=== PATIENT | female | born 1940 | race Caucasian/White ===

== ENCOUNTER 2018-05-27 11:04 | Inpatient (IN) | payer MEDICARE, BC, SELFPAY ==
[2018-05-27] VITALS (20 sets, daily range): BP systolic 68–158; BP diastolic 38–70; PULSE 63–77; RESP 15–20; TEMP 36.5–36.8; O2SAT 97–100; BMI 40.2; BMI 40.9
--- NOTE | 2018-05-27 11:30 | NURSING ---
NO LW OR POA
--- NOTE | 2018-05-27 11:32 | EKG12_ITS ---
Test Reason : GI BLEED Blood Pressure : / mmHG Vent. Rate : 072 BPM Atrial Rate : 072 BPM P-R Int : 150 ms QRS Dur : 086 ms QT Int : 388 ms P-R-T Axes : 034 -01 003 degrees QTc Int : 424 ms Normal sinus rhythm Normal ECG Confirmed by ADALI WANG, JOSHUA ([id number]), movie editor MJ ARAGON ([id number] on 05/29/2018 1:38:37 PM Referred By: HELLEN Confirmed By:JOSHUA BRO MD
--- NOTE | 2018-05-27 11:43 | NURSING ---
NO OLD EKGS
[2018-05-27] MEDS: 0.9% Normal Saline 1,000 ML 125 ML IV (11:57)
[2018-05-27 12:01] LABS: Absolute Lymphocyte Count 2.96 X10^3/ul (0.83-4.51); Absolute Neutrophil Count 12.6 X10^3/uL (2.0-7.7); Basophil# 0.03 X10^3/uL; Basophil% 0.2 % (0-1); Eosinophil# 0.09 X10^3/uL; Eosinophils% 0.5 % (0-5); Hematocrit 30.4 % (37-47); Hemoglobin 9.8 g/dl (12.0-15.0); Lymphocyte # 2.96 X10^3/ul (4.0); Lymphocyte % 17.3 % (19-41); Mean Corp Hgb Conc 32.2 g/gl (32-36); Mean Corpuscular Hgb 29.3 pg (27.0-32.0); Mean Platelet Vol. 9.9 fl (6.2-12.0); Monocyte# 1.38 X10^3/uL; Monocyte% 8.1 % (0-10); Neutrophil # 12.55 X10^3/uL (2.7-7.7); Neutrophil % 73.1 % (47-70); Platelet Count 278 K/mm3 (150-450); RBC Distribution Width CV 13.1 % (11.6-14.6); RBC Distribution Width SD 42.6 fl (35.1-43.9); Red Blood Count 3.34 M/mm3 (4.2-5.4); White Blood Count 17.1 K/mm3 (4.4-11.0)
[2018-05-27 12:02] LABS: POSITIVE COUNT NO; POSITIVE DIFFERENTIAL NO; POSITIVE MORPHOLOGY NO
[2018-05-27 12:06] LABS: Prothrombin Time (Protime)PT. 13.4 SECONDS (11.7-14.9)
[2018-05-27 12:07] LABS: Partial Thromboplast Time 27.5 Seconds (24.1-36.2)
[2018-05-27 12:17] LABS: ALB/GLOB Ratio 0.9 RATIO (0.9-2.4); AST(SGOT) 15 U/L (15-37); Alanine Aminotransfer ALT/SGPT 23 U/L (13-56); Albumin, Serum 3.3 g/dL (3.2-5.0); Alkaline Phosphatase 66 U/L (45-117); Anion Gap 11 (5-15); BUN 56 mg/dL (7-18); BUN/Creat Ratio 31.5 RATIO (10-20); Calcium,Total 8.9 mg/dL (8.5-10.1); Chloride 103 mmol/L (98-107); Creatinine, Serum 1.78 mg/dL (0.55-1.02); EST Glomerular Filtration Rate 29 mL/min (>60); Est Glom Filt Rate - Afr Amer 36 mL/min (>60); Estimated Creatinine Clearance 21.89 ml/min; Globulin 3.6 g/dL (2.2-4.2); Glucose 116 mg/dL (74-106); Lipase 244 U/L (73-393); Potassium 4.4 mmol/L (3.5-5.1); Protein, Total 6.9 g/dL (6.4-8.2); Sodium Level 138 mmol/L (136-145)
--- NOTE | 2018-05-27 12:30 | CT_ITS ---
STUDY: CT ABDOMEN AND PELVIS WITHOUT CONTRAST REASON FOR EXAM: Female, 77 years old. Lower abdominal pain. 3 day history of bloody stool. RADIATION DOSAGE (If Supplied By Facility): CTDIvol = ( 22.20 ) mGy, DLP = ( 1037.25 ) mGycm TECHNIQUE: Transaxial images were obtained from the dome of the diaphragm to the symphysis pubis without oral contrast, and without intravenous contrast. Sagittal and coronal images were reconstructed. Individualized dose optimization techniques were used for this CT. COMPARISON: None. FINDINGS: The visualized lung bases are unremarkable. Coronary artery calcification. Calcification of the mitral valve annulus. There is a 1.1 cm well-defined hypodensity in the lateral aspect of the left lobe of liver most likely representing a small cyst. Normal gallbladder and extrahepatic biliary system. Normal spleen. Normal pancreas. Normal bilateral adrenal glands. Normal right kidney. Normal left kidney. There is a moderate hiatal hernia. Normal small intestine. There are multiple colonic diverticula consistent with diverticulosis. The appendix is visualized and appears normal. There is diffuse atherosclerotic calcification of the abdominal aorta, without a demonstrated aneurysm. Normal inferior vena cava. Normal retroperitoneum. Normal urinary bladder. There is a small umbilical hernia containing fat. There are diffuse degenerative changes of the visualized lumbar spine. Dextroscoliosis. Right total hip replacement. CT/Abdomen/Pelvis without Cont IMPRESSION: Sigmoid diverticulosis. Electronically Signed: Marcus Valencia MD at 13:09 EDT Tel [phone], Service support ,
[2018-05-27 12:33] LABS: Lactic Acid 2.7 mmol/L (0.4-2.0)
--- NOTE | 2018-05-27 12:35 | ED.RN ---
LACTIC ACID RESULTED 2.7, PHYSICIAN NOTIFIED
--- NOTE | 2018-05-27 12:58 | NURSING ---
NO LW OR POA
--- NOTE | 2018-05-27 14:14 | RAD_ITS ---
STUDY: X-RAY CHEST REASON FOR EXAM: Female, 77 years old. Increased weakness. TECHNIQUE: Single AP portable view of the chest. COMPARISON: November 10, 2015 FINDINGS: There is stable elevation of the right hemidiaphragm. The lungs are well-expanded and free of acute infiltrate or mass. There is no demonstrated pleural abnormality. Normal size heart. Normal mediastinum and nora. Normal visualized pulmonary arteries. There is atherosclerotic calcification of the aortic arch with tortuosity. There is mild levoscoliosis of the thoracic spine. There is degenerative osteoarthritis of the bilateral shoulders. There is no demonstrated abnormality of the visualized soft tissue structures of the upper abdomen. RAD/Chest 1 View (Portable) IMPRESSION: No acute cardiopulmonary disease or interval change. Electronically Signed: Louis Koch DO at 14:35 EDT Tel [phone], Service support ,
[2018-05-27 14:36] LABS: Mucous, Urine 0 SEEN /hpf (<or=2+); Red Blood Cells-Urine 0 SEEN /hpf (0-5)
[2018-05-27 14:39] LABS: Color, Urine Yellow (Yellow); Glucose, Dipstick Normal (Normal); Ketone-Dipstick Negative (Negative); Leukocyte Esterase-Dipstick 25 /ul (Negative); Nitrite-Dipstick Negative (Negative); Occult Blood-Urine Negative /ul (Negative); Protein-Dipstick Negative (Negative); Specific Gravity, Urine 1.015 (1.002-1.030); Urine Bilirubin Dipstick Negative (Negative); Urine Clarity Clear (Clear); Urine Urobilinogen Normal (Normal)
[2018-05-27 14:44] LABS: Bacteria RARE /hpf (None Seen); Squamous Epithelial Cells - UA 0-5 SEEN /hpf (5-10); White Blood Cells 0-5 SEEN /hpf (0-5)
--- NOTE | 2018-05-27 15:27 | PCM.HP.STD ---
Problem List (1) GI bleed Status: Acute (2) Orthostatic Hypotension Status: Acute (3) Lactic acidosis Status: Acute (4) Anxiety and depression Status: Chronic (5) Hypertension Status: Chronic (6) Gastritis Status: Chronic (7) Dyslipidemia Status: Chronic History of Present Illness Date of Admission: 05/27/18 Chief Complaint: GI bleed for 3 days The patient is a 77 year old F with no previous history of GI bleed came to ER for GI bleed for last 3 days. Patient having total of 4 black black tarry stool, last one was more red in color today. She denies abdominal pain but felt more upper abdominal discomfort about 3 days ago when GI bleed started. She denies hematemesis or vomiting. Denies fever or chills, chest pain or shortness of breath. She felt little lightheaded on walking today. She had EGD and colonoscopy [place] [address] Ross and was told she has diverticulosis and hemorrhoids. In ED, CT abdomen and pelvis which shows sigmoid diverticulosis, normal appendix, normal small intestine with moderate hiatus hernia. Hepatobiliary system is reported grossly normal except 1.1 cm small cyst in left lobe of liver. Initial blood work in ER shows leukocytosis 17.1 thousand, lactic acid 2.7, creatinine 1.78 and BUN 56, which I think most probably from GI bleed with hypovolemia, hypoperfusion and dehydration. There is no definite focus of infection on examination and imaging test. Past Medical History Past Medical History (Chronic Problems): Chronic Problems Anxiety and depression (Chronic) Hypertension (Chronic) Gastritis (Chronic) Dyslipidemia (Chronic) Allergies No Known Allergies Allergy (Verified 11/10/15 17:23) Home Medications: Ambulatory Orders Medication Instructions Recorded Aspirin [Aspirin, Baby] 81 mg PO DAILY@0800 11/10/15 Bupropion HCl [Bupropion HCl Sr] 150 mg PO DAILY 11/10/15 Lisinopril [Zestril] 20 mg PO DAILY 11/10/15 Metoprolol Tartrate [Lopressor 50 mg PO BID 11/10/15 (Beta Arabella)] Omeprazole [Prilosec] 20 mg PO DAILY 11/10/15 Simvastatin [Zocor] 10 mg PO QHS 11/10/15 Escitalopram Oxalate [Lexapro] 10 mg PO DAILY 05/27/18 Smoking Status: Former smoker - *Family History Paternal History Items: No pertinent history Review of Systems Constitutional: Denies: Chills, Fever, Weight Change HEENT: Denies: Head Aches, Sinus Congestion, Sinus Drainage Cardiovascular: Reports: Light Headedness. Denies: Chest Pain, Palpitations Respiratory: Denies: Cough, Shortness of breath at rest, Sputum production Gastrointestinal: Reports: Hematochezia, Melena. Denies: Abdominal Pain, Nausea, Vomiting Genitourinary: Denies: Dysuria Musculoskeletal: Denies: Joint Pain, Joint Tenderness Skin: Denies: Rash, Wounds Neurological: Denies: Numbness, Tingling, Focal weakness Psychiatric: Denies: Anxiety, Depression, Homicidal Ideations, Suicidal Ideations Hematologic/ Lymphatic: Denies: Easy Bruising, Easy Bleeding VTE Information - Inpt Only VTE Present on Admission: No VTE Mechan Device Prophylaxis: SCD's Reason prophylaxis not ordered:: Medical Contraindication - Active GI bleed Patient Problems: Active and Suspected Problems GI bleed (Acute) Orthostatic Hypotension (Acute) Lactic acidosis (Acute) - Physical Exam General: Alert, Oriented x3, Cooperative HEENT: Atraumatic, PERRLA, EOMI, Normocephalic Neck: Supple, No JVD, Negative Carotid Bruits Lungs: Clear to auscultation, Normal air movement Cardiovascular: Regular rate, Normal S1, Normal S2, No murmurs Abdomen: Bowel Sounds Present, Soft, Non Tender, Non-Distended Extremities: No edema, Capillary Refill Less than 3 Seconds Skin: No rashes, No breakdown Musculoskeletal: No Tenderness to Palpation of Joints or Extremities, Arthritic Changes Neurological: Cranial nerves II-XII grossly intact Psych/Mental Status: Normal Affect, Appropriate Vital Signs Temp Pulse Resp BP Pulse Ox 97.7 F L 74 16 158/59 H 98 05/27/18 11:06 05/27/18 15:00 05/27/18 15:00 05/27/18 15:00 05/27/18 15:00 Oxygen Delivery Method Room Air Weight: 227 lb 1.218 oz Body Mass Index (BMI) 40.2 Microbiology Past 72 Hours 05/27/18 13:37 Stool Occult Blood (THANIA) - Final Stool Occult Blood Positive Laboratory Tests Past 24 Hrs 05/27/18 05/27/18 05/27/18 11:46 11:46 11:46 WBC 17.1 H RBC 3.34 L Hgb 9.8 L Hct 30.4 L MCV 91.0 MCH 29.3 MCHC 32.2 RDW 13.1 RDW Differential 42.6 Plt Count 278 MPV 9.9 Immature Gran % (Auto) 0.800 Neut % (Auto) 73.1 H Lymph % (Auto) 17.[address] % (Auto) 8.1 Eos % (Auto) 0.5 Baso % (Auto) 0.2 Absolute Neuts (auto) 12.6 H Absolute Lymphs (auto) 2.96 Total Counted Not Reportable PT INR APTT Sodium 138 Potassium 4.4 Chloride 103 Carbon Dioxide 24.0 Anion Gap 11 BUN 56 H Creatinine 1.78 H Estim Creat Clear Calc 21.89 Est GFR (MDRD) Af Amer 36 L Est GFR (MDRD) Non-Af 29 L BUN/Creatinine Ratio 31.5 H Glucose 116 H Lactic Acid 2.7 H Calcium 8.9 Total Bilirubin 0.30 AST 15 ALT 23 Alkaline Phosphatase 66 Troponin I < 0.015 Total Protein 6.9 Albumin 3.3 Globulin 3.6 Albumin/Globulin Ratio 0.9 Lipase 244 Urine Color Urine Clarity Urine pH Ur Specific [place] Urine Protein Urine Glucose (UA) Urine Ketones Urine Occult Blood Urine Nitrite Urine Bilirubin Urine Urobilinogen Ur Leukocyte Esterase Urine RBC Urine WBC Ur Squamous Epith Cells Urine Bacteria Urine Mucus Blood Type Antibody Screen 05/27/18 05/27/18 05/27/18 11:46 11:46 14:25 WBC RBC Hgb Hct MCV MCH MCHC RDW RDW Differential Plt Count MPV Immature Gran % (Auto) Neut % (Auto) Lymph % (Auto) [place] % (Auto) Eos % (Auto) Baso % (Auto) Absolute Neuts (auto) Absolute Lymphs (auto) Total Counted PT 13.4 INR 1.0 APTT 27.5 Sodium Potassium Chloride Carbon Dioxide Anion Gap BUN Creatinine Estim Creat Clear Calc Est GFR (MDRD) Af Amer Est GFR (MDRD) Non-Af BUN/Creatinine Ratio Glucose Lactic Acid Calcium Total Bilirubin AST ALT Alkaline Phosphatase Troponin I Total Protein Albumin Globulin Albumin/Globulin Ratio Lipase Urine Color Yellow Urine Clarity Clear Urine pH 6.0 Ur Specific [place] 1.015 Urine Protein Negative Urine Glucose (UA) Normal Urine Ketones Negative Urine Occult Blood Negative Urine Nitrite Negative Urine Bilirubin Negative Urine Urobilinogen Normal Ur Leukocyte Esterase 25 H Urine RBC 0 SEEN Urine WBC 0-5 SEEN Ur Squamous Epith Cells 0-5 SEEN Urine Bacteria RARE Urine Mucus 0 SEEN Blood Type O POSITIVE Antibody Screen NEGATIVE Assessment/Plan All Active Problems GI bleed (Acute) Orthostatic Hypotension (Acute) Lactic acidosis (Acute) The patient is a 77 year old F with no previous history of GI bleed came to ER for GI bleed for last 3 days. Patient having total of 4 black black tarry stool, last one was more red in color today. She denies abdominal pain but felt more upper abdominal discomfort about 3 days ago when GI bleed started. She denies hematemesis or vomiting. Denies fever or chills, chest pain or shortness of breath. She felt little lightheaded on walking today. She had EGD and colonoscopy [place] [address] Ross and was told she has diverticulosis and hemorrhoids. In ED, CT abdomen and pelvis which shows sigmoid diverticulosis, normal appendix, normal small intestine with moderate hiatus hernia. Hepatobiliary system is reported grossly normal except 1.1 cm small cyst in left lobe of liver. Initial blood work in ER shows leukocytosis 17.1 thousand, lactic acid 2.7, creatinine 1.78 and BUN 56, which I think most probably from GI bleed with hypovolemia, hypoperfusion and dehydration. There is no definite focus of infection on examination and imaging test. Denies previous abdominal surgery. PT/INR is normal. 1. Acute GI bleed most probably upper GI bleed: Patient is being admitted in ICU for intensive monitoring, I and O's and if needed blood transfusion. Patient drop blood pressure from 108/55, 72 on supine to 68/48, heart rate 54 on standing up. IV fluid normal saline at 125 mill per hour. Started on Protonix 80 mg bolus and then continuous infusion. Dr. Lyn has been consulted by ED physician. H&H every 6 hourly and if hemoglobin drops less than 8 g percent, will transfuse. Keep the patient n.p.o. except medications 2. Lactic acidosis, and orthostatic hypotension most doubly from GI bleed: IV fluid resuscitation as mentioned above. 3. Acute kidney injury, from hypovolemia/GI bleed with possible history of CKD stage III: BUN is 56, creatinine 1.78. Last BUN and creatinine were 27 and 1.43 respectively in October 2015 in our record. 4. Other comorbidities include hypertension, dyslipidemia, anxiety and depression and gastritis: Hold antihypertensive and a statin. Home medication reconciliation done. DVT prophylaxis: On bilateral SCDs. Pharmacological prophylaxis contraindicated of active GI bleed. This note was generated with [employer] dictation software. Every effort was made to ensure accuracy, however computerized bridges and buildings supervisor mistakes may persist. Microbiology Past 72 Hours 05/27/18 13:37 Stool Stool Occult Blood (THANIA) - Final Occult Blood Positive Laboratory Results 05/27/18 11:46: WBC 17.1 H, RBC 3.34 L, Hgb 9.8 L, Hct 30.4 L, MCV 91.0, MCH 29.3, MCHC 32.2, RDW 13.1, RDW Differential 42.6, Plt Count 278, MPV 9.9, Immature Gran % (Auto) 0.800, Neut % (Auto) 73.1 H, Lymph % (Auto) 17.3 L, [place] % (Auto) 8.1, Eos % (Auto) 0.5, Baso % (Auto) 0.2, Absolute Neuts (auto) 12.6 H, Absolute Lymphs (auto) 2.96, Total Counted Not Reportable 05/27/18 11:46: Sodium 138, Potassium 4.4, Chloride 103, Carbon Dioxide 24.0, Anion Gap 11, BUN 56 H, Creatinine 1.78 H, Estim Creat Clear Calc 21.89, Est GFR (MDRD) Af Amer 36 L, Est GFR (MDRD) Non-Af 29 L, BUN/Creatinine Ratio 31.5 H, Glucose 116 H, Calcium 8.9, Total Bilirubin 0.30, AST 15, ALT 23, Alkaline Phosphatase 66, Troponin I < 0.015, Total Protein 6.9, Albumin 3.3, Globulin 3.6, Albumin/Globulin Ratio 0.9, Lipase 244 05/27/18 11:46: Lactic Acid 2.7 H 05/27/18 11:46: Blood Type O POSITIVE, Antibody Screen NEGATIVE 05/27/18 11:46: PT 13.4, INR 1.0, APTT 27.5 05/27/18 14:25: Urine Color Yellow, Urine Clarity Clear, Urine pH 6.0, Ur Specific [place] 1.015, Urine Protein Negative, Urine Glucose (UA) Normal, Urine Ketones Negative, Urine Occult Blood Negative, Urine Nitrite Negative, Urine Bilirubin Negative, Urine Urobilinogen Normal, Ur Leukocyte Esterase 25 H, Urine RBC 0 SEEN, Urine WBC 0-5 SEEN, Ur Squamous Epith Cells 0-5 SEEN, Urine Bacteria RARE, Urine Mucus 0 SEEN Clinical Impression(s) from Imaging Studies Abdomen/Pelvis CT 05/27/18 12:30 IMPRESSION: Sigmoid diverticulosis. Chest X-Ray 05/27/18 14:14 IMPRESSION: No acute cardiopulmonary disease or interval change. Code Visit Inpatient E&M: 52849 Init Hosp L3
--- NOTE | 2018-05-27 15:37 | NURSING ---
ICU 1 GI BLEED, ACTIVE HILARIA
--- NOTE | 2018-05-27 15:38 | HP.PCM_ITS ---
Problem List (1) GI bleed Status: Acute (2) Orthostatic Hypotension Status: Acute (3) Lactic acidosis Status: Acute (4) Anxiety and depression Status: Chronic (5) Hypertension Status: Chronic (6) Gastritis Status: Chronic (7) Dyslipidemia Status: Chronic History of Present Illness Date of Admission: 05/27/18 Chief Complaint: GI bleed for 3 days The patient is a 77 year old F with no previous history of GI bleed came to ER for GI bleed for last 3 days. Patient having total of 4 black black tarry stool , last one was more red in color today. She denies abdominal pain but felt more upper abdominal discomfort about 3 days ago when GI bleed started. She denies hematemesis or vomiting. Denies fever or chills, chest pain or shortness of breath. She felt little lightheaded on walking today. She had EGD and colonoscopy [place] [address] Ross and was told she has diverticulosis and hemorrhoids. In ED, CT abdomen and pelvis which shows sigmoid diverticulosis, normal appendix, normal small intestine with moderate hiatus hernia. Hepatobiliary system is reported grossly normal except 1.1 cm small cyst in left lobe of liver. Initial blood work in ER shows leukocytosis 17.1 thousand, lactic acid 2.7, creatinine 1.78 and BUN 56, which I think most probably from GI bleed with hypovolemia, hypoperfusion and dehydration. There is no definite focus of infection on examination and imaging test. Past Medical History Past Medical History (Chronic Problems): Chronic Problems Anxiety and depression (Chronic) Hypertension (Chronic) Gastritis (Chronic) Dyslipidemia (Chronic) Allergies No Known Allergies Allergy (Verified 11/10/15 17:23) Home Medications: Ambulatory Orders Medication Instructions Recorded Aspirin [Aspirin, Baby] 81 mg PO DAILY@0800 11/10/15 Bupropion HCl [Bupropion HCl Sr] 150 mg PO DAILY 11/10/15 Lisinopril [Zestril] 20 mg PO DAILY 11/10/15 Metoprolol Tartrate [Lopressor 50 mg PO BID 11/10/15 (Beta Arabella)] Omeprazole [Prilosec] 20 mg PO DAILY 11/10/15 Simvastatin [Zocor] 10 mg PO QHS 11/10/15 Escitalopram Oxalate [Lexapro] 10 mg PO DAILY 05/27/18 Smoking Status: Former smoker - *Family History Paternal History Items: No pertinent history Review of Systems Constitutional: Denies: Chills, Fever, Weight Change HEENT: Denies: Head Aches, Sinus Congestion, Sinus Drainage Cardiovascular: Reports: Light Headedness. Denies: Chest Pain, Palpitations Respiratory: Denies: Cough, Shortness of breath at rest, Sputum production Gastrointestinal: Reports: Hematochezia, Melena. Denies: Abdominal Pain, Nausea , Vomiting Genitourinary: Denies: Dysuria Musculoskeletal: Denies: Joint Pain, Joint Tenderness Skin: Denies: Rash, Wounds Neurological: Denies: Numbness, Tingling, Focal weakness Psychiatric: Denies: Anxiety, Depression, Homicidal Ideations, Suicidal Ideations Hematologic/ Lymphatic: Denies: Easy Bruising, Easy Bleeding VTE Information - Inpt Only VTE Present on Admission: No VTE Mechan Device Prophylaxis: SCD's Reason prophylaxis not ordered:: Medical Contraindication - Active GI bleed Patient Problems: Active and Suspected Problems GI bleed (Acute) Orthostatic Hypotension (Acute) Lactic acidosis (Acute) - Physical Exam General: Alert, Oriented x3, Cooperative HEENT: Atraumatic, PERRLA, EOMI, Normocephalic Neck: Supple, No JVD, Negative Carotid Bruits Lungs: Clear to auscultation, Normal air movement Cardiovascular: Regular rate, Normal S1, Normal S2, No murmurs Abdomen: Bowel Sounds Present, Soft, Non Tender, Non-Distended Extremities: No edema, Capillary Refill Less than 3 Seconds Skin: No rashes, No breakdown Musculoskeletal: No Tenderness to Palpation of Joints or Extremities, Arthritic Changes Neurological: Cranial nerves II-XII grossly intact Psych/Mental Status: Normal Affect, Appropriate Vital Signs Temp Pulse Resp BP Pulse Ox 97.7 F L 74 16 158/59 H 98 05/27/18 11:06 05/27/18 15:00 05/27/18 15:00 05/27/18 15:00 05/27/18 15:00 Oxygen Delivery Method Room Air Weight: 227 lb 1.218 oz Body Mass Index (BMI) 40.2 Microbiology Past 72 Hours 05/27/18 13:37 Stool Occult Blood (THANIA) - Final Stool Occult Blood Positive Laboratory Tests Past 24 Hrs 05/27/18 05/27/18 05/27/18 11:46 11:46 11:46 WBC 17.1 H RBC 3.34 L Hgb 9.8 L Hct 30.4 L MCV 91.0 MCH 29.3 MCHC 32.2 RDW 13.1 RDW Differential 42.6 Plt Count 278 MPV 9.9 Immature Gran % (Auto) 0.800 Neut % (Auto) 73.1 H Lymph % (Auto) 17.3 L Ray % (Auto) 8.1 Eos % (Auto) 0.5 Baso % (Auto) 0.2 Absolute Neuts (auto) 12.6 H Absolute Lymphs (auto) 2.96 Total Counted Not Reportable PT INR APTT Sodium 138 Potassium 4.4 Chloride 103 Carbon Dioxide 24.0 Anion Gap 11 BUN 56 H Creatinine 1.78 H Estim Creat Clear Calc 21.89 Est GFR (MDRD) Af Amer 36 L Est GFR (MDRD) Non-Af 29 L BUN/Creatinine Ratio 31.5 H Glucose 116 H Lactic Acid 2.7 H Calcium 8.9 Total Bilirubin 0.30 AST 15 ALT 23 Alkaline Phosphatase 66 Troponin I < 0.015 Total Protein 6.9 Albumin 3.3 Globulin 3.6 Albumin/Globulin Ratio 0.9 Lipase 244 Urine Color Urine Clarity Urine pH Ur Specific [place] Urine Protein Urine Glucose (UA) Urine Ketones Urine Occult Blood Urine Nitrite Urine Bilirubin Urine Urobilinogen Ur Leukocyte Esterase Urine RBC Urine WBC Ur Squamous Epith Cells Urine Bacteria Urine Mucus Blood Type Antibody Screen 05/27/18 05/27/18 05/27/18 11:46 11:46 14:25 WBC RBC Hgb Hct MCV MCH MCHC RDW RDW Differential Plt Count MPV Immature Gran % (Auto) Neut % (Auto) Lymph % (Auto) Ray % (Auto) Eos % (Auto) Baso % (Auto) Absolute Neuts (auto) Absolute Lymphs (auto) Total Counted PT 13.4 INR 1.0 APTT 27.5 Sodium Potassium Chloride Carbon Dioxide Anion Gap BUN Creatinine Estim Creat Clear Calc Est GFR (MDRD) Af Amer Est GFR (MDRD) Non-Af BUN/Creatinine Ratio Glucose Lactic Acid Calcium Total Bilirubin AST ALT Alkaline Phosphatase Troponin I Total Protein Albumin Globulin Albumin/Globulin Ratio Lipase Urine Color Yellow Urine Clarity Clear Urine pH 6.0 Ur Specific [place] 1.015 Urine Protein Negative Urine Glucose (UA) Normal Urine Ketones Negative Urine Occult Blood Negative Urine Nitrite Negative Urine Bilirubin Negative Urine Urobilinogen Normal Ur Leukocyte Esterase 25 H Urine RBC 0 SEEN Urine WBC 0-5 SEEN Ur Squamous Epith Cells 0-5 SEEN Urine Bacteria RARE Urine Mucus 0 SEEN Blood Type O POSITIVE Antibody Screen NEGATIVE Assessment/Plan All Active Problems GI bleed (Acute) Orthostatic Hypotension (Acute) Lactic acidosis (Acute) The patient is a 77 year old F with no previous history of GI bleed came to ER for GI bleed for last 3 days. Patient having total of 4 black black tarry stool , last one was more red in color today. She denies abdominal pain but felt more upper abdominal discomfort about 3 days ago when GI bleed started. She denies hematemesis or vomiting. Denies fever or chills, chest pain or shortness of breath. She felt little lightheaded on walking today. She had EGD and colonoscopy [place] [address] Ross and was told she has diverticulosis and hemorrhoids. In ED, CT abdomen and pelvis which shows sigmoid diverticulosis, normal appendix, normal small intestine with moderate hiatus hernia. Hepatobiliary system is reported grossly normal except 1.1 cm small cyst in left lobe of liver. Initial blood work in ER shows leukocytosis 17.1 thousand, lactic acid 2.7, creatinine 1.78 and BUN 56, which I think most probably from GI bleed with hypovolemia, hypoperfusion and dehydration. There is no definite focus of infection on examination and imaging test. Denies previous abdominal surgery. PT/INR is normal. 1. Acute GI bleed most probably upper GI bleed: Patient is being admitted in ICU for intensive monitoring, I and O's and if needed blood transfusion. Patient drop blood pressure from 108/55, 72 on supine to 68/48, heart rate 54 on standing up. IV fluid normal saline at 125 mill per hour. Started on Protonix 80 mg bolus and then continuous infusion. Dr. Lyn has been consulted by ED physician. H&H every 6 hourly and if hemoglobin drops less than 8 g percent, will transfuse. Keep the patient n.p.o. except medications 2. Lactic acidosis, and orthostatic hypotension most doubly from GI bleed: IV fluid resuscitation as mentioned above. 3. Acute kidney injury, from hypovolemia/GI bleed with possible history of CKD stage III: BUN is 56, creatinine 1.78. Last BUN and creatinine were 27 and 1.43 respectively in October 2015 in our record. 4. Other comorbidities include hypertension, dyslipidemia, anxiety and depression and gastritis: Hold antihypertensive and a statin. Home medication reconciliation done. DVT prophylaxis: On bilateral SCDs. Pharmacological prophylaxis contraindicated of active GI bleed. This note was generated with [employer] dictation software. Every effort was made to ensure accuracy, however computerized graduate assistant mistakes may persist. Microbiology Past 72 Hours 05/27/18 13:37 Stool Stool Occult Blood (THANIA) - Final Occult Blood Positive Laboratory Results 05/27/18 11:46: WBC 17.1 H, RBC 3.34 L, Hgb 9.8 L, Hct 30.4 L, MCV 91.0, MCH 29.3, MCHC 32.2, RDW 13.1, RDW Differential 42.6, Plt Count 278, MPV 9.9, Immature Gran % (Auto) 0.800, Neut % (Auto) 73.1 H, Lymph % (Auto) 17.3 L, Ray % (Auto) 8.1, Eos % (Auto) 0.5, Baso % (Auto) 0.2, Absolute Neuts (auto) 12.6 H , Absolute Lymphs (auto) 2.96, Total Counted Not Reportable 05/27/18 11:46: Sodium 138, Potassium 4.4, Chloride 103, Carbon Dioxide 24.0, Anion Gap 11, BUN 56 H, Creatinine 1.78 H, Estim Creat Clear Calc 21.89, Est GFR (MDRD) Af Amer 36 L, Est GFR (MDRD) Non-Af 29 L, BUN/Creatinine Ratio 31.5 H , Glucose 116 H, Calcium 8.9, Total Bilirubin 0.30, AST 15, ALT 23, Alkaline Phosphatase 66, Troponin I < 0.015, Total Protein 6.9, Albumin 3.3, Globulin 3.6 , Albumin/Globulin Ratio 0.9, Lipase 244 05/27/18 11:46: Lactic Acid 2.7 H 05/27/18 11:46: Blood Type O POSITIVE, Antibody Screen NEGATIVE 05/27/18 11:46: PT 13.4, INR 1.0, APTT 27.5 05/27/18 14:25: Urine Color Yellow, Urine Clarity Clear, Urine pH 6.0, Ur Specific [place] 1.015, Urine Protein Negative, Urine Glucose (UA) Normal, Urine Ketones Negative, Urine Occult Blood Negative, Urine Nitrite Negative, Urine Bilirubin Negative, Urine Urobilinogen Normal, Ur Leukocyte Esterase 25 H , Urine RBC 0 SEEN, Urine WBC 0-5 SEEN, Ur Squamous Epith Cells 0-5 SEEN, Urine Bacteria RARE, Urine Mucus 0 SEEN Clinical Impression(s) from Imaging Studies Abdomen/Pelvis CT 05/27/18 12:30 IMPRESSION: Sigmoid diverticulosis. Chest X-Ray 05/27/18 14:14 IMPRESSION: No acute cardiopulmonary disease or interval change. Code Visit Inpatient E&M: 97916 Init Hosp L3
[2018-05-27 15:53] LABS: Hematocrit 26.8 % (37-47); Hemoglobin 8.8 g/dl (12.0-15.0)
[2018-05-27 15:53] LABS: Reflex Lactate? Y
--- NOTE | 2018-05-27 16:19 | ED.VISSUMM ---
- ER Visit Summary Date of Service: 05/27/18 Chief Complaint: Blood in stool History of Present Illness: The patient is a 77 F who states that for the past several days she has had black stools. She states it has been diarrhea one point she noticed some red blood in the water. She denies any significant abdominal pain or nausea. No history of liver disease. She states that just prior to examination she had formed stool. She went to her doctor's office this morning was noted that she was very sweaty and lightheaded. They did orthostatics and they were positive. She has a history of GERD hypertension hypercholesterolemia. Physical Examination: Afebrile vital signs are stable noted blood pressure 101/55. 1 Gen: Well-nourished well-developed Head: Normocephalic atraumatic Eyes: Perrl EOMI ENT: TMs clear no rhinorrhea moist mucous membranes Neck: Supple no lymphadenopathy no JVD nontender CVS: Regular rate rhythm no murmurs normal S1-S2 Respiratory: No distress clear to auscultation bilaterally chest nontender Abdomen: Soft nontender nondistended normal bowel sounds no masses Rectal: Black liquid that is heme positive Back: Nontender Extremity: Nontender no edema Skin: Normal color no rash Neuro: alert orientated ?3 CN II-XII intact normal strength sensation reflexes gait cerebellar Psych: Normal affect normal mood Test Results: White count 17.1 with a hemoglobin of 9.8. BUN 56 creatinine 1.78. INR 1 PTT 27.5. Troponin negative. Lactic acid 2.7. EKG sinus at a rate of 72. Chest x-ray negative for acute. Urinalysis negative for acute. CT the abdomen pelvis given her leukocytosis showed sigmoid diverticulosis but no obvious colitis or inflammatory changes. Emergency Department Course and Treatment: Received IV fluids. She was typed and screened. She was started on Protonix. Patient is orthostatic positive. I spoke with Dr. Villatoro and with Dr. Samuels and the plan will be admission. Impression: 1. Upper GI bleed 2. Orthostatic hypotension 3. Anemia 4. Elevated lactate This note was generated with [employer] dictation software. It may contain incorrect words, spelling, and punctuation that were not noted in review of the chart prior to signing ED Disposition - Plan for ED Patient: Dis[facility] Chief Complaint: GI Bleed
--- NOTE | 2018-05-27 16:22 | ED.DCSUM_ITS ---
- ER Visit Summary Date of Service: 05/27/18 Chief Complaint: Blood in stool History of Present Illness: The patient is a 77 F who states that for the past several days she has had black stools. She states it has been diarrhea one point she noticed some red blood in the water. She denies any significant abdominal pain or nausea. No history of liver disease. She states that just prior to examination she had formed stool. She went to her doctor's office this morning was noted that she was very sweaty and lightheaded. They did orthostatics and they were positive. She has a history of GERD hypertension hypercholesterolemia. Physical Examination: Afebrile vital signs are stable noted blood pressure 101/ 55. 1 Gen: Well-nourished well-developed Head: Normocephalic atraumatic Eyes: Perrl EOMI ENT: TMs clear no rhinorrhea moist mucous membranes Neck: Supple no lymphadenopathy no JVD nontender CVS: Regular rate rhythm no murmurs normal S1-S2 Respiratory: No distress clear to auscultation bilaterally chest nontender Abdomen: Soft nontender nondistended normal bowel sounds no masses Rectal: Black liquid that is heme positive Back: Nontender Extremity: Nontender no edema Skin: Normal color no rash Neuro: alert orientated ?3 CN II-XII intact normal strength sensation reflexes gait cerebellar Psych: Normal affect normal mood Test Results: White count 17.1 with a hemoglobin of 9.8. BUN 56 creatinine 1.78. INR 1 PTT 27.5. Troponin negative. Lactic acid 2.7. EKG sinus at a rate of 72. Chest x-ray negative for acute. Urinalysis negative for acute. CT the abdomen pelvis given her leukocytosis showed sigmoid diverticulosis but no obvious colitis or inflammatory changes. Emergency Department Course and Treatment: Received IV fluids. She was typed and screened. She was started on Protonix. Patient is orthostatic positive. I spoke with Dr. Villatoro and with Dr. Samuels and the plan will be admission. Impression: 1. Upper GI bleed 2. Orthostatic hypotension 3. Anemia 4. Elevated lactate This note was generated with [employer] dictation software. It may contain incorrect words, spelling, and punctuation that were not noted in review of the chart prior to signing ED Disposition - Plan for ED Patient: Disposition: Acute Care [facility] Chief Complaint: GI Bleed
--- NOTE | 2018-05-27 16:31 | CM.ED ---
CM INITIAL ASSESSMENT: Patient interviewed in the ED. Home: Patient states she lives in a one story home, with her son. She has two steps, with railing, into the home. She denies problems with this. HHS/Aides: Denies. 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 Patient had [facility] after hip replacement two years ago. DME: Denies use. Patient does have a walker and cane available. Home Oxygen: Denies. Pharmacy: [facility] [place] Advance Directives: Yes, patient states she does have advance directives. She felt these were on file. These are not found in the e-chart, however. Patient states her son, Brandyn Shelley, is medical POA : [phone]. PCP: Mandy Garcia Specialists: Dr. Bonilla (hip replacement and knee arthritis) and Dr. Swain (breast biopsies) DC Plan: Plans to return home upon discharge, with son. CM will continue to follow for safe and effective discharge planning.
[2018-05-27 17:34] LABS: Magnesium 1.9 mg/dL (1.6-2.6)
[2018-05-27 18:00] LABS: Lactic Acid 2.5 mmol/L (0.4-2.0)
[2018-05-27] MEDS: 0.9% Normal Saline 1,000 ML 150 ML IV (18:31)
--- NOTE | 2018-05-27 18:31 | PCM.CONS.GEN ---
Reason for Consult Date of Consultation: 05/27/18 History of Present Illness: The patient is a 77 year old F presents with a three-day history of tarry/bloody stools with complaint of fever, chills, weight loss, fatigue and dizziness. The patient presented to [facility] urgent care with the above complaints. The office note recorded: This is a 77 year old that is here today for Above Complaints. Three days ago noticed dark stools. Had diarrhea the other day and notice blood around stool. Denies hx of rectal bleeding, fever, chills, weight loss, dyspnea, wheezing, chest pain, abdominal pain, nausea, vomiting,rectal itching, rectal burring, hx of hemorrhoids. Positive for fatigue sweating, SOB with exertion, lightheadedness, and intermittent, and lower abdominal cramping, and hx of IBS. Last BM yesterday, pudding like consistency, with blood surrounding stools. Colonoscopy in 2011, see findings below. the Patient was found to be orthostatic and referred to the emergency department. With the above complaints including history of fever and chills. Laboratory studies and imaging was obtained. Laboratory studies demonstrated hemoglobin of 9.9, a white blood cell count of 17,000, appropriate platelet count, elevated lactic acid level of 2.5, significantly elevated BUN and creatinine of 56 and1.78. The patient had previous laboratory studies including the clinic system on March 03, 2018 which demonstrated a BUN of 23 and a creatinine of 1.1. due to her leukocytosis. CT scan of the abdomen and pelvis was obtained. This demonstrated diverticulosis without other specific abnormalities. The patient is a past medical history of obesity, borderline diabetes, hypercholesterolemia, reflux esophagitis, diverticulosis, depression, stage III chronic renal disease and arthritis. Previous surgical history includes hip replacement, stereotactic breast biopsy, tubal ligation, and multiple skin lesion removals. The patient underwent upper and lower endoscopy on October 20, [address] Min Rossfor diagnoses of reflux symptoms and screening. Upper endoscopy demonstrated erythematous gastric mucosa, a small hiatal hernia and distal esophageal erythema. Colonoscopy demonstrated diverticulosis without other specific abnormalities. the patient then prescriptions for multiple issues including prescriptions listed for Ultram, Neurontin, Lexapro, Lopressor, Ventolin, Proventil, doxycycline, Zocor, Prilosec 20 mg per day, 81 mg aspirin and lisinopril the patient was admitted to the ICU for hydration and monitoring. She is currently type and screened. Her hemoglobin decreased to 8.8 on recheck in the ICU. Past Medical History Past Medical History (Chronic Problems): Chronic Problems Anxiety and depression (Chronic) Hypertension (Chronic) Gastritis (Chronic) Dyslipidemia (Chronic) Allergies No Known Allergies Allergy (Verified 11/10/15 17:23) Home Medications: Ambulatory Orders Medication Instructions Recorded Aspirin [Aspirin, Baby] 81 mg PO DAILY@0800 11/10/15 Bupropion HCl [Bupropion HCl Sr] 150 mg PO DAILY 11/10/15 Lisinopril [Zestril] 20 mg PO DAILY 11/10/15 Metoprolol Tartrate [Lopressor 50 mg PO BID 11/10/15 (Beta Arabella)] Omeprazole [Prilosec] 20 mg PO DAILY 11/10/15 Simvastatin [Zocor] 10 mg PO QHS 11/10/15 Escitalopram Oxalate [Lexapro] 10 mg PO DAILY 05/27/18 Smoking Status: Former smoker Tobacco Use: Cigarettes - *Family History Paternal History Items: No pertinent history Patient Problems: Active and Suspected Problems GI bleed (Acute) Orthostatic Hypotension (Acute) Lactic acidosis (Acute) - Physical Exam Vital Signs Temp Pulse Resp BP Pulse Ox 98.0 F 72 16 104/57 L 98 05/27/18 16:04 05/27/18 18:00 05/27/18 18:00 05/27/18 18:00 05/27/18 18:00 Oxygen Delivery Method Room Air Weight: 104.9 kg Body Mass Index (BMI) 40.9 Laboratory Tests Past 24 Hrs 05/27/18 05/27/18 05/27/18 15:41 16:15 16:45 Hgb 8.8 L Hct 26.8 L Lactic Acid 2.5 H Magnesium MRSA (PCR) Pending 05/27/18 16:45 Hgb Hct Lactic Acid Magnesium 1.9 MRSA (PCR) Assessment/Plan All Active Problems GI bleed (Acute) Orthostatic Hypotension (Acute) Lactic acidosis (Acute) GI bleed, anemia, NSAID use?, Previous relatively unremarkable upper and lower endoscopy, fever, leukocytosis Discussed with the admitting physician, Dr. Samuels planned events. Poorly the patient is being hydrated and monitored with serial hemoglobins. If her hemoglobin drops below 8. The patient will be transfused. She is also being resuscitated, given her acute on chronic renal insufficiency and elevated lactic acid level. She will also be monitored, given her leukocytosis and fever, but CT of the abdomen demonstrated no specific abnormalities. If the patient's lower drops precipitously or she has vomiting of blood, we'll proceed with urgent upper endoscopy. Otherwise, would like the patient to be resuscitated and transfused if necessary obtain hemoglobin rate. Once this is been completed that, I would plan for bowel prep with semiurgent upper and lower endoscopy.
--- NOTE | 2018-05-27 18:41 | CON.PCM_ITS ---
Reason for Consult Date of Consultation: 05/27/18 History of Present Illness: The patient is a 77 year old F presents with a three-day history of tarry/ bloody stools with complaint of fever, chills, weight loss, fatigue and dizziness. The patient presented to [facility] urgent care with the above complaints. The office note recorded: This is a 77 year old that is here today for Above Complaints. Three days ago noticed dark stools. Had diarrhea the other day and notice blood around stool. Denies hx of rectal bleeding, fever, chills, weight loss, dyspnea, wheezing, chest pain, abdominal pain, nausea, vomiting,rectal itching, rectal burring, hx of hemorrhoids. Positive for fatigue sweating, SOB with exertion, lightheadedness, and intermittent, and lower abdominal cramping, and hx of IBS. Last BM yesterday, pudding like consistency, with blood surrounding stools. Colonoscopy in 2011, see findings below. the Patient was found to be orthostatic and referred to the emergency department. With the above complaints including history of fever and chills. Laboratory studies and imaging was obtained. Laboratory studies demonstrated hemoglobin of 9.9, a white blood cell count of 17,000, appropriate platelet count, elevated lactic acid level of 2.5, significantly elevated BUN and creatinine of 56 and1.78. The patient had previous laboratory studies including the clinic system on March 03, 2018 which demonstrated a BUN of 23 and a creatinine of 1.1. due to her leukocytosis. CT scan of the abdomen and pelvis was obtained. This demonstrated diverticulosis without other specific abnormalities. The patient is a past medical history of obesity, borderline diabetes, hypercholesterolemia, reflux esophagitis, diverticulosis, depression, stage III chronic renal disease and arthritis. Previous surgical history includes hip replacement, stereotactic breast biopsy, tubal ligation, and multiple skin lesion removals. The patient underwent upper and lower endoscopy on October by Dr. Min Rossfor diagnoses of reflux symptoms and screening. Upper endoscopy demonstrated erythematous gastric mucosa, a small hiatal hernia and distal esophageal erythema. Colonoscopy demonstrated diverticulosis without other specific abnormalities. the patient then prescriptions for multiple issues including prescriptions listed for Ultram, Neurontin, Lexapro, Lopressor, Ventolin, Proventil, doxycycline, Zocor, Prilosec 20 mg per day, 81 mg aspirin and lisinopril the patient was admitted to the ICU for hydration and monitoring. She is currently type and screened. Her hemoglobin decreased to 8.8 on recheck in the ICU. Past Medical History Past Medical History (Chronic Problems): Chronic Problems Anxiety and depression (Chronic) Hypertension (Chronic) Gastritis (Chronic) Dyslipidemia (Chronic) Allergies No Known Allergies Allergy (Verified 11/10/15 17:23) Home Medications: Ambulatory Orders Medication Instructions Recorded Aspirin [Aspirin, Baby] 81 mg PO DAILY@0800 11/10/15 Bupropion HCl [Bupropion HCl Sr] 150 mg PO DAILY 11/10/15 Lisinopril [Zestril] 20 mg PO DAILY 11/10/15 Metoprolol Tartrate [Lopressor 50 mg PO BID 11/10/15 (Beta Arabella)] Omeprazole [Prilosec] 20 mg PO DAILY 11/10/15 Simvastatin [Zocor] 10 mg PO QHS 11/10/15 Escitalopram Oxalate [Lexapro] 10 mg PO DAILY 05/27/18 Smoking Status: Former smoker Tobacco Use: Cigarettes - *Family History Paternal History Items: No pertinent history Patient Problems: Active and Suspected Problems GI bleed (Acute) Orthostatic Hypotension (Acute) Lactic acidosis (Acute) - Physical Exam Vital Signs Temp Pulse Resp BP Pulse Ox 98.0 F 72 16 104/57 L 98 05/27/18 16:04 05/27/18 18:00 05/27/18 18:00 05/27/18 18:00 05/27/18 18:00 Oxygen Delivery Method Room Air Weight: 104.9 kg Body Mass Index (BMI) 40.9 Laboratory Tests Past 24 Hrs 05/27/18 05/27/18 05/27/18 15:41 16:15 16:45 Hgb 8.8 L Hct 26.8 L Lactic Acid 2.5 H Magnesium MRSA (PCR) Pending 05/27/18 16:45 Hgb Hct Lactic Acid Magnesium 1.9 MRSA (PCR) Assessment/Plan All Active Problems GI bleed (Acute) Orthostatic Hypotension (Acute) Lactic acidosis (Acute) GI bleed, anemia, NSAID use?, Previous relatively unremarkable upper and lower endoscopy, fever, leukocytosis Discussed with the admitting physician, Dr. Samuels planned events. Poorly the patient is being hydrated and monitored with serial hemoglobins. If her hemoglobin drops below 8. The patient will be transfused. She is also being resuscitated, given her acute on chronic renal insufficiency and elevated lactic acid level. She will also be monitored, given her leukocytosis and fever , but CT of the abdomen demonstrated no specific abnormalities. If the patient' s lower drops precipitously or she has vomiting of blood, we'll proceed with urgent upper endoscopy. Otherwise, would like the patient to be resuscitated and transfused if necessary obtain hemoglobin rate. Once this is been completed that, I would plan for bowel prep with semiurgent upper and lower endoscopy.
[2018-05-27 19:57] LABS: M R Staph aureus DNA By PCR Negative (Negative); Probe Check PASS; Specimen Processing Control PASS
[2018-05-27] MEDS: Metoprolol Tartrate 25 MG Tablet PO (21:52)
[2018-05-27 22:07] LABS: Hematocrit 24.7 % (37-47); Hemoglobin 8.1 g/dl (12.0-15.0)
[2018-05-28] VITALS (28 sets, daily range): BP systolic 75–150; BP diastolic 38–75; PULSE 73–97; RESP 14–21; TEMP 36.5–37.5; O2SAT 94–100
[2018-05-28] MEDS: 0.9% Normal Saline 1,000 ML 150 ML IV ×4 (00:37→18:45)
[2018-05-28 04:15] LABS: Hematocrit 24.5 % (37-47); Hemoglobin 8.1 g/dl (12.0-15.0); Mean Corp Hgb Conc 33.1 g/gl (32-36); Mean Corpuscular Hgb 30.1 pg (27.0-32.0); Mean Corpuscular Volume 91.1 fL (81-99); Mean Platelet Vol. 10.3 fl (6.2-12.0); Platelet Count 232 K/mm3 (150-450); RBC Distribution Width CV 12.9 % (11.6-14.6); RBC Distribution Width SD 41.8 fl (35.1-43.9); Red Blood Count 2.69 M/mm3 (4.2-5.4); White Blood Count 13.9 K/mm3 (4.4-11.0)
[2018-05-28 04:24] LABS: Scan Indicated on CBC? Y/N NO
[2018-05-28 04:38] LABS: Anion Gap 10 (5-15); BUN 45 mg/dL (7-18); BUN/Creat Ratio 39.5 RATIO (10-20); Calcium,Total 8.5 mg/dL (8.5-10.1); Chloride 111 mmol/L (98-107); Creatinine, Serum 1.14 mg/dL (0.55-1.02); EST Glomerular Filtration Rate 49 mL/min (>60); Est Glom Filt Rate - Afr Amer 59 mL/min (>60); Estimated Creatinine Clearance 34.19 ml/min; Glucose 99 mg/dL (74-106); Potassium 4.4 mmol/L (3.5-5.1); Sodium Level 144 mmol/L (136-145)
--- NOTE | 2018-05-28 11:52 | PCM.PN.HOSP ---
Patient Problems: Active and Suspected Problems GI bleed (Acute) Orthostatic Hypotension (Acute) Lactic acidosis (Acute) Subjective: No further BRBPR, melena. Vitals/I&O's: Vital Signs Temp Pulse Resp BP Pulse Ox 37.5 C H 82 19 H 106/52 L 97 05/28/18 04:00 05/28/18 11:19 05/28/18 11:00 05/28/18 11:00 05/28/18 11:00 Oxygen Delivery Method Room Air Weight: 105.9 kg Body Mass Index (BMI) 40.9 Orthostatic Vital Signs Start: 05/28/18 09:53 Freq: q24h Status: Active Protocol: Activity Type Activity Date Activity User E-Sign Co-Sign Detail Recorded Client Recorded Date Recorded By Document 05/28/18 09:53 LW [id number] 05/28/18 09:59 LW 05/28/18 09:53 Orthostatic Vitals Standing -Blood Pressure (90/60-120/80) 105/58 L -Extremity Use Left Arm -Pulse Rate (60-100) 97 Sitting -Blood Pressure (90/60-120/80) 75/47 L -Extremity Use Left Arm -Pulse Rate (60-100) 92 Lying -Blood Pressure (90/60-120/80) 101/52 L -Extremity Use Left Arm -Pulse Rate (60-100) 82 Intake and Output for Last 24 Hours 05/26/18 05/27/18 05/28/18 23:59 23:59 23:59 Intake Total 1192.6 / 1192.6 914.5 / 914.5 Balance 1192.6 / 1192.6 914.5 / 914.5 General: Alert, No apparent distress HEENT: Atraumatic, Normocephalic Oral: Moist Mucosa, No Gingival or Mucosal Lesions/ Ulcerations Neck: No Nodes, Thyroid Normal Size and Texture Lungs: Clear to auscultation, Normal air movement, No rhonchi, No wheeze Cardiovascular: Regular rate, Regular Rhythm, Normal S1, Normal S2, No murmurs Abdomen: Bowel Sounds Present, Soft, Non Tender, Non-Distended, No Hepato-splenomegaly Extremities: No edema, No Calf Tenderness Skin: No rashes, No breakdown Musculoskeletal: No Tenderness to Palpation of Joints or Extremities, No Muscle Wasting Psych/Mental Status: Normal Affect, Appropriate Laboratory Results 05/27/18 15:41: Hgb 8.8 L, Hct 26.8 L 05/27/18 16:15: MRSA (PCR) Negative 05/27/18 16:45: Lactic Acid 2.5 H 05/27/18 16:45: Magnesium 1.9 05/27/18 21:45: Hgb 8.1 L, Hct 24.7 L 05/27/18 21:45: Lactic Acid 1.0 05/28/18 04:00: WBC 13.9 H, RBC 2.69 L, Hgb 8.1 L, Hct 24.5 L, MCV 91.1, MCH 30.1, MCHC 33.1, RDW 12.9, RDW Differential 41.8, Plt Count 232, MPV 10.3 05/28/18 04:00: Sodium 144, Potassium 4.4, Chloride 111 H, Carbon Dioxide 23.0, Anion Gap 10, BUN 45 H, Creatinine 1.14 H, Estim Creat Clear Calc 34.19, Est GFR (MDRD) Af Amer 59 L, Est GFR (MDRD) Non-Af 49 L, BUN/Creatinine Ratio 39.5 H, Glucose 99, Calcium 8.5 Current Medications Pantoprazole Sodium 80 mg/ (Sodium Chloride) 100 mls @ 10 mls/hr CONT INF Q10H [facility] Last Admin: 05/28/18 09:59 Dose: 10 mls/hr Sodium Chloride () 1,000 mls @ 150 mls/hr IV .Q6H40M [facility] Last Admin: 05/28/18 06:55 Dose: 150 mls/hr Magnesium Hydroxide (Milk Of Magnesia) 30 ml PO DAILY PRN PRN PRN Reason: Constipation Metoprolol Tartrate (Lopressor (Beta Arabella)) 25 mg PO BID [facility] Last Admin: 05/28/18 10:01 Dose: Not Given Sodium Chloride () 5 - 30 ml IV UD PRN PRN Reason: SALINE FLUSH Sodium Chloride/Electrolytes (Nulytely) 4,000 ml PO X1 ONE Stop: 05/28/18 15:01 Medical Necessity - Tobacco Use Smoking Status: Former smoker Tobacco Use: Cigarettes Assessment/Plan All Active Problems GI bleed (Acute) Orthostatic Hypotension (Acute) Lactic acidosis (Acute) 1. GI bleed unclear source: PUD v diverticulosis v hemorrhoidal appears to have resolved at this time endoscopy on 05/29 2. Acute blood loss anemia appears to have stabilized no need for transfusion at this time. monitor 3. Lactic acidosis resolved probably 2/2 bleeding and hypovolemia 4. NICKOLAS resolved 2/2 bleeding and hypovolemia 5. DVT proph: SCDs chemical prophylaxis contraindicated d/t bleeding. TF to PCU. Code Visit Inpatient E&M: 59021 Subs Hosp L2
--- NOTE | 2018-05-28 11:57 | PN_ITS ---
Patient Problems: Active and Suspected Problems GI bleed (Acute) Orthostatic Hypotension (Acute) Lactic acidosis (Acute) Subjective: No further BRBPR, melena. Vitals/I&O's: Vital Signs Temp Pulse Resp BP Pulse Ox 37.5 C H 82 19 H 106/52 L 97 05/28/18 04:00 05/28/18 11:19 05/28/18 11:00 05/28/18 11:00 05/28/18 11:00 Oxygen Delivery Method Room Air Weight: 105.9 kg Body Mass Index (BMI) 40.9 Orthostatic Vital Signs Start: 05/28/18 09:53 Freq: q24h Status: Active Protocol: Activity Type Activity Date Activity User E-Sign Co-Sign Detail Recorded Client Recorded Date Recorded By Document 05/28/18 09:53 LW [id number] 05/28/18 09:59 LW 05/28/18 09:53 Orthostatic Vitals Standing -Blood Pressure (90/60-120/80) 105/58 L -Extremity Use Left Arm -Pulse Rate (60-100) 97 Sitting -Blood Pressure (90/60-120/80) 75/47 L -Extremity Use Left Arm -Pulse Rate (60-100) 92 Lying -Blood Pressure (90/60-120/80) 101/52 L -Extremity Use Left Arm -Pulse Rate (60-100) 82 Intake and Output for Last 24 Hours 05/26/18 05/27/18 05/28/18 23:59 23:59 23:59 Intake Total 1192.6 / 1192.6 914.5 / 914.5 Balance 1192.6 / 1192.6 914.5 / 914.5 General: Alert, No apparent distress HEENT: Atraumatic, Normocephalic Oral: Moist Mucosa, No Gingival or Mucosal Lesions/ Ulcerations Neck: No Nodes, Thyroid Normal Size and Texture Lungs: Clear to auscultation, Normal air movement, No rhonchi, No wheeze Cardiovascular: Regular rate, Regular Rhythm, Normal S1, Normal S2, No murmurs Abdomen: Bowel Sounds Present, Soft, Non Tender, Non-Distended, No Hepato- splenomegaly Extremities: No edema, No Calf Tenderness Skin: No rashes, No breakdown Musculoskeletal: No Tenderness to Palpation of Joints or Extremities, No Muscle Wasting Psych/Mental Status: Normal Affect, Appropriate Laboratory Results 05/27/18 15:41: Hgb 8.8 L, Hct 26.8 L 05/27/18 16:15: MRSA (PCR) Negative 05/27/18 16:45: Lactic Acid 2.5 H 05/27/18 16:45: Magnesium 1.9 05/27/18 21:45: Hgb 8.1 L, Hct 24.7 L 05/27/18 21:45: Lactic Acid 1.0 05/28/18 04:00: WBC 13.9 H, RBC 2.69 L, Hgb 8.1 L, Hct 24.5 L, MCV 91.1, MCH 30.1, MCHC 33.1, RDW 12.9, RDW Differential 41.8, Plt Count 232, MPV 10.3 05/28/18 04:00: Sodium 144, Potassium 4.4, Chloride 111 H, Carbon Dioxide 23.0, Anion Gap 10, BUN 45 H, Creatinine 1.14 H, Estim Creat Clear Calc 34.19, Est GFR (MDRD) Af Amer 59 L, Est GFR (MDRD) Non-Af 49 L, BUN/Creatinine Ratio 39.5 H , Glucose 99, Calcium 8.5 Current Medications Pantoprazole Sodium 80 mg/ (Sodium Chloride) 100 mls @ 10 mls/hr CONT INF Q10H [facility] Last Admin: 05/28/18 09:59 Dose: 10 mls/hr Sodium Chloride () 1,000 mls @ 150 mls/hr IV .Q6H40M [facility] Last Admin: 05/28/18 06:55 Dose: 150 mls/hr Magnesium Hydroxide (Milk Of Magnesia) 30 ml PO DAILY PRN PRN PRN Reason: Constipation Metoprolol Tartrate (Lopressor (Beta Arabella)) 25 mg PO BID [facility] Last Admin: 05/28/18 10:01 Dose: Not Given Sodium Chloride () 5 - 30 ml IV UD PRN PRN Reason: SALINE FLUSH Sodium Chloride/Electrolytes (Nulytely) 4,000 ml PO X1 ONE Stop: 05/28/18 15:01 Medical Necessity - Tobacco Use Smoking Status: Former smoker Tobacco Use: Cigarettes Assessment/Plan All Active Problems GI bleed (Acute) Orthostatic Hypotension (Acute) Lactic acidosis (Acute) 1. GI bleed * unclear source: PUD v diverticulosis v hemorrhoidal * appears to have resolved at this time * endoscopy on 05/29 2. Acute blood loss anemia * appears to have stabilized * no need for transfusion at this time. * monitor 3. Lactic acidosis * resolved * probably 2/2 bleeding and hypovolemia 4. NICKOLAS * resolved * 2/2 bleeding and hypovolemia 5. DVT proph: * SCDs * chemical prophylaxis contraindicated d/t bleeding. TF to PCU. Code Visit Inpatient E&M: 11958 Subs Hosp L2
--- NOTE | 2018-05-28 13:15 | NURSING ---
report called to [facility] for transfer to room 103, transferred per chair with belongings
[2018-05-28 14:18] LABS: Absolute Neutrophil Count 7.5 X10^3/uL (2.0-7.7); Basophil# 0.02 X10^3/uL; Basophil% 0.2 % (0-1); Eosinophil# 0.09 X10^3/uL; Eosinophils% 0.8 % (0-5); Hematocrit 23.3 % (37-47); Hemoglobin 7.5 g/dl (12.0-15.0); Mean Corp Hgb Conc 32.2 g/gl (32-36); Mean Corpuscular Hgb 29.8 pg (27.0-32.0); Mean Corpuscular Volume 92.5 fL (81-99); Monocyte% 8.4 % (0-10); Neutrophil % 63.1 % (47-70); Platelet Count 246 K/mm3 (150-450); RBC Distribution Width CV 13.3 % (11.6-14.6); RBC Distribution Width SD 42.9 fl (35.1-43.9); Red Blood Count 2.52 M/mm3 (4.2-5.4); White Blood Count 11.9 K/mm3 (4.4-11.0)
[2018-05-28 14:29] LABS: POSITIVE COUNT NO; POSITIVE DIFFERENTIAL NO; POSITIVE MORPHOLOGY NO
[2018-05-28] MEDS: Electrolyte Solution/Peg's 4000 ML PO (15:04)
--- NOTE | 2018-05-28 18:38 | PCM.PN.SRG ---
Patient Problems: Active and Suspected Problems GI bleed (Acute) Orthostatic Hypotension (Acute) Lactic acidosis (Acute) Subjective: no longer feeling dizzy, no further bowel movements - Physical Exam General: Alert, Oriented x3 Lungs: Clear to auscultation, Normal air movement Cardiovascular: Regular rate, No murmurs Abdomen: Bowel Sounds Present, Soft, Non Tender Vital Signs Temp Pulse Resp BP Pulse Ox 97.7 F L 90 16 136/56 H 99 05/28/18 16:30 05/28/18 16:30 05/28/18 16:30 05/28/18 16:30 05/28/18 16:30 Oxygen Delivery Method Room Air Weight: 105.9 kg Body Mass Index (BMI) 40.9 Orthostatic Vital Signs Start: 05/28/18 09:53 Freq: q24h Status: Active Protocol: Activity Type Activity Date Activity User E-Sign Co-Sign Detail Recorded Client Recorded Date Recorded By Document 05/28/18 09:53 LW [id number] 05/28/18 09:59 LW 05/28/18 09:53 Orthostatic Vitals Standing -Blood Pressure (90/60-120/80) 105/58 L -Extremity Use Left Arm -Pulse Rate (60-100) 97 Sitting -Blood Pressure (90/60-120/80) 75/47 L -Extremity Use Left Arm -Pulse Rate (60-100) 92 Lying -Blood Pressure (90/60-120/80) 101/52 L -Extremity Use Left Arm -Pulse Rate (60-100) 82 Intake and Output for Last 24 Hours 05/26/18 05/27/18 05/28/18 23:59 23:59 23:59 Intake Total 1192.6 / 1192.6 4152.5 / 4152.5 Balance 1192.6 / 1192.6 4152.5 / 4152.5 Laboratory Tests Past 24 Hrs 05/27/18 05/27/18 05/27/18 16:15 21:45 21:45 WBC RBC Hgb 8.1 L Hct 24.7 L MCV MCH MCHC RDW RDW Differential Plt Count MPV Immature Gran % (Auto) Neut % (Auto) Lymph % (Auto) [place] % (Auto) Eos % (Auto) Baso % (Auto) Absolute Neuts (auto) Absolute Lymphs (auto) Total Counted Sodium Potassium Chloride Carbon Dioxide Anion Gap BUN Creatinine Estim Creat Clear Calc Est GFR (MDRD) Af Amer Est GFR (MDRD) Non-Af BUN/Creatinine Ratio Glucose Lactic Acid 1.0 Calcium MRSA (PCR) Negative 05/28/18 05/28/18 05/28/18 04:00 04:00 14:05 WBC 13.9 H 11.9 H RBC 2.69 L 2.52 L Hgb 8.1 L 7.5 L Hct 24.5 L 23.3 L MCV 91.1 92.5 MCH 30.1 29.8 MCHC 33.1 32.2 RDW 12.9 13.3 RDW Differential 41.8 42.9 Plt Count 232 246 MPV 10.3 10.0 Immature Gran % (Auto) 0.500 Neut % (Auto) 63.1 Lymph % (Auto) 27.0 Charlotte % (Auto) 8.4 Eos % (Auto) 0.8 Baso % (Auto) 0.2 Absolute Neuts (auto) 7.5 Absolute Lymphs (auto) 3.20 Total Counted Not Reportable Sodium 144 Potassium 4.4 Chloride 111 H Carbon Dioxide 23.0 Anion Gap 10 BUN 45 H Creatinine 1.14 H Estim Creat Clear Calc 34.19 Est GFR (MDRD) Af Amer 59 L Est GFR (MDRD) Non-Af 49 L BUN/Creatinine Ratio 39.5 H Glucose 99 Lactic Acid Calcium 8.5 MRSA (PCR) Medical Necessity - Tobacco Use Smoking Status: Former smoker Tobacco Use: Cigarettes Assessment/Plan All Active Problems GI bleed (Acute) Orthostatic Hypotension (Acute) Lactic acidosis (Acute) GI bleed, anemia, NSAID use?, Previous relatively unremarkable upper and lower endoscopy, fever, leukocytosis Discussed with the admitting physician, Dr. Samuels planned events. Her hemoglobin did drop below 8, I would transfuse 1 unit of packed red cells. I would plan for bowel prep today. We will plan for upper and lower endoscopy - scheduled tomorrow at 7:30 AM.
[2018-05-28] MEDS: Metoprolol Tartrate 25 MG Tablet PO (22:32)
[2018-05-29] VITALS (18 sets, daily range): BP systolic 111–167; BP diastolic 42–65; PULSE 86–116; RESP 14–18; TEMP 36.9–37.4; O2SAT 95–100
--- NOTE | 2018-05-29 | GASB_PTH ---
PATIENT: RANDA MAZA LOC: [facility] U#:[id number] AGE/SX: 77/F ROOM: [facility] RE05/27/[address]: Dr. Cordell Kerr DO : 1940 BED: 1 DIS: 05/29/2018 SPEC #: [id number] RECD: 05/29/18 14:16 STATUS: TODD REQ #: [id number] PRACHI: 05/29/18 00:[address]: Pako Villatoro DEPT: SURGICAL PATHOLOGY RECD BY: Wade Hastings ENTERED: 05/29/18 14:16 SP TYPE: Gastric Bx OTHR DR: DO Dr. Mandy De Santiago MD Dr. Prakash Chand, MD Dr. Richard Guttman, MD Tissues: Gastric mucous membrane Procedures: Surgery Specimen Level IV Comments: @ Ordering doctor for SUIV edited from to @ by DESIREE at 05/29/18 1517 @ Submitting doctor edited from to @ by MARLINOD at 05/29/18 1517 HEADER OPERATION: Colonoscopy, EGD ([facility] [place]) PRE-OP DIAGNOSIS: GI bleed TISSUE SUBMITTED: Antral biopsy for path MICROSCOPIC DIAGNOSIS Antral biopsy: Mild gastritis. MARYAN:cynthia 05/30/18 COMMENT The results of immunohistochemistry for Helicobacter pylori will be reported separately ([id number]). MICROSCOPIC DESCRIPTION Slides are reviewed. The specimen shows fragments of gastric mucosa with chronic inflammatory cell infiltrates in the lamina propria consisting of lymphocytes and plasma cells, consistent with mild chronic gastritis. GROSS DESCRIPTION Received in fixative is one container labeled with the patient's name and designated antral biopsy. The specimen consists of one irregular fragment of light herman soft tissue that measures 0.5 x 0.2 x 0.1 cm. The specimen is totally submitted in one cassette. / MARYAN:cynthia 05/29/18 TC:3 [facility]: [id number]
--- NOTE | 2018-05-29 | IMM_PTH ---
PATIENT: RANDA MAZA LOC: [facility] U#:[id number] AGE/SX: 77/F ROOM: [facility] RE05/27/[address]: Dr. Cordell Kerr DO : 1940 BED: 1 DIS: 05/29/2018 SPEC #: [id number] RECD: 05/30/18 13:12 STATUS: SOUAdriel REQ #: [id number] PRACHI: 05/29/18 00:[address]: Pako Villatoro DEPT: IMMUNOHISTOCHEMISTRY RECD BY: Chasity Palacios ENTERED: 05/30/18 13:13 SP TYPE: IMMUNO OTHR DR: DO Dr. Mandy De Santiago MD Dr. Prakash Chand, MD Dr. Richard Guttman, MD Tissues: Stomach, NOS Procedures: H Pylori (initial) Comments: @ Ordering doctor for H.PYLORI edited from to @ by DESIREE at 05/30/18 1323 @ Submitting doctor edited from to @ by DESIREE at 05/30/18 1323 PHYSICIAN & INSTITUTION [place] [id number] SPECIMEN INFORMATION: Tissue Source: Antral biopsy Clinical Info: GI bleed Specimen Number: [id number] CPT code: 85120 METHODOLOGY: Deparaffinized sections of prefer/formalin-fixed tissue or PAP/DQ stained slides are incubated with monoclonal/polyclonal antibodies/oligonucleotide probes. Localization is made via biotin free immunoperoxidase method. Appropriate controls are performed and reacted as expected. Results on target cell population are indicated in the following table: RESULTS: ANTIBODY / CLONE RESULT H Pylori (polyclonal) negative These tests were developed and their performance characteristics determined by [facility]. They may not have been cleared or approved by the U.S. Food and Drug Administration. The FDA has determined that such clearance or approval is not necessary. INTERPRETATION: Antral biopsy: Negative for Helicobacter pylori organisms. MARYAN:cynthia 06/02/18
[2018-05-29] MEDS: 0.9% Normal Saline 1,000 ML 150 ML IV (04:18)
--- NOTE | 2018-05-29 08:22 | NM_ITS ---
CLINICAL: 77-year-old female with reported history of gastrointestinal hemorrhage. LABELED BLOOD POOL GASTROINTESTINAL BLEEDING STUDY COMPARISON: None available FINDINGS: Following the intravenous administration of 26.5 mCi of 99m Tc Ultratag labeled RBCs, image acquisitions of the anterior-abdomen and pelvis for a total of 60 minutes reveal: 1. A focus of increased radiopharmaceutical concentration is identified in the left upper abdomen and initiating at approximately 6-7 minutes following tracer injection increasing in intensity with apparent medial progression identified at approximately 45 minutes following radiotracer provision. 2. Physiologic distribution of the radiopharmaceutical appears evident in the cardiac, hepatic, splenic and major vascular blood pool. There is visualization of the urinary bladder. NM/GI Bleed Scan IMPRESSION: 1. ABNORMAL 99m Tc ULTRATAG LABELED BLOOD POOL GASTROINTESTINAL BLEEDING EXAMINATION. 2. There is scintigraphic evidence of the parent gastrointestinal hemorrhage which appears to originate in the left upper abdomen with medial progression toward the midline as defined above. Electronically Signed: Pako Mike DO at 11:24 EDT Tel , Service support ,
--- NOTE | 2018-05-29 08:25 | OP.PCM_ITS ---
Report of Operation Date of Procedure: 05/29/18 Pre-Operative Diagnosis: GI BLEED Post-Operative Diagnosis: MILD GASTRITIS, NO UPPER SOURCE, BLOOD TO TERMINAL ILEUM - SMALL BOWEL BLEED Surgery/Procedure Performed:: EGD WITH BIOPSY, COLONOSCOPY social work professor: None Type of Anesthesia:: MAC Anesthesiologist: Cordell Daniels - ASA2 Specimen's removed: GASTRIC Description of Procedure: The patient was brought to the endoscopy suite. Sign in was performed verifying patient, site, planned procedure, critical nursing information, the patient was monitored with cardiac, pulse oximetric, and blood pressure monitoring devices. Monitored anesthetic care was provided for sedation. Following IV sedation and after the oropharynx was sprayed with Cetacaine spray , a video gastroscope was inserted in the oropharynx and advanced down the esophagus without difficulty. The scope was advanced through the stomach, through the pylorus through the duodenum to the proximal jejunum. the jejunum appeared unremarkable. There was clear hoang bile in the duodenum without signs of bleeding.the duodenum otherwise appeared unremarkable. The stomach demonstrated mild gastritis without signs of bleeding. Biopsies were obtained for H. pylori and pathology. There was a small hiatal hernia seen on retroflexion. The esophagus was otherwise unremarkable. The patient was positioned for colonoscopy. A digital rectal exam was performed which revealed liquid melena. The video colonoscope was inserted and advanced to the cecum as verified by the ileocecal valve, cecal base anatomic features and palpation. this was somewhat challenging due to patient's body habitus, recent blood throughout the colon and breathing. Once the cecum was clearly identified, the scope was inserted into the terminal ileum. The terminal ileum demonstrated maroon to melena colored liquid blood. There was also be blood throughout the colon which was irrigated as best possible, but demonstrated no specific colonic abnormalities. The scope was retroflexed and no abnormalities. with recent bleeding overnight, plan for repeat stat CBC, transfusion, if she is of packed cells and tagged cell bleeding scan were ordered The patient tolerated the procedure well and was brought to recovery in stable condition
[2018-05-29 09:03] LABS: Hematocrit 21.4 % (37-47); Hemoglobin 7.1 g/dl (12.0-15.0); Mean Corp Hgb Conc 33.2 g/gl (32-36); Mean Corpuscular Volume 90.3 fL (81-99); Red Blood Count 2.37 M/mm3 (4.2-5.4); White Blood Count 12.2 K/mm3 (4.4-11.0)
[2018-05-29 09:04] LABS: Absolute Lymphocyte Count 2.18 X10^3/ul (0.83-4.51); Absolute Neutrophil Count 8.7 X10^3/uL (2.0-7.7); Basophil# 0.01 X10^3/uL; Basophil% 0.1 % (0-1); Eosinophil# 0.08 X10^3/uL; Eosinophils% 0.7 % (0-5); Lymphocyte # 2.18 X10^3/ul (4.0); Lymphocyte % 17.8 % (19-41); Mean Platelet Vol. 9.6 fl (6.2-12.0); Monocyte# 1.24 X10^3/uL; Monocyte% 10.1 % (0-10); Neutrophil # 8.69 X10^3/uL (2.7-7.7); Platelet Count 181 K/mm3 (150-450); RBC Distribution Width CV 14.1 % (11.6-14.6)
[2018-05-29 09:05] LABS: POSITIVE COUNT NO; POSITIVE DIFFERENTIAL NO; POSITIVE MORPHOLOGY NO
--- NOTE | 2018-05-29 12:34 | PCM.DC.SUM ---
<Josué Shetty - Last Filed: 05/29/18 12:34> Discharge Date and Diagnosis - Problem List Patient Problems: Active and Suspected Problems GI bleed (Acute) Orthostatic Hypotension (Acute) Lactic acidosis (Acute) Date of Admission: 05/27/18 Date of Discharge: 05/29/18 - Primary Discharge Diagnosis Active and Suspected Problems GI bleed (Acute) - small bowel Orthostatic Hypotension (Acute) Lactic acidosis (Acute) htn gastritis HLD - Secondary Discharge Diagnosis Chronic Problems Anxiety and depression (Chronic) Hypertension (Chronic) Gastritis (Chronic) Dyslipidemia (Chronic) Hospital Course and Treatment Imaging Results: 05/29/18 08:22 GI Bleed Scan [NM] Urgent Consults: Irving - surgery Operations: None Procedures: Blood transfusion, Colonoscopy, EGD Summary of Care Provided: Physical exam on day of discharge: General: Resting comfortably NAD Psych: A/Ox3 normal affect HEENT: PEARRLA AT NC Neck: Supple NT CV: RRR no m/t/r/g/h Resp: CTA Abd: [id number] Soft NT no guarding or rigidity Ext: DP2+= no edema Skin: W/D normal turgor Lymph/Heme: No active bleeding or adenopathy Neuro: CN2-12 intact Hospital course: The patient is a 77 year old F who presented to the ER with 3 days of black tarry and red stools and she was lightheaded with walking. She was found to have elevated white count, lactic acidosis 2/2 to hypovolemia, with orthostatic vitals positive, and was subsequently admitted to the ICU and placed on fluids, protonix via IV, had q6 H/H, and a surgical consult. CT of the abdomen showed diverticulosis. She was given 1 unit of blood and underwent colonoscopy and EGD. She had blood noted in the colon suspected from a small bowel source, and gastritis on EGD. She went for a bleeding scan after that which showed left upper abdominal bleeding. Her hgb had dropped further and 2 more units of blood were transfused. She was agreeable to transfer to a higher level of care and this was arranged at [facility]. She was transferred when the bed became available. This patient was seen by Josué Shetty PA-C under the supervision of Doctor Cirilo. [] Discharge Diet: - - as directed by receiving facility Discharge Activity: - - as directed by receiving facility Home Medications: Medications to take at Discharge Aspirin [Aspirin, Baby] 81 mg PO DAILY@0800 11/10/15 Bupropion HCl [Bupropion HCl Sr] 150 mg PO DAILY 11/10/15 Lisinopril [Zestril] 20 mg PO DAILY 11/10/15 Metoprolol Tartrate [Lopressor (Beta Arabella)] 50 mg PO BID 11/10/15 Omeprazole [Prilosec] 20 mg PO DAILY 11/10/15 Simvastatin [Zocor] 10 mg PO QHS 11/10/15 Escitalopram Oxalate [Lexapro] 10 mg PO DAILY 05/27/18 Primary Care Physician: Mandy Garcia MD [Primary Care Provider] - Please follow up with your Primary Care Physician in: 2 weeks Disposition: Acute care Hospital Minutes spent on discharge:: 35 Patient Condition:: Stable Medical Necessity - Tobacco Use Smoking Status: Former smoker Tobacco Use: Cigarettes Meaningful Use Info Meaningful Use Diagnoses (Choose all that apply): None applicable <Cordell Kerr - Last Filed: 05/29/18 13:53> Discharge Date and Diagnosis - Primary Discharge Diagnosis Active and Suspected Problems GI bleed (Acute) Orthostatic Hypotension (Acute) Lactic acidosis (Acute) - Secondary Discharge Diagnosis Chronic Problems Anxiety and depression (Chronic) Hypertension (Chronic) Gastritis (Chronic) Dyslipidemia (Chronic) Hospital Course and Treatment Imaging Results: 05/29/18 08:22 GI Bleed Scan [NM] Urgent Clinical Impression(s) from Imaging Studies Abdomen/Pelvis CT 05/27/18 12:30 IMPRESSION: Sigmoid diverticulosis. Electronically Signed: Marcus Valencia MD at 13:09 EDT Tel [phone], Service support , ADDENDUM: 05/28/18 0805 Chest X-Ray 05/27/18 14:14 IMPRESSION: No acute cardiopulmonary disease or interval change. Electronically Signed: Louis Koch DO at 14:35 EDT Tel [phone], Service support , GI Bleed Scan Nuclear Medicine 05/29/18 08:22 IMPRESSION: 1. ABNORMAL 99m Tc ULTRATAG LABELED BLOOD POOL GASTROINTESTINAL BLEEDING EXAMINATION. 2. There is scintigraphic evidence of the parent gastrointestinal hemorrhage which appears to originate in the left upper abdomen with medial progression toward the midline as defined above. Electronically Signed: Pako Mike, at 11:24 EDT Tel , Service support , Operations: None Procedures: Blood transfusion, Colonoscopy, EGD Summary of Care Provided: Patient seen and examined independently. Data reviewed. I agree with the above note by the physician pathology assistant. The patient is a 77 year old F presents with GI bleed. Patient underwent endoscopy today with an EGD and colonoscopy. Blood was noted within the entire length of the colon and even in the terminal ileum. And EGD showed no obvious source of bleeding. Patient then underwent a bleeding scan that showed bleeding in the left upper quadrant. Given that this is still active bleeding it was felt the patient be best served by going to a tertiary facility for possible embolization. I dressed this with the patient and her initial preference is to [facility]. I contacted me [facility] and they said they would not have a bed for 1-3 days and I called [facility] and said that they would not have any beds available until this evening at the earliest. I then called [facility] and I discussed with the intake person and plan the case and The patient is hemodynamically stable, on a progressive care unit, not in the ICU, and currently receiving blood transfusions. I provided my cell phone number so that I could be called back if the accepting physician had any questions or concerns. I received a phone call a couple hours later stating that she had contacted a couple of the medical services who were concerned that the patient is still bleeding and that she contacted the ICU physician who stated that the patient did not need to be in the ICU because she was stable. The decision was made by the attendings at [facility] for the patient go to from here to the emergency room to have her disposition be determined from there. Never personally received a phone call from any of the attending physicians nor residents. I feel the patient is stable for a medical surgical floor but will defer to the discretion of the attendings at [facility] in regards to disposition when she gets to the emergency room. [] Discharge Diet: - Discharge Activity: - Disposition: Acute care Hospital Minutes spent on discharge:: 45 Patient Condition:: Stable Meaningful Use Info Meaningful Use Diagnoses (Choose all that apply): None applicable Code Visit Inpatient E&M: 20449 Disch Hosp
[2018-05-29] MEDS: Metoprolol Tartrate 25 MG Tablet PO (12:42)
--- NOTE | 2018-05-29 12:44 | DS.PCM_ITS ---
<Josué Shetty - Last Filed: 05/29/18 12:34> Discharge Date and Diagnosis - Problem List Patient Problems: Active and Suspected Problems GI bleed (Acute) Orthostatic Hypotension (Acute) Lactic acidosis (Acute) Date of Admission: 05/27/18 Date of Discharge: 05/29/18 - Primary Discharge Diagnosis Active and Suspected Problems GI bleed (Acute) - small bowel Orthostatic Hypotension (Acute) Lactic acidosis (Acute) htn gastritis HLD - Secondary Discharge Diagnosis Chronic Problems Anxiety and depression (Chronic) Hypertension (Chronic) Gastritis (Chronic) Dyslipidemia (Chronic) Hospital Course and Treatment Imaging Results: 05/29/18 08:22 GI Bleed Scan [NM] Urgent Consults: Irving - surgery Operations: None Procedures: Blood transfusion, Colonoscopy, EGD Summary of Care Provided: Physical exam on day of discharge: General: Resting comfortably NAD Psych: A/Ox3 normal affect HEENT: PEARRLA AT NC Neck: Supple NT CV: RRR no m/t/r/g/h Resp: CTA Abd: [id number] Soft NT no guarding or rigidity Ext: DP2+= no edema Skin: W/D normal turgor Lymph/Heme: No active bleeding or adenopathy Neuro: CN2-12 intact Hospital course: The patient is a 77 year old F who presented to the ER with 3 days of black tarry and red stools and she was lightheaded with walking. She was found to have elevated white count, lactic acidosis 2/2 to hypovolemia, with orthostatic vitals positive, and was subsequently admitted to the ICU and placed on fluids, protonix via IV, had q6 H/H, and a surgical consult. CT of the abdomen showed diverticulosis. She was given 1 unit of blood and underwent colonoscopy and EGD. She had blood noted in the colon suspected from a small bowel source, and gastritis on EGD. She went for a bleeding scan after that which showed left upper abdominal bleeding. Her hgb had dropped further and 2 more units of blood were transfused. She was agreeable to transfer to a higher level of care and this was arranged at [facility]. She was transferred when the bed became available. This patient was seen by Josué Shetty PA-C under the supervision of Doctor Cirilo. [] Discharge Diet: - - as directed by receiving facility Discharge Activity: - - as directed by receiving facility Home Medications: Medications to take at Discharge Aspirin [Aspirin, Baby] 81 mg PO DAILY@0800 11/10/15 Bupropion HCl [Bupropion HCl Sr] 150 mg PO DAILY 11/10/15 Lisinopril [Zestril] 20 mg PO DAILY 11/10/15 Metoprolol Tartrate [Lopressor (Beta Arabella)] 50 mg PO BID 11/10/15 Omeprazole [Prilosec] 20 mg PO DAILY 11/10/15 Simvastatin [Zocor] 10 mg PO QHS 11/10/15 Escitalopram Oxalate [Lexapro] 10 mg PO DAILY 05/27/18 Primary Care Physician: Mandy Garcia MD [Primary Care Provider] - Please follow up with your Primary Care Physician in: 2 weeks Disposition: Acute care Hospital Minutes spent on discharge:: 35 Patient Condition:: Stable Medical Necessity - Tobacco Use Smoking Status: Former smoker Tobacco Use: Cigarettes Meaningful Use Info Meaningful Use Diagnoses (Choose all that apply): None applicable <Cordell Kerr - Last Filed: 05/29/18 13:53> Discharge Date and Diagnosis - Primary Discharge Diagnosis Active and Suspected Problems GI bleed (Acute) Orthostatic Hypotension (Acute) Lactic acidosis (Acute) - Secondary Discharge Diagnosis Chronic Problems Anxiety and depression (Chronic) Hypertension (Chronic) Gastritis (Chronic) Dyslipidemia (Chronic) Hospital Course and Treatment Imaging Results: 05/29/18 08:22 GI Bleed Scan [NM] Urgent Clinical Impression(s) from Imaging Studies Abdomen/Pelvis CT 05/27/18 12:30 IMPRESSION: Sigmoid diverticulosis. Electronically Signed: Marcus Valencia MD at 13:09 EDT Tel [phone], Service support , ADDENDUM: 05/28/18 0805 Chest X-Ray 05/27/18 14:14 IMPRESSION: No acute cardiopulmonary disease or interval change. Electronically Signed: Louis Koch DO at 14:35 EDT Tel [phone], Service support , GI Bleed Scan Nuclear Medicine 05/29/18 08:22 IMPRESSION: 1. ABNORMAL 99m Tc ULTRATAG LABELED BLOOD POOL GASTROINTESTINAL BLEEDING EXAMINATION. 2. There is scintigraphic evidence of the parent gastrointestinal hemorrhage which appears to originate in the left upper abdomen with medial progression toward the midline as defined above. Electronically Signed: Pako Mike, at 11:24 EDT Tel , Service support , Operations: None Procedures: Blood transfusion, Colonoscopy, EGD Summary of Care Provided: Patient seen and examined independently. Data reviewed. I agree with the above note by the physician household assistant. The patient is a 77 year old F presents with GI bleed. Patient underwent endoscopy today with an EGD and colonoscopy. Blood was noted within the entire length of the colon and even in the terminal ileum. And EGD showed no obvious source of bleeding. Patient then underwent a bleeding scan that showed bleeding in the left upper quadrant. Given that this is still active bleeding it was felt the patient be best served by going to a tertiary facility for possible embolization. I dressed this with the patient and her initial preference is to [facility]. [facility] said they would not have a bed for 1-3 days and I called [facility] and said that they would not have any beds available until this evening at the earliest. I then called [facility] and I discussed with the intake person and plan the case and The patient is hemodynamically stable, on a progressive care unit, not in the ICU, and currently receiving blood transfusions. I provided my cell phone number so that I could be called back if the accepting physician had any questions or concerns. I received a phone call a couple hours later stating that she had contacted a couple of the medical services who were concerned that the patient is still bleeding and that she contacted the ICU physician who stated that the patient did not need to be in the ICU because she was stable. The decision was made by the attendings at [facility] for the patient go to from here to the emergency room to have her disposition be determined from there. Never personally received a phone call from any of the attending physicians nor residents. I feel the patient is stable for a medical surgical floor but will defer to the discretion of the attendings at [facility] in regards to disposition when she gets to the emergency room. [] Discharge Diet: - Discharge Activity: - Disposition: Acute care Hospital Minutes spent on discharge:: 45 Patient Condition:: Stable Meaningful Use Info Meaningful Use Diagnoses (Choose all that apply): None applicable Code Visit Inpatient E&M: 12359 Disch Hosp
[2018-05-29 13:12] LABS: Anion Gap 11 (5-15); BUN 24 mg/dL (7-18); BUN/Creat Ratio 24.3 RATIO (10-20); Calcium,Total 7.9 mg/dL (8.5-10.1); Chloride 114 mmol/L (98-107); Creatinine, Serum 0.99 mg/dL (0.55-1.02); EST Glomerular Filtration Rate 58 mL/min (>60); Est Glom Filt Rate - Afr Amer 70 mL/min (>60); Estimated Creatinine Clearance 39.37 ml/min; Glucose 138 mg/dL (74-106); Sodium Level 143 mmol/L (136-145)
--- NOTE | 2018-05-29 14:18 | NURSING ---
Called report to SHAI Duran at [facility] at this time.
--- NOTE | 2018-05-29 17:28 | PN.SURG_ITS ---
Subjective: no complaints - Physical Exam General: Alert, Oriented x3 Lungs: Clear to auscultation, Normal air movement Cardiovascular: Regular rate, No murmurs Abdomen: Bowel Sounds Present, Soft, Non Tender Vital Signs Temp Pulse Resp BP Pulse Ox 99.3 F H 94 16 135/63 H 100 05/29/18 15:50 05/29/18 15:50 05/29/18 15:50 05/29/18 15:50 05/29/18 15:50 Oxygen Delivery Method Room Air Weight: 105.7 kg Body Mass Index (BMI) 40.9 Intake and Output for Last 24 Hours 05/27/18 05/28/18 05/29/18 23:59 23:59 23:59 Intake Total 1192.6 / 1192.6 4152.5 / 4152.5 2516 / 2516 Balance 1192.6 / 1192.6 4152.5 / 4152.5 2516 / 2516 Laboratory Tests Past 24 Hrs 05/29/18 05/29/18 08:55 12:32 WBC 12.2 H RBC 2.37 L Hgb 7.1 L Hct 21.4 L MCV 90.3 MCH 30.0 MCHC 33.2 RDW 14.1 RDW Differential 46.0 H Plt Count 181 MPV 9.6 Immature Gran % (Auto) 0.300 Neut % (Auto) 71.0 H Lymph % (Auto) 17.8 L [place] % (Auto) 10.1 H Eos % (Auto) 0.7 Baso % (Auto) 0.1 Absolute Neuts (auto) 8.7 H Absolute Lymphs (auto) 2.18 Total Counted Not Reportable Sodium 143 Potassium 4.0 Chloride 114 H Carbon Dioxide 18.0 L Anion Gap 11 BUN 24 H Creatinine 0.99 Estim Creat Clear Calc 39.37 Est GFR (MDRD) Af Amer 70 Est GFR (MDRD) Non-Af 58 L BUN/Creatinine Ratio 24.3 H Glucose 138 H Calcium 7.9 L Medical Necessity - Tobacco Use Smoking Status: Former smoker Tobacco Use: Cigarettes Assessment/Plan All Active Problems GI bleed (Acute) Orthostatic Hypotension (Acute) Lactic acidosis (Acute) GI bleed, anemia, NSAID use?, Previous relatively unremarkable upper and lower endoscopy, fever, leukocytosis upper endoscopy demonstrated mild gastritis and hiatal hernia, lower endoscopy demonstrated fresh blood in the terminal ileum. The patient was ordered for type and cross 2 units. Repeat CBC was obtained which demonstrated a hemoglobin below 7. A bleeding scan was ordered. This demonstrated active bleeding in the left upper quadrant, going to the midline consistent with a proximal small bowel bleed. I spoke with Dr. Kerr. The patient is being transferred to [facility] for possible angiography.
== END 2018-05-29 16:26 | disposition short-term general hospital (02) | DRG 378 ==
LOC: ED 11:59 → ICU 15:39 → PCU 05-28 13:18
PROVIDERS: Surgery; Admitting Provider Internal Medicine; Emergency Provider Emergency Medicine; Family Provider Internal Medicine; PCP Internal Medicine
PROC: 0DJD8ZZ Inspection of Lower Intestinal Tract, Via Natural or Artificial Opening Endoscopic (ICD-10-PCS; CPT 45378; principal; 2018-05-29 07:25)
DX: K92.2 Gastrointestinal hemorrhage, unspecified (principal); E87.2 Acidosis; N17.9 Acute kidney failure, unspecified; D62 Acute posthemorrhagic anemia; Z68.41 Body mass index [BMI] 40.0-44.9, adult; I95.1 Orthostatic hypotension; E78.5 Hyperlipidemia, unspecified; K29.70 Gastritis, unspecified, without bleeding; Z87.891 Personal history of nicotine dependence; F32.9 Major depressive disorder, single episode, unspecified; F41.9 Anxiety disorder, unspecified; E66.9 Obesity, unspecified
CPT/HCPCS: 71045; 74176; 78278; 80048; 80053; 81001; 82274; 83605; 83690; 83735; 84484; 85014; 85018; 85025; 85027; 85610; 85730; 86850; 86900; 86920; 87641; 88305; 88342; 93005; 99283; A9560; J7030; J7040; P9016; A4216; J3490

== ENCOUNTER → 2018-08-13 13:55 | Outpatient (CLI) | payer MEDICARE, BC, SELFPAY ==
[2018-08-13 15:59] LABS: Anion Gap 9 (5-15); BUN 22 mg/dL (7-18); BUN/Creat Ratio 15.6 RATIO (10-20); Calcium,Total 9.6 mg/dL (8.5-10.1); Chloride 105 mmol/L (98-107); Creatinine, Serum 1.41 mg/dL (0.55-1.02); EST Glomerular Filtration Rate 38 mL/min (>60); Est Glom Filt Rate - Afr Amer 46 mL/min (>60); Glucose 105 mg/dL (74-106); Magnesium 1.8 mg/dL (1.6-2.6); Potassium 4.4 mmol/L (3.5-5.1); Sodium Level 141 mmol/L (136-145)
[2018-08-13 16:02] LABS: Absolute Lymphocyte Count 2.42 X10^3/ul (0.83-4.51); Absolute Neutrophil Count 5.9 X10^3/uL (2.0-7.7); Basophil# 0.02 X10^3/uL; Basophil% 0.2 % (0-1); Eosinophils% 2.1 % (0-5); Hematocrit 40.8 % (37-47); Hemoglobin 12.7 g/dl (12.0-15.0); Lymphocyte # 2.42 X10^3/ul (4.0); Lymphocyte % 25.9 % (19-41); Mean Corp Hgb Conc 31.1 g/gl (32-36); Mean Corpuscular Hgb 28.1 pg (27.0-32.0); Mean Corpuscular Volume 90.3 fL (81-99); Mean Platelet Vol. 10.2 fl (6.2-12.0); Monocyte% 8.5 % (0-10); Neutrophil # 5.91 X10^3/uL (2.7-7.7); Neutrophil % 63.2 % (47-70); Platelet Count 297 K/mm3 (150-450); RBC Distribution Width CV 13.5 % (11.6-14.6); RBC Distribution Width SD 44.4 fl (35.1-43.9); Red Blood Count 4.52 M/mm3 (4.2-5.4); White Blood Count 9.4 K/mm3 (4.4-11.0)
[2018-08-13 17:10] LABS: POSITIVE COUNT NO; POSITIVE DIFFERENTIAL NO; POSITIVE MORPHOLOGY NO
== END ==
PROVIDERS: Family Provider Internal Medicine; PCP Internal Medicine; Visit Provider Internal Medicine Cardiovascular Disease
DX: I10 Essential (primary) hypertension (principal); I36.1 Nonrheumatic tricuspid (valve) insufficiency
CPT/HCPCS: 36415; 80048; 83735; 85025

== ENCOUNTER → 2018-09-19 15:42 | Outpatient (CLI) | payer MEDICARE, BC, SELFPAY ==
--- NOTE | 2018-09-19 15:42 | BRBX_PTH ---
PATIENT: RANDA MAZA LOC: [facility] U#:[id number] AGE/SX: 85/F ROOM: RE09/19/[address]: Dr. Pako Villatoro MD : 1940 BED: DIS: SPEC #: [id number] RECD: 09/22/18 11:59 STATUS: TODD RECarin #: [id number] PRACHI: 09/19/18 15:[address]: Pako Villatoro DEPT: SURGICAL PATHOLOGY RECD BY: Chasity Palacios ENTERED: 09/23/18 08:01 SP TYPE: BREAST BX OTHR DR: Dr. Mandy Garcia MD Tissues: Right breast, NOS Procedures: Surgery Specimen Level IV HEADER OPERATION: Right breast needle core biopsy PRE-OP DIAGNOSIS: Not noted TISSUE SUBMITTED: Right breast needle core biopsy ISCHEMIC TIME: 3 minutes FIXATION TIME: 75.5 hours MICROSCOPIC DIAGNOSIS Right breast, core biopsy: Mild fibrocystic change, nonproliferative. 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 No evidence of malignancy. AM:cynthia 09/23/18 MICROSCOPIC DESCRIPTION Slides are reviewed. GROSS DESCRIPTION Received is one container labeled with the patient's name and not further designated. The specimen consists of multiple elongated fragments of herman-yellow fibroadipose tissue that in aggregate measure 1.8 x 0.3 x 0.1 cm. The entire specimen is submitted in one cassette. / SJ:cynthia 09/22/18 TC:5 CPT: 16473
== END ==
PROVIDERS: Family Provider Internal Medicine; PCP Internal Medicine; Referring Provider Surgery; Visit Provider Surgery
DX: N60.11 Diffuse cystic mastopathy of right breast (principal); N60.91 Unspecified benign mammary dysplasia of right breast
CPT/HCPCS: 88305

== ENCOUNTER → 2018-11-13 14:53 | Outpatient (CLI) | payer MEDICARE, BC, SELFPAY ==
[2018-08-13 12:53] VITALS: BMI 40.5
--- NOTE | 2018-11-13 14:56 | ECHOD_ITS ---
Reason For Study: PHTN Procedure This was a 2D Doppler, Color Flow transthoracic echocardiogram. Exam performed in department. Left Ventricle Normal LV size. Left ventricular systolic function is normal. The estimated ejection fraction is 60 %. No regional wall motion abnormalities noted. Right Ventricle Normal RV size. Normal systolic function. Atria The left atrium is mildly enlarged. Normal right atrium. Mitral Valve Normal mitral valve. Tricuspid Valve Normal tricuspid valve. Mild (1+) tricuspid valve insufficiency. Pulmonary artery systolic pressure is 37 mmHg. Aortic Valve Normal aortic valve. Trisinus/trileaflet aortic valve. Pulmonic Valve Normal pulmonic valve. Great Vessels Normal aortic root. The pulmonary artery is normal size. Normal inferior vena cava. Pericardium/Pleural No pericardial effusion. MMode/2D Measurements & Calculations LVIDd: 4.6 cm IVSd: 1.0 cm Ao root diam: 3.2 cm LVIDs: 3.3 cm LVPWd: 0.97 cm RVDd: 2.9 cm FS: 26.9 % LAV(MOD-bp): 77.3 ml LA A4 area: 23.3 cm2 LA dimension(2D): 3.8 cm LAV(MOD-bp) Indexed: 37.6 ml/m2 LAV(MOD-sp2): 72.3 ml LAV(MOD-sp4): 75.3 ml RA A4 area: 15.3 cm2 Time Measurements MV dec time: 0.25 sec Doppler Measurements & Calculations MV E max tk: 66.7 cm/sec Lat Peak E' Tk: 5.6 cm/sec Med Peak E' Tk: 7.3 cm/sec MV A max tk: 92.0 cm/sec E/E' lat: 11.9 E/E' med: 9.1 MV E/A: 0.72 Ao V2 max: 158.6 cm/sec LV V1 max: 124.3 cm/sec PA V2 max: 118.8 cm/sec Ao max P.1 mmHg LV V1 max P.2 mmHg TR max tk: 286.3 cm/sec TR max P.9 mmHg Interpretation Summary Normal LV size. Left ventricular systolic function is normal. The estimated ejection fraction is 60 %. Mild (1+) tricuspid valve insufficiency. Pulmonary artery systolic pressure is 37 mmHg. Ordering Physician: Kun Ruiz Referring Physician: Mandy Garcia Performed By: Maria Elena Velazquez RDCS, RVT
== END ==
PROVIDERS: Family Provider Internal Medicine; PCP Internal Medicine; Referring Provider Internal Medicine Cardiovascular Disease; Visit Provider Internal Medicine Cardiovascular Disease
DX: I27.21 Secondary pulmonary arterial hypertension (principal)
CPT/HCPCS: 93306

== ENCOUNTER → 2024-08-17 | Outpatient (CLI) | payer MEDICARE, BC, SELFPAY ==
--- NOTE | 2024-08-17 13:48 | ECHOD_ITS ---
Reason For Study: ARRHYTHMIA Procedure This was a 2D Doppler, Color Flow transthoracic echocardiogram. Exam performed in department. Left Ventricle Normal LV size. Left ventricular systolic function is normal. The left ventricular ejection fraction is 65 %. No regional wall motion abnormalities noted. Right Ventricle Normal RV size. Normal systolic function. Atria Normal left atrium. Normal right atrium. Mitral Valve Normal mitral valve. Tricuspid Valve Normal tricuspid valve. Mild (1+) tricuspid valve insufficiency. Pulmonary artery systolic pressure is 44 mmHg. Aortic Valve Trisinus/trileaflet aortic valve. Pulmonic Valve Normal pulmonic valve. Great Vessels Normal aortic root. The pulmonary artery is normal size. Normal inferior vena cava. Pericardium/Pleural Trivial pericardial effusion. MMode/2D Measurements & Calculations LVIDd: 4.5 cm IVSd: 1.0 cm LVOT diam: 1.7 cm LVIDs: 2.7 cm LVPWd: 0.95 cm LVOT area: 2.2 cm2 FS: 41.3 % Ao root diam: 3.2 cm LAV(MOD-bp): 34.9 ml LVAd ap4: 18.3 cm2 LAV(MOD-bp) Indexed: 21.7 ml/m2 LVLd ap4: 6.2 cm LAV(MOD-sp2): 35.9 ml EDV(MOD-sp4): 46.0 ml LAV(MOD-sp4): 33.9 ml EDV(sp4-el): 45.4 ml LVAs ap4: 9.0 cm2 LVLs ap4: 5.2 cm ESV(MOD-sp4): 14.4 ml ESV(sp4-el): 13.2 ml EF(MOD-sp4): 68.6 % EF(sp4-el): 70.9 % SV(MOD-sp4): 31.5 ml SV(sp4-el): 32.2 ml LA A4 area: 14.3 cm2 LA dimension(2D): 4.0 cm RA A4 area: 12.9 cm2 TAPSE: 2.4 cm Time Measurements MV dec time: 0.28 sec Doppler Measurements & Calculations MV E max tk: 76.1 cm/sec Lat Peak E' Tk: 7.1 cm/sec Med Peak E' Tk: 3.7 cm/sec MV A max tk: 98.1 cm/sec E/E' lat: 10.7 E/E' med: 20.8 MV E/A: 0.78 MV V2 max: 104.7 cm/sec Ao V2 max: 150.7 cm/sec MV max P.4 mmHg MV dec slope: 272.2 cm/sec2 Ao max P.1 mmHg MV V2 mean: 67.8 cm/sec Ao V2 mean: 100.6 cm/sec MV mean P.1 mmHg Ao mean P.7 mmHg MV V2 VTI: 34.6 cm Ao V2 VTI: 32.5 cm AV (velocity ratio): 0.83 MVA(VTI): 1.7 cm2 TORI(I,D): 1.8 cm2 TORI(V,D): 1.7 cm2 LV V1 max: 120.7 cm/sec SV(LVOT): 58.6 ml PA V2 max: 101.9 cm/sec LV V1 max P.8 mmHg PA V2 mean: 74.7 cm/sec LV V1 mean P.3 mmHg LV V1 mean: 84.2 cm/sec LV V1 VTI: 26.9 cm TR max tk: 318.5 cm/sec TR max P.6 mmHg ECHO/Echo Complete Interpretation Summary Normal LV size. Left ventricular systolic function is normal. The left ventricular ejection fraction is 65 %. Pulmonary artery systolic pressure is 44 mmHg. Trivial pericardial effusion. Ordering Physician: Kun Ruiz Referring Physician: Kun Ruiz Performed By: Candace Barber RCS
== END | disposition home or self-care (01) ==
LOC: CVS 13:47
PROVIDERS: PCP Internal Medicine; Referring Provider Internal Medicine Cardiovascular Disease; Visit Provider Internal Medicine Cardiovascular Disease
DX: I48.0 Paroxysmal atrial fibrillation (principal)
CPT/HCPCS: 93306

== ENCOUNTER 2024-12-07 14:00 | Inpatient (IN) | payer MEDICARE, BC, SELFPAY ==
[2024-12-07 14:02] VITALS: BP 149/75; PULSE 73; RESP 18; TEMP 37.1; O2SAT 100
[2024-12-07 14:14] VITALS: BMI 43.6
--- NOTE | 2024-12-07 15:15 | EX.ED.DYSGE1 ---
HPI History of Present Illness Chief Complaint: General Illness Informant: patient, family and PCP Narrative Narrative: 84-year-old female presenting to the emergency room with lower extremity swelling. Patient had been taking HCTZ as needed for lower extremity swelling. However a few weeks ago she noticed that her lower extremity swelling was significantly worse. She saw primary care and was started on 20 mg of Lasix. She returned today was continuing to worsen so she was increased to 40 mg and had a concern for developing cellulitis was placed on doxycycline. Patient had a follow-up visit today and was sent to the emergency room because she continues to worsen. PCP notes states that she has had a weight gain but it is unclear of how much possibly 20 pounds. It was noted that she does not feel like she is making much more urine than normal despite the Lasix. She states that she wishes to see a e commerce developer due to chronic kidney disease (last reported creatinine 1.23). She had an echocardiogram July 2024 that showed an ejection fraction of 60% and pulmonary artery pressures at 44. She denies any fevers. She notes blister formation on her legs that are now weeping. She has not been able to wear support hose [facility] Medical History Obesity GI bleed Essential (primary) hypertension Renal insufficiency Secondary pulmonary arterial hypertension Non-rheumatic tricuspid valve insufficiency GERD (gastroesophageal reflux disease) Hemorrhoids RLS (restless legs syndrome) Hyperlipidemia Diverticulitis Arthritis Paroxysmal atrial fibrillation Anxiety and depression Gastritis Home Medications ?Medication ?Instructions ?Recorded ?Last Taken ?Type bupropion HCl 150 mg tablet,12 hr 150 mg PO DAILY mental health 11/10/15 05/27/18 History sustained-release cholecalciferol (vitamin D3) 75 3,000 unit PO DAILY 08/13/18 Unknown History mcg (3,000 unit) tablet multivitamin 1 tab PO DAILY 08/13/18 Unknown History pantoprazole 40 mg tablet,delayed 40 mg PO DAILY 08/13/18 Unknown History release escitalopram oxalate 10 mg tablet 10 mg PO DAILY mental health 03/22/20 Unknown History simvastatin 10 mg tablet 10 mg PO QHS cholesterol lowering 06/28/20 Unknown Rx #90 tabs metoprolol tartrate 25 mg tablet 25 mg PO BID 07/24/22 Unknown History hydrochlorothiazide 12.5 mg capsule 12.5 - 25 mg PO QAM PRN FLUID 07/28/24 Unknown History RETENTION lisinopril 20 mg tablet 20 mg PO BID #180 tabs 07/28/24 Unknown Rx tramadol 50 mg tablet 50 mg PO Q6 PRN pain 07/28/24 Unknown History trazodone 50 mg tablet 25 - 50 mg PO QHS 07/28/24 Unknown History acetaminophen 500 mg tablet 1,000 mg PO Q8H PRN pain 12/07/24 Unknown History (Tylenol Extra Strength) albuterol sulfate 90 mcg/actuation 2 puff inhalation Q4H PRN wheezing 12/07/24 Unknown History aerosol inhaler doxycycline hyclate 100 mg tablet 100 mg PO BID 12/07/24 Unknown History furosemide 40 mg tablet 40 mg PO DAILY 12/07/24 Unknown History potassium chloride 10 mEq 20 meq PO DAILY 12/07/24 Unknown History capsule,extended release triamcinolone acetonide 0.1 % 1 applic topical TID 12/07/24 Unknown History topical cream Allergy/AdvReac Type Severity Reaction Status Date / Time No Known Allergies Allergy Verified 12/07/24 14:01 Family History Mother Diabetes Father Myocardial infarction Surgical History History of cataract surgery History of hip surgery Social History Smoking Status: Former smoker how long ago did patient quit smokin years ago alcohol intake: never substance use type: does not use caffeine: No ROS ROS ED Constitutional Constitutional ED: Denies chills, fever(s) or weight loss Eyes Eyes: Denies change in vision or diplopia ENT ENT ED: Denies ear pain, rhinorrhea or sore throat Cardiovascular Cardiovascular: Denies chest pain, orthopnea, palpitations or racing heartbeat Respiratory/Chest Respiratory/Chest: Denies cough, dyspnea or orthopnea Gastrointestinal Gastrointestinal: Denies abdominal pain, diarrhea, nausea or vomiting Genitourinary Genitourinary ED: Denies dysuria, hematuria or urinary frequency Musculoskeletal Musculoskeletal: Reports other Details: Lower extremity swelling ; Denies arthralgias or myalgias Integumentary Reports other Details: Lower extremity fluid blisters with weeping ; Denies abscess or rash Neurologic Neurologic: Denies headache(s) or weakness Psychiatric Psychiatric: Denies anxiety, depression, suicidal ideation or suicidal thoughts Endocrine Endocrinology: Denies polydipsia, polyphagia or polyuria Allergic/Immunologic Allergic/Immunologic ED: Denies mouth swelling, tongue swelling or urticaria EXAM Physical Exam Const Vital Signs: 12/07/24 14:02 12/07/24 14:18 12/07/24 16:00 Temperature 98.7 F Temperature Source Temporal Pulse Rate 73 68 Respiratory Rate 18 16 Respiratory Effort Normal Non-Labored Respiratory Pattern Normal Blood Pressure 149/75 H 140/53 H Blood Pressure Mean 99 82 Pulse Ox 100 98 Oxygen Delivery Method Room Air Room Air Positive well nourished, well developed and obese General Appearance ED: well developed and NAD Nutritional Appearance: obese HEENT Reports normocephalic, head/scalp atraumatic and moist mucous membranes Eyes PERRL and EOMs intact bilaterally Neck no lymphadenopathy, supple and no JVD Resp normal respiratory effort and clear to auscultation bilaterally Cardio regular rate, regular rhythm and no murmurs GI normal to inspection, nondistended, normoactive bowel sounds and non-tender Palpation: soft Back/Spine no CVA tenderness and normal ROM Extremity Extremity Narrative: Lower extremities are mildly red but it is not a bright red I do not appreciate significant warmth. No lymphangitic streaking. There are some fluid blisters and skin thickening particularly around the foot and ankle regions bilaterally. The redness improves as I elevate the legs. General Extremety ED: Yes edema General Extremity: edema bilateral lower extremity Details: moderate Neuro oriented x3 and CN's II-XII intact bilaterally Sensorium / Orientation: alert Motor Exam: strength 5/5 throughout Psych mental status grossly normal Mood & Affect: Negative for depressed or tearful Skin no rashes or lesions noted and no wounds MDM MDM MDM Narrative Medical decision making narrative: Differential diagnosis includes lymphedema cellulitis sepsis chronic kidney disease acute kidney injury congestive heart failure Patient's last echo was reviewed. Her white count today is 18.4 with a hemoglobin 11.9 platelet count is 356. Creatinine 1.49 with a BUN of 33 glucose of 122 lactic acid 2.7 normal LFTs. Patient has been on doxycycline however we went ahead and obtain blood cultures and we administered Ancef. She was given 80 mg of Lasix and has had good urine output. Patient's white count is elevated from baseline. Creatinine is slightly elevated. Primary care has been working with the patient over the past couple weeks with no success of the treatment. Given the history presentation and workup I will speak with the hospitalist regarding admission for continued diuresis. History & Record Review Discussion w/independent historian: Patient Lab Data Attestation: I reviewed the patient's lab results. Labs: Laboratory Results - last 24 hr 12/07/24 12/07/24 14:29 15:25 WBC 18.4 H RBC 4.16 L Hgb 11.9 L Hct 37.6 MCV 90.4 MCH 28.6 MCHC 31.6 L RDW Std Deviation 45.3 H RDW Coeff of Shruthi 13.8 Plt Count 356 MPV 9.9 Immature Gran % (Auto) 0.600 Neut % (Auto) 55.0 Lymph % (Auto) 27.8 [place] % (Auto) 8.0 Eos % (Auto) 8.4 H Baso % (Auto) 0.2 Absolute Neuts (auto) 10.1 H Absolute Lymphs (auto) 5.11 H Nucleated RBC % 0 Differential Comment SCANNED Diff Path Review May foll Platelet Estimate ADEQUATE Sodium 143 Potassium 4.6 Chloride 109 H Carbon Dioxide 25.0 Anion Gap 8 BUN 33 H Creatinine 1.49 H Estim Creat Clear Calc 33.77 Est GFR (MDRD) Af Amer 43 L Est GFR (MDRD) Non-Af 35 L BUN/Creatinine Ratio 22.1 H Glucose 122 H Lactic Acid 2.7 H* Calcium 9.6 Total Bilirubin 0.20 Direct Bilirubin 0.09 AST 28 ALT 26 Alkaline Phosphatase 96 Total Protein 6.5 Albumin 3.2 Globulin 3.3 Management Discussion w/another healthcare provider: Hospitalist (Dr Bonilla) Discharge Plan Dx/Rx/DC Orders Clinical Impression: Cellulitis, Lymphedema, Chronic kidney disease Disposition Disposition: Acute Care Hospital [facility]
[2024-12-07] MEDS: Furosemide 100 MG/10 ML Vial 80 MG IV (15:20)
[2024-12-07 15:30] LABS: Absolute Lymphocyte Count 5.11 X10^3/uL (0.83-4.51); Absolute Neutrophil Count 10.1 X10^3/uL (2.0-7.7); Basophil# 0.04 X10^3/uL; Basophil% 0.2 % (0-1); Eosinophil# 1.54 X10^3/uL; Eosinophils% 8.4 % (0-5); Hematocrit 37.6 % (37-47); Hemoglobin 11.9 g/dL (12.0-15.0); Lymphocyte # 5.11 X10^3/ul (0.83-4.51); Lymphocyte % 27.8 % (19-41); Mean Corp Hgb Conc 31.6 g/dL (32-36); Mean Corpuscular Hgb 28.6 pg (27.0-32.0); Mean Corpuscular Volume 90.4 fL (81-99); Mean Platelet Vol. 9.9 fl (6.2-12.0); Monocyte# 1.46 X10^3/uL; NRBC Flagged by Analyzer 0 % (0-5); POSITIVE DIFFERENTIAL YES; POSITIVE MORPHOLOGY YES; Platelet Count 356 K/mm3 (150-450); RBC Distribution Width CV 13.8 % (11.6-14.6); RBC Distribution Width SD 45.3 fl (35.1-43.9); Red Blood Count 4.16 M/mm3 (4.2-5.4); White Blood Count 18.4 K/mm3 (4.4-11.0)
[2024-12-07 16:00] VITALS: BP 140/53; PULSE 68; RESP 16; O2SAT 98
[2024-12-07 16:03] LABS: AST(SGOT) 28 U/L (15-37); Alanine Aminotransfer ALT/SGPT 26 U/L (13-56); Albumin, Serum 3.2 g/dL (3.2-5.0); Alkaline Phosphatase 96 U/L (45-117); Anion Gap 8 (5-15); BUN 33 mg/dL (7-18); BUN/Creat Ratio 22.1 RATIO (10-20); Bilirubin, Direct 0.09 mg/dL (0.00-0.30); Calcium,Total 9.6 mg/dL (8.5-10.1); Chloride 109 mmol/L (98-107); Creatinine, Serum 1.49 mg/dL (0.55-1.02); EST Glomerular Filtration Rate 35 mL/min (>60); Est Glom Filt Rate - Afr Amer 43 mL/min (>60); Estimated Creatinine Clearance 33.77 ml/min; Globulin 3.3 g/dL (2.2-4.2); Glucose 122 mg/dL (74-106); Potassium 4.6 mmol/L (3.5-5.1); Protein, Total 6.5 g/dL (6.4-8.2); Sodium Level 143 mmol/L (136-145)
[2024-12-07 16:17] LABS: Lactic Acid 2.7 mmol/L (0.4-1.9)
[2024-12-07 16:42] LABS: Differential Comment SCANNED
[2024-12-07 16:43] LABS: Platelet Estimate ADEQUATE (ADEQ)
[2024-12-07 16:44] LABS: Differential Indicated SCAN CRITERIA MET
[2024-12-07] MEDS: Cefazolin 2 GM in Syringe IV ×2 (17:01→21:34)
[2024-12-07 17:14] LABS: Hypochromasia 1+
[2024-12-07 17:19] VITALS: BP 140/53; PULSE 68; RESP 16; TEMP 37.1; O2SAT 98
[2024-12-07 18:00] VITALS: BP 133/42; PULSE 71; RESP 18; TEMP 36.6; O2SAT 99
--- NOTE | 2024-12-07 18:13 | HP.PCM.HOS_ITS ---
HPI - General General Date of Admission: 12/07/24 Date of Service: 12/07/24 Chief Complaint: Lower extremity swelling HPI Narrative RANDA MAZA, is a 84-year-old female with history of GERD, depression, hypertension presented to [facility] ED 12/07/2024 with increased lower extremity swelling. She been taking hydrochlorothiazide as needed for lower extremity swelling but over the past couple weeks her lower extremity swelling was worsening. She was placed on 20 of Lasix by her physician and then was reevaluated without significant improvement and increased to 40 of Lasix and legs looks a little bit cellulitic so she was started on doxycycline. Given patient is continued to gain weight and is not making more urine despite the oral diuretics she was sent to the hospital. In the ED creatinine 1.49, outpatient records indicate creatinine at baseline is probably around 1.2, additionally white blood cell count of 18.4 with a lactic acid of 2.7 but vitally stable. Did have some cellulitic appearance on bilateral lower extremities so she was given Ancef, she is also given IV Lasix and hospitalist contacted for admission. Patient evaluated bedside and reports history as above, she has had the bilateral lower extremity erythema that has remained roughly the same and leg edema has also not improved despite Lasix without increased urine output. Patient has had weight gain, denies cough or shortness of breath. No chest pain. Does report she is somewhat itchy all over with her swelling. Additionally she said when she was putting her clothes on she thinks she pulled a muscle in her left leg and has been getting muscle cramping since then. [facility] Medical History (Updated 12/07/24 @ 18:[address] Brissa Bonilla MD) Anxiety and depression Arthritis Atrial fibrillation Depression Diverticulitis Essential (primary) hypertension Former smoker Gastritis GERD (gastroesophageal reflux disease) GI bleed Hemorrhoids Hyperlipidemia Hypertension Kidney disease Non-rheumatic tricuspid valve insufficiency Obesity Paroxysmal atrial fibrillation Renal insufficiency RLS (restless legs syndrome) Secondary pulmonary arterial hypertension Home Medications ?Medication ?Instructions ?Recorded ?Last Taken ?Type bupropion HCl 150 mg tablet,12 hr 150 mg PO DAILY mental health 11/10/15 05/27/18 History sustained-release cholecalciferol (vitamin D3) 75 3,000 unit PO DAILY 08/13/18 Unknown History mcg (3,000 unit) tablet multivitamin 1 tab PO DAILY 08/13/18 Unknown History pantoprazole 40 mg tablet,delayed 40 mg PO DAILY 08/13/18 Unknown History release escitalopram oxalate 10 mg tablet 10 mg PO DAILY mental health 03/22/20 Unknown History simvastatin 10 mg tablet 10 mg PO QHS cholesterol lowering 06/28/20 Unknown Rx #90 tabs metoprolol tartrate 25 mg tablet 25 mg PO BID 07/24/22 Unknown History hydrochlorothiazide 12.5 mg capsule 12.5 - 25 mg PO QAM PRN FLUID 07/28/24 Unknown History RETENTION lisinopril 20 mg tablet 20 mg PO BID #180 tabs 07/28/24 Unknown Rx tramadol 50 mg tablet 50 mg PO Q6 PRN pain 07/28/24 Unknown History trazodone 50 mg tablet 25 - 50 mg PO QHS 07/28/24 Unknown History acetaminophen 500 mg tablet 1,000 mg PO Q8H PRN pain 12/07/24 Unknown History (Tylenol Extra Strength) albuterol sulfate 90 mcg/actuation 2 puff inhalation Q4H PRN wheezing 12/07/24 Unknown History aerosol inhaler doxycycline hyclate 100 mg tablet 100 mg PO BID 12/07/24 Unknown History furosemide 40 mg tablet 40 mg PO DAILY 12/07/24 Unknown History potassium chloride 10 mEq 20 meq PO DAILY 12/07/24 Unknown History capsule,extended release triamcinolone acetonide 0.1 % 1 applic topical TID 12/07/24 Unknown History topical cream Allergy/AdvReac Type Severity Reaction Status Date / Time No Known Allergies Allergy Verified 12/07/24 14:01 Family History Mother Diabetes Father Myocardial infarction Surgical History History of cataract surgery History of hip surgery Social History Smoking Status: Former smoker how long ago did patient quit smokin years ago alcohol intake: never substance use type: does not use caffeine: No ROS ROS Narrative General: Denies fever/chills HENT: Denies headache, denies stuffy nose, denies sore throat EYES: Denies changes in vision Resp: Denies cough, denies shortness of breath Cardiac: Denies chest pain GI: Denies abdominal pain, denies changes in bowel, denies nausea/vomiting : No increased urination despite Lasix Extremity: Increasing bilateral lower extremity edema MSK: Some general weakness Neuro: Denies any numbness/tingling Heme: Denies any bleeding or bruising Skin: Skin is itchy, also has bilateral lower extremity erythema Psychiatric: No complaints voiced Vital Signs Vital Signs Vital Signs: 12/07/24 14:02 12/07/24 14:18 12/07/24 16:00 Temperature 98.7 F Temperature Source Temporal Pulse Rate 73 68 Respiratory Rate 18 16 Respiratory Effort Normal Non-Labored Respiratory Pattern Normal Blood Pressure 149/75 H 140/53 H Blood Pressure Mean 99 82 Pulse Ox 100 98 Oxygen Delivery Method Room Air Room Air 12/07/24 17:19 Temperature 98.7 F Temperature Source Pulse Rate 68 Respiratory Rate 16 Respiratory Effort Respiratory Pattern Blood Pressure 140/53 H Blood Pressure Mean 82 Pulse Ox 98 Oxygen Delivery Method Weight Weight: 111.7 kg Body Mass Index (BMI) 43.6 Physical Exam Narrative General: Alert, oriented, no apparent distress HEENT: Atraumatic, normocephalic Eyes: Anicteric, normal conjunctiva, extraocular movements grossly intact Neck: Supple Respiratory: Clear to auscultation bilaterally, normal respiratory effort Cardiovascular: Regular rate GI: Soft, nontender, nondistended Extremities: 2+ bilateral lower extremity edema Musculoskeletal: Moving all extremities Neuro: No overt focal neurological deficits Skin: Legs erythematous extending up towards knee and they are warm, also has some excoriations on lower extremities Psych: Cooperative Results Lab / Micro Data 12/07/24 14:29 12/07/24 14:29 Labs: Laboratory Results - last 24 hr 12/07/24 14:29: WBC 18.4 H, RBC 4.16 L, Hgb 11.9 L, Hct 37.6, MCV 90.4, MCH 28.6, MCHC 31.6 L, RDW Std Deviation 45.3 H, RDW Coeff of Shruthi 13.8, Plt Count 356, MPV 9.9, Immature Gran % (Auto) 0.600, Neut % (Auto) 55.0, Lymph % (Auto) 27.8, [place] % (Auto) 8.0, Eos % (Auto) 8.4 H, Baso % (Auto) 0.2, Absolute Neuts (auto) 10.1 H, Absolute Lymphs (auto) 5.11 H, Nucleated RBC % 0, Differential Comment SCANNED, Diff Path Review May foll, Platelet Estimate ADEQUATE, Hypochromasia 1+, Sodium 143, Potassium 4.6, Chloride 109 H, Carbon Dioxide 25.0, Anion Gap 8, BUN 33 H, Creatinine 1.49 H, Estim Creat Clear Calc 33.77, E st GFR (MDRD) Af Amer 43 L, Est GFR (MDRD) Non-Af 35 L, BUN/Creatinine Ratio 22.1 H, Glucose 122 H, Calcium 9.6, Total Bilirubin 0.20, Direct Bilirubin 0.09, AST 28, ALT 26, Alkaline Phosphatase 96, Total Protein 6.5, Albumin 3.2, Globulin 3.3 12/07/24 15:25: Lactic Acid 2.7 H* Assessment & Plan Assessment/Plan (1) Lower extremity edema: PLAN: Plan # Worsening bilateral lower extremity edema refractory to outpatient management -Admit to telemetry -BNP ordered -Continue IV lasix -Last echo 08/17/2024 with EF 65%, PASP of 44 with normal LV size -Will repeat limited echo to assess EF, do not think complete echo necessary given she had 1 several months ago -Daily weights, I's and O's -Fluid restriction, heart healthy diet -Will check TSH # Bilateral lower extremity cellulitis -Will continue IV antibiotics, patient failed outpatient doxycycline # CKD stage III b -Possibly slightly up from baseline, reported that outside records show her creatinine is usually around 1.2, today 1.49 -Avoid nephrotoxic agents -Daily BMPs #GERD -Continue PPI #Depression/anxiety -Continue home medications #Hypertension -Continue metoprolol, holding lisinopril given bump in creatinine #Morbid obesity -BMI documented as 43.6 kg/m? at time of admission -Complicates treatment, prognosis, outcomes -Recommend weight loss and lifestyle changes #DVT ppx: Lovenox subcu Brisas Bonilla MD Charges/Coding Visit Charges Inpatient E&M: 28809 Init Hosp L2
--- NOTE | 2024-12-07 18:32 | ECHOL_ITS ---
Reason For Study: Limited for EF, Edema, Fluid Overload Procedure This was a limited 2D transthoracic echocardiogram. Exam performed portable in patient room. Left Ventricle Normal LV size. The estimated ejection fraction is 70 %. No regional wall motion abnormalities noted. Right Ventricle Moderately dilated right ventricle. Mild segmental dysfunction of right ventricle. Mitral Valve There is moderate mitral annular calcification. There is no mitral valve stenosis. Mild (1+) mitral valve insufficiency. Tricuspid Valve There is no tricuspid stenosis. Moderate (2+) tricuspid valve insufficiency. Pulmonary artery systolic pressure is 90 mmHg. Severe pulmonary hypertension. Aortic Valve Trisinus/trileaflet aortic valve. There is no aortic stenosis. No aortic valve insufficiency. MMode/2D Measurements & Calculations LVIDd: 4.6 cm IVSd: 1.0 cm Ao root diam: 3.8 cm LVIDs: 2.7 cm LVPWd: 1.0 cm FS: 41.5 % Doppler Measurements & Calculations TR max becki: 453.5 cm/sec TR max P.3 mmHg ECHO/Echo, Limited Study Interpretation Summary The estimated ejection fraction is 70 %. Moderately dilated right ventricle. Severe pulmonary hypertension. Ordering Physician: Brissa Bonilla Referring Physician: Mandy Garcia Performed By: Poornima Aguilar, RDCS, RVT
[2024-12-07 18:36] VITALS: BMI 42.3
[2024-12-07 19:34] LABS: Reflex Lactate? Y
[2024-12-07 20:04] LABS: Magnesium 1.7 mg/dL (1.6-2.6)
[2024-12-07 20:05] VITALS: BP 124/69; PULSE 79; RESP 18; TEMP 36.3; O2SAT 100
[2024-12-07 20:06] LABS: BNP,B-Type NATRIURETIC PEPTIDE 390.7 pg/mL (0-100)
[2024-12-07] MEDS: Acetaminophen 325 MG Tablet 650 MG PO (20:13)
[2024-12-07 21:00] LABS: Lactic Acid 2.8 mmol/L (0.4-1.9)
[2024-12-07] MEDS: Atorvastatin Calcium 10 MG Tablet 5 MG PO (21:37)
[2024-12-07 21:38] VITALS: PULSE 85
[2024-12-07] MEDS: Metoprolol Tartrate 25 MG Tablet PO (21:38)
[2024-12-07] MEDS: traZODone 50 MG Tablet 25 MG PO (21:38)
[2024-12-07] MEDS: Magnesium Sulfate 2 GM in Dextrose 5%-Water (100mL Bag) 100 ML IV (21:39)
[2024-12-07] MEDS: Enoxaparin 40 MG/0.4 ML Syringe SC (21:39)
[2024-12-07] MEDS: 0.9% Saline Lock 10 ML Syringe IV (21:42)
[2024-12-07] MEDS: traMADol 50 MG Tablet PO (22:01)
[2024-12-08] VITALS (8 sets, daily range): BP systolic 104–146; BP diastolic 44–54; PULSE 79–87; RESP 18–20; TEMP 36.7–37.8; O2SAT 94–95; BMI 42.3
[2024-12-08 06:21] LABS: Absolute Lymphocyte Count 5.41 X10^3/uL (0.83-4.51); Absolute Neutrophil Count 8.9 X10^3/uL (2.0-7.7); Basophil# 0.06 X10^3/uL; Basophil% 0.3 % (0-1); Eosinophil# 1.57 X10^3/uL; Eosinophils% 8.9 % (0-5); Hematocrit 31.7 % (37-47); Hemoglobin 10.3 g/dL (12.0-15.0); Lymphocyte # 5.41 X10^3/ul (0.83-4.51); Lymphocyte % 30.6 % (19-41); Mean Corp Hgb Conc 32.5 g/dL (32-36); Mean Corpuscular Hgb 28.9 pg (27.0-32.0); Mean Platelet Vol. 9.3 fl (6.2-12.0); Monocyte# 1.66 X10^3/uL; Monocyte% 9.4 % (0-10); NRBC Flagged by Analyzer 0 % (0-5); Neutrophil # 8.86 X10^3/uL (2.7-7.7); Neutrophil % 50.1 % (47-70); POSITIVE DIFFERENTIAL YES; Platelet Count 315 K/mm3 (150-450); RBC Distribution Width CV 13.8 % (11.6-14.6); RBC Distribution Width SD 44.7 fl (35.1-43.9); Red Blood Count 3.56 M/mm3 (4.2-5.4); White Blood Count 17.7 K/mm3 (4.4-11.0)
[2024-12-08 06:23] LABS: Differential Indicated SCAN CRITERIA MET
[2024-12-08 06:47] LABS: Lactic Acid 1.4 mmol/L (0.4-1.9)
[2024-12-08 06:55] LABS: Anion Gap 6 (5-15); BUN 33 mg/dL (7-18); BUN/Creat Ratio 23.1 RATIO (10-20); Calcium,Total 9.2 mg/dL (8.5-10.1); Chloride 103 mmol/L (98-107); Cholesterol 120 mg/dL (200); Creatinine, Serum 1.43 mg/dL (0.55-1.02); EST Glomerular Filtration Rate 37 mL/min (>60); Est Glom Filt Rate - Afr Amer 45 mL/min (>60); Estimated Creatinine Clearance 34.56 ml/min; Glucose 109 mg/dL (74-106); High Density Lipoprotein 49 mg/dL; Potassium 4.5 mmol/L (3.5-5.1); Sodium Level 135 mmol/L (136-145); Triglycerides 102 mg/dL; Very Low Density Lipoprotein 20 mg/dL (5-40)
--- NOTE | 2024-12-08 07:39 | PN.HOSP_ITS ---
Reason for Visit Reason for Visit: Diagnoses Localized edema (12/07/24) Objective Data Objective Data Vital Signs: Vital Signs Temp Pulse Resp BP Pulse Ox O2 Del Method 36.8 C 79 20 H 136/51 H 95 Room Air 12/08/24 05:50 12/08/24 05:50 12/08/24 05:50 12/08/24 05:50 12/08/24 05:50 12/08/24 05:50 Oxygen Delivery Method Room Air Weight: 108.3 kg Body Mass Index (BMI) 42.3 Intake & Output: Intake and Output for Last 24 Hours 12/06/24 12/07/24 12/08/24 23:59 23:59 23:59 Intake Total 764 / 764 150 / 150 Output Total 2350 / 2350 250 / 250 Balance -1586 / -1586 -100 / -100 Lab / Micro Data 12/08/24 06:10 12/08/24 06:10 Labs: Laboratory Results - last 24 hr 12/07/24 14:29: WBC 18.4 H, RBC 4.16 L, Hgb 11.9 L, Hct 37.6, MCV 90.4, MCH 28.6, MCHC 31.6 L, RDW Std Deviation 45.3 H, RDW Coeff of Shruthi 13.8, Plt Count 356, MPV 9.9, Immature Gran % (Auto) 0.600, Neut % (Auto) 55.0, Lymph % (Auto) 27.8, [place] % (Auto) 8.0, Eos % (Auto) 8.4 H, Baso % (Auto) 0.2, Absolute Neuts (auto) 10.1 H, Absolute Lymphs (auto) 5.11 H, Nucleated RBC % 0, Differential Comment SCANNED, Diff Path Review March, Platelet Estimate ADEQUATE, Hypochromasia 1+, Sodium 143, Potassium 4.6, Chloride 109 H, Carbon Dioxide 25.0, Anion Gap 8, BUN 33 H, Creatinine 1.49 H, Estim Creat Clear Calc 33.77, E st GFR (MDRD) Af Amer 43 L, Est GFR (MDRD) Non-Af 35 L, BUN/Creatinine Ratio 22.1 H, Glucose 122 H, Calcium 9.6, Total Bilirubin 0.20, Direct Bilirubin 0.09, AST 28, ALT 26, Alkaline Phosphatase 96, Total Protein 6.5, Albumin 3.2, Globulin 3.3 12/07/24 15:25: Lactic Acid 2.7 H* 12/07/24 19:18: Magnesium 1.7, B-Natriuretic Peptide 390.7 H 12/07/24 19:55: Lactic Acid 2.8 H* 12/08/24 06:10: WBC 17.7 H, RBC 3.56 L, Hgb 10.3 L, Hct 31.7 L, MCV 89.0, MCH 28.9, MCHC 32.5, RDW Std Deviation 44.7 H, RDW Coeff of Shruthi 13.8, Plt Count 315, MPV 9.3, Immature Gran % (Auto) 0.700, Neut % (Auto) 50.1, Lymph % (Auto) 30.6, [place] % (Auto) 9.4, Eos % (Auto) 8.9 H, Baso % (Auto) 0.3, Absolute Neuts (auto) 8.9 H, Absolute Lymphs (auto) 5.41 H, Nucleated RBC % 0, Sodium 135 L, Potassium 4.5, Chloride 103, Carbon Dioxide 26.0, Anion Gap 6, BUN 33 H, Creatinine 1.43 H , Estim Creat Clear Calc 34.56, Est GFR (MDRD) Af Amer 45 L, Est GFR (MDRD) Non- Af 37 L, BUN/Creatinine Ratio 23.1 H, Glucose 109 H, Lactic Acid 1.4, Calcium 9.2, Triglycerides 102, Cholesterol 120, LDL Cholesterol 51, VLDL Cholesterol 20, HDL Cholesterol 49, TSH 1.560 Assessment & Plan Assessment/Plan (1) Lower extremity edema: PLAN: Plan Worsening bilateral lower extremity edema refractory to outpatient management * IV furosemide * Last echo 08/17/2024 with EF 65%, PASP of 44 with normal LV size. Repeat echo ordered. * Daily weights, I's and O's # Bilateral lower extremity cellulitis -Will continue IV antibiotics, patient failed outpatient doxycycline Chronic conditions: * CKDIIIb: stable. monitor while on furosemide. * GERD: Continue PPI * Depression/anxiety-Continue home medications * Hypertension-Continue metoprolol, holding lisinopril given bump in creatinine * Obesity classs III: complicates care and recovery. VTE prophylaxis: LMWH.
--- NOTE | 2024-12-08 07:39 | PCM.PN.HOSP ---
Reason for Visit Reason for Visit: Diagnoses Localized edema (12/07/24) Subjective Subjective Still with LE edema, which she had try to remedy with HCTZ then furosemide. Complains of left lower extremity pain and weakness. Patient has a history of back problems and has had a history of herniated disks. Objective Data Objective Data Vital Signs: Vital Signs Temp Pulse Resp BP Pulse Ox O2 Del Method 36.8 C 79 20 H 136/51 H 95 Room Air 12/08/24 05:50 12/08/24 05:50 12/08/24 05:50 12/08/24 05:50 12/08/24 05:50 12/08/24 05:50 Oxygen Delivery Method Room Air Weight: 108.3 kg Body Mass Index (BMI) 42.3 Intake & Output: Intake and Output for Last 24 Hours 12/06/24 12/07/24 12/08/24 23:59 23:59 23:59 Intake Total 764 / 764 150 / 150 Output Total 2350 / 2350 250 / 250 Balance -1586 / -1586 -100 / -100 Lab / Micro Data 12/08/24 06:10 12/08/24 06:10 Labs: Laboratory Results - last 24 hr 12/07/24 14:29: WBC 18.4 H, RBC 4.16 L, Hgb 11.9 L, Hct 37.6, MCV 90.4, MCH 28.6, MCHC 31.6 L, RDW Std Deviation 45.3 H, RDW Coeff of Shruthi 13.8, Plt Count 356, MPV 9.9, Immature Gran % (Auto) 0.600, Neut % (Auto) 55.0, Lymph % (Auto) 27.8, [place] % (Auto) 8.0, Eos % (Auto) 8.4 H, Baso % (Auto) 0.2, Absolute Neuts (auto) 10.1 H, Absolute Lymphs (auto) 5.11 H, Nucleated RBC % 0, Differential Comment SCANNED, Diff Path Review May , Platelet Estimate ADEQUATE, Hypochromasia 1+, Sodium 143, Potassium 4.6, Chloride 109 H, Carbon Dioxide 25.0, Anion Gap 8, BUN 33 H, Creatinine 1.49 H, Estim Creat Clear Calc 33.77, Est GFR (MDRD) Af Amer 43 L, Est GFR (MDRD) Non-Af 35 L, BUN/Creatinine Ratio 22.1 H, Glucose 122 H, Calcium 9.6, Total Bilirubin 0.20, Direct Bilirubin 0.09, AST 28, ALT 26, Alkaline Phosphatase 96, Total Protein 6.5, Albumin 3.2, Globulin 3.3 12/07/24 15:25: Lactic Acid 2.7 H* 12/07/24 19:18: Magnesium 1.7, B-Natriuretic Peptide 390.7 H 12/07/24 19:55: Lactic Acid 2.8 H* 12/08/24 06:10: WBC 17.7 H, RBC 3.56 L, Hgb 10.3 L, Hct 31.7 L, MCV 89.0, MCH 28.9, MCHC 32.5, RDW Std Deviation 44.7 H, RDW Coeff of Shruthi 13.8, Plt Count 315, MPV 9.3, Immature Gran % (Auto) 0.700, Neut % (Auto) 50.1, Lymph % (Auto) 30.6, [place] % (Auto) 9.4, Eos % (Auto) 8.9 H, Baso % (Auto) 0.3, Absolute Neuts (auto) 8.9 H, Absolute Lymphs (auto) 5.41 H, Nucleated RBC % 0, Sodium 135 L, Potassium 4.5, Chloride 103, Carbon Dioxide 26.0, Anion Gap 6, BUN 33 H, Creatinine 1.43 H, Estim Creat Clear Calc 34.56, Est GFR (MDRD) Af Amer 45 L, Est GFR (MDRD) Non-Af 37 L, BUN/Creatinine Ratio 23.1 H, Glucose 109 H, Lactic Acid 1.4, Calcium 9.2, Triglycerides 102, Cholesterol 120, LDL Cholesterol 51, VLDL Cholesterol 20, HDL Cholesterol 49, TSH 1.560 Physical Exam Const alert and no apparent distress HEENT head/scalp atraumatic and moist oral mucous membranes Resp normal respiratory effort and no retractions Extremity Extremity Narrative: bilateral LE edema, but not taught. Skin Skin Narrative: lymphedematous changes to LE. sloughing skin bilateral LE. Assessment & Plan Assessment/Plan (1) Lower extremity edema: PLAN: Plan Worsening bilateral lower extremity edema refractory to outpatient management This is due to right heart failure and pulmonary hypertension. Patient's pulmonary systolic pressure is increased from 44-90 now. IV furosemide Daily weights, I's and O's Discussed with the patient and family that she will need further evaluation such as a polysomnogram to see if she has underlying sleep apnea. Treating underlying process of the pulmonary artery hypertension. Also discussed with the patient that when she goes home it is very important for her to weigh herself, limit her fluid intake as well as sodium intake. Pulmonary artery hypertension Echo shows an EF of 70% moderately dilated right ventricle. Severe pulmonary hypertension with pulmonary artery systolic pressure of 90 Will check a V/Q as well as duplex of lower extremities. She will need follow-up pulmonary to have a polysomnogram to see if she has underlying sleep apnea. I feel her pulmonary artery hypertension is secondary likely group 2 or 3. Given her age, I severely doubt that she has primary pulmonary hypertension. Lower extremity erythema This is not cellulitis but venous stasis erythema. Antibiotics discontinued. Left lower extremity radiculopathy Patient denies any bowel or bladder incontinence that is new. Patient has a history of chronic bladder incontinence. I do not feel this is cauda equina. Patient has a history of back problems and herniated disc per her description. Will start her on steroid burst. Chronic conditions: CKDIIIb: stable. monitor while on furosemide. GERD: Continue PPI Depression/anxiety-Continue home medications Hypertension-Continue metoprolol, holding lisinopril given bump in creatinine Obesity classs III: complicates care and recovery. VTE prophylaxis: LMWH. Debility: PT OT evaluate and treat. Patient may require jail facility. Greater than 60 minutes of which greater than 50% of time was discussing with the patient as well as her son about her condition, reviewing echo reports and evaluation and ongoing treatment. Charges/Coding Visit Charges Inpatient E&M: 26280 Subs Hosp L3
[2024-12-08] MEDS: Enoxaparin 40 MG/0.4 ML Syringe SC ×2 (11:11→21:32)
[2024-12-08] MEDS: Escitalopram Oxalate 10 MG Tablet PO (11:11)
[2024-12-08] MEDS: Furosemide 40 MG/4 ML Vial IV ×2 (11:11→19:02)
[2024-12-08] MEDS: buPROPion (SR) 150 MG Tablet.SA PO (11:12)
[2024-12-08] MEDS: Metoprolol Tartrate 25 MG Tablet PO ×2 (11:12→21:31)
[2024-12-08] MEDS: Pantoprazole Sodium 40 MG Tablet PO (11:12)
--- NOTE | 2024-12-08 11:30 | CASEMGMT ---
RN CM Face to Face with patient for initial transition planning/care coordination assessment. RN CM introduced self and role at [facility]. Patient lying in bed, alert and oriented, family at bedside. Patient willing to participate in assessment and is able to answer all questions appropriately. Care providers, pharmacy, and demographics verified. Strata: 2 PCP: Radha Specialists: Joseph, manager application development; Shelby, oncologist Preferred Pharmacy: [facility] Insurance: [employer] Prescription Benefit: yes Living Will/HPOA: yes, son Brandyn Shelley LNOK: sons Living Arrangements: Patient lives with son in a single story home with 1 steps and grab bar to enter. Patient is independent for self care, son assists with direct sales representative. Transportation: self, son DME/HHC: Patient has shower chair, cane, walker, rollator, and grab bars at home. No previous SNF. Patient has had [facility] HHC in the past. Will monitor for home oxygen Patient wishes to discharge home. Discuss HHC vs SNF LOC at discharge. Patient has therapy order, eval pending. Patient states she has no further needs or concerns at this time. CM to follow for discharge planning needs that may arise. Disposition Plan: TBD, anticipate HHC vs SNF pending progress with therapy. Peggy MILAN, RN, CM
[2024-12-08 13:20] LABS: Pathologist Review Reviewed
[2024-12-08 13:22] LABS: Pathologist Review Reviewed
--- NOTE | 2024-12-08 14:11 | NM_ITS ---
CLINICAL: 84-year-old female with history of pulmonary hypertension. VENTILATION-PERFUSION LUNG SCINTIGRAPHY COMPARISON: None available FINDINGS: The patient was administered 48.0 mCi Tc DTPA aerosol. The aerosol ventilation study demonstrates mild heterogeneous ventilation identified in the right height and left lung naqvi. There is no central clumping of the aerosol is identified in the bilateral hemithorax. A stripe sign is defined in the left upper mid lung field laterally. Following the intravenous administration of 6.0 mCi of Tc MAA the pulmonary perfusion study reveals relatively uniform perfusion throughout the bilateral lung naqvi. A matching stripe sign is noted in the left upper lung correlating with the fed laboratory findings. There are no moderate subsegmental or large segmental ventilation-perfusion mismatches identified. NM/Lung Scan Vent/Perf IMPRESSION: 1. VERY LOW PROBABILITY FOR PULMONARY EMBOLUS (<10%) 99m Tc DTPA aerosol ventilation / 99m Tc MAA pulmonary perfusion imaging examination, according to PIOPED II interpretive criteria with regard given to the presence of a stripe sign as described above. (Sotsman et al, Radiology 246: 941, 2008 Soricci et al, J Nucl Med 49: 1741, 2008). 2. Patients with documented pulmonary hypertension and the presence of low probability, very low probability and normal ventilation-perfusion lung scintigraphy are associated with a LOW likelihood of thromboembolic pulmonary hypertension. (Irving et al, Chest 84: 679, 1983 Lisbona et al, AJR 144: 27, 1985). Electronically Signed: Pako Mike DO at 17:11 [facility] ,
--- NOTE | 2024-12-08 14:11 | VDLE_ITS ---
Reason For Study: Shortness of breath RIGHT LEFT GSV is normal. GSV is normal. CFV is compressible, spontaneous, competent CFV is compressible, spontaneous, competent, and demonstrates pulsatile venous flow. and demonstrates pulsatile venous flow. FV is compressible, spontaneous, competent FV is compressible, spontaneous, competent and demonstrates pulsatile venous flow. and demonstrates pulsatile venous flow. POP V is compressible, spontaneous, competent POP V is compressible, spontaneous, competent and demonstrates pulsatile venous flow. and demonstrates pulsatile venous flow. T/P Trunk is compressible. T/P Trunk is compressible. PTV is compressible. PTV is compressible. RT PerV is compressible. LT PerV is compressible. Procedure This is a venous duplex using B-mode, color flow and spectral Doppler. Exam performed in department. VL/Venous Duplex US - Nirmal Extrem Interpretation Summary Deep veins of the bilateral lower extremities are patent and compressible segme ntally. There is no evidence of bilateral lower extremity deep vein thrombosis. The bilateral great saphenous veins appear patent and compressible segmentally. Ordering Physician: Cordell Kerr Referring Physician: Mandy Garcia M.D. Performed By: Peggy Polanco RVT and Student
--- NOTE | 2024-12-08 14:30 | NURSING ---
pt off floor to VQ scan
--- NOTE | 2024-12-08 16:06 | CHAPLAIN ---
Type of Pastoral Visit ___ Initial Visit ___ Follow-up Visit ___ On-call Visit ___ General Patient Visit ___ Spiritual Assessment ___ Family Conference ___ Bereavement ___ Rapid Response ___ Code Blue ___ Other (describe below) Pastoral Care Referral From ___ Patient ___ Family ___ Nurse ___ Physician ___ Tipple Operator ___ Client Representative ___ Other (describe below) Sacrament/Intervention ___ Active listening ___ Anointing ___ Yarsanism ___ Bereavement ___ Communion ___ Miranda exploration ___ ___ Life review ___ Prayer ___ Reconciliation ___ Sacrament of Sick ___ Supportive presence ___ Wedding ___ Other (describe below) Pastoral Comments a calling card is left for the patient as she and the bed are out of the room
--- NOTE | 2024-12-08 16:14 | WOUNDNOTE ---
wound photo: left lateral ankle/heel
[2024-12-08] MEDS: predniSONE 20 MG Tablet 60 MG PO (16:41)
[2024-12-08] MEDS: 0.9% Saline Lock 10 ML Syringe IV ×2 (19:02→20:20)
[2024-12-08] MEDS: traZODone 50 MG Tablet 25 MG PO (21:31)
[2024-12-08] MEDS: Atorvastatin Calcium 10 MG Tablet 5 MG PO (21:32)
[2024-12-09] VITALS (8 sets, daily range): BP systolic 126–138; BP diastolic 47–63; PULSE 71–82; RESP 16–18; TEMP 36.8–37.1; O2SAT 92–97; BMI 42.0
[2024-12-09 06:54] LABS: Absolute Lymphocyte Count 4.35 X10^3/uL (0.83-4.51); Absolute Neutrophil Count 11.9 X10^3/uL (2.0-7.7); Basophil# 0.03 X10^3/uL; Basophil% 0.2 % (0-1); Eosinophil# 0.03 X10^3/uL; Eosinophils% 0.2 % (0-5); Hematocrit 31.3 % (37-47); Hemoglobin 10.4 g/dL (12.0-15.0); Lymphocyte # 4.35 X10^3/ul (0.83-4.51); Lymphocyte % 24.9 % (19-41); Mean Corp Hgb Conc 33.2 g/dL (32-36); Mean Corpuscular Hgb 29.1 pg (27.0-32.0); Mean Corpuscular Volume 87.7 fL (81-99); Mean Platelet Vol. 9.7 fl (6.2-12.0); Monocyte# 1.01 X10^3/uL; Monocyte% 5.8 % (0-10); NRBC Flagged by Analyzer 0 % (0-5); Neutrophil # 11.93 X10^3/uL (2.7-7.7); Neutrophil % 68.2 % (47-70); Platelet Count 279 K/mm3 (150-450); RBC Distribution Width CV 13.4 % (11.6-14.6); RBC Distribution Width SD 42.8 fl (35.1-43.9); Red Blood Count 3.57 M/mm3 (4.2-5.4); White Blood Count 17.5 K/mm3 (4.4-11.0)
[2024-12-09 07:16] LABS: Anion Gap 12 (5-15); BUN 29 mg/dL (7-18); BUN/Creat Ratio 21.6 RATIO (10-20); Calcium,Total 8.5 mg/dL (8.5-10.1); Chloride 101 mmol/L (98-107); Creatinine, Serum 1.34 mg/dL (0.55-1.02); EST Glomerular Filtration Rate 40 mL/min (>60); Est Glom Filt Rate - Afr Amer 48 mL/min (>60); Estimated Creatinine Clearance 36.73 ml/min; Glucose 139 mg/dL (74-106); Potassium 4.5 mmol/L (3.5-5.1); Sodium Level 137 mmol/L (136-145)
--- NOTE | 2024-12-09 08:42 | PCM.PN.HOSP ---
Reason for Visit Reason for Visit: Diagnoses Localized edema (12/07/24) Subjective Subjective Legs feeling better. Pain down leg leg improved. Objective Data Objective Data Vital Signs: Vital Signs Temp Pulse Resp BP Pulse Ox O2 Del Method 37.1 C 79 16 136/61 H 97 Room Air 12/09/24 05:35 12/09/24 05:35 12/09/24 05:35 12/09/24 05:35 12/09/24 05:35 12/09/24 05:35 Oxygen Delivery Method Room Air Weight: 107.5 kg Body Mass Index (BMI) 42.0 Intake & Output: Intake and Output for Last 24 Hours 12/07/24 12/08/24 12/09/24 23:59 23:59 23:59 Intake Total 764 / 764 750 / 750 0 / 0 Output Total 2350 / 2350 1900 / 1900 600 / 600 Balance -1586 / -1586 -1150 / -1150 -600 / -600 Lab / Micro Data 12/09/24 06:09 12/09/24 06:09 Labs: Laboratory Results - last 24 hr 12/07/24 14:29: Diff Path Review Reviewed 12/08/24 06:10: Differential Comment COMMENT, Diff Path Review Reviewed 12/09/24 06:09: WBC 17.5 H, RBC 3.57 L, Hgb 10.4 L, Hct 31.3 L, MCV 87.7, MCH 29.1, MCHC 33.2, RDW Std Deviation 42.8, RDW Coeff of Shruthi 13.4, Plt Count 279, MPV 9.7, Immature Gran % (Auto) 0.700, Neut % (Auto) 68.2, Lymph % (Auto) 24.9, [place] % (Auto) 5.8, Eos % (Auto) 0.2, Baso % (Auto) 0.2, Absolute Neuts (auto) 11.9 H, Absolute Lymphs (auto) 4.35, Nucleated RBC % 0, Sodium 137, Potassium 4.5, Chloride 101, Carbon Dioxide 24.0, Anion Gap 12, BUN 29 H, Creatinine 1.34 H, Estim Creat Clear Calc 36.73, Est GFR (MDRD) Af Amer 48 L, Est GFR (MDRD) Non-Af 40 L, BUN/Creatinine Ratio 21.6 H, Glucose 139 H, Calcium 8.5 Radiography Diagnostic Testing: Radiology Impression Echocardiogram 12/07/24 18:32 Interpretation Summary The estimated ejection fraction is 70 %. Moderately dilated right ventricle. Severe pulmonary hypertension. Ordering Physician: Brissa Bonilla Referring Physician: Mandy Garcia Performed By: Poornima Aguilar, ABIOLA, RVT Lung Scan-VQ NM 12/08/24 14:11 IMPRESSION: 1. VERY LOW PROBABILITY FOR PULMONARY EMBOLUS (<10%) 99m Tc DTPA aerosol ventilation / 99m Tc MAA pulmonary perfusion imaging examination, according to PIOPED II interpretive criteria with regard given to the presence of a stripe sign as described above. (Sotsman et al, Radiology 246: 941, 2008 Sotsjessie et al, J Nucl Med 49: 1741, 2008). 2. Patients with documented pulmonary hypertension and the presence of low probability, very low probability and normal ventilation-perfusion lung scintigraphy are associated with a LOW likelihood of thromboembolic pulmonary hypertension. (Irving et al, Chest 84: 679, 1983 Lisbona et al, AJR 144: 27, 1985). Electronically Signed: Pako Mike DO at 17:11 [facility] , Physical Exam Const alert and no apparent distress HEENT head/scalp atraumatic and moist oral mucous membranes Resp normal respiratory effort, no retractions, no use of accessory muscles and clear to auscultation bilaterally Cardio regular rate, regular rhythm, S1 normal heart sound and S2 normal heart sound GI normal to inspection, nondistended, normoactive bowel sounds, soft to palpation, non-tender and non-distended Extremity Extremity Narrative: bilateral LE. Leg with LONNY wraps bilaterally. Neuro Sensorium / Orientation: awake and alert Assessment & Plan Assessment/Plan (1) Lower extremity edema: PLAN: Plan Worsening bilateral lower extremity edema refractory to outpatient management This is due to right heart failure and pulmonary hypertension. Patient's pulmonary systolic pressure is increased from 44-90 now. IV furosemide. Will change to PO. Daily weights, I's and O's Discussed with the patient and family that she will need further evaluation such as a polysomnogram to see if she has underlying sleep apnea. Treating underlying process of the pulmonary artery hypertension. Also discussed with the patient that when she goes home it is very important for her to weigh herself, limit her fluid intake as well as sodium intake. Pulmonary artery hypertension Echo shows an EF of 70% moderately dilated right ventricle. Severe pulmonary hypertension with pulmonary artery systolic pressure of 90 VQ very low probablity for PE. Duplex ordered. She will need follow-up pulmonary to have a polysomnogram to see if she has underlying sleep apnea. I feel her pulmonary artery hypertension is secondary likely group 2 or 3. Given her age, I severely doubt that she has primary pulmonary hypertension. Lower extremity erythema This is not cellulitis but venous stasis erythema. Antibiotics discontinued. Left lower extremity radiculopathy Patient denies any bowel or bladder incontinence that is new. Patient has a history of chronic bladder incontinence. I do not feel this is cauda equina. Patient has a history of back problems and herniated disc per her description. Will start her on steroid burst. Follow up with spine surgery as outpt. Chronic conditions: CKDIIIb: stable. monitor while on furosemide. GERD: Continue PPI Depression/anxiety-Continue home medications Hypertension-Continue metoprolol, holding lisinopril given bump in creatinine Obesity classs III: complicates care and recovery. VTE prophylaxis: LMWH. Debility: PT OT evaluate and treat. Patient may require group home facility. Charges/Coding Visit Charges Inpatient E&M: 09636 Subs Hosp L2
[2024-12-09] MEDS: Escitalopram Oxalate 10 MG Tablet PO (10:21)
[2024-12-09] MEDS: Furosemide 40 MG/4 ML Vial IV (10:21)
[2024-12-09] MEDS: predniSONE 20 MG Tablet 40 MG PO (10:21)
[2024-12-09] MEDS: Pantoprazole Sodium 40 MG Tablet PO (10:23)
[2024-12-09] MEDS: Enoxaparin 40 MG/0.4 ML Syringe SC ×2 (10:23→21:49)
[2024-12-09] MEDS: buPROPion (SR) 150 MG Tablet.SA PO (10:23)
[2024-12-09] MEDS: traMADol 50 MG Tablet PO (10:27)
[2024-12-09] MEDS: Arthritis Pain Compound 60 CLICK TUBE TOPICAL (10:33)
[2024-12-09] MEDS: Metoprolol Tartrate 25 MG Tablet PO ×2 (12:32→21:49)
--- NOTE | 2024-12-09 14:35 | CHAPLAIN ---
Type of Pastoral Visit _x_ Initial Visit ___ Follow-up Visit ___ On-call Visit ___ General Patient Visit ___ Spiritual Assessment ___ Family Conference ___ Bereavement ___ Rapid Response ___ Code Blue ___ Other (describe below) Pastoral Care Referral From _x__ Patient ___ Family ___ Nurse ___ Physician ___ Industrial Truck Driver ___ Computer Security Specialist ___ Other (describe below) Sacrament/Intervention _x__ Active listening ___ Anointing ___ Caodaism ___ Bereavement ___ Communion ___ Miranda exploration ___ ___ Life review ___ Prayer ___ Reconciliation ___ Sacrament of Sick ___ Supportive presence ___ Wedding ___ Other (describe below) Pastoral Comments patient expresses gratitude for the offer of support and for good care in the hospital; pt expects to go to Rehab and says that she is doing better and not having worries or concerns
--- NOTE | 2024-12-09 15:50 | CASEMGMT ---
SW went to patient's room. Introduced self and role at [facility]. Patient confirmed she would like to go somewhere for rehab. Patient said her first choice is [facility] and second is [facility]. SW told patient THOMPSON will work on referrals. SW did explained Medicare SNF coverage. SW also told patient that if she were to go to an outside facility she would be billed for the wheelchair transport as it is not covered by insurance. SW told patient if she and her family feel she could get in and out of a vehicle they could transport her. SW told patient SW will likely not hear back today. SW will make a referral and follow up with her tomorrow. Plan: SNF pending accepting facility. Fadumo GASTELUM
[2024-12-09] MEDS: 0.9% Saline Lock 10 ML Syringe IV ×2 (18:21→21:50)
[2024-12-09] MEDS: Furosemide 40 MG Tablet PO (18:25)
[2024-12-09] MEDS: traZODone 50 MG Tablet 25 MG PO (21:46)
[2024-12-09] MEDS: Atorvastatin Calcium 10 MG Tablet 5 MG PO (21:46)
[2024-12-10] MEDS: traMADol 50 MG Tablet PO (01:57)
[2024-12-10 03:00] VITALS: BP 124/48; PULSE 72; RESP 16; TEMP 36.6; O2SAT 94
[2024-12-10 05:12] LABS: Absolute Lymphocyte Count 5.22 X10^3/uL (0.83-4.51); Absolute Neutrophil Count 14.7 X10^3/uL (2.0-7.7); Basophil# 0.03 X10^3/uL; Basophil% 0.1 % (0-1); Eosinophil# 0.11 X10^3/uL; Eosinophils% 0.5 % (0-5); Hematocrit 30.9 % (37-47); Lymphocyte # 5.22 X10^3/ul (0.83-4.51); Lymphocyte % 23.6 % (19-41); Mean Corp Hgb Conc 32.4 g/dL (32-36); Mean Corpuscular Hgb 28.7 pg (27.0-32.0); Mean Corpuscular Volume 88.8 fL (81-99); Mean Platelet Vol. 9.7 fl (6.2-12.0); Monocyte# 1.91 X10^3/uL; Monocyte% 8.6 % (0-10); NRBC Flagged by Analyzer 0 % (0-5); Neutrophil # 14.66 X10^3/uL (2.7-7.7); Neutrophil % 66.5 % (47-70); POSITIVE DIFFERENTIAL YES; Platelet Count 283 K/mm3 (150-450); RBC Distribution Width CV 13.6 % (11.6-14.6); RBC Distribution Width SD 43.6 fl (35.1-43.9); Red Blood Count 3.48 M/mm3 (4.2-5.4); White Blood Count 22.1 K/mm3 (4.4-11.0)
[2024-12-10 05:31] LABS: Differential Indicated SCAN CRITERIA MET
[2024-12-10 05:36] LABS: Anion Gap 7 (5-15); BUN 36 mg/dL (7-18); BUN/Creat Ratio 31.3 RATIO (10-20); Calcium,Total 9.1 mg/dL (8.5-10.1); Chloride 101 mmol/L (98-107); Creatinine, Serum 1.15 mg/dL (0.55-1.02); EST Glomerular Filtration Rate 48 mL/min (>60); Est Glom Filt Rate - Afr Amer 58 mL/min (>60); Estimated Creatinine Clearance 42.79 ml/min; Glucose 124 mg/dL (74-106); Potassium 4.3 mmol/L (3.5-5.1); Sodium Level 135 mmol/L (136-145)
[2024-12-10 05:37] VITALS: BMI 41.8
[2024-12-10 07:45] LABS: Platelet Estimate ADEQUATE (ADEQ); Red Cell Morphology NORM C+C NORMAL (NORM C&C)
--- NOTE | 2024-12-10 08:46 | PN.HOSP_ITS ---
Reason for Visit Reason for Visit: Diagnoses Localized edema (12/07/24) Subjective Subjective Feeling well. Still with LE edema. Objective Data Objective Data Vital Signs: Vital Signs Temp Pulse Resp BP Pulse Ox O2 Del Method 36.6 C 72 16 124/48 H 94 Room Air 12/10/24 03:00 12/10/24 03:00 12/10/24 03:00 12/10/24 03:00 12/10/24 03:00 12/10/24 03:57 Oxygen Delivery Method Room Air Weight: 107.2 kg Body Mass Index (BMI) 41.8 Intake & Output: Intake and Output for Last 24 Hours 12/08/24 12/09/24 12/10/24 23:59 23:59 23:59 Intake Total 750 / 750 1280 / 1480 400 / 400 Output Total 1900 / 1900 1700 / 1700 Balance -1150 / -1150 -420 / -220 400 / 400 Lab / Micro Data 12/10/24 04:36 12/10/24 04:36 Labs: Laboratory Results - last 24 hr 12/10/24 04:36: WBC 22.1 H, RBC 3.48 L, Hgb 10.0 L, Hct 30.9 L, MCV 88.8, MCH 28.7, MCHC 32.4, RDW Std Deviation 43.6, RDW Coeff of Shruthi 13.6, Plt Count 283, MPV 9.7, Immature Gran % (Auto) 0.700, Neut % (Auto) 66.5, Lymph % (Auto) 23.6, [place] % (Auto) 8.6, Eos % (Auto) 0.5, Baso % (Auto) 0.1, Absolute Neuts (auto) 14.7 H, Absolute Lymphs (auto) 5.22 H, Nucleated RBC % 0, Platelet Estimate ADEQUATE, RBC Morphology NORM C+C, Sodium 135 L, Potassium 4.3, Chloride 101, Carbon Dioxide 27.0, Anion Gap 7, BUN 36 H, Creatinine 1.15 H, Estim Creat Clear Calc 42.79, Est GFR (MDRD) Af Amer 58 L, Est GFR (MDRD) Non-Af 48 L, B UN/Creatinine Ratio 31.3 H, Glucose 124 H, Calcium 9.1 Micro: Microbiology 12/07/24 16:42 Blood Culture (Wb) - Right Forearm Blood Culture - Preliminary No growth in 48 hours. 12/07/24 16:42 Blood Culture (Wb) - Anticubital Left Blood Culture - Preliminary No growth in 48 hours. Radiography Diagnostic Testing: Radiology Impression Venous Doppler Study 12/08/24 14:11 Interpretation Summary Deep veins of the bilateral lower extremities are patent and compressible segmentally. There is no evidence of bilateral lower extremity deep vein thrombosis. The bilateral great saphenous veins appear patent and compressible segmentally. Ordering Physician: Cordell Kerr Referring Physician: Mandy Garcia M.D. Performed By: Peggy Polanco RVT and Student Physical Exam Const alert Constitutional Narrative: up in chair. no respitory distress. no convesrsation Extremity Extremity Narrative: bilateral legs wrapped--did not remove. Assessment & Plan Assessment/Plan (1) Lower extremity edema: PLAN: Plan Worsening bilateral lower extremity edema refractory to outpatient management * This is due to right heart failure and pulmonary hypertension. Patient's pulmonary systolic pressure is increased from 44-90 now. * IV furosemide. Will change to PO. * Daily weights, I's and O's * Discussed with the patient and family that she will need further evaluation such as a polysomnogram to see if she has underlying sleep apnea. * Treating underlying process of the pulmonary artery hypertension. * Also discussed with the patient that when she goes home it is very important for her to weigh herself, limit her fluid intake as well as sodium intake. Pulmonary artery hypertension * Echo shows an EF of 70% moderately dilated right ventricle. Severe pulmonary hypertension with pulmonary artery systolic pressure of 90 * VQ very low probablity for PE. Duplex negative. * She will need follow-up pulmonary to have a polysomnogram to see if she has underlying sleep apnea. I feel her pulmonary artery hypertension is secondary likely group 2 or 3. Given her age, I severely doubt that she has primary pulmonary hypertension. Lower extremity erythema * This is not cellulitis but venous stasis erythema. * Antibiotics discontinued. Left lower extremity radiculopathy * Patient denies any bowel or bladder incontinence that is new. Patient has a history of chronic bladder incontinence. I do not feel this is cauda equina. Patient has a history of back problems and herniated disc per her description. Will start her on steroid burst. * Follow up with spine surgery as outpt. Chronic conditions: * CKDIIIb: stable. monitor while on furosemide. * GERD: Continue PPI * Depression/anxiety-Continue home medications * Hypertension-Continue metoprolol, holding lisinopril given bump in creatinine * Obesity class III: complicates care and recovery. * CLL: chronic leukocytosis. Sees [facility] oncology. Through [facility] pt had WBC of 14.78 on 06/01/2024. Reviewed office note from 12/07/2024. VTE prophylaxis: LMWH. Debility: To TCU.
[2024-12-10 09:00] VITALS: BP 126/52; PULSE 70; RESP 14; TEMP 36.6; O2SAT 95
[2024-12-10] MEDS: Furosemide 40 MG Tablet PO (09:06)
[2024-12-10] MEDS: predniSONE 20 MG Tablet 40 MG PO (09:06)
[2024-12-10 09:07] VITALS: PULSE 70
[2024-12-10] MEDS: buPROPion (SR) 150 MG Tablet.SA PO (09:07)
[2024-12-10] MEDS: Escitalopram Oxalate 10 MG Tablet PO (09:07)
[2024-12-10] MEDS: Metoprolol Tartrate 25 MG Tablet PO (09:07)
[2024-12-10] MEDS: Enoxaparin 40 MG/0.4 ML Syringe SC (09:07)
[2024-12-10] MEDS: Pantoprazole Sodium 40 MG Tablet PO (09:08)
[2024-12-10 09:36] VITALS: O2SAT 96
--- NOTE | 2024-12-10 10:46 | CASEMGMT ---
TCU can accept patient. THOMPSON met with patient and let her know that [facility] can take her. SW also let her know that she will go over today. SW let patient know she will be able to wear regular clothes while on TCU. Patient thanked THOMPSON. Plan: d/c to [facility] under skilled level of care. Fadumo GASTELUM
--- NOTE | 2024-12-10 11:00 | TREXTCAR_ITS ---
Diet Diet Order/Speech Therapy: 12/07/24 18:32 Diet: Cardiac - Heart Healthy Food consistency:: Regular Liquid Consistency:: Regular/Thin Fluid restriction:: 1750 mL Routine Orders/Code Status Routine Lab Work: BMP (weekly) Code Status: Full Code DC O2, CPAP, BIPAP needs Home O2 Discharge instructions: No Wound(s) Outer L ankle: Wound Type: open blister Dressing Change: Adaptic left heel: Wound Type: Pressure Injury Dressing Change: dry, well padded dressing Therapies Weight Bearing: Full weight bearing Physical Therapy: Eval and Treat Occupational Therapy: Eval and Treat Problem/Diagnosis (1) Lower extremity edema: Status: Acute Code(s): R60.0 - Localized edema Plan Worsening bilateral lower extremity edema refractory to outpatient management * This is due to right heart failure and pulmonary hypertension. Patient's pulmonary systolic pressure is increased from 44-90 now. * IV furosemide. Will change to PO. * Daily weights, I's and O's * Discussed with the patient and family that she will need further evaluation such as a polysomnogram to see if she has underlying sleep apnea. * Treating underlying process of the pulmonary artery hypertension. * Also discussed with the patient that when she goes home it is very important for her to weigh herself, limit her fluid intake as well as sodium intake. Pulmonary artery hypertension * Echo shows an EF of 70% moderately dilated right ventricle. Severe pulmonary hypertension with pulmonary artery systolic pressure of 90 * VQ very low probablity for PE. Duplex negative. * She will need follow-up pulmonary to have a polysomnogram to see if she has underlying sleep apnea. I feel her pulmonary artery hypertension is secondary likely group 2 or 3. Given her age, I severely doubt that she has primary pulmonary hypertension. Lower extremity erythema * This is not cellulitis but venous stasis erythema. * Antibiotics discontinued. Left lower extremity radiculopathy * Patient denies any bowel or bladder incontinence that is new. Patient has a history of chronic bladder incontinence. I do not feel this is cauda equina. Patient has a history of back problems and herniated disc per her description. Will start her on steroid burst. * Follow up with spine surgery as outpt. Chronic conditions: * CKDIIIb: stable. monitor while on furosemide. * GERD: Continue PPI * Depression/anxiety-Continue home medications * Hypertension-Continue metoprolol, holding lisinopril given bump in creatinine * Obesity class III: complicates care and recovery. * CLL: chronic leukocytosis. Sees [facility] oncology. Through [facility] pt had WBC of 14.78 on 06/01/2024. Reviewed office note from 12/07/2024. VTE prophylaxis: LMWH. Debility: To TCU. Allergies/Procedures Done in Hospital Allergies No Known Allergies Allergy (Verified 12/07/24 14:01) Procedures: 2-D Echocardiogram Type of Care/Length of Stay Estimated LOS: Convalescent Care Less Than 30 days Type of Care Needed: Skilled Rehab Potential: Good Prognosis: Good Additional Orders/Day of Discharge Day of Discharge: 12/10/24 Dietary and Speech Recommendations Dietitian Recommendations/Changes: Continue cardiac diet with 1750ml fluid restriction. Will monitor weigh trends. Reviewed and approved by Sameera Steiner RDN, LD. Discharge Plan Admission Admit Date/Time: 12/07/24 18:13 Primary Reason for Your Visit: LE edema. Attending Provider: Cordell Kerr Primary Care Provider: Mandy Garcia Consulting Providers: Brissa Bonilla Discharge Orders/Prescriptions Prescriptions: New prednisone 20 mg Tablet 40 mg PO BREAKFAST Qty: 0 0RF furosemide 40 mg tablet 40 mg PO BID Qty: 60 0RF potassium chloride 20 mEq tablet extended release 20 meq PO DAILY Qty: 30 0RF Continued pantoprazole 40 mg tablet,delayed release (DR/EC) 40 mg PO DAILY multivitamin tablet 1 tab PO DAILY cholecalciferol (vitamin D3) 3,000 unit tablet 3,000 unit PO DAILY metoprolol tartrate 25 mg tablet 25 mg PO BID trazodone 50 mg tablet 25 - 50 mg PO QHS tramadol 50 mg tablet 50 mg PO Q6 PRN (Reason: pain) bupropion HCl 150 MG tablet extended release 12 hr 150 mg PO DAILY escitalopram oxalate 10 mg tablet 10 mg PO DAILY albuterol sulfate 90 mcg/actuation HFA aerosol inhaler 2 puff INHALATION Q4H PRN (Reason: wheezing) acetaminophen [Tylenol Extra Strength] 500 mg tablet 1,000 mg PO Q8H PRN (Reason: pain) furosemide 40 mg tablet 40 mg PO DAILY potassium chloride 10 mEq capsule, extended release 20 meq PO DAILY triamcinolone acetonide 0.1 % cream 1 applic topical TID Rx Instructions: APPLY TO ITCHY LEGS THREE TIMES DAILY FOR 14 DAYS. START0 12/01/24 END 12/15/24 doxycycline hyclate 100 mg tablet 100 mg PO BID Rx Instructions: START- 12/01/24 END-12/11/24 simvastatin 10 mg tablet 10 mg PO QHS Qty: 90 3RF Discontinued hydrochlorothiazide 12.5 mg capsule 12.5 - 25 mg PO QAM PRN (Reason: FLUID RETENTION) lisinopril 20 mg tablet 20 mg PO BID Qty: 180 3RF Referrals / Follow Up: [facility] [Provider Group] - Within 1 Month (Pulmonary hypertension evaluation. ) Mandy Garcia MD [Primary Care Provider] - Within 2 Weeks Disposition Disposition (needs filled in before D/C Order can be placed): [facility]
[2024-12-10 11:06] VITALS: BP 132/62; PULSE 70; RESP 16; TEMP 36.6; O2SAT 95
--- NOTE | 2024-12-10 11:15 | DS.PCM_ITS ---
Providers Date of Admission: 12/07/24 Primary Care Physician: Dr. Mandy Garcia MD Consultations 12/08/24 06:52 Consult: Onc/Wound/radio installer Routine Comment: Reason for Consult:: L ankle wound Reason For Visit: FLUID OVERLOAD, CELLULITIS Diagnosis Discharge Diagnosis (1) Lower extremity edema: Status: Acute Code(s): R60.0 - Localized edema Plan Worsening bilateral lower extremity edema refractory to outpatient management * This is due to right heart failure and pulmonary hypertension. Patient's pulmonary systolic pressure is increased from 44-90 now. * IV furosemide. Will change to PO. * Daily weights, I's and O's * Discussed with the patient and family that she will need further evaluation such as a polysomnogram to see if she has underlying sleep apnea. * Treating underlying process of the pulmonary artery hypertension. * Also discussed with the patient that when she goes home it is very important for her to weigh herself, limit her fluid intake as well as sodium intake. * Likely 2/2 to right heart failure and severe pulmonary artery hypertension. Pulmonary artery hypertension * Echo shows an EF of 70% moderately dilated right ventricle. Severe pulmonary hypertension with pulmonary artery systolic pressure of 90 * VQ very low probablity for PE. Duplex negative. * She will need follow-up pulmonary to have a polysomnogram to see if she has underlying sleep apnea. I feel her pulmonary artery hypertension is secondary likely group 2 or 3. Given her age, I severely doubt that she has primary pulmonary hypertension. Lower extremity erythema * This is not cellulitis but venous stasis erythema. * Antibiotics discontinued. Left lower extremity radiculopathy * Patient denies any bowel or bladder incontinence that is new. Patient has a history of chronic bladder incontinence. I do not feel this is cauda equina. Patient has a history of back problems and herniated disc per her description. Will start her on steroid burst. * Follow up with spine surgery as outpt. Chronic conditions: * CKDIIIb: stable. monitor while on furosemide. * GERD: Continue PPI * Depression/anxiety-Continue home medications * Hypertension-Continue metoprolol, holding lisinopril given bump in creatinine * Obesity class III: complicates care and recovery. * CLL: chronic leukocytosis. Sees [facility] oncology. Through [facility] pt had WBC of 14.78 on 06/01/2024. Reviewed office note from 12/07/2024. VTE prophylaxis: LMWH. Debility: To TCU. Medications at Discharge Home Medications bupropion HCl 150 mg tablet,12 hr sustained-release 150 mg PO DAILY mental health 11/10/15 cholecalciferol (vitamin D3) 75 mcg (3,000 unit) tablet 3,000 unit PO DAILY 08/13/18 multivitamin 1 tab PO DAILY 08/13/18 pantoprazole 40 mg tablet,delayed release 40 mg PO DAILY 08/13/18 escitalopram oxalate 10 mg tablet 10 mg PO DAILY mental health 03/22/20 simvastatin 10 mg tablet 10 mg PO QHS cholesterol lowering #90 tabs 06/28/20 metoprolol tartrate 25 mg tablet 25 mg PO BID 07/24/22 tramadol 50 mg tablet 50 mg PO Q6 PRN pain 07/28/24 trazodone 50 mg tablet 25 - 50 mg PO QHS 07/28/24 acetaminophen 500 mg tablet (Tylenol Extra Strength) 1,000 mg PO Q8H PRN pain 12/07/24 albuterol sulfate 90 mcg/actuation aerosol inhaler 2 puff inhalation Q4H PRN wheezing 12/07/24 doxycycline hyclate 100 mg tablet 100 mg PO BID 12/07/24 furosemide 40 mg tablet 40 mg PO DAILY 12/07/24 potassium chloride 10 mEq capsule,extended release 20 meq PO DAILY 12/07/24 triamcinolone acetonide 0.1 % topical cream 1 applic topical TID 12/07/24 enoxaparin 40 mg/0.4 mL subcutaneous syringe 40 mg (0.4 mL) subcut BID #0 mL 12/10/24 furosemide 40 mg tablet 40 mg PO BID #60 tabs 12/10/24 potassium chloride 20 mEq tablet,extended release 20 meq PO DAILY #30 tabs 12/10/24 prednisone 20 mg tablet 40 mg (2 x 20 mg) PO BREAKFAST #0 tabs 12/10/24 Hospital Course Operations None Procedures 2-D Echocardiogram Summary of Care Provided Minutes Spent on Discharge: 45 Hospital Course: This is a 84-year-old female presents with increasing lower extremity edema. This is been getting worse despite hydrochlorothiazide and furosemide. Initially was concerned about cellulitis of her bilateral lower extremities but that seems more consistent with lymphedematous changes and antibiotics were discontinued. Patient does have chronic leukocytosis which may have led them to make that assumption the patient does have CLL. Patient did well with furosemide. Patient had an echocardiogram that showed pulmonary artery systolic pressures of 90 which were up from 44. Did do a V/Q (no CTA given her chronic kidney disease)which was negative as well as a duplex of her lower extremities for VTE and DVTs respectively. So patient is done well but still with edema and she will continue with furosemide 40 mg twice daily moving forward. Also advised her to cut back on her sodium as well as fluid intake into the check her weight daily. But I have recommended that she follow-up with pulmonology to have be more formally evaluated for pulmonary artery hypertension. I would be concerned that she may have some underlying sleep apnea and she should have a polysomnogram to at least rule that out. Weight / BMI Weight Weight: 107.2 kg Body Mass Index (BMI) 41.8 ABG / Lab / Microbiology Data 12/10/24 04:36 12/10/24 04:36 Laboratory: Laboratory Results - last 24 hr 12/10/24 04:36: WBC 22.1 H, RBC 3.48 L, Hgb 10.0 L, Hct 30.9 L, MCV 88.8, MCH 28.7, MCHC 32.4, RDW Std Deviation 43.6, RDW Coeff of Shruthi 13.6, Plt Count 283, MPV 9.7, Immature Gran % (Auto) 0.700, Neut % (Auto) 66.5, Lymph % (Auto) 23.6, Haskell % (Auto) 8.6, Eos % (Auto) 0.5, Baso % (Auto) 0.1, Absolute Neuts (auto) 14.7 H, Absolute Lymphs (auto) 5.22 H, Nucleated RBC % 0, Platelet Estimate ADEQUATE, RBC Morphology NORM C+C, Sodium 135 L, Potassium 4.3, Chloride 101, Carbon Dioxide 27.0, Anion Gap 7, BUN 36 H, Creatinine 1.15 H, Estim Creat Clear Calc 42.79, Est GFR (MDRD) Af Amer 58 L, Est GFR (MDRD) Non-Af 48 L, B UN/Creatinine Ratio 31.3 H, Glucose 124 H, Calcium 9.1 Microbiology: Microbiology 12/07/24 16:42 Blood Culture (Wb) - Right Forearm Blood Culture - Preliminary No growth in 48 hours. 12/07/24 16:42 Blood Culture (Wb) - Anticubital Left Blood Culture - Preliminary No growth in 48 hours. Radiography Diagnostic Testing: Radiology Impression Venous Doppler Study 12/08/24 14:11 Interpretation Summary Deep veins of the bilateral lower extremities are patent and compressible segmentally. There is no evidence of bilateral lower extremity deep vein thrombosis. The bilateral great saphenous veins appear patent and compressible segmentally. Ordering Physician: Cordell Kerr Referring Physician: Mandy Garcia M.D. Performed By: Peggy Polanco RVT and Student D/C Instructions Discharge Diet: Low fat / Low cholesterol and 2000 mg Sodium Diet DC O2, CPAP, BIPAP Needs Home O2 Discharge instructions: No Meaningful Use Info Meaningful Use Meaningful Use Diagnoses (Choose all that apply): None applicable Ischemic Stroke Statin Dosing Therapy Reference: STATIN DOSE THERAPY REFERENCE: * Patients > 75 years receive moderate or high dose statin therapy. * Patients 75 years or YOUNGER should receive HIGH intensity statin dose unless contraindicated. You will be required to document reason for non-treatment if statin daily dose does not meet guidelines. HIGH DOSE STATIN THERAPY DAILY Atorvastatin > than or = to 40 mg Rosuvastatin > than or = to 20 mg Amlodipine + Atorvastatin > than or = to 2.5/40 mg Ezetimibe + Simvastatin 10/80 mg Simvastatin 80mg Discharge Plan Admission Admit Date/Time: 12/07/24 18:13 Primary Reason for Your Visit: LE edema. Attending Provider: Cordell Kerr Primary Care Provider: Mandy Garcia Consulting Providers: Brissa Bonilla Discharge Orders/Prescriptions Prescriptions: New prednisone 20 mg Tablet 40 mg PO BREAKFAST Qty: 0 0RF furosemide 40 mg tablet 40 mg PO BID Qty: 60 0RF potassium chloride 20 mEq tablet extended release 20 meq PO DAILY Qty: 30 0RF enoxaparin 40 mg/0.4 mL Syringe 40 mg subcut BID Qty: 0 0RF Continued pantoprazole 40 mg tablet,delayed release (DR/EC) 40 mg PO DAILY multivitamin tablet 1 tab PO DAILY cholecalciferol (vitamin D3) 3,000 unit tablet 3,000 unit PO DAILY metoprolol tartrate 25 mg tablet 25 mg PO BID trazodone 50 mg tablet 25 - 50 mg PO QHS tramadol 50 mg tablet 50 mg PO Q6 PRN (Reason: pain) bupropion HCl 150 MG tablet extended release 12 hr 150 mg PO DAILY escitalopram oxalate 10 mg tablet 10 mg PO DAILY albuterol sulfate 90 mcg/actuation HFA aerosol inhaler 2 puff INHALATION Q4H PRN (Reason: wheezing) acetaminophen [Tylenol Extra Strength] 500 mg tablet 1,000 mg PO Q8H PRN (Reason: pain) furosemide 40 mg tablet 40 mg PO DAILY potassium chloride 10 mEq capsule, extended release 20 meq PO DAILY triamcinolone acetonide 0.1 % cream 1 applic topical TID Rx Instructions: APPLY TO ITCHY LEGS THREE TIMES DAILY FOR 14 DAYS. START0 12/01/24 END 12/15/24 doxycycline hyclate 100 mg tablet 100 mg PO BID Rx Instructions: START- 12/01/24 END-12/11/24 simvastatin 10 mg tablet 10 mg PO QHS Qty: 90 3RF Discontinued hydrochlorothiazide 12.5 mg capsule 12.5 - 25 mg PO QAM PRN (Reason: FLUID RETENTION) lisinopril 20 mg tablet 20 mg PO BID Qty: 180 3RF Referrals / Follow Up: [facility] [Provider Group] - Within 1 Month (Pulmonary hypertension evaluation. ) Mandy Garcia MD [Primary Care Provider] - Within 2 Weeks Disposition Disposition (needs filled in before D/C Order can be placed): [facility] Charges/Coding Visit Charges Inpatient E&M: 11259 Disch Hosp >30min
--- NOTE | 2024-12-10 11:36 | NURSING ---
Report called to Amy Gomez at [facility]
== END 2024-12-10 13:53 | disposition skilled nursing facility (03) | DRG 315 ==
LOC: ED 16:49 → PCU 17:24
PROVIDERS: Family Medicine; Admitting Provider Internal Medicine; Emergency Provider Emergency Medicine; PCP Internal Medicine
DX: I27.21 Secondary pulmonary arterial hypertension (principal); I13.0 Hypertensive heart and chronic kidney disease with heart failure and stage 1 through stage 4 chronic kidney disease, or unspecified chronic kidney disease; C91.10 Chronic lymphocytic leukemia of B-cell type not having achieved remission; Z68.41 Body mass index [BMI] 40.0-44.9, adult; L89.620 Pressure ulcer of left heel, unstageable; I50.810 Right heart failure, unspecified; K21.9 Gastro-esophageal reflux disease without esophagitis; E66.813 Obesity, class 3; N18.32 Chronic kidney disease, stage 3b; F32.A Depression, unspecified; I48.0 Paroxysmal atrial fibrillation; F41.9 Anxiety disorder, unspecified; I87.8 Other specified disorders of veins; M54.10 Radiculopathy, site unspecified; I89.0 Lymphedema, not elsewhere classified; S90.522A Blister (nonthermal), left ankle, initial encounter; E78.5 Hyperlipidemia, unspecified; X58.XXXA Exposure to other specified factors, initial encounter; R32 Unspecified urinary incontinence; R53.81 Other malaise; Z87.19 Personal history of other diseases of the digestive system; Z79.899 Other long term (current) drug therapy; Z87.891 Personal history of nicotine dependence
CPT/HCPCS: 36415; 78582; 80048; 80061; 80076; 83605; 83735; 83880; 84443; 85025; 87040; 93308; 93970; 94668; 97162; 97166; 97530; 97535; 97802; 99252; 99284; A9540; A9567; A4216; G0463; J1940

== ENCOUNTER 2024-12-10 14:12 | Inpatient (IN) | payer MEDICARE, BC, SELFPAY ==
[2024-12-10 15:04] VITALS: BP 156/72; PULSE 85; RESP 18; TEMP 36.5; O2SAT 95; BMI 43.4
--- NOTE | 2024-12-10 20:35 | HP.PCM_ITS ---
HPI - General General Date of Admission: 12/10/24 Date of Service: 12/10/24 Chief Complaint: Here for rehabilitation. HPI Narrative RANDA MAZA, is a 84 Female who presents with followin12/07/2024 [facility] ED with generalized illness. Bilateral lower extremity swelling, HCTZ as needed for bilateral lower extremity swelling. Bilateral lower extremity swelling, worse for past few weeks. PCP started Lasix 20mg daily, then increase to 40mg daily. Doxycycline for cellulitis bilateral lower extremities, patient notes weight gain of 20 pounds recently. Per patient, Lasix not increasing urine output. 07/2024 Echo EF 60%, pulmonary artery pressure 44mm HG. WBC 18.4, Creatinine 1.49, BUN 31. Blood cultures sent. Ancef, Lasix 80mg given, good urine output. 12/07/2024 Admit [facility]. Lasix IV for bilateral lower extremity edema, check BNP. Cefazolin IV for bilateral lower extremity cellulitis. Avoid nephrotoxins for acute kidney injury. 12/07/2024 Echo EF 70%. Moderately dilated right ventricle. Severe pulmonary hypertension. 12/08/2024 Bilateral lower extremity edema persists, also left lower extremity pain, weakness. History of back problems with herniated discs. Lasix IV for acute right sided heart failure. Recommend sleep study for severe pulmonary hypertension. Stop antibiotics, patient has venous stasis dermatitis, not cellulitis. Steroid burst for left sciatica. 12/09/2024 Legs feeling better, left lower extremity pain improved. Change Lasix IV to Lasix PO for right sided heart failure. VQ scan low probability for pulmonary embolism. Doppler ultrasound bilateral lower extremity negative DVT. Need sleep study for severe pulmonary hypertension, patient states she does not snore, and her son who lives with her does not mention her snoring. Follow up spine surgery for left sciatica. 12/10/2024 Limit sodium intake for right sided heart failure PT/OT for SNF. 12/11/2024 Admit to TCU with debility, here for rehabilitation, strengthening, prior to discharge to sleep lab for sleep study, then home. [facility] Medical History (Updated 12/10/24 @ 20:[address] Shemar Phoenix MD) Depression Kidney disease Former smoker Atrial fibrillation Hypertension Obesity GI bleed Essential (primary) hypertension Renal insufficiency Secondary pulmonary arterial hypertension Non-rheumatic tricuspid valve insufficiency GERD (gastroesophageal reflux disease) Hemorrhoids RLS (restless legs syndrome) Hyperlipidemia Diverticulitis Arthritis Paroxysmal atrial fibrillation Anxiety and depression Gastritis Home Medications ?Medication ?Instructions ?Recorded ?Last Taken ?Type bupropion HCl 150 mg tablet,12 hr 150 mg PO DAILY mental health 11/10/15 12/10/24 History sustained-release cholecalciferol (vitamin D3) 75 3,000 unit PO DAILY supplement 08/13/18 Unknown History mcg (3,000 unit) tablet multivitamin 1 tab PO DAILY Supplement 08/13/18 Unknown History pantoprazole 40 mg tablet,delayed 40 mg PO DAILY GERD 08/13/18 12/10/24 History release escitalopram oxalate 10 mg tablet 10 mg PO DAILY mental health 03/22/20 12/10/24 History simvastatin 10 mg tablet 10 mg PO QHS cholesterol lowering 06/28/20 12/09/24 Rx #90 tabs metoprolol tartrate 25 mg tablet 25 mg PO BID BP 07/24/22 12/10/24 History tramadol 50 mg tablet 50 mg PO Q6 PRN pain 07/28/24 12/09/24 History trazodone 50 mg tablet 25 - 50 mg PO QHS Sleep 07/28/24 12/09/24 History acetaminophen 500 mg tablet 1,000 mg PO Q8H PRN pain 12/07/24 Unknown History (Tylenol Extra Strength) albuterol sulfate 90 mcg/actuation 2 puff inhalation Q4H PRN wheezing 12/07/24 Unknown History aerosol inhaler doxycycline hyclate 100 mg tablet 100 mg PO BID Antibiotic 12/07/24 Unknown History furosemide 40 mg tablet 40 mg PO DAILY Fluid retention 12/07/24 Unknown History potassium chloride 10 mEq 20 meq PO DAILY Supplement 12/07/24 Unknown History capsule,extended release triamcinolone acetonide 0.1 % 1 applic topical TID Skin 12/07/24 Unknown History topical cream enoxaparin 40 mg/0.4 mL 40 mg (0.4 mL) subcut BID Bloood 12/10/24 12/10/24 Rx subcutaneous syringe thinner #0 mL furosemide 40 mg tablet 40 mg PO BID Fluid retention #60 12/10/24 Unknown Rx tabs potassium chloride 20 mEq 20 meq PO DAILY supplement #30 tabs 12/10/24 Unknown Rx tablet,extended release prednisone 20 mg tablet 40 mg (2 x 20 mg) PO BREAKFAST 12/10/24 12/10/24 Rx Steriod #0 tabs Allergy/AdvReac Type Severity Reaction Status Date / Time No Known Allergies Allergy Verified 12/07/24 14:01 Family History Mother Diabetes Father Myocardial infarction Surgical History History of cataract surgery History of hip surgery Social History (Updated 12/10/24 @ 20:[address] Shemar Phoenix MD) household members: children and other details: Lives with son. Smoking Status: Former smoker how long ago did patient quit smokin years ago alcohol intake: never substance use type: does not use caffeine: No ROS Constitutional Constitutional: Reports weakness; Denies chills, fever(s) or weight gain ENT HEENT: Denies headache(s), nasal congestion or nasal discharge Cardiovascular Cardiovascular: Denies chest pain or palpitations Respiratory/Chest Respiratory/Chest: Denies cough, excessive phlegm production or shortness of breath with exertion Gastrointestinal Gastrointestinal: Denies abdominal pain, nausea or vomiting Genitourinary Genitourinary: Denies dysuria Musculoskeletal Musculoskeletal: Denies joint pain or joint swelling Integumentary Integumentary: Denies rash or wounds Neurologic Neurologic: Denies focal weakness, numbness or tingling Psychiatric Psychiatric: Denies anxiety, auditory hallucinations, depression, homicidal ideation or suicidal ideation Vital Signs Vital Signs Vital Signs: 12/10/24 15:04 12/10/24 15:04 Temperature 97.7 F L Temperature Source Temporal Pulse Rate 85 85 Pulse Rhythm Irregular Pulse Strength Normal (2+) Respiratory Rate 18 18 Respiratory Effort Normal Non-Labored Respiratory Depth Normal Respiratory Pattern Normal Blood Pressure 156/72 H Blood Pressure Mean 100 Blood Pressure Source Monitor Blood Pressure Position Sitting Blood Pressure Location Left Arm Pulse Ox 95 95 Oxygen Delivery Method Room Air Room Air Weight Weight: 107.643 kg Body Mass Index (BMI) 43.4 Physical Exam Const alert General Appearance: cooperative HEENT normocephalic Eyes PERRL and EOMs intact bilaterally Neck supple, no JVD and no carotid bruits Resp normal respiratory effort, normal air movement and clear to auscultation bilaterally Cardio regular rate and regular rhythm GI normal to inspection, nondistended, normoactive bowel sounds, non-tender and non-distended Extremity normal capillary refill Extremity Narrative: Bilateral lower extremity LONNY wraps. General Extremity: edema bilateral (1+) Skin no rashes or lesions noted General Skin Exam: no breakdown Psych affect normal Appearance: appropriate Assessment & Plan Assessment/Plan (1) Debility: (2) Bilateral lower extremity edema: (3) Venous stasis dermatitis: (4) Right-sided heart failure: (5) Severe pulmonary hypertension: (6) Acute kidney injury: (7) Depression: (8) Vitamin D deficiency: (9) GERD (gastroesophageal reflux disease): (10) Essential (primary) hypertension: (11) Hyperlipidemia: QUALIFIERS: Hyperlipidemia type: mixed hyperlipidemia Qualified Code(s): E78.2 - Mixed hyperlipidemia (12) Insomnia: (13) Hypokalemia: PLAN: Plan 84 year old female with below past medical history hospitalized for right sided heart failure, severe pulmonary hypertension, bilateral lower extremity cellulitis ruled out, pulmonary embolism ruled out, dvt ruled out, complicated by acute kidney injury, left sciatica, admitted to TCU with debility, here for rehabilitation, strengthening, prior to discharge to sleep lab for sleep study then home. * Debility - PT/OT. * Pain - Tylenol 1000mg q6 prn pain (1-5), Tramadol 50mg q6 prn pain (6-10). * Bowel - senna/colace 1 tablet bid, Magnesium citrate 300mL daily prn. * Adult immunization - Administer pneumonia vaccine, covid vaccine, flu vaccine as appropriate.. * DVT prophylaxis - Lovenox 40mg sc daily. * Shortness of breath - Albuterol mdi 2 puffs q4 prn. * Hyperlipidemia - Atorvastatin 5mg qhs. * Depression - Lexapro 10mg daily, Wellbutrin 150mg daily, stable chronic terminologist use, GDR not recommended. * Vitamin D deficiency - D3 75mcg daily. * Right sided heart failure - Metoprolol 25mg bid, Furosemide 40mg bid. * Severe pulmonary hypertension - plan discharge to sleep lab for sleep study. * Pruritus - Hydroxyzine 10mg 4x/day prn. * Skin irritation - Calmoseptine topical bid, Eucerin topical bid, Triamcinolone cream topical tid. * Nutrition - MVI 1 tablet daily * Tinea Corporis - Nystatin powder topical bid. * GERD - Pantoprazole 40mg daliy. * Hypokalemia - Potassium chloride 20mg daily. * Left sciatica - Prednisone 40mg taper, consider MRI LS spine, pain management, spine consult, if pain no better. * Insomnia - Trazodone 50mg qhs, stable chronic terminologist use, GDR not recommended.
[2024-12-10 21:05] VITALS: BP 141/58; PULSE 94
[2024-12-10] MEDS: Menthol/Lanolin/Calamine/Znox 113 GM Tube 1 APPLIC TOPICAL (21:09)
[2024-12-10] MEDS: traZODone 50 MG Tablet PO (21:10)
[2024-12-10] MEDS: Petrolatum 33% Tube 1 APPLIC TOPICAL (21:10)
[2024-12-10] MEDS: Furosemide 40 MG Tablet PO (21:14)
[2024-12-10] MEDS: Atorvastatin Calcium 10 MG Tablet 5 MG PO (21:15)
[2024-12-10 21:16] VITALS: BP 141/58; PULSE 94
[2024-12-10] MEDS: Metoprolol Tartrate 25 MG Tablet PO (21:16)
[2024-12-10] MEDS: Triamcinolone Acetonide 0.1% Cream 15 gm 1 APPLIC TOPICAL (21:19)
[2024-12-10] MEDS: 0.9% Saline Lock 10 ML Syringe IV (21:19)
[2024-12-10] MEDS: Nystatin Powder 15gm Bottle 1 APPLIC TOPICAL (21:21)
[2024-12-10] MEDS: Senna/Docusate Sodium 1 Tablet PO (21:21)
[2024-12-11 06:00] VITALS: BMI 42.0
[2024-12-11] MEDS: Enoxaparin 40 MG/0.4 ML Syringe SC (06:06)
[2024-12-11] MEDS: Triamcinolone Acetonide 0.1% Cream 15 gm 1 APPLIC TOPICAL ×3 (06:07→19:51)
[2024-12-11 07:19] LABS: Absolute Lymphocyte Count 7.33 X10^3/uL (0.83-4.51); Absolute Neutrophil Count 12.2 X10^3/uL (2.0-7.7); Basophil# 0.03 X10^3/uL; Basophil% 0.1 % (0-1); Eosinophil# 0.24 X10^3/uL; Eosinophils% 1.1 % (0-5); Hematocrit 35.4 % (37-47); Hemoglobin 11.3 g/dL (12.0-15.0); Lymphocyte # 7.33 X10^3/ul (0.83-4.51); Lymphocyte % 33.7 % (19-41); Mean Corp Hgb Conc 31.9 g/dL (32-36); Mean Corpuscular Hgb 28.2 pg (27.0-32.0); Mean Corpuscular Volume 88.3 fL (81-99); Mean Platelet Vol. 9.7 fl (6.2-12.0); Monocyte# 1.81 X10^3/uL; Monocyte% 8.3 % (0-10); NRBC Flagged by Analyzer 0 % (0-5); Neutrophil # 12.17 X10^3/uL (2.7-7.7); Neutrophil % 56.1 % (47-70); POSITIVE DIFFERENTIAL YES; Platelet Count 341 K/mm3 (150-450); RBC Distribution Width CV 13.4 % (11.6-14.6); RBC Distribution Width SD 43.4 fl (35.1-43.9); Red Blood Count 4.01 M/mm3 (4.2-5.4); White Blood Count 21.7 K/mm3 (4.4-11.0)
[2024-12-11 07:26] LABS: Differential Indicated SCAN CRITERIA MET
[2024-12-11 07:59] LABS: Anion Gap 10 (5-15); BUN 35 mg/dL (7-18); Calcium,Total 9.6 mg/dL (8.5-10.1); Chloride 104 mmol/L (98-107); Creatinine, Serum 1.25 mg/dL (0.55-1.02); EST Glomerular Filtration Rate 43 mL/min (>60); Est Glom Filt Rate - Afr Amer 53 mL/min (>60); Estimated Creatinine Clearance 38.67 ml/min; Glucose 101 mg/dL (74-106); Potassium 4.3 mmol/L (3.5-5.1); Sodium Level 140 mmol/L (136-145)
[2024-12-11] MEDS: Menthol/Lanolin/Calamine/Znox 113 GM Tube 1 APPLIC TOPICAL ×2 (10:32→19:55)
[2024-12-11] MEDS: predniSONE 20 MG Tablet 10 MG PO (10:32)
[2024-12-11] MEDS: Potassium Chloride Oral Tablet 20 MEQ PO (10:32)
[2024-12-11 10:34] VITALS: BP 145/62; PULSE 75
[2024-12-11] MEDS: Escitalopram Oxalate 10 MG Tablet PO (10:34)
[2024-12-11] MEDS: Metoprolol Tartrate 25 MG Tablet PO ×2 (10:34→19:49)
[2024-12-11] MEDS: Furosemide 40 MG Tablet PO ×2 (10:34→19:48)
[2024-12-11] MEDS: Pantoprazole Sodium 40 MG Tablet PO (10:35)
[2024-12-11] MEDS: Nystatin Powder 15gm Bottle 1 APPLIC TOPICAL ×2 (10:35→19:52)
[2024-12-11] MEDS: Senna/Docusate Sodium 1 Tablet PO ×2 (10:35→19:48)
[2024-12-11] MEDS: buPROPion (SR) 150 MG Tablet.SA PO (10:36)
[2024-12-11] MEDS: Cholecalciferol (VIT D3) 25 MCG TABLET (1,000 UNITS) 75 MCG PO (10:36)
[2024-12-11] MEDS: Tuberculin,Purif.prot.deriv. 50 TU/ML Vial 0.1 ML ID (10:41)
[2024-12-11] MEDS: Petrolatum 33% Tube 1 APPLIC TOPICAL ×2 (10:43→19:51)
[2024-12-11 10:44] VITALS: BP 145/62; PULSE 75; RESP 18; O2SAT 96
--- NOTE | 2024-12-11 10:56 | NURSING ---
THERAPY REPORTED TO THIS NURSE THAT PT LEFT HEEL WAS BLEEDING. WHILE WORKING ON PT LOWER LEGS PER ORDER AND SEEN BLOOD COMING THREW PT DRESSING SHAI ALEXIS/WOUND NURSE CAME IN AND WE FOUND THAT PT HAD A OPEN BLISTER ON LEFT HEEL AND BOTTOM OF HEEL WAS PURPLE. ASKED PT WHAT HAPPENED PT STATED I PUT MY BLACK SHOES ON WITH MY LONNY WRAP AND WAS WALKING WITH THERAPY. SHAI ALEXIS STATED THAT HAPPENED BEFORE DUE TO PT SHOES BEING TO TIGHT AND ADVISED TO WEAR HER NON SLIP SOCKS WHEN UP. SHAI ALEXIS/WOUND NURSE DID PT DRESSINGS. RN AWARE.
[2024-12-11] MEDS: Multivitamins,Therapeutic Tablet 1 TABLET PO (11:23)
[2024-12-11] MEDS: 0.9% Saline Lock 10 ML Syringe IV (11:23)
--- NOTE | 2024-12-11 11:49 | NURSING ---
Milk Sampler Note; Activity Asset: Jono Mejia is independent in her choice of daily activities. She has her tablet and smartphone she uses for the internet, games, reading and watching movies. He family will visit and bring her other items if she needs them. Staff will remind her of social activities, weekly in room activities and respect her right to say no.
--- NOTE | 2024-12-11 12:10 | WOUNDNOTE ---
wound photo: left heel
--- NOTE | 2024-12-11 12:10 | WOUNDNOTE ---
wound photo: left lateral heel
[2024-12-11 14:29] LABS: Pathologist Review Reviewed
[2024-12-11 15:05] VITALS: PULSE 80; RESP 18; O2SAT 91
[2024-12-11 16:00] VITALS: TEMP 36.4
[2024-12-11] MEDS: traZODone 50 MG Tablet PO (19:48)
[2024-12-11 19:49] VITALS: BP 146/52; PULSE 76
[2024-12-11] MEDS: Atorvastatin Calcium 10 MG Tablet 5 MG PO (19:49)
[2024-12-11 21:00] VITALS: PULSE 77; O2SAT 97
[2024-12-12] MEDS: Enoxaparin 40 MG/0.4 ML Syringe SC (05:15)
[2024-12-12] MEDS: Triamcinolone Acetonide 0.1% Cream 15 gm 1 APPLIC TOPICAL ×3 (05:15→21:37)
[2024-12-12 06:00] VITALS: BMI 40.8
[2024-12-12 08:51] VITALS: BP 137/66; PULSE 82
[2024-12-12] MEDS: Cholecalciferol (VIT D3) 25 MCG TABLET (1,000 UNITS) 75 MCG PO (08:51)
[2024-12-12] MEDS: Metoprolol Tartrate 25 MG Tablet PO ×2 (08:51→21:41)
[2024-12-12] MEDS: Senna/Docusate Sodium 1 Tablet PO ×2 (08:51→21:39)
[2024-12-12] MEDS: predniSONE 20 MG Tablet 10 MG PO (08:51)
[2024-12-12] MEDS: buPROPion (SR) 150 MG Tablet.SA PO (08:51)
[2024-12-12] MEDS: Escitalopram Oxalate 10 MG Tablet PO (08:51)
[2024-12-12] MEDS: Pantoprazole Sodium 40 MG Tablet PO (08:51)
[2024-12-12] MEDS: Menthol/Lanolin/Calamine/Znox 113 GM Tube 1 APPLIC TOPICAL (08:52)
[2024-12-12] MEDS: Potassium Chloride Oral Tablet 20 MEQ PO (08:52)
[2024-12-12] MEDS: Petrolatum 33% Tube 1 APPLIC TOPICAL ×2 (08:53→21:37)
[2024-12-12] MEDS: Nystatin Powder 15gm Bottle 1 APPLIC TOPICAL ×2 (08:53→21:38)
[2024-12-12 09:15] VITALS: BP 137/66; PULSE 82; RESP 16; TEMP 36.3; O2SAT 95
--- NOTE | 2024-12-12 09:37 | PHA.CONS_ITS ---
Documented by User: Erick Umaña 12/12/24 09:58 TCU RX Drug Regimen Review Subjective/Objective Subjective/Objective Subjective: TCU admission note. 84 year old female with below past medical history hospitalized for right sided heart failure, severe pulmonary hyperte nsion, bilateral lower extremity cellulitis ruled out, pulmonary embolism ruled out, dvt ruled out, complicated by acute kidney injury, left sciatica, admitted to TCU with debility, here for rehabilitation, strengthening, prior to discharge to sleep lab for sleep study then home. Objective: Allergies No Known Allergies Allergy (Verified 12/07/24 14:01) Current Medications Generic Name Dose Route Start Last Admin Trade Name Freq PRN Reason Stop Dose Admin Acetaminophen 1,000 mg 12/10/24 20:49 Acetaminophen 500 Mg Tablet PO Q6H PRN Pain Score 1-5 Albuterol Sulfate 2 puff 12/10/24 15:08 Albuterol Ih (6.7 Gm) 1 Puff Inhaler INHALATION Q4H PRN PRN wheezing Atorvastatin Calcium 5 mg 12/10/24 22:00 12/11/24 19:49 Atorvastatin Calcium 10 Mg Tablet PO 5 mg QHS RICHI Administration Bupropion HCl 150 mg 12/11/24 10:00 12/12/24 08:51 Bupropion (Sr) 150 Mg Tablet.Sa PO 150 mg DAILY RICHI Administration Calamine/Phenol 1 applic 12/10/24 22:00 12/12/24 08:52 Menthol/Lanolin/Calamine/Znox 113 Gm Tube TOPICAL 1 applic BID RICHI Administration Protocol Cholecalciferol 75 mcg 12/11/24 10:00 12/12/24 08:51 Cholecalciferol (Vit D3) 25 Mcg Tablet (1,000 Units) PO 75 mcg DAILY RICHI Administration Enoxaparin Sodium 40 mg 12/11/24 06:00 12/12/24 05:15 Enoxaparin 40 Mg/0.4 Ml Syringe SC 40 mg DAILY@0600 RICHI Administration Escitalopram Oxalate 10 mg 12/11/24 10:00 12/12/24 08:51 Escitalopram Oxalate 10 Mg Tablet PO 10 mg DAILY RICHI Administration Furosemide 40 mg 12/12/24 14:00 Furosemide 40 Mg Tablet PO BIDLX RICHI Protocol Hydroxyzine HCl 10 mg 12/10/24 18:19 Hydroxyzine 10 Mg Tablet PO 4X/DAY PRN PRN ITCHING Magnesium Citrate 300 ml 12/10/24 20:58 Magnesium Citrate 300 Ml PO DAILY PRN Constipation Metoprolol Tartrate 25 mg 12/10/24 22:00 12/12/24 08:51 Metoprolol Tartrate 25 Mg Tablet PO 25 mg BID [facility] Administration Protocol Multi-Ingredient Cream 1 applic 12/10/24 22:00 12/12/24 08:53 Petrolatum 33% Tube TOPICAL 1 applic BID [facility] Administration Protocol Multivitamins 1 tablet 12/11/24 12:00 12/11/24 11:23 Multivitamins,Therapeutic Tablet PO 1 tablet LUNCH RICHI Administration Nystatin 1 applic 12/10/24 22:00 12/12/24 08:53 Nystatin Powder 15gm Bottle TOPICAL 1 applic BID [facility] Administration Protocol Pantoprazole Sodium 40 mg 12/11/24 10:00 12/12/24 08:51 Pantoprazole Sodium 40 Mg Tablet PO 40 mg DAILY RICHI Administration Potassium Chloride 20 meq 12/11/24 08:00 12/12/24 08:52 Potassium Chloride Oral Tablet 20 Meq PO 20 meq BREAKFAST RICHI Administration Prednisone 40 mg 12/11/24 08:00 12/12/24 08:51 Prednisone 20 Mg Tablet PO 12/23/24 07:59 40 mg BREAKFAST RICHI Administration Taper Senna/Docusate Sodium 1 tablet 12/10/24 22:00 12/12/24 08:51 Senna/Docusate Sodium 1 Tablet PO 1 tablet BID RICHI Administration Sodium Chloride 10 - 40 ml 12/10/24 15:08 12/11/24 11:23 0.9% Saline Lock 10 Ml Syringe IV 10 ml UD PRN Administration SALINE FLUSH Tramadol HCl 50 mg 12/10/24 20:35 Tramadol 50 Mg Tablet PO Q6H PRN PRN Pain Score 6-10 or Pre PT/OT Trazodone HCl 50 mg 12/10/24 22:00 12/11/24 19:48 Trazodone 50 Mg Tablet PO 50 mg QHS [facility] Administration Triamcinolone Acetonide 1 applic 12/10/24 22:00 12/12/24 05:15 Triamcinolone Acetonide 0.1% Cream 15 Gm TOPICAL 12/15/24 23:00 1 applic TID [facility] Administration Protocol Tuberculin PPD 0.1 ml 12/18/24 10:00 Tuberculin,Purif.Prot.Deriv. 50 Tu/Ml Vial ID 12/18/24 10:01 X1 ONE Problem List Hypokalemia (Acute) Insomnia (Acute) Essential (primary) hypertension (Acute) GERD (gastroesophageal reflux disease) (Acute) Vitamin D deficiency (Acute) Depression (Acute) Acute kidney injury (Acute) Severe pulmonary hypertension (Acute) Right-sided heart failure (Acute) Venous stasis dermatitis (Acute) Bilateral lower extremity edema (Acute) Debility (Acute) Hyperlipidemia (Chronic) Vital Signs Temp Pulse Resp BP Pulse Ox O2 Del Method FiO2 97.5 F L 82 18 137/66 H 97 Room Air 21 12/11/24 16:00 12/12/24 08:51 12/11/24 15:05 12/12/24 08:51 12/11/24 21:00 12/11/24 15:05 12/11/24 21:00 Oxygen Delivery Method Room Air Weight: 101.423 kg Body Mass Index (BMI) 40.8 Sodium 140 mmol/L (136-145) 12/11/24 07:00 Potassium 4.3 mmol/L (3.5-5.1) 12/11/24 07:00 Chloride 104 mmol/L (98-107) 12/11/24 07:00 Carbon Dioxide 26.0 mmol/L (21.0-32.0) 12/11/24 07:00 Anion Gap 10 (5-15) 12/11/24 07:00 BUN 35 mg/dL (7-18) H 12/11/24 07:00 Creatinine 1.25 mg/dL (0.55-1.02) H 12/11/24 07:00 Est GFR (MDRD) Af Amer 53 mL/min (>60) L 12/11/24 07:00 Est GFR (MDRD) Non-Af 43 mL/min (>60) L 12/11/24 07:00 BUN/Creatinine Ratio 28.0 RATIO (10-20) H 12/11/24 07:00 Glucose 101 mg/dL (74-106) 12/11/24 07:00 Assessment/Plan: 1. Pain: acetaminophen 1000 mg PO Q6H PRN pain (1-5), tramadol 50 mg OP Q6H PRN pain (6-10). The patient has not required PRN doses of acetaminophen or tramadol so far this admission. Please continue to monitor pain levels, PRN medication usage, LFTS (AST/ALT = 28/26 U/L on 12/07/24), renal function (serum creatinine = 1.25 mg/dL with creatinine clearance ~ 39 mL/min on 12/11/24), for seizures, for dizziness/drowsiness, for constipation, respiratory depression, and syncope/ataxia/falls. 2. Bowel: senna/docusate 1 tablet PO BID, magnesium citrate 300 mL PO daily PRN constipation. The patient has not required any PRN doses of magnesium citrate so far this admission and the patient's last bowel movement was on 12/10/24. Please continue to monitor for bowel movements, for PRN medication usage, for constipation and diarrhea. 3. DVT prophylaxis: enoxaparin 40 mg SC daily. Please continue to monitor for s/s of a DVT such as pain/erythema/swelling in an extremity, renal function (serum creatinine = 1.25 mg/dL with creatinine clearance ~ 39 mL/min on 12/11/24), hemoglobin levels (Hgb = 11.3 g/dL on 12/11/24), platelet counts (Plt = 341 K/mm3 on 12/11/24), and for s/s of bleeding/excessive bruising. 4. Right sided heart failure: metoprolol tartrate 25 mg PO BID, furosemide 40 mg PO BID. Please continue to monitor for s/s of a heart failure exacerbation such edema or shortness of breath, heart rates (recent range = 71-94 beats/min), blood pressures (recent range = 124-156/47-72 mmHg), renal function (serum creatinine = 1.25 mg/dL with creatinine clearance ~ 39 mL/min on 12/11/24), sodium levels (Na = 140 mmol/L on 12/11/24), potassium levels (K = 4.3 mmol/L on 12/11/24), calcium levels (Ca = 9.6 mg/dL on 12/11/24), for fatigue and for s/s of dehydration. The patient's blood pressures have been elevated over the past several days, but the patient was recently placed on prednisone. Please continue to monitor blood pressures after prednisone taper is over to see if the patient would benefit from antihypertensive therapy. 5.Sciatica: prednisone taper. Please continue to monitor for sciatica pain, blood glucose levels (BG = 101 mg/dL on 12/11/24), blood pressures (recent range = 124-156/47-72 mmHg), and for agitation. 6. Hyperlipidemia: atorvastatin 5 mg PO QHS. Please continue to monitor lipid levels (cholesterol = 120 mg/dL with LDL = 51 mg/dL on 12/08/24), LFTs (AST/ALT = 28/26 U/L on 12/07/24), and for myalgias. 7. GERD: pantoprazole 40 mg PO daily. Please continue to monitor for s/s of GERD, for diarrhea that could indicate clostridium difficile infection, and for s/s of bone resorption such as fractures. 8. Shortness of breath: albuterol MDI 2 puffs Q4H PRN shortness of breath. The patient has not required any PRN doses of albuterol so far this admission. Please continue to monitor for shortness of breath and for PRN medication usage. 9. Hypokalemia: potassium chloride 20 mEq PO daily with breakfast. Please continue to monitor potassium levels (K = 4.3 mmol/L on 12/11/24) and for GI distress with potassium chloride administration. 10. Itching: hydroxyzine 10 mg PO 4x/day PRN itching. The patient has not required any PRN doses of hydroxyzine so far this admission. Please continue to monitor for itching, for PRN medication administration and for dry eyes/dry mouth. 11. Vitamin D deficiency: cholecalciferol 75 mcg PO daily. Please continue to monitor vitamin D levels (no recent vitamin D levels documented), and for s/s of vitamin D deficiency. 12. Skin irritation/tinea corporis: calmoseptine 1 application topically BID, eucerin 1 application topically BID, triamcinolone 1 application topically BID, nystatin powder 1 application topically BID. Please continue to monitor for skin irritation and for resolution of tinea corporis. 13. Nutrition: multivitamin 1 tablet PO daily. Please continue to monitor nutritional status. Assessment/Plan for indications treated with psychotropic medications: 1. Depression: escitalopram 10 mg PO daily, bupropion SR 150 mg PO daily. Please see provider note regarding stable chronic long-term use GDR not recommended. Please continue to monitor for s/s of depression, for SI, sodium levels (Na = 140 mmol/L on 12/11/24), nausea/vomiting, diarrhea, drowsiness, for s/s of serotonin syndrome, diaphoresis, constipation, dry mouth, and dizziness. 2. Insomnia: trazodone 50 mg PO QHS. Please see provider note regarding stable chronic long-term use GDR not recommended. Please continue to monitor for insomnia, drowsiness, and for s/s of serotonin syndrome, for nausea/vomiting, dry mouth, dizziness, fatigue and headache. Medical chart and medication regimen reviewed. The following medication irregularities or issues were identified: NA Date Date of Note: 12/12/24 Documented by User: Dr. Shemar Phoenix MD 12/13/24 07:03 TCU RX Drug Regimen Review Provider Comments Provider responsibility Provider Comments to Recommendations by Pharmacy Agree
[2024-12-12] MEDS: Furosemide 40 MG Tablet PO (12:53)
[2024-12-12] MEDS: Multivitamins,Therapeutic Tablet 1 TABLET PO (12:54)
[2024-12-12 13:00] VITALS: PULSE 82; RESP 16; O2SAT 95
[2024-12-12] MEDS: traZODone 50 MG Tablet PO (21:36)
[2024-12-12] MEDS: Atorvastatin Calcium 10 MG Tablet 5 MG PO (21:39)
[2024-12-12 21:41] VITALS: BP 126/50; PULSE 78
[2024-12-13 06:00] VITALS: BMI 40.4
[2024-12-13 06:35] VITALS: BP 162/59; PULSE 71
[2024-12-13] MEDS: Triamcinolone Acetonide 0.1% Cream 15 gm 1 APPLIC TOPICAL ×2 (06:39→21:02)
[2024-12-13] MEDS: Furosemide 40 MG Tablet PO ×2 (06:39→14:53)
[2024-12-13] MEDS: Enoxaparin 40 MG/0.4 ML Syringe SC (06:39)
[2024-12-13 09:04] VITALS: BP 134/63; PULSE 80; RESP 17; TEMP 36.5; O2SAT 96
[2024-12-13] MEDS: predniSONE 20 MG Tablet 10 MG PO (09:05)
[2024-12-13] MEDS: Potassium Chloride Oral Tablet 20 MEQ PO (09:05)
[2024-12-13 09:06] VITALS: PULSE 80
[2024-12-13] MEDS: Metoprolol Tartrate 25 MG Tablet PO ×2 (09:06→21:00)
[2024-12-13] MEDS: Escitalopram Oxalate 10 MG Tablet PO (09:06)
[2024-12-13] MEDS: Menthol/Lanolin/Calamine/Znox 113 GM Tube 1 APPLIC TOPICAL ×2 (09:06→21:00)
[2024-12-13] MEDS: Nystatin Powder 15gm Bottle 1 APPLIC TOPICAL ×2 (09:07→21:02)
[2024-12-13] MEDS: Pantoprazole Sodium 40 MG Tablet PO (09:07)
[2024-12-13] MEDS: Cholecalciferol (VIT D3) 25 MCG TABLET (1,000 UNITS) 75 MCG PO (09:07)
[2024-12-13] MEDS: buPROPion (SR) 150 MG Tablet.SA PO (09:08)
[2024-12-13] MEDS: Petrolatum 33% Tube 1 APPLIC TOPICAL ×2 (09:08→21:02)
[2024-12-13 14:50] VITALS: BP 136/72
[2024-12-13] MEDS: Multivitamins,Therapeutic Tablet 1 TABLET PO (14:54)
[2024-12-13 21:00] VITALS: BP 145/70; PULSE 74
[2024-12-13] MEDS: Atorvastatin Calcium 10 MG Tablet 5 MG PO (21:00)
[2024-12-13] MEDS: traZODone 50 MG Tablet PO (21:00)
[2024-12-13] MEDS: Senna/Docusate Sodium 1 Tablet PO (21:00)
[2024-12-14 05:50] VITALS: BP 153/67; PULSE 68
[2024-12-14] MEDS: Furosemide 40 MG Tablet PO ×2 (05:53→13:46)
[2024-12-14] MEDS: Enoxaparin 40 MG/0.4 ML Syringe SC (05:53)
[2024-12-14] MEDS: Triamcinolone Acetonide 0.1% Cream 15 gm 1 APPLIC TOPICAL ×2 (05:55→21:47)
[2024-12-14] MEDS: Senna/Docusate Sodium 1 Tablet PO ×2 (08:09→21:47)
[2024-12-14] MEDS: Pantoprazole Sodium 40 MG Tablet PO (08:09)
[2024-12-14] MEDS: Cholecalciferol (VIT D3) 25 MCG TABLET (1,000 UNITS) 75 MCG PO (08:09)
[2024-12-14 08:10] VITALS: BP 121/50; PULSE 73
[2024-12-14] MEDS: Escitalopram Oxalate 10 MG Tablet PO (08:10)
[2024-12-14] MEDS: buPROPion (SR) 150 MG Tablet.SA PO (08:10)
[2024-12-14] MEDS: Metoprolol Tartrate 25 MG Tablet PO ×2 (08:10→21:46)
[2024-12-14] MEDS: predniSONE 20 MG Tablet 10 MG PO (08:10)
[2024-12-14] MEDS: Potassium Chloride Oral Tablet 20 MEQ PO (08:10)
[2024-12-14] MEDS: Menthol/Lanolin/Calamine/Znox 113 GM Tube 1 APPLIC TOPICAL ×2 (08:12→21:43)
[2024-12-14] MEDS: Nystatin Powder 15gm Bottle 1 APPLIC TOPICAL ×2 (08:13→21:46)
[2024-12-14] MEDS: Petrolatum 33% Tube 1 APPLIC TOPICAL ×2 (08:13→21:45)
[2024-12-14 10:10] VITALS: BP 121/50; PULSE 73; RESP 18; TEMP 36.6; O2SAT 96
--- NOTE | 2024-12-14 11:30 | CASEMGMT ---
Social Work SW met with patient to complete initial assessment. Introduced self and role. Verified contacts. Patient confirmed code status as DNR-CC. Requested son provide copies of pt's advanced directives. Educated to Medicare benefit and copay coverage. pt's goal is to return home with son at [facility]. Pt inquired about medical alert, MOW and transportation resources. SW agreed and will provide at POC meeting. Pt also inquiring about 3-in-1 commode. SW educated insurance will cover BSC and SW can coordinate at time of DC. Pt appreciative. SW will continue to follow for DC planning assistance. Iveth Rajan, RACHAEL TEXTILE TECHNOLOGIST
[2024-12-14] MEDS: Multivitamins,Therapeutic Tablet 1 TABLET PO (11:51)
[2024-12-14 16:15] VITALS: BMI 40.2
[2024-12-14 21:42] VITALS: BP 127/75; PULSE 81
[2024-12-14] MEDS: traZODone 50 MG Tablet PO (21:45)
[2024-12-14] MEDS: Atorvastatin Calcium 10 MG Tablet 5 MG PO (21:45)
[2024-12-14 21:46] VITALS: BP 127/75; PULSE 81
[2024-12-15 05:55] VITALS: BP 156/68; PULSE 81
[2024-12-15] MEDS: hydrOXYzine 10 MG Tablet PO (05:56)
[2024-12-15] MEDS: Furosemide 40 MG Tablet PO ×2 (05:56→14:38)
[2024-12-15] MEDS: Triamcinolone Acetonide 0.1% Cream 15 gm 1 APPLIC TOPICAL (05:58)
[2024-12-15] MEDS: Enoxaparin 40 MG/0.4 ML Syringe SC (05:58)
[2024-12-15 06:00] VITALS: BMI 39.6
[2024-12-15] MEDS: Potassium Chloride Oral Tablet 20 MEQ PO (08:02)
[2024-12-15] MEDS: predniSONE 20 MG Tablet 10 MG PO (08:02)
[2024-12-15 08:03] VITALS: BP 124/64; PULSE 81
[2024-12-15] MEDS: Metoprolol Tartrate 25 MG Tablet PO ×2 (08:03→20:36)
[2024-12-15] MEDS: Escitalopram Oxalate 10 MG Tablet PO (08:03)
[2024-12-15] MEDS: Menthol/Lanolin/Calamine/Znox 113 GM Tube 1 APPLIC TOPICAL (08:03)
[2024-12-15] MEDS: Nystatin Powder 15gm Bottle 1 APPLIC TOPICAL (08:04)
[2024-12-15] MEDS: Senna/Docusate Sodium 1 Tablet PO (08:04)
[2024-12-15] MEDS: Pantoprazole Sodium 40 MG Tablet PO (08:04)
[2024-12-15] MEDS: Cholecalciferol (VIT D3) 25 MCG TABLET (1,000 UNITS) 75 MCG PO (08:05)
[2024-12-15] MEDS: buPROPion (SR) 150 MG Tablet.SA PO (08:05)
[2024-12-15 08:10] VITALS: BP 124/64; PULSE 81; RESP 18; O2SAT 97
[2024-12-15] MEDS: Petrolatum 33% Tube 1 APPLIC TOPICAL (08:13)
--- NOTE | 2024-12-15 10:34 | NURSING ---
VANESARN/WOUND NURSE CHANGED PT DRESSING TO LT HEEL/FOOT.
--- NOTE | 2024-12-15 10:40 | WOUNDNOTE ---
wound photo: left lateral ankle/heel
--- NOTE | 2024-12-15 10:41 | WOUNDNOTE ---
wound photo: left heel
[2024-12-15] MEDS: Multivitamins,Therapeutic Tablet 1 TABLET PO (11:21)
[2024-12-15 12:30] VITALS: PULSE 75; RESP 18; O2SAT 98
[2024-12-15 14:58] VITALS: TEMP 36.6
--- NOTE | 2024-12-15 15:19 | CHAPLAIN ---
Type of Pastoral Visit ___ Initial Visit _x__ Follow-up Visit ___ On-call Visit ___ General Patient Visit ___ Spiritual Assessment ___ Family Conference ___ Bereavement ___ Rapid Response ___ Code Blue ___ Other (describe below) Pastoral Care Referral From _x__ Patient ___ Family ___ Nurse ___ Physician ___ Automotive Vehicle Inspector ___ Chair Spring Assembler ___ Other (describe below) Sacrament/Intervention _x__ Active listening ___ Anointing ___ Episcopal ___ Bereavement ___ Communion ___ Miranda exploration ___ ___ Life review ___ Prayer ___ Reconciliation ___ Sacrament of Sick ___ Supportive presence ___ Wedding ___ Other (describe below) Pastoral Comments nice conversation with this patient who reports on great care and high satisfaction with her progress and experience at this hospital; pt speaks of a great neighbor who has been very helpful and asks prayer for herself because my neighbor of 40 years is moving; pt states that she has no other needs at this time but would like to rest before her next therapy session
[2024-12-15 20:36] VITALS: BP 153/74; PULSE 78
[2024-12-15] MEDS: traZODone 50 MG Tablet PO (20:36)
[2024-12-15] MEDS: Atorvastatin Calcium 10 MG Tablet 5 MG PO (20:36)
[2024-12-16 06:00] VITALS: BP 149/70; PULSE 66; RESP 16
[2024-12-16] MEDS: Enoxaparin 40 MG/0.4 ML Syringe SC (06:00)
[2024-12-16] MEDS: Furosemide 40 MG Tablet PO ×2 (06:01→13:30)
[2024-12-16 06:19] VITALS: PULSE 66; RESP 16; O2SAT 95
--- NOTE | 2024-12-16 06:25 | NURSING ---
Patient reports numbess to bilat feet and hands for a while, explains the numbness started in my feet and then in my hands. Patient requesting medication to treat numbness. Written communication left for Dr. Phoenix
[2024-12-16] MEDS: predniSONE 20 MG Tablet 10 MG PO (07:57)
[2024-12-16] MEDS: Potassium Chloride Oral Tablet 20 MEQ PO (07:57)
[2024-12-16 07:58] VITALS: BP 122/60; PULSE 77
[2024-12-16] MEDS: Metoprolol Tartrate 25 MG Tablet PO ×2 (07:58→21:16)
[2024-12-16] MEDS: Nystatin Powder 15gm Bottle 1 APPLIC TOPICAL (07:58)
[2024-12-16] MEDS: Escitalopram Oxalate 10 MG Tablet PO (07:58)
[2024-12-16] MEDS: Menthol/Lanolin/Calamine/Znox 113 GM Tube 1 APPLIC TOPICAL (07:59)
[2024-12-16] MEDS: Pantoprazole Sodium 40 MG Tablet PO (07:59)
[2024-12-16] MEDS: buPROPion (SR) 150 MG Tablet.SA PO (08:00)
[2024-12-16] MEDS: Senna/Docusate Sodium 1 Tablet PO (08:00)
[2024-12-16] MEDS: Cholecalciferol (VIT D3) 25 MCG TABLET (1,000 UNITS) 75 MCG PO (08:00)
[2024-12-16] MEDS: Petrolatum 33% Tube 1 APPLIC TOPICAL (08:03)
[2024-12-16 08:12] VITALS: BP 122/60; PULSE 77; RESP 18; O2SAT 94
--- NOTE | 2024-12-16 10:25 | CASEMGMT ---
Social Work IDT met with patient and son Leoncio at bedside, with multiple family members and a friend via conference call for care plan meeting. Discussed patient's progress in PT/OT/SN. Educated to Medicare benefit. Provided pt with written communication on insurance process and copay coverage during stay. Pt is progressing well and SW inquired about pt's readiness for DC. Pt stated she would like to improve on her endurance. SW agreed and explained Dr is ordering a sleep study at DC d/t pulmonary HTN, which could be contributing to the fatigue. Pt confirmed she spoke with the Dr last evening and is agreeable to sleep study. SW offered to coordinate sleep study with pt's DC date, which could be next week. Pt agreed. SW to contact sleep lab to coordinate and notify pt of outcome. SW provided pt with resources, previously discussed at admission. Pt also had PCP fax this worker her advanced directives. SW placed paperwork on chart. SW will continue to follow for DC planning. - THOMPSON sent email to manager payment of sleep lab to begin coordination of DC and sleep study. Will continue to follow. Iveth Rajan, RACHAEL INSTRUCTOR INDUSTRIAL DESIGN
--- NOTE | 2024-12-16 11:10 | CASEMGMT ---
BIMS () and PHQ2 (0) interviews completed on this date for MDS assessment. MICHELLE García
[2024-12-16] MEDS: Multivitamins,Therapeutic Tablet 1 TABLET PO (11:49)
[2024-12-16] MEDS: Gabapentin 100 MG Capsule PO ×2 (11:49→17:27)
[2024-12-16 13:15] VITALS: BMI 39.9
[2024-12-16 13:32] VITALS: BP 130/58; PULSE 80; RESP 14; TEMP 36.7; O2SAT 96
--- NOTE | 2024-12-16 14:38 | CASEMGMT ---
Addendum entered by Iveth Rajan 12/17/24 11:26: SW followed up with pt on HHC preference. Pt prefers [facility]. However, pt stated she is feeling more fatigued today and wants to postpone DC. SW agreed and will follow up in a few days. SW noted that per Dr, pt will likelyl not start feeling better until the pulmonary HTN is addressed with results from the sleep study. Will continue to follow. Original Note: Social Work SW received update from sleep lab and their next available opening is 12/30. - SW spoke with pt to update. Pt is progressing well and would need to be discharged prior to the . pt agreed to return for the OP sleep study. Pt requested to DC home 2. IDT agreeable. SW offered HHC vs OP therapy. Pt contemplated but ultimately decided on HHC. SW provided list of providers including quality and resource data via [employer]. Pt to review and notify this worker of preferences. Pt confirmed 3-in-1 commode [place]. [place] [facility] [place] at [place]. Plan: DC home 2/, HHC PT/OT/SN, 3-in-1 commode Iveth Rajan BALLOON DESIGN PRINTER RN INTERNAL MEDICINE
[2024-12-16] MEDS: Atorvastatin Calcium 10 MG Tablet 5 MG PO (21:15)
[2024-12-16 21:16] VITALS: BP 155/64; PULSE 76
[2024-12-16] MEDS: traZODone 50 MG Tablet PO (21:16)
[2024-12-17 06:00] VITALS: BMI 39.7
[2024-12-17] MEDS: Enoxaparin 40 MG/0.4 ML Syringe SC (06:47)
[2024-12-17] MEDS: Furosemide 40 MG Tablet PO ×2 (06:47→13:10)
[2024-12-17 06:52] VITALS: BP 172/81; PULSE 63; RESP 16
[2024-12-17] MEDS: Gabapentin 100 MG Capsule PO ×3 (08:21→17:35)
[2024-12-17] MEDS: Potassium Chloride Oral Tablet 20 MEQ PO (08:21)
[2024-12-17] MEDS: predniSONE 20 MG Tablet 10 MG PO (08:21)
[2024-12-17] MEDS: Menthol/Lanolin/Calamine/Znox 113 GM Tube 1 APPLIC TOPICAL ×2 (08:22→20:32)
[2024-12-17] MEDS: Nystatin Powder 15gm Bottle 1 APPLIC TOPICAL ×2 (08:23→20:33)
[2024-12-17] MEDS: Petrolatum 33% Tube 1 APPLIC TOPICAL ×2 (08:23→20:31)
[2024-12-17 08:24] VITALS: BP 140/69; PULSE 69
[2024-12-17] MEDS: Escitalopram Oxalate 10 MG Tablet PO (08:24)
[2024-12-17] MEDS: Metoprolol Tartrate 25 MG Tablet PO ×2 (08:24→20:37)
[2024-12-17] MEDS: Pantoprazole Sodium 40 MG Tablet PO (08:24)
[2024-12-17] MEDS: buPROPion (SR) 150 MG Tablet.SA PO (08:25)
[2024-12-17] MEDS: Cholecalciferol (VIT D3) 25 MCG TABLET (1,000 UNITS) 75 MCG PO (08:25)
[2024-12-17] MEDS: Senna/Docusate Sodium 1 Tablet PO ×2 (08:25→20:32)
[2024-12-17 08:28] VITALS: BP 140/69; PULSE 69; RESP 16; O2SAT 95
[2024-12-17] MEDS: Multivitamins,Therapeutic Tablet 1 TABLET PO (11:38)
[2024-12-17 16:00] VITALS: TEMP 36.4
--- NOTE | 2024-12-17 17:26 | DS.PCM_ITS ---
Providers Date of Admission: 12/10/24 Primary Care Physician: Dr. 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 Routine Comment: Reason for Consult:: wound lt ankle Reason For Visit: FLUID OVERLOAD Diagnosis Discharge Diagnosis (1) Debility: Status: Acute Code(s): R53.81 - Other malaise (2) Bilateral lower extremity edema: Status: Acute Code(s): R60.0 - Localized edema (3) Venous stasis dermatitis: Status: Acute Code(s): I87.2 - Venous insufficiency (chronic) (peripheral) (4) Right-sided heart failure: Status: Acute Code(s): I50.810 - Right heart failure, unspecified (5) Severe pulmonary hypertension: Status: Acute Code(s): I27.20 - Pulmonary hypertension, unspecified (6) Acute kidney injury: Status: Acute Code(s): N17.9 - Acute kidney failure, unspecified (7) Depression: Status: Acute Code(s): F32.A - Depression, unspecified (8) Vitamin D deficiency: Status: Acute Code(s): E55.9 - Vitamin D deficiency, unspecified (9) GERD (gastroesophageal reflux disease): Status: Acute Code(s): K21.9 - Gastro-esophageal reflux disease without esophagitis (10) Essential (primary) hypertension: Status: Acute Code(s): I10 - Essential (primary) hypertension (11) Hyperlipidemia: Status: Chronic Code(s): E78.5 - Hyperlipidemia, unspecified Qualifiers: Hyperlipidemia type: mixed hyperlipidemia Qualified Code(s): E78.2 - Mixed hyperlipidemia (12) Insomnia: Status: Acute Code(s): G47.00 - Insomnia, unspecified (13) Hypokalemia: Status: Acute Code(s): E87.6 - Hypokalemia Plan 84 year old female with below past medical history hospitalized for right sided heart failure, severe pulmonary hypertension, bilateral lower extremity cellulitis ruled out, pulmonary embolism ruled out, dvt ruled out, complicated by acute kidney injury, left sciatica, admitted to TCU with debility, here for rehabilitation, strengthening, prior to discharge to sleep lab for sleep study then home. * Debility - PT/OT. * Pain - Tylenol 1000mg q6 prn pain (1-5), Tramadol 50mg q6 prn pain (6-10). * Bowel - senna/colace 1 tablet bid, Magnesium citrate 300mL daily prn. * Adult immunization - Administer pneumonia vaccine, covid vaccine, flu vaccine as appropriate.. * DVT prophylaxis - Lovenox 40mg sc daily. * Shortness of breath - Albuterol mdi 2 puffs q4 prn. * Hyperlipidemia - Atorvastatin 5mg qhs. 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 * Vitamin D deficiency - D3 75mcg daily. * Right sided heart failure - Metoprolol 25mg bid, Furosemide 40mg bid. * Severe pulmonary hypertension - plan discharge to sleep lab for sleep study. * Pruritus - Hydroxyzine 10mg 4x/day prn. * Skin irritation - Calmoseptine topical bid, Eucerin topical bid, Triamcinolone cream topical tid. * Nutrition - MVI 1 tablet daily * Tinea Corporis - Nystatin powder topical bid. * GERD - Pantoprazole 40mg daliy. * Hypokalemia - Potassium chloride 20mg daily. * Left sciatica - Prednisone 40mg taper, consider MRI LS spine, pain management, spine consult, if pain no better. * Insomnia - Trazodone 50mg qhs, stable chronic fpc use, GDR not recommended. Medications at Discharge Home Medications bupropion HCl 150 mg tablet,12 hr sustained-release 150 mg PO DAILY mental health 11/10/15 cholecalciferol (vitamin D3) 75 mcg (3,000 unit) tablet 3,000 unit PO DAILY supplement 08/13/18 multivitamin 1 tab PO DAILY Supplement 08/13/18 pantoprazole 40 mg tablet,delayed release 40 mg PO DAILY GERD 08/13/18 escitalopram oxalate 10 mg tablet 10 mg PO DAILY mental health 03/22/20 simvastatin 10 mg tablet 10 mg PO QHS cholesterol lowering #90 tabs 06/28/20 metoprolol tartrate 25 mg tablet 25 mg PO BID BP 07/24/22 tramadol 50 mg tablet 50 mg PO Q6 PRN pain 07/28/24 trazodone 50 mg tablet 25 - 50 mg PO QHS Sleep 07/28/24 albuterol sulfate 90 mcg/actuation aerosol inhaler 2 puff inhalation Q4H PRN wheezing 12/07/24 acetaminophen 500 mg tablet 1,000 mg (2 x 500 mg) PO Q6H PRN Pain Score 1-5 #0 tabs 12/22/24 furosemide 40 mg tablet 40 mg PO BIDLX 30 days #60 tabs 12/22/24 gabapentin 100 mg capsule 100 mg PO QHS 30 days #30 caps 12/22/24 potassium chloride 20 mEq tablet,extended release(part/cryst) 20 meq PO BREAKFAST 30 days #30 tabs 12/22/24 Hospital Course Operations None Procedures None Summary of Care Provided Minutes Spent on Discharge: 35 Hospital Course: 84 year old female with below past medical history hospitalized for right sided heart failure, severe pulmonary hypertension, bilateral lower extremity cellulitis ruled out, pulmonary embolism ruled out, dvt ruled out, complicated by acute kidney injury, left sciatica, admitted to TCU with debility, here for rehabilitation, strengthening, prior to discharge to sleep lab for sleep study then home. Resident had nighttime trending puloximetry which was normal, no snoring noted, no daytime grogginess. Sleep study canceled, recommend follow up with Pulmonary for severe pulmonary hypertension. Plan: [place] home 12/26, [facility] PT/OT/SN 3-in-1 Commode: Patient is confined to a single room unable to safely access toilet. Patient is confined to one level of the home environment and there is no toilet on that level. Physical Exam Const alert General Appearance: cooperative HEENT normocephalic Eyes PERRL and EOMs intact bilaterally Neck supple, no JVD and no carotid bruits Resp normal respiratory effort, normal air movement and clear to auscultation bilaterally Cardio regular rate and regular rhythm GI normal to inspection, nondistended, normoactive bowel sounds, non-tender and non-distended Extremity normal capillary refill General Extremity: Negative for edema Skin no rashes or lesions noted General Skin Exam: no breakdown Psych affect normal Appearance: appropriate Weight / BMI Weight Weight: 99.065 kg Body Mass Index (BMI) 39.9 ABG / Lab / Microbiology Data 12/18/24 05:07 12/18/24 05:07 D/C Instructions Discharge Diet: No restrictions Discharge Activity: Return to Normal Activity, May Shower and Use Walker Weight Bearing Status: Weight bearing as tolerated Call your doctor if you observe: Fever of 101 or Higher, Inability to urinate, Inability to have a bowel movement, Shortness of breath, Dizziness, Fainting spells, Swelling in the ankles, Chest pain and Uncontrolled pain DC O2, CPAP, BIPAP Needs PSN CPAP & BiPAP: BiPAP & CPAP Settings per PSN Fraction of Inspired Oxygen ( 12/11/24 21:00 FIO2) Home O2 Discharge instructions: No Additional Instructions: Plan: [place] home 12/26, [facility] PT/OT/SN Please Follow Up With: Umer Cisneros DO When: 2 weeks. Meaningful Use Info Meaningful Use Meaningful Use Diagnoses (Choose all that apply): None applicable Ischemic Stroke Statin Dosing Therapy Reference: STATIN DOSE THERAPY REFERENCE: * Patients > 75 years receive moderate or high dose statin therapy. * Patients 75 years or YOUNGER should receive HIGH intensity statin dose unless contraindicated. You will be required to document reason for non-treatment if statin daily dose does not meet guidelines. HIGH DOSE STATIN THERAPY DAILY Atorvastatin > than or = to 40 mg Rosuvastatin > than or = to 20 mg Amlodipine + Atorvastatin > than or = to 2.5/40 mg Ezetimibe + Simvastatin 10/80 mg Simvastatin 80mg Discharge Plan Admission Admit Date/Time: 12/10/24 14:12 Primary Reason for Your Visit: Debility. Attending Provider: Shemar Phoenix Chi Primary Care Provider: Mandy Garcia Instructions Additional Instructions / Restrictions: Plan: [place] home 12/26, [facility] PT/OT/SN Discharge Orders/Prescriptions Prescriptions: New furosemide 40 mg Tablet 40 mg PO BIDLX 30 Days Qty: 60 0RF acetaminophen 500 mg Tablet 1,000 mg PO Q6H PRN (Reason: Pain Score 1-5) Qty: 0 0RF potassium chloride 20 mEq Tablet,Er Particles/Crystals 20 meq PO BREAKFAST 30 Days Qty: 30 0RF gabapentin 100 mg Capsule 100 mg PO QHS 30 Days Qty: 30 0RF Continued pantoprazole 40 mg tablet,delayed release (DR/EC) 40 mg PO DAILY multivitamin tablet 1 tab PO DAILY cholecalciferol (vitamin D3) 3,000 unit tablet 3,000 unit PO DAILY metoprolol tartrate 25 mg tablet 25 mg PO BID trazodone 50 mg tablet 25 - 50 mg PO QHS tramadol 50 mg tablet 50 mg PO Q6 PRN (Reason: pain) bupropion HCl 150 MG tablet extended release 12 hr 150 mg PO DAILY escitalopram oxalate 10 mg tablet 10 mg PO DAILY albuterol sulfate 90 mcg/actuation HFA aerosol inhaler 2 puff INHALATION Q4H PRN (Reason: wheezing) simvastatin 10 mg tablet 10 mg PO QHS Qty: 90 3RF Discontinued acetaminophen [Tylenol Extra Strength] 500 mg tablet 1,000 mg PO Q8H PRN (Reason: pain) furosemide 40 mg tablet 40 mg PO DAILY potassium chloride 10 mEq capsule, extended release 20 meq PO DAILY triamcinolone acetonide 0.1 % cream 1 applic topical TID Rx Instructions: APPLY TO ITCHY LEGS THREE TIMES DAILY FOR 14 DAYS. START0 12/01/24 END 12/15/24 doxycycline hyclate 100 mg tablet 100 mg PO BID Rx Instructions: START- 12/01/24 END-12/11/24 prednisone 20 mg Tablet 40 mg PO BREAKFAST Qty: 0 0RF furosemide 40 mg tablet 40 mg PO BID Qty: 60 0RF potassium chloride 20 mEq tablet extended release 20 meq PO DAILY Qty: 30 0RF enoxaparin 40 mg/0.4 mL Syringe 40 mg subcut BID Qty: 0 0RF Referrals / Follow Up: Umer Cisneros DO [Med Staff - Active Staff] - Within 2 Weeks (Severe pulmonary HTN) Mandy Garcia MD [Primary Care Provider] - Disposition Disposition (needs filled in before D/C Order can be placed): Home Health Service
[2024-12-17] MEDS: Atorvastatin Calcium 10 MG Tablet 5 MG PO (20:32)
[2024-12-17] MEDS: traZODone 50 MG Tablet PO (20:32)
[2024-12-17 20:37] VITALS: PULSE 68
[2024-12-18] MEDS: Enoxaparin 40 MG/0.4 ML Syringe SC (05:26)
[2024-12-18] MEDS: Furosemide 40 MG Tablet PO ×2 (05:26→14:03)
[2024-12-18 06:01] LABS: Absolute Lymphocyte Count 11.17 X10^3/uL (0.83-4.51); Absolute Neutrophil Count 10.3 X10^3/uL (2.0-7.7); Basophil# 0.04 X10^3/uL; Basophil% 0.2 % (0-1); Eosinophils% 0.4 % (0-5); Hematocrit 41.5 % (37-47); Hemoglobin 13.2 g/dL (12.0-15.0); Lymphocyte # 11.17 X10^3/ul (0.83-4.51); Lymphocyte % 47.4 % (19-41); Mean Corp Hgb Conc 31.8 g/dL (32-36); Mean Corpuscular Hgb 28.3 pg (27.0-32.0); Mean Corpuscular Volume 89.1 fL (81-99); Monocyte# 1.85 X10^3/uL; Monocyte% 7.8 % (0-10); NRBC Flagged by Analyzer 0 % (0-5); Neutrophil # 10.29 X10^3/uL (2.7-7.7); Neutrophil % 43.6 % (47-70); POSITIVE DIFFERENTIAL YES; POSITIVE MORPHOLOGY YES; Platelet Count 343 K/mm3 (150-450); RBC Distribution Width CV 13.2 % (11.6-14.6); RBC Distribution Width SD 43.5 fl (35.1-43.9); Red Blood Count 4.66 M/mm3 (4.2-5.4); White Blood Count 23.6 K/mm3 (4.4-11.0)
[2024-12-18 06:05] LABS: Differential Indicated SCAN CRITERIA MET
[2024-12-18 06:45] LABS: Anion Gap 9 (5-15); BUN 42 mg/dL (7-18); BUN/Creat Ratio 32.3 RATIO (10-20); Calcium,Total 9.3 mg/dL (8.5-10.1); Chloride 102 mmol/L (98-107); EST Glomerular Filtration Rate 42 mL/min (>60); Est Glom Filt Rate - Afr Amer 50 mL/min (>60); Estimated Creatinine Clearance 35.36 ml/min; Glucose 98 mg/dL (74-106); Potassium 3.6 mmol/L (3.5-5.1); Sodium Level 137 mmol/L (136-145)
[2024-12-18 08:00] VITALS: BP 117/63; PULSE 73; RESP 18; TEMP 36.2; O2SAT 97
[2024-12-18 08:05] VITALS: BP 117/63; PULSE 73
[2024-12-18] MEDS: Escitalopram Oxalate 10 MG Tablet PO (08:05)
[2024-12-18] MEDS: Cholecalciferol (VIT D3) 25 MCG TABLET (1,000 UNITS) 75 MCG PO (08:05)
[2024-12-18] MEDS: Metoprolol Tartrate 25 MG Tablet PO ×2 (08:05→21:26)
[2024-12-18] MEDS: predniSONE 20 MG Tablet 10 MG PO (08:05)
[2024-12-18] MEDS: Gabapentin 100 MG Capsule PO ×3 (08:05→17:48)
[2024-12-18] MEDS: Potassium Chloride Oral Tablet 20 MEQ PO (08:05)
[2024-12-18] MEDS: Nystatin Powder 15gm Bottle 1 APPLIC TOPICAL ×2 (08:06→21:27)
[2024-12-18] MEDS: buPROPion (SR) 150 MG Tablet.SA PO (08:06)
[2024-12-18] MEDS: Pantoprazole Sodium 40 MG Tablet PO (08:06)
[2024-12-18] MEDS: Menthol/Lanolin/Calamine/Znox 113 GM Tube 1 APPLIC TOPICAL ×2 (08:06→21:26)
[2024-12-18] MEDS: Senna/Docusate Sodium 1 Tablet PO ×2 (08:06→21:26)
--- NOTE | 2024-12-18 09:41 | NURSING ---
Blackjack Supervisor Note; MDS for 12/17/2024 Complete
[2024-12-18 10:30] VITALS: BMI 39.6
[2024-12-18] MEDS: Tuberculin,Purif.prot.deriv. 50 TU/ML Vial 0.1 ML ID (11:19)
[2024-12-18] MEDS: Petrolatum 33% Tube 1 APPLIC TOPICAL ×2 (12:16→21:26)
[2024-12-18] MEDS: Multivitamins,Therapeutic Tablet 1 TABLET PO (12:16)
[2024-12-18 14:10] VITALS: PULSE 73; RESP 18; O2SAT 97
[2024-12-18 21:25] VITALS: BP 137/58; PULSE 76
[2024-12-18] MEDS: Atorvastatin Calcium 10 MG Tablet 5 MG PO (21:25)
[2024-12-18] MEDS: traZODone 50 MG Tablet PO (21:25)
[2024-12-18 21:26] VITALS: BP 137/58; PULSE 76
[2024-12-19 06:00] VITALS: BP 154/67; PULSE 69; BMI 39.5
[2024-12-19] MEDS: Enoxaparin 40 MG/0.4 ML Syringe SC (06:00)
[2024-12-19] MEDS: Furosemide 40 MG Tablet PO ×2 (06:00→13:18)
[2024-12-19] MEDS: Gabapentin 100 MG Capsule PO ×3 (07:58→17:02)
[2024-12-19] MEDS: Potassium Chloride Oral Tablet 20 MEQ PO (08:00)
[2024-12-19] MEDS: Escitalopram Oxalate 10 MG Tablet PO (08:01)
[2024-12-19] MEDS: predniSONE 20 MG Tablet 10 MG PO (08:01)
[2024-12-19] MEDS: Pantoprazole Sodium 40 MG Tablet PO (08:02)
[2024-12-19] MEDS: Cholecalciferol (VIT D3) 25 MCG TABLET (1,000 UNITS) 75 MCG PO (08:02)
[2024-12-19] MEDS: Petrolatum 33% Tube 1 APPLIC TOPICAL ×2 (08:03→22:25)
[2024-12-19] MEDS: buPROPion (SR) 150 MG Tablet.SA PO (08:03)
[2024-12-19] MEDS: Nystatin Powder 15gm Bottle 1 APPLIC TOPICAL ×2 (08:09→22:26)
[2024-12-19] MEDS: Menthol/Lanolin/Calamine/Znox 113 GM Tube 1 APPLIC TOPICAL ×2 (08:09→22:25)
[2024-12-19 10:23] VITALS: PULSE 73
[2024-12-19] MEDS: Metoprolol Tartrate 25 MG Tablet PO ×2 (10:23→22:23)
[2024-12-19 11:07] VITALS: BP 125/64; PULSE 73; RESP 16; TEMP 36.3; O2SAT 98
[2024-12-19] MEDS: Multivitamins,Therapeutic Tablet 1 TABLET PO (11:27)
[2024-12-19 22:23] VITALS: BP 150/71; PULSE 70
[2024-12-19] MEDS: Atorvastatin Calcium 10 MG Tablet 5 MG PO (22:23)
[2024-12-19] MEDS: Senna/Docusate Sodium 1 Tablet PO (22:23)
[2024-12-19] MEDS: traZODone 50 MG Tablet PO (22:23)
[2024-12-19 22:29] VITALS: BP 150/71; PULSE 70
[2024-12-20] MEDS: Enoxaparin 40 MG/0.4 ML Syringe SC (05:19)
[2024-12-20] MEDS: Furosemide 40 MG Tablet PO ×2 (05:20→13:48)
[2024-12-20 06:00] VITALS: BMI 39.2
[2024-12-20] MEDS: Gabapentin 100 MG Capsule PO ×3 (08:09→17:34)
[2024-12-20] MEDS: Potassium Chloride Oral Tablet 20 MEQ PO (08:09)
[2024-12-20 08:10] VITALS: PULSE 74
[2024-12-20] MEDS: Menthol/Lanolin/Calamine/Znox 113 GM Tube 1 APPLIC TOPICAL (08:10)
[2024-12-20] MEDS: Petrolatum 33% Tube 1 APPLIC TOPICAL ×2 (08:10→21:48)
[2024-12-20] MEDS: Escitalopram Oxalate 10 MG Tablet PO (08:10)
[2024-12-20] MEDS: Metoprolol Tartrate 25 MG Tablet PO ×2 (08:10→21:47)
[2024-12-20] MEDS: Senna/Docusate Sodium 1 Tablet PO ×2 (08:11→21:46)
[2024-12-20] MEDS: buPROPion (SR) 150 MG Tablet.SA PO (08:11)
[2024-12-20] MEDS: Cholecalciferol (VIT D3) 25 MCG TABLET (1,000 UNITS) 75 MCG PO (08:11)
[2024-12-20] MEDS: Nystatin Powder 15gm Bottle 1 APPLIC TOPICAL ×2 (08:11→21:48)
[2024-12-20] MEDS: Pantoprazole Sodium 40 MG Tablet PO (08:11)
[2024-12-20] MEDS: predniSONE 20 MG Tablet 10 MG PO (08:12)
[2024-12-20 08:14] VITALS: BP 134/55; PULSE 74; RESP 16; TEMP 36.5; O2SAT 99
[2024-12-20] MEDS: Multivitamins,Therapeutic Tablet 1 TABLET PO (12:00)
[2024-12-20 21:47] VITALS: BP 131/70; PULSE 78
[2024-12-20] MEDS: Atorvastatin Calcium 10 MG Tablet 5 MG PO (21:47)
[2024-12-20] MEDS: traZODone 50 MG Tablet PO (21:47)
[2024-12-21] MEDS: Furosemide 40 MG Tablet PO ×2 (06:24→13:03)
[2024-12-21] MEDS: Enoxaparin 40 MG/0.4 ML Syringe SC (06:25)
[2024-12-21 06:27] VITALS: BP 125/61; PULSE 72; RESP 16
[2024-12-21 08:00] VITALS: BP 113/59; PULSE 79; RESP 16; O2SAT 100
[2024-12-21 08:28] VITALS: BP 113/59; PULSE 79
[2024-12-21] MEDS: Gabapentin 100 MG Capsule PO ×3 (08:28→17:28)
[2024-12-21] MEDS: Metoprolol Tartrate 25 MG Tablet PO ×2 (08:28→21:38)
[2024-12-21] MEDS: predniSONE 20 MG Tablet 10 MG PO (08:29)
[2024-12-21] MEDS: Potassium Chloride Oral Tablet 20 MEQ PO (08:29)
[2024-12-21] MEDS: Escitalopram Oxalate 10 MG Tablet PO (08:29)
[2024-12-21] MEDS: Senna/Docusate Sodium 1 Tablet PO ×2 (08:29→21:39)
[2024-12-21] MEDS: Pantoprazole Sodium 40 MG Tablet PO (08:29)
[2024-12-21] MEDS: buPROPion (SR) 150 MG Tablet.SA PO (08:29)
[2024-12-21] MEDS: Cholecalciferol (VIT D3) 25 MCG TABLET (1,000 UNITS) 75 MCG PO (08:29)
[2024-12-21] MEDS: Petrolatum 33% Tube 1 APPLIC TOPICAL ×2 (08:30→21:37)
[2024-12-21] MEDS: Nystatin Powder 15gm Bottle 1 APPLIC TOPICAL ×2 (08:30→21:36)
[2024-12-21] MEDS: Menthol/Lanolin/Calamine/Znox 113 GM Tube 1 APPLIC TOPICAL ×2 (08:30→21:36)
[2024-12-21 09:53] VITALS: PULSE 79; RESP 16; O2SAT 100
[2024-12-21] MEDS: Multivitamins,Therapeutic Tablet 1 TABLET PO (12:13)
[2024-12-21 14:17] LABS: Pathologist Review Reviewed
--- NOTE | 2024-12-21 17:55 | NURSING ---
Dr. Ruiz on floor to see patient. Patient had called Dr earlier today r/g recent Echo. Per Dr. Ruiz- continue Lasix 40mg BID and he will see patient for follow up in January. Patient and son in room and present during visit.
[2024-12-21 21:33] VITALS: BP 147/78; PULSE 80
[2024-12-21] MEDS: traZODone 50 MG Tablet PO (21:37)
[2024-12-21 21:38] VITALS: BP 147/78; PULSE 80
[2024-12-21] MEDS: Atorvastatin Calcium 10 MG Tablet 5 MG PO (21:38)
[2024-12-22 05:47] VITALS: BP 147/68; PULSE 70
[2024-12-22] MEDS: Enoxaparin 40 MG/0.4 ML Syringe SC (05:48)
[2024-12-22] MEDS: Furosemide 40 MG Tablet PO ×2 (05:48→13:11)
[2024-12-22 06:00] VITALS: BMI 39.9
[2024-12-22] MEDS: Potassium Chloride Oral Tablet 20 MEQ PO (08:10)
[2024-12-22] MEDS: predniSONE 20 MG Tablet 10 MG PO (08:11)
[2024-12-22 08:12] VITALS: BP 128/73; PULSE 74
[2024-12-22] MEDS: Escitalopram Oxalate 10 MG Tablet PO (08:12)
[2024-12-22] MEDS: Menthol/Lanolin/Calamine/Znox 113 GM Tube 1 APPLIC TOPICAL (08:12)
[2024-12-22] MEDS: Metoprolol Tartrate 25 MG Tablet PO ×2 (08:12→21:46)
[2024-12-22] MEDS: Pantoprazole Sodium 40 MG Tablet PO (08:13)
[2024-12-22] MEDS: Senna/Docusate Sodium 1 Tablet PO ×2 (08:13→21:46)
[2024-12-22] MEDS: Cholecalciferol (VIT D3) 25 MCG TABLET (1,000 UNITS) 75 MCG PO (08:13)
[2024-12-22] MEDS: Nystatin Powder 15gm Bottle 1 APPLIC TOPICAL ×2 (08:13→21:51)
[2024-12-22] MEDS: buPROPion (SR) 150 MG Tablet.SA PO (08:14)
[2024-12-22] MEDS: Petrolatum 33% Tube 1 APPLIC TOPICAL ×2 (08:22→21:48)
[2024-12-22 08:27] VITALS: BP 128/73; PULSE 74; RESP 18; O2SAT 99
--- NOTE | 2024-12-22 09:40 | CASEMGMT ---
Social Work SW spoke with pt at bedside to follow up on setting DC date. Pt discussed with the nurse this morning to stop her Gabapentin in the morning and at noon to see if that helps improve her grogginess and energy levels during the day. Pt is ready to set a DC date, though. SW explained the Dr canceled the sleep study as pt will not qualify, as pt will follow up with a thin film technician at DC to address the pulm. HTN. Pt expressed understanding and requested to DC 12/26. IDT agreeable. SW confirmed use of [facility] and no DME needs. Pt's son can transport. - THOM[place]ON phoned referral to [facility] PT/OT/SN. Plan: DC home 12/26, [facility] PT/OT/SN RACHAEL Garza
--- NOTE | 2024-12-22 11:00 | MDS.RN ---
Information for the MDS was obtained from review of the clinical record, interview of resident, staff, and direct observation of resident?s care.
[2024-12-22] MEDS: Multivitamins,Therapeutic Tablet 1 TABLET PO (11:07)
[2024-12-22] MEDS: Acetaminophen 500 MG Tablet 1000 MG PO (12:42)
[2024-12-22 13:13] VITALS: BP 136/65; PULSE 89
[2024-12-22 16:00] VITALS: TEMP 36.2
[2024-12-22] MEDS: Gabapentin 100 MG Capsule PO (17:22)
--- NOTE | 2024-12-22 17:25 | NURSING ---
PT STATED SHE FEELS THAT THE GABAPENTIN IS MAKING HER SLEEPY AND STATED SHE WAS GOING TO TRY AND GO WITH OUT THREW DAY BUT TAKE THE 1700 DOSE AND SEE HOW SHE FEELS. WILL CONTINUE TO MONITOR.
[2024-12-22 21:46] VITALS: BP 133/64; PULSE 74
[2024-12-22] MEDS: traZODone 50 MG Tablet PO (21:46)
[2024-12-22] MEDS: Atorvastatin Calcium 10 MG Tablet 5 MG PO (21:46)
[2024-12-23] VITALS (7 sets, daily range): BP systolic 121–151; BP diastolic 52–66; PULSE 69–80; RESP 18; TEMP 36.3; O2SAT 95–98
[2024-12-23] MEDS: Enoxaparin 40 MG/0.4 ML Syringe SC (06:11)
[2024-12-23] MEDS: Furosemide 40 MG Tablet PO ×2 (06:11→13:27)
[2024-12-23] MEDS: Potassium Chloride Oral Tablet 20 MEQ PO (08:51)
[2024-12-23] MEDS: Escitalopram Oxalate 10 MG Tablet PO (08:52)
[2024-12-23] MEDS: Nystatin Powder 15gm Bottle 1 APPLIC TOPICAL ×2 (08:53→22:06)
[2024-12-23] MEDS: Pantoprazole Sodium 40 MG Tablet PO (08:53)
[2024-12-23] MEDS: Cholecalciferol (VIT D3) 25 MCG TABLET (1,000 UNITS) 75 MCG PO (08:53)
[2024-12-23] MEDS: buPROPion (SR) 150 MG Tablet.SA PO (08:53)
[2024-12-23] MEDS: Senna/Docusate Sodium 1 Tablet PO ×2 (08:53→22:04)
[2024-12-23] MEDS: Metoprolol Tartrate 25 MG Tablet PO ×2 (08:54→22:04)
[2024-12-23] MEDS: Menthol/Lanolin/Calamine/Znox 113 GM Tube 1 APPLIC TOPICAL ×2 (08:54→22:06)
[2024-12-23] MEDS: Acetaminophen 500 MG Tablet 1000 MG PO (08:57)
[2024-12-23] MEDS: Petrolatum 33% Tube 1 APPLIC TOPICAL ×2 (08:59→22:05)
[2024-12-23] MEDS: Multivitamins,Therapeutic Tablet 1 TABLET PO (11:51)
[2024-12-23] MEDS: Gabapentin 100 MG Capsule PO (17:43)
[2024-12-23] MEDS: Atorvastatin Calcium 10 MG Tablet 5 MG PO (22:04)
[2024-12-23] MEDS: traZODone 50 MG Tablet PO (22:04)
[2024-12-24] VITALS (8 sets, daily range): BP systolic 103–155; BP diastolic 47–66; PULSE 74–88; RESP 16; TEMP 36.6; O2SAT 95–98; BMI 39.5
[2024-12-24] MEDS: Enoxaparin 40 MG/0.4 ML Syringe SC (06:30)
[2024-12-24] MEDS: Furosemide 40 MG Tablet PO ×2 (06:30→13:04)
[2024-12-24] MEDS: Potassium Chloride Oral Tablet 20 MEQ PO (09:20)
[2024-12-24] MEDS: Escitalopram Oxalate 10 MG Tablet PO (09:21)
[2024-12-24] MEDS: Senna/Docusate Sodium 1 Tablet PO ×2 (09:22→20:51)
[2024-12-24] MEDS: Cholecalciferol (VIT D3) 25 MCG TABLET (1,000 UNITS) 75 MCG PO (09:22)
[2024-12-24] MEDS: Pantoprazole Sodium 40 MG Tablet PO (09:22)
[2024-12-24] MEDS: buPROPion (SR) 150 MG Tablet.SA PO (09:22)
[2024-12-24] MEDS: Petrolatum 33% Tube 1 APPLIC TOPICAL ×2 (09:23→21:02)
[2024-12-24] MEDS: Menthol/Lanolin/Calamine/Znox 113 GM Tube 1 APPLIC TOPICAL ×2 (09:24→20:50)
[2024-12-24] MEDS: Nystatin Powder 15gm Bottle 1 APPLIC TOPICAL ×2 (09:26→20:50)
--- NOTE | 2024-12-24 09:27 | NURSING ---
Addendum entered by Otilia Quintanilla 12/24/24 19:09: dr blake changed neurontin to QHS and on home DC med list as well Original Note: pt c/o lightheaded when getting up or down from bed/chair only. does not happen when ambulating. held lopressor this AM per pt request. BP 103/[address] blake. pt is on fluid restriction but feels that she drinks all that she is allowed to have.
[2024-12-24] MEDS: Multivitamins,Therapeutic Tablet 1 TABLET PO (11:55)
[2024-12-24] MEDS: Metoprolol Tartrate 25 MG Tablet PO ×2 (11:55→20:51)
--- NOTE | 2024-12-24 15:54 | WOUNDNOTE ---
wound photo: left heel
[2024-12-24] MEDS: Gabapentin 100 MG Capsule PO (17:15)
[2024-12-24] MEDS: Atorvastatin Calcium 10 MG Tablet 5 MG PO (20:53)
[2024-12-24] MEDS: traZODone 50 MG Tablet PO (20:54)
[2024-12-25 02:24] VITALS: PULSE 82; O2SAT 95
[2024-12-25] MEDS: Enoxaparin 40 MG/0.4 ML Syringe SC (05:27)
[2024-12-25 06:00] VITALS: BMI 39.6
[2024-12-25 06:05] LABS: Absolute Lymphocyte Count 9.98 X10^3/uL (0.83-4.51); Absolute Neutrophil Count 9.2 X10^3/uL (2.0-7.7); Basophil# 0.05 X10^3/uL; Basophil% 0.2 % (0-1); Eosinophil# 0.25 X10^3/uL; Eosinophils% 1.2 % (0-5); Hematocrit 39.7 % (37-47); Hemoglobin 12.6 g/dL (12.0-15.0); Lymphocyte # 9.98 X10^3/ul (0.83-4.51); Lymphocyte % 46.7 % (19-41); Mean Corp Hgb Conc 31.7 g/dL (32-36); Mean Corpuscular Hgb 27.7 pg (27.0-32.0); Mean Corpuscular Volume 87.3 fL (81-99); Mean Platelet Vol. 10.3 fl (6.2-12.0); Monocyte# 1.73 X10^3/uL; Monocyte% 8.1 % (0-10); NRBC Flagged by Analyzer 0 % (0-5); Neutrophil # 9.22 X10^3/uL (2.7-7.7); Neutrophil % 43.1 % (47-70); POSITIVE DIFFERENTIAL YES; Platelet Count 244 K/mm3 (150-450); RBC Distribution Width CV 13.2 % (11.6-14.6); RBC Distribution Width SD 42.5 fl (35.1-43.9); Red Blood Count 4.55 M/mm3 (4.2-5.4); White Blood Count 21.4 K/mm3 (4.4-11.0)
[2024-12-25 06:37] LABS: Differential Indicated SCAN CRITERIA MET
[2024-12-25 06:43] LABS: Anion Gap 10 (5-15); BUN 37 mg/dL (7-18); BUN/Creat Ratio 26.8 RATIO (10-20); Calcium,Total 9.5 mg/dL (8.5-10.1); Chloride 100 mmol/L (98-107); Creatinine, Serum 1.38 mg/dL (0.55-1.02); EST Glomerular Filtration Rate 39 mL/min (>60); Est Glom Filt Rate - Afr Amer 47 mL/min (>60); Estimated Creatinine Clearance 33.18 ml/min; Glucose 116 mg/dL (74-106); Potassium 3.5 mmol/L (3.5-5.1); Sodium Level 137 mmol/L (136-145)
[2024-12-25 08:39] VITALS: BP 116/50; PULSE 88; RESP 16; TEMP 36.3; O2SAT 94
[2024-12-25] MEDS: Cholecalciferol (VIT D3) 25 MCG TABLET (1,000 UNITS) 75 MCG PO (08:45)
[2024-12-25] MEDS: Senna/Docusate Sodium 1 Tablet PO (08:45)
[2024-12-25] MEDS: buPROPion (SR) 150 MG Tablet.SA PO (08:45)
[2024-12-25 08:46] VITALS: PULSE 88
[2024-12-25] MEDS: Furosemide 40 MG Tablet PO (08:46)
[2024-12-25] MEDS: Potassium Chloride Oral Tablet 20 MEQ PO (08:46)
[2024-12-25] MEDS: Pantoprazole Sodium 40 MG Tablet PO (08:46)
[2024-12-25] MEDS: Metoprolol Tartrate 25 MG Tablet PO ×2 (08:46→21:08)
[2024-12-25] MEDS: Escitalopram Oxalate 10 MG Tablet PO (08:46)
[2024-12-25] MEDS: Petrolatum 33% Tube 1 APPLIC TOPICAL ×2 (08:51→21:10)
[2024-12-25] MEDS: Menthol/Lanolin/Calamine/Znox 113 GM Tube 1 APPLIC TOPICAL (08:52)
[2024-12-25] MEDS: Nystatin Powder 15gm Bottle 1 APPLIC TOPICAL (08:52)
--- NOTE | 2024-12-25 09:36 | CASEMGMT ---
Social Work SW completed BIMS () and PHQ-2 () for MDS assessment. Iveth Rajan LITIGATION EXAMINER PHOTOFINISHING LABORATORY WORKER
[2024-12-25] MEDS: Multivitamins,Therapeutic Tablet 1 TABLET PO (11:41)
[2024-12-25 21:08] VITALS: BP 116/67; PULSE 88
[2024-12-25] MEDS: Gabapentin 100 MG Capsule PO (21:08)
[2024-12-25] MEDS: Atorvastatin Calcium 10 MG Tablet 5 MG PO (21:08)
[2024-12-25] MEDS: traZODone 50 MG Tablet PO (21:09)
--- NOTE | 2024-12-26 01:00 | NURSING ---
Dressing to left heel changed. Removed old dressing, cleansed with ns, applied adaptic to l heel, covered with abd and kerlix. Pt tolerated well.
[2024-12-26] MEDS: Enoxaparin 40 MG/0.4 ML Syringe SC (05:58)
[2024-12-26 06:00] VITALS: BMI 40.0
[2024-12-26] MEDS: Cholecalciferol (VIT D3) 25 MCG TABLET (1,000 UNITS) 75 MCG PO (08:26)
[2024-12-26 08:27] VITALS: PULSE 85
[2024-12-26] MEDS: Metoprolol Tartrate 25 MG Tablet PO (08:27)
[2024-12-26] MEDS: Potassium Chloride Oral Tablet 20 MEQ PO (08:27)
[2024-12-26] MEDS: Furosemide 40 MG Tablet PO (08:27)
[2024-12-26] MEDS: Pantoprazole Sodium 40 MG Tablet PO (08:27)
[2024-12-26] MEDS: Escitalopram Oxalate 10 MG Tablet PO (08:27)
[2024-12-26] MEDS: Nystatin Powder 15gm Bottle 1 APPLIC TOPICAL (08:27)
[2024-12-26] MEDS: buPROPion (SR) 150 MG Tablet.SA PO (08:27)
[2024-12-26] MEDS: Menthol/Lanolin/Calamine/Znox 113 GM Tube 1 APPLIC TOPICAL (08:28)
[2024-12-26] MEDS: Multivitamins,Therapeutic Tablet 1 TABLET PO (08:28)
[2024-12-26] MEDS: Petrolatum 33% Tube 1 APPLIC TOPICAL (08:29)
[2024-12-26 11:23] VITALS: BP 135/48; PULSE 85; RESP 14; TEMP 36.9; O2SAT 96
[2024-12-28 13:37] LABS: Pathologist Review Reviewed
== END 2024-12-26 11:10 | disposition home health service (06) | DRG 292 ==
PROVIDERS: Admitting Provider Family Medicine Geriatric Medicine; PCP Internal Medicine; Referring Provider Family Medicine Geriatric Medicine; Visit Provider Family Medicine Geriatric Medicine
DX: I11.0 Hypertensive heart disease with heart failure (principal); N17.9 Acute kidney failure, unspecified; I27.21 Secondary pulmonary arterial hypertension; E55.9 Vitamin D deficiency, unspecified; B35.4 Tinea corporis; G62.9 Polyneuropathy, unspecified; Z79.01 Long term (current) use of anticoagulants; I48.0 Paroxysmal atrial fibrillation; I50.811 Acute right heart failure; F32.A Depression, unspecified; E78.2 Mixed hyperlipidemia; K21.9 Gastro-esophageal reflux disease without esophagitis; I87.2 Venous insufficiency (chronic) (peripheral); E87.6 Hypokalemia; G47.00 Insomnia, unspecified; Z87.891 Personal history of nicotine dependence; Z79.899 Other long term (current) drug therapy
CPT/HCPCS: 36415; 80048; 85025; 94762; 97110; 97116; 97162; 97166; 97530; 97535; 97802; 97803; A4216

== ENCOUNTER 2024-12-29 14:42 | Inpatient (IN) | payer MEDICARE, BC, SELFPAY ==
[2024-12-29] VITALS (10 sets, daily range): BP systolic 71–120; BP diastolic 41–64; PULSE 67–76; RESP 13–22; TEMP 36.6–36.8; O2SAT 92–100; BMI 40.6; BMI 38.9
--- NOTE | 2024-12-29 15:55 | EX.ED.DYSGE1 ---
HPI History of Present Illness Chief Complaint: Hypotension Detail of Chief Complaint: Low blood pressure Informant: patient and friend Onset/Context/Timing Onset: - (Per patient this has been occurring over the past week or 2) Context: Sudden Onset Timing: Intermittent Quality: Systolic as low as 40 Location: Cardiovascular Current Severity: Mild Maximum Severity: Moderate Worsened by: Nothing specific Relieved by: Nothing Associated Symptoms Associated Symptoms: Lightheadedness Narrative Narrative: Patient is a 84-year-old woman. She was admitted December 07, 2023. She was admitted for lower extremity edema refractory to outpatient management, pulmonary hypertension, with chronic condition of stage IIIb kidney disease, GERD on PPI, hypertension, obesity class III and history of CLL. Patient has a history of elevated white count of approximately 15,000. Patient was transferred to TCU. Dr. Cobian's note was reviewed. Patient presents because of systolic blood pressure of 70. She states she is on fluid restriction to 1007 and 50 cc/day because of pulmonary hypertension. She also has history of heart failure. She is presently taking furosemide 40 mg twice daily. She denies fever, chills night sweats. She denies rhinorrhea, congestion, postnasal drainage and sore throat. She denies cough or shortness of breath. She denies chest discomfort. She denies abdominal pain, nausea or vomiting. She has had 2-3 episodes of diarrhea in the past several days. She was discharged from the TCU unit approximately 1 week ago. She has not noted any blood or mucus in the mushy stools. Patient denies dysuria, frequency, urgency or hematuria. Prior similar symptoms: Yes Recent Illness/Hospitalization: Yes PFSH PFS Medical History Chronic kidney disease Depression Kidney disease Former smoker Atrial fibrillation Hypertension Obesity GI bleed Essential (primary) hypertension Renal insufficiency Secondary pulmonary arterial hypertension Non-rheumatic tricuspid valve insufficiency GERD (gastroesophageal reflux disease) Hemorrhoids RLS (restless legs syndrome) Hyperlipidemia Diverticulitis Arthritis Paroxysmal atrial fibrillation Anxiety and depression Gastritis Home Medications ?Medication ?Instructions ?Recorded ?Last Taken ?Type bupropion HCl 150 mg tablet,12 hr 150 mg PO DAILY mental health 11/10/15 12/10/24 History sustained-release cholecalciferol (vitamin D3) 75 3,000 unit PO DAILY supplement 08/13/18 Unknown History mcg (3,000 unit) tablet multivitamin 1 tab PO DAILY Supplement 08/13/18 Unknown History pantoprazole 40 mg tablet,delayed 40 mg PO DAILY GERD 08/13/18 12/10/24 History release escitalopram oxalate 10 mg tablet 10 mg PO DAILY mental health 03/22/20 12/10/24 History simvastatin 10 mg tablet 10 mg PO QHS cholesterol lowering 06/28/20 12/09/24 Rx #90 tabs metoprolol tartrate 25 mg tablet 25 mg PO BID BP 07/24/22 12/10/24 History tramadol 50 mg tablet 50 mg PO Q6 PRN pain 07/28/24 12/09/24 History trazodone 50 mg tablet 25 - 50 mg PO QHS Sleep 07/28/24 12/09/24 History albuterol sulfate 90 mcg/actuation 2 puff inhalation Q4H PRN wheezing 12/07/24 Unknown History aerosol inhaler acetaminophen 500 mg tablet 1,000 mg (2 x 500 mg) PO Q6H PRN 12/22/24 Unknown Rx Pain Score 1-5 #0 tabs gabapentin 100 mg capsule 100 mg PO QHS 30 days #30 caps 12/22/24 Unknown Rx potassium chloride 20 mEq 20 meq PO BREAKFAST 30 days #30 12/22/24 Unknown Rx tablet,extended release(part/cryst) tabs furosemide 40 mg tablet 40 mg PO DAILY #0 tabs 12/24/24 12/29/24 14:00 Rx Allergy/AdvReac Type Severity Reaction Status Date / Time No Known Allergies Allergy Verified 12/29/24 14:45 Family History Mother Diabetes Father Myocardial infarction Surgical History History of cataract surgery History of hip surgery Social History household members: children and other details: Lives with son. Smoking Status: Former smoker how long ago did patient quit smokin years ago alcohol intake: never substance use type: does not use caffeine: No ROS ROS ED Constitutional Constitutional ED: Denies chills, fever(s), subjective, sweats or weight loss Eyes Eyes: Denies blurry vision, change in vision or diplopia ENT ENT ED: Reports other Details: Dry mouth ; Denies ear pain, rhinorrhea or sore throat Cardiovascular Cardiovascular: Denies chest pain, orthopnea, palpitations, paroxysmal nocturnal dyspnea or racing heartbeat Respiratory/Chest Respiratory/Chest: Denies cough, dyspnea, dyspnea on exertion, orthopnea or paroxysmal nocturnal dyspnea Gastrointestinal Gastrointestinal: Denies abdominal pain, nausea or vomiting Genitourinary Genitourinary ED: Denies dysuria, hematuria or urinary frequency Musculoskeletal Musculoskeletal: Denies arthralgias, back pain, myalgias or neck pain Integumentary Denies rash Neurologic Neurologic: Reports weakness Psychiatric Psychiatric: Denies anxiety or depression Endocrine Endocrinology: Denies cold intolerance or heat intolerance Hematologic/Lymphatic Hematologic/Lymphatic: Reports systems reviewed and no addt'l complaints, except as documented EXAM Physical Exam Const Vital Signs: 12/29/24 14:43 12/29/24 15:43 12/29/24 15:48 Temperature 97.8 F Temperature Source Oral Pulse Rate 74 74 Respiratory Rate 16 21 H Blood Pressure 94/57 L 71/41 L 105/54 L Blood Pressure Mean 69 51 71 Pulse Ox 100 99 Oxygen Delivery Method Room Air Room Air 12/29/24 16:09 12/29/24 16:40 12/29/24 17:47 Temperature 98.2 F Temperature Source Pulse Rate 70 71 76 Respiratory Rate 13 14 16 Blood Pressure 120/48 L 91/64 103/51 L Blood Pressure Mean 72 73 68 Pulse Ox 99 92 97 Oxygen Delivery Method Room Air Room Air 12/29/24 18:11 Temperature Temperature Source Pulse Rate 67 Respiratory Rate 16 Blood Pressure 103/51 L Blood Pressure Mean 68 Pulse Ox 98 Oxygen Delivery Method Room Air Positive well nourished and well developed Constitutional Narrative: BMI is 40.6. General Appearance ED: well developed and NAD; Negative for cyanotic or diaphoretic HEENT Reports dry mucous membranes HEENT Narrative: Head is atraumatic and normocephalic. Ears normal. Nares patent. Posterior pharynx is normal. Uvula is midline. There is no deviation of protrusion. Mouth ED: Yes dry mucous membranes Mouth: dry mucous membranes Eyes PERRL and EOMs intact bilaterally General Eye ED: Negative for pale conjunctiva or scleral icterus Neck no lymphadenopathy, supple and no JVD Resp normal respiratory effort and clear to auscultation bilaterally Cardio regular rate, regular rhythm, S1 normal heart sound, S2 normal heart sound and no murmurs GI normal to inspection, nondistended, normoactive bowel sounds, non-tender, non-distended and no masses; Negative for hepatosplenomegaly MDM MDM Lab Data Attestation: I reviewed the patient's lab results. Lab results narrative: White count is elevated 23.4 thousand with normal differential. This is normal for patient. Patient's electrolytes reveals a mild hyponatremia and hyperkalemia at 133 and 5.7 respectively. BUN and creatinine are 58 and 6.22.. Prior creatinine was 1.38 on December 25. Labs: Laboratory Results - last 24 hr 12/29/24 15:55 WBC 23.4 H RBC 4.21 Hgb 12.3 Hct 37.7 MCV 89.5 MCH 29.2 MCHC 32.6 RDW Std Deviation 45.2 H RDW Coeff of Shruthi 14.0 Plt Count 248 MPV 10.4 Immature Gran % (Auto) 0.800 Neut % (Auto) 51.1 Lymph % (Auto) 38.2 Pitt % (Auto) 7.8 Eos % (Auto) 1.8 Baso % (Auto) 0.3 Absolute Neuts (auto) 11.9 H Absolute Lymphs (auto) 8.93 H Nucleated RBC % 0 Differential Comment SCANNED Diff Path Review May foll Sodium 133 L Potassium 5.7 H Chloride 102 Carbon Dioxide 21.0 Anion Gap 10 BUN 58 H Creatinine 6.22 H Estim Creat Clear Calc 7.48 Est GFR (MDRD) Af Amer 8 L Est GFR (MDRD) Non-Af 7 L BUN/Creatinine Ratio 9.3 L Glucose 92 Calcium 9.4 EKG Initial EKG: Attestation: I personally reviewed and interpreted this EKG as follows: Interpretation: Sinus Rhythm (Rate of 76. EKG is normal. No concern for hyperkalemia. UT interval is under 2 6 ms. Cures duration 86 ms. QT duration 190 ms. Bowman is normal.) Management Discussion w/another healthcare provider: Hospitalist (Case was discussed with Dr. Barrett. Patient to be admitted.) Discharge Plan Triage Chief Complaint: Hypotension ED Provider: Kushal Romero Dx/Rx/DC Orders Clinical Impression: Acute hypotension, Acute kidney failure, Acute hyponatremia, Acute hyperkalemia Prescriptions: No Action pantoprazole 40 mg tablet,delayed release (DR/EC) 40 mg PO DAILY multivitamin tablet 1 tab PO DAILY cholecalciferol (vitamin D3) 3,000 unit tablet 3,000 unit PO DAILY metoprolol tartrate 25 mg tablet 25 mg PO BID trazodone 50 mg tablet 25 - 50 mg PO QHS tramadol 50 mg tablet 50 mg PO Q6 PRN (Reason: pain) bupropion HCl 150 MG tablet extended release 12 hr 150 mg PO DAILY escitalopram oxalate 10 mg tablet 10 mg PO DAILY albuterol sulfate 90 mcg/actuation HFA aerosol inhaler 2 puff INHALATION Q4H PRN (Reason: wheezing) acetaminophen 500 mg Tablet 1,000 mg PO Q6H PRN (Reason: Pain Score 1-5) Qty: 0 0RF potassium chloride 20 mEq Tablet,Er Particles/Crystals 20 meq PO BREAKFAST 30 Days Qty: 30 0RF gabapentin 100 mg Capsule 100 mg PO QHS 30 Days Qty: 30 0RF furosemide 40 mg Tablet 40 mg PO DAILY Qty: 0 0RF simvastatin 10 mg tablet 10 mg PO QHS Qty: 90 3RF Primary Care Provider: Mandy Garcia Referrals: Mandy Garcia MD [Primary Care Provider] - Print Language: Russian Disposition Disposition: Acute Care Hospital [facility]
[2024-12-29 16:03] LABS: Absolute Lymphocyte Count 8.93 X10^3/uL (0.83-4.51); Absolute Neutrophil Count 11.9 X10^3/uL (2.0-7.7); Basophil# 0.06 X10^3/uL; Basophil% 0.3 % (0-1); Eosinophil# 0.43 X10^3/uL; Eosinophils% 1.8 % (0-5); Hematocrit 37.7 % (37-47); Hemoglobin 12.3 g/dL (12.0-15.0); Lymphocyte # 8.93 X10^3/ul (0.83-4.51); Lymphocyte % 38.2 % (19-41); Mean Corp Hgb Conc 32.6 g/dL (32-36); Mean Corpuscular Hgb 29.2 pg (27.0-32.0); Mean Corpuscular Volume 89.5 fL (81-99); Mean Platelet Vol. 10.4 fl (6.2-12.0); Monocyte# 1.82 X10^3/uL; Monocyte% 7.8 % (0-10); NRBC Flagged by Analyzer 0 % (0-5); Neutrophil # 11.94 X10^3/uL (2.7-7.7); Neutrophil % 51.1 % (47-70); POSITIVE DIFFERENTIAL YES; Platelet Count 248 K/mm3 (150-450); RBC Distribution Width SD 45.2 fl (35.1-43.9); Red Blood Count 4.21 M/mm3 (4.2-5.4); White Blood Count 23.4 K/mm3 (4.4-11.0)
[2024-12-29] MEDS: 0.9% Normal Saline (500mL Bag) 500 ML 1000 ML IV (16:07)
[2024-12-29 16:14] LABS: Differential Indicated SCAN CRITERIA MET
[2024-12-29 16:18] LABS: Anion Gap 10 (5-15); BUN 58 mg/dL (7-18); BUN/Creat Ratio 9.3 RATIO (10-20); Calcium,Total 9.4 mg/dL (8.5-10.1); Chloride 102 mmol/L (98-107); Creatinine, Serum 6.22 mg/dL (0.55-1.02); EST Glomerular Filtration Rate 7 mL/min (>60); Est Glom Filt Rate - Afr Amer 8 mL/min (>60); Estimated Creatinine Clearance 7.48 ml/min; Glucose 92 mg/dL (74-106); Potassium 5.7 mmol/L (3.5-5.1); Sodium Level 133 mmol/L (136-145)
--- NOTE | 2024-12-29 16:28 | CM.ED ---
Social work Reason for referral: validation of advance directives Referral source: case find This SW identified patient's need to have advance directives validated. This SW entered patient's room, introducing self and role at [facility]. Patient accepted SW visit and introduced patient's guest as patient's neighbor, Shanika. Patient gave permission for SW to speak in front of Shanika. Patient confirmed having the advance directives on file as accurate. Patient's HCPOA's are as follows: Brandyn Shelley, son (primary), Alysha Liberty, daughter (secondary), and Andrade Shelley, son (tertiary). Patient denied further needs at this time. Dalia Garcia, FOOD PROCESSING CHEMIST, RESTAURANT AREA MANAGER
[2024-12-29 17:18] LABS: Differential Comment SCANNED
--- NOTE | 2024-12-29 17:35 | EKG12_ITS ---
Test Reason : DYSRHYTHMIA Blood Pressure : */* mmHG Vent. Rate : 76 BPM Atrial Rate : 76 BPM P-R Int : 166 ms QRS Dur : 86 ms QT Int : 390 ms P-R-T Axes : 65 -4 18 degrees QTcB Int : 438 ms Normal sinus rhythm Normal ECG Confirmed by Brandyn Maya ([id number]), content editor CANELO RIBEIRO ([id number]) on 12/30/2024 11:24:07 AM Referred By: Confirmed By: Brandyn Maya
--- NOTE | 2024-12-29 18:01 | HP.PCM.HOS_ITS ---
HPI - General General Date of Admission: 12/29/24 Date of Service: 12/29/24 Chief Complaint: Low blood pressure HPI Narrative RANDA MAZA, is a 84 F who presented to the emergency department at [facility] on 12/29/2024 with a chief complaint of low blood pressure. The patient was admitted here on December 07 2019 for and had an extended stay at which time she was discharged on 12/10/2024 to the transitional care unit. She was there from 10 December through 12/26/2024 at which time she was discharged home with home health care. She admitted in November for lower extremity edema refractory to outpatient management and pulmonary hypertension. Echocardiogram at that time showed right ventricular systolic pressures at 90 mmHg up from 40 mmHg on her previous echocardiogram done in 2018. She has known CKD stage III with baseline renal function between 1.25-1.5. At the time of discharge from the transitional care unit lab was obtained on 12/25/2024 and her serum creatinine at time was 1.38. She was discharged with Lasix 40 mg daily. Patient reported that since discharge she has had some loose stools and indicated she was on stool softeners. She states her appetite and oral intake has been stable. She is on no nephrotoxins otherwise. She states that home health care nurse visited and recommended she be evaluated in the emergency department for low blood pressure. She also states her urine output had dropped yesterday but had improved today. Vital signs on presentation showed temperature of 97.8, heart rate 74, respiratory rate 16, blood pressure 74/57, respiratory rate of 13 and pulse ox was 99% on room air. Patient has a chronic leukocytosis however CBC showed mild elevation in 23.4 thousand up from previous but no left shift. Her chemistry panel showed marked abnormalities with a serum sodium of 133, serum potassium of 5.7, serum bicarb of 21, anion gap of 10, BUN of 58, serum creatinine of 6.22 (baseline 1.25-1.5), serum glucose of 92. Given her NICKOLAS, hyperkalemia, and apparent dehydration she was admitted to PCU for ongoing management. [facility] Medical History Chronic kidney disease Depression Kidney disease Former smoker Atrial fibrillation Hypertension Obesity GI bleed Essential (primary) hypertension Renal insufficiency Secondary pulmonary arterial hypertension Non-rheumatic tricuspid valve insufficiency GERD (gastroesophageal reflux disease) Hemorrhoids RLS (restless legs syndrome) Hyperlipidemia Diverticulitis Arthritis Paroxysmal atrial fibrillation Anxiety and depression Gastritis Home Medications ?Medication ?Instructions ?Recorded ?Last Taken ?Type bupropion HCl 150 mg tablet,12 hr 150 mg PO DAILY [facility] 11/10/15 12/10/24 History sustained-release cholecalciferol (vitamin D3) 75 3,000 unit PO DAILY [facility] 08/13/18 Unknown History mcg (3,000 unit) tablet multivitamin 1 tab PO DAILY Supplement Unknown History pantoprazole 40 mg tablet,delayed 40 mg PO DAILY GERD 08/13/18 12/10/24 History release escitalopram oxalate 10 mg tablet 10 mg PO DAILY [facility] 03/22/20 12/10/24 History simvastatin 10 mg tablet 10 mg PO QHS cholesterol low ering 06/28/20 12/09/24 Rx #90 tabs metoprolol tartrate 25 mg tablet 25 mg PO BID BP 07/2412/10/24 History tramadol 50 mg tablet 50 mg PO Q6 PRN pain 4 12/09/24 History trazodone 50 mg tablet 25 - 50 mg PO QHS Sleep 07/1912/09/24 History albuterol sulfate 90 mcg/actuation 2 puff inhalation Q 4H PRN wheezing 12/07/24 Unknown History aerosol inhaler acetaminophen 500 mg tablet 1,000 mg (2 x 500 mg) PO Q 6H PRN 12/22/24 Unknown Rx Pain Score 1-5 #0 tabs gabapentin 100 mg capsule 100 mg PO QHS 30 days #30 ca ps 12/22/24 Unknown Rx potassium chloride 20 mEq 20 meq PO BREAKFAST 30 days #30 12/22/24 Unknown Rx tablet,extended release(part/cryst) tabs furosemide 40 mg tablet 40 mg PO DAILY #0 tabs 12/2412/29/24 14:00 Rx Allergy/AdvReac Type Severity Reaction Status Date / Time No Known Allergies Allergy Verified 12/29/24 14:45 Family History Mother Diabetes Father Myocardial infarction Surgical History History of cataract surgery History of hip surgery Social History household members: children and other details: Lives with son. Smoking Status: Former smoker how long ago did patient quit smokin years ago alcohol intake: never substance use type: does not use caffeine: No ROS Constitutional Constitutional: Reports weakness; Denies anorexia, change in weight, chills, fatigue, fever(s), malaise, night sweats or other Eyes Eyes: Denies blurry vision, change in eye color, change in vision, discharge from eye(s), double vision, erythema, eye pain, loss of vision or other ENT HEENT: Denies abnormal hearing, dysphagia, ear pain, epistaxis, headache(s), hearing loss, nasal congestion, nasal discharge, post nasal drip, sinus pressure, sore throat or other Cardiovascular Cardiovascular: Denies chest pain, claudication, dyspnea on exertion, edema, lightheadedness, orthopnea, palpitations, paroxysmal nocturnal dyspnea, rapid heart rate, syncope or other Respiratory/Chest Respiratory/Chest: Denies cough, dyspnea, excessive phlegm production, hemoptysis, productive cough, shortness of breath at rest, shortness of breath with exertion, wheezing or other Gastrointestinal Gastrointestinal: Reports loose stools; Denies abdominal pain, coffee ground emesis, constipation, diarrhea, dyspepsia, hematemesis, hematochezia, melena, nausea, vomiting or other Genitourinary Genitourinary: Reports other Details: Decreased urine output ; Denies burning urination, difficulty urinating, dysuria, hematuria, nocturia, urinary frequency, urinary hesitancy, urinary incontinence or urinary urgency Musculoskeletal Musculoskeletal: Denies arthralgias, back pain, joint pain, joint stiffness, joint swelling, myalgias, neck pain or other Neurologic Neurologic: Denies abnormal gait, abnormal speech, confusion, disequilibrium, dizziness, focal weakness, headache(s), numbness, paresthesias, seizure-like activity, seizures, syncope, tingling, tremor(s) or other Psychiatric Psychiatric: Denies anxiety, depression, homicidal ideation, suicidal ideation or other Endocrine Endocrinology: Denies change in body appearance, cold intolerance, excessive sweating, heat intolerance, polydipsia, polyuria or other Hematologic/Lymphatic Hematologic/Lymphatic: Denies anemia, easy bleeding, easy bruising, lymphadenopathy or other Allergic/Immunologic Allergic/Immunologic: Denies rhinitis, hives, eczemia, asthma or other Vital Signs Vital Signs Vital Signs: 12/29/24 14:43 12/29/24 15:43 12/29/24 15:48 Temperature 97.8 F Temperature Source Oral Pulse Rate 74 74 Respiratory Rate 16 21 H Blood Pressure 94/57 L 71/41 L 105/54 L Blood Pressure Mean 69 51 71 Pulse Ox 100 99 Oxygen Delivery Method Room Air Room Air 12/29/24 16:09 12/29/24 16:40 12/29/24 17:47 Temperature 98.2 F Temperature Source Pulse Rate 70 71 76 Respiratory Rate 13 14 16 Blood Pressure 120/48 L 91/64 103/51 L Blood Pressure Mean 72 73 68 Pulse Ox 99 92 97 Oxygen Delivery Method Room Air Room Air Weight Weight: 100.8 kg Body Mass Index (BMI) 40.6 Physical Exam Const alert, oriented x3, no apparent distress and well nourished Constitutional Narrative: Elderly, white female, lying in bed, appears comfortable, does not appear toxic, obese, appears younger than stated age, at bedside General Appearance: cooperative HEENT normocephalic, head/scalp atraumatic and hearing grossly normal bilaterally HEENT Narrative: Mucous membranes are slightly dry, Mallampati 3, no thrush Eyes EOMs intact bilaterally and conjunctivae normal Eyes Narrative: No scleral icterus Neck Neck Narrative: Trachea midline, no thyroid enlargement Resp normal respiratory effort, no retractions, no use of accessory muscles and clear to auscultation bilaterally Resp Narrative: Diminished but clear Auscultation: Negative for rales, rhonchi or wheezes Cardio regular rate, regular rhythm, S1 normal heart sound, S2 normal heart sound, no murmurs, no rub, no gallops and no clicks GI normal to inspection, nondistended, normoactive bowel sounds, soft to palpation and non-tender Extremity no clubbing, cyanosis or edema Extremity Narrative: Pedal and radial pulses are 2+ Skin skin turgor normal, no jaundice, no petechiae and no mottling Skin Narrative: Abnormal skin turgor with tenting noted Neuro oriented x3, moves all extremities and no focal motor deficits Neuro Narrative: Mild generalized weakness noted Speech: speech normal Psych affect normal Psych Narrative: Extremely pleasant, appears well, interacts appropriately, eye contact good Results Lab / Micro Data 12/29/24 15:55 12/29/24 15:55 Labs: Laboratory Results - last 24 hr 12/29/24 15:55: WBC 23.4 H, RBC 4.21, Hgb 12.3, Hct 37.7, MCV 89.5, MCH 29.2, MCHC 32.6, RDW Std Deviation 45.2 H, RDW Coeff of Shruthi 14.0, Plt Count 248, MPV 10.4, Immature Gran % (Auto) 0.800, Neut % (Auto) 51.1, Lymph % (Auto) 38.2, [place] % (Auto) 7.8, Eos % (Auto) 1.8, Baso % (Auto) 0.3, Absolute Neuts (auto) 11.9 H, Absolute Lymphs (auto) 8.93 H, Nucleated RBC % 0, Differential Comment SCANNED, Diff Path Review March, Sodium 133 L, Potassium 5.7 H, Chloride 102, Carbon Dioxide 21.0, Anion Gap 10, BUN 58 H, Creatinine 6.22 H, Estim Creat Clear Calc 7.48, Est GFR (MDRD) Af Amer 8 L, Est GFR (MDRD) Non-Af 7 L, B UN/Creatinine Ratio 9.3 L, Glucose 92, Calcium 9.4 Assessment & Plan Assessment/Plan (1) Acute hyperkalemia: (2) Acute hyponatremia: (3) Acute kidney failure: (4) Acute hypotension: PLAN: Plan NICKOLAS on CKD stage IIIb -Baseline hemoglobin appears to run between 1.25-1.5 -Renal function on admission was 6.22--> on 12/25/2024 renal function was at her baseline at 1.38 -Does not appear she was placed on any new prescriptions like Bactrim or any other that could cause NICKOLAS so quickly -Highly suspect overdiuresis and dehydration -Place Lau -Monitor I's and O's closely -IV fluid replacement but will utilize 75 cc/h due to the fact she has such severe pulmonary hypertension and I do not want to flood her too quickly -Check UA -Check urine sodium -Check urine urea -Check urine creatinine -Check retroperitoneal ultrasound -Hold off on nephrology consultation for now as there is no acute need for renal replacement therapy and monitor recovery -Avoid nephrotoxins and will hold diuretics and oral antihypertensives for now Acute hypotension -Highly suspect related to volume depletion -Hold antihypertensives -Fluid replacement as above Acute hyperkalemia -Hold home potassium replacement -Highly suspect combination of potassium replacement and NICKOLAS -EKG without peaked T waves and no acute treatment required -Will monitor with telemetry Severe pulmonary hypertension -Right ventricular systolic pressures on her last echocardiogram were 90 mmHg and patient presented at her last hospitalization with severe refractory lower extremity edema -No edema present currently -Has pulmonary follow-up as an outpatient and etiology for severe pulm hypertension is unclear at this time -Restart diuretics as appropriate Chronic leukocytosis -Highly suspect the acute elevation is related to volume depletion as she does appear to be markedly dry -Will trend Patient of atrial fibrillation -Patient is not on anything for anticoagulation -Hold metoprolol for now -Monitor on telemetry Essential hypertension/hyperlipidemia -Due to hypotension on presentation and NICKOLAS but hold Lasix and metoprolol -Continue home statin Neuropathy/restless leg syndrome -Continue home gabapentin 100 mg at at bedtime GERD -Continue Protonix Anxiety/depression -Continue home Lexapro -Continue home Wellbutrin History of tobacco abuse -Remote recommend ongoing cessation Obesity -BMI is 38.9 DVT prophylaxis -Subcu heparin 3 times daily CODE STATUS -DNR CCA okay for short-term intubation Charges/Coding Visit Charges Inpatient E&M: 77673 Init Hosp L2
--- NOTE | 2024-12-29 18:01 | US_ITS ---
PROCEDURE: KIDNEY AND BLADDER REASON FOR EXAM: 84-year-old female, NICKOLAS. TECHNIQUE: Bilateral renal ultrasound. COMPARISON: CT abdomen pelvis 05/27/2018. FINDINGS: Normal renal sizes, parenchymal thicknesses, and echotextures. No hydronephrosis. No cysts or large solid renal masses. The urinary bladder is decompressed. RIGHT Kidney Size: 9.3 x 5.0 x 5.1 cm Volume: 122 mL Parenchymal Thickness: 15 mm (>14mm is normal) Cortical Thickness (if discernible): Not discernible (>6mm is normal) LEFT Kidney Size: 11.2 x 4.7 x 5.4 cm Volume: 149 mL Parenchymal Thickness: 13 mm (>14mm is normal) Cortical Thickness (if discernible): Not discernible (>6mm is normal) US/Kidney and Bladder IMPRESSION: NORMAL RENAL ULTRASOUND Reading Location: [facility]
[2024-12-29] MEDS: 0.9% Normal Saline (1000mL) 1,000 ML 75 ML IV (20:26)
[2024-12-29] MEDS: Atorvastatin Calcium 10 MG Tablet 5 MG PO (22:15)
[2024-12-29] MEDS: Heparin Injection (Vial) 5,000 UNIT/ML VIAL 5000 UNIT SC (22:15)
[2024-12-29 22:20] LABS: Mucous, Urine 0 SEEN /hpf (<or=2+)
[2024-12-29 22:22] LABS: Color, Urine Yellow (Yellow); Glucose, Dipstick Normal (Normal); Ketone-Dipstick Negative (Negative); Leukocyte Esterase-Dipstick 100 /ul (Negative); Nitrite-Dipstick Negative (Negative); Occult Blood-Urine 10 /ul (Negative); Protein-Dipstick 15 mg/dl (Negative); Specific Gravity, Urine 1.015 (1.002-1.030); Urine Bilirubin Dipstick Negative (Negative); Urine Clarity Clear (Clear); Urine Urobilinogen Normal (Normal)
[2024-12-29 22:30] LABS: Bacteria 1+ /hpf (None Seen); Red Blood Cells-Urine 0 SEEN /hpf (0-5); Squamous Epithelial Cells - UA 5-10 SEEN /hpf (5-10); White Blood Cells 5-10 SEEN /hpf (0-5)
[2024-12-29] MEDS: Gabapentin 100 MG Capsule PO (23:02)
[2024-12-29 23:30] LABS: Urine Sodium 36 mmol/L (Not Establ.)
[2024-12-30] VITALS (10 sets, daily range): BP systolic 74–146; BP diastolic 30–110; PULSE 79–97; RESP 16–18; TEMP 36.2–37.2; O2SAT 95–100; BMI 38.9
[2024-12-30] MEDS: Acetaminophen 500 MG Tablet 1000 MG PO (00:52)
[2024-12-30] MEDS: Menthol/Lanolin/Calamine/Znox 113 GM Tube 1 APPLIC TOPICAL ×3 (00:53→21:56)
[2024-12-30] MEDS: 0.9% Normal Saline (1000mL) 1,000 ML 75 ML IV (05:18)
[2024-12-30] MEDS: Heparin Injection (Vial) 5,000 UNIT/ML VIAL 5000 UNIT SC ×3 (05:46→21:55)
[2024-12-30 07:24] LABS: Absolute Lymphocyte Count 6.35 X10^3/uL (0.83-4.51); Absolute Neutrophil Count 6.7 X10^3/uL (2.0-7.7); Basophil# 0.03 X10^3/uL; Basophil% 0.2 % (0-1); Eosinophil# 0.32 X10^3/uL; Eosinophils% 2.2 % (0-5); Hematocrit 35.1 % (37-47); Hemoglobin 10.9 g/dL (12.0-15.0); Lymphocyte # 6.35 X10^3/ul (0.83-4.51); Lymphocyte % 43.6 % (19-41); Mean Corp Hgb Conc 31.1 g/dL (32-36); Mean Corpuscular Hgb 27.9 pg (27.0-32.0); Mean Platelet Vol. 10.5 fl (6.2-12.0); Monocyte% 7.5 % (0-10); NRBC Flagged by Analyzer 0 % (0-5); Neutrophil # 6.71 X10^3/uL (2.7-7.7); Neutrophil % 46.1 % (47-70); POSITIVE DIFFERENTIAL YES; POSITIVE MORPHOLOGY YES; Platelet Count 229 K/mm3 (150-450); RBC Distribution Width CV 14.2 % (11.6-14.6); RBC Distribution Width SD 46.6 fl (35.1-43.9); White Blood Count 14.6 K/mm3 (4.4-11.0)
[2024-12-30 07:28] LABS: Differential Indicated SCAN CRITERIA MET
[2024-12-30 08:02] LABS: ALB/GLOB Ratio 0.8 RATIO (0.9-2.4); AST(SGOT) 18 U/L (15-37); Alanine Aminotransfer ALT/SGPT 21 U/L (13-56); Albumin, Serum 2.6 g/dL (3.2-5.0); Alkaline Phosphatase 64 U/L (45-117); Anion Gap 9 (5-15); BUN 58 mg/dL (7-18); BUN/Creat Ratio 11.8 RATIO (10-20); Calcium,Total 8.5 mg/dL (8.5-10.1); Chloride 109 mmol/L (98-107); EST Glomerular Filtration Rate 9 mL/min (>60); Est Glom Filt Rate - Afr Amer 11 mL/min (>60); Estimated Creatinine Clearance 9.62 ml/min; Globulin 3.2 g/dL (2.2-4.2); Glucose 86 mg/dL (74-106); Magnesium 2.2 mg/dL (1.6-2.6); Phosphorus 4.8 mg/dL (2.5-4.9); Protein, Total 5.8 g/dL (6.4-8.2); Sodium Level 136 mmol/L (136-145)
[2024-12-30] MEDS: buPROPion (SR) 150 MG Tablet.SA PO (09:16)
[2024-12-30] MEDS: Cholecalciferol (VIT D3) 25 MCG TABLET (1,000 UNITS) 75 MCG PO (09:16)
[2024-12-30] MEDS: Escitalopram Oxalate 10 MG Tablet PO (09:17)
[2024-12-30] MEDS: Multivitamins,Therapeutic Tablet 1 TABLET PO (09:17)
[2024-12-30] MEDS: Pantoprazole Sodium 40 MG Tablet PO (09:17)
--- NOTE | 2024-12-30 11:12 | WOUNDNOTE ---
wound photo: left heel
[2024-12-30] MEDS: 0.9% Normal Saline (500mL Bag) 500 ML 167 ML IV (12:43)
[2024-12-30 15:30] LABS: Pathologist Review Reviewed
--- NOTE | 2024-12-30 16:10 | CASEMGMT ---
SHAI KEYES chart review: Patient was admitted 12/07-12/10/24 for CHF and Pulmonary HTN. See assessment from 12/08/24. Patient was discharged to TCU. Patient was discharged from TCU on 12/26/24 with [facility], fluid restriction, and diuretic. Patient returned to [facility] ED after HHC visit for low blood pressure. Patient was admitted for NICKOLAS and dehydration. SHAI KEYES in to discuss readmission and discharge plans. Patient states she was following fluid restriction and taking medicaitons at prescribed. SHAI KEYES and patient discussed taking blood pressure before blood pressure medication and weigh self daily. Patient wishes to discharge home with resumption of [facility]. Patient had no more questions or concerns. CM will continue to follow this patient and plan for a safe discharge.
--- NOTE | 2024-12-30 19:25 | PCM.PN.HOSP ---
Reason for Visit Reason for Visit: Diagnoses Hypo-osmolality and hyponatremia (12/29/24) Hyperkalemia (12/29/24) Hypotension, unspecified (12/29/24) Acute kidney failure, unspecified (12/29/24) Subjective Subjective Patient was seen and examined today, her creatinine is improved, her systolic blood pressure was low today so I gave her additional fluid. I also talked with her son who lives in [place] and went over her medical care with him. Objective Data Objective Data Vital Signs: Vital Signs Temp Pulse Resp BP Pulse Ox O2 Del Method 98.6 F 85 18 146/110 H 98 Room Air 12/30/24 15:50 12/30/24 15:50 12/30/24 15:50 12/30/24 15:50 12/30/24 15:50 12/30/24 15:50 Oxygen Delivery Method Room Air Weight: 99.7 kg Body Mass Index (BMI) 38.9 Intake & Output: Intake and Output for Last 24 Hours 12/28/24 12/29/24 12/30/24 23:59 23:59 23:59 Intake Total 500 / 620 3178.75 / 3178.75 Output Total 650 / 650 Balance 500 / 620 2528.75 / 2528.75 Lab / Micro Data 12/30/24 06:52 12/30/24 06:52 Labs: Laboratory Results - last 24 hr 12/29/24 15:55: Diff Path Review Reviewed 12/29/24 22:10: Urine Color Yellow, Urine Clarity Clear, Urine pH 5.0, Ur Specific [place] 1.015, Urine Protein 15 H, Urine Glucose (UA) Normal, Urine Ketones Negative, Urine Occult Blood 10 H, Urine Nitrite Negative, Urine Bilirubin Negative, Urine Urobilinogen Normal, Ur Leukocyte Esterase 100 H, Urine RBC 0 SEEN, Urine WBC 5-10 SEEN, Ur Squamous Epith Cells 5-10 SEEN, Urine Bacteria 1+, Urine Mucus 0 SEEN 12/29/24 22:55: Ur Random Sodium 36, Urine Creatinine 102.00 12/30/24 06:52: WBC 14.6 H, RBC 3.90 L, Hgb 10.9 L, Hct 35.1 L, MCV 90.0, MCH 27.9, MCHC 31.1 L, RDW Std Deviation 46.6 H, RDW Coeff of Shruthi 14.2, Plt Count 229, MPV 10.5, Immature Gran % (Auto) 0.400, Neut % (Auto) 46.1 L, Lymph % (Auto) 43.6 H, [place] % (Auto) 7.5, Eos % (Auto) 2.2, Baso % (Auto) 0.2, Absolute Neuts (auto) 6.7, Absolute Lymphs (auto) 6.35 H, Nucleated RBC % 0, Differential Comment COMMENT, Sodium 136, Potassium 5.0, Chloride 109 H, Carbon Dioxide 19.0 L, Anion Gap 9, BUN 58 H, Creatinine 4.90 H, Estim Creat Clear Calc 9.62, Est GFR (MDRD) Af Amer 11 L, Est GFR (MDRD) Non-Af 9 L, BUN/Creatinine Ratio 11.8, Glucose 86, Calcium 8.5, Phosphorus 4.8, Magnesium 2.2, Total Bilirubin 0.40, AST 18, ALT 21, Alkaline Phosphatase 64, Total Protein 5.8 L, Albumin 2.6 L, Globulin 3.2, Albumin/Globulin Ratio 0.8 L Physical Exam Const alert, oriented x3 and no apparent distress Constitutional Narrative: Patient appears her stated age General Appearance: cooperative, well kempt and well developed Orientation / Consciousness: awake, oriented to person, oriented to place and oriented to time HEENT normocephalic, head/scalp atraumatic and moist oral mucous membranes Eyes PERRL, EOMs intact bilaterally and conjunctivae normal Neck supple, no JVD, thyroid normal and no carotid bruits General: trachea midline Resp normal respiratory effort, no retractions, no use of accessory muscles and clear to auscultation bilaterally Auscultation: Negative for rales, rhonchi or wheezes Cardio regular rate, regular rhythm, S1 normal heart sound, S2 normal heart sound, no murmurs, no rub and no gallops GI normal to inspection, nondistended, normoactive bowel sounds, soft to palpation, non-tender and non-distended Extremity no clubbing, cyanosis or edema Skin no rashes or lesions noted General Skin Exam: no breakdown Neuro oriented x3, CN's II-XII intact bilaterally, moves all extremities, no focal motor deficits and no sensory deficits noted Sensorium / Orientation: awake and alert Speech: speech normal Psych affect normal Assessment & Plan Assessment/Plan (1) Acute hyperkalemia: PLAN: Plan 1. Acute kidney injury-second to diuretic usage at home and fluid restriction-patient's creatinine was improved today, BMP will be rechecked tomorrow, patient will remain on IV fluids #2 hyperkalemia-corrected at this time, again BMP will be repeated tomorrow #3 severe pulmonary hypertension-patient will need to be discharged home on some oral diuretics, she needs to be monitored as an outpatient, I did talk to her son about the patient going to a pulmonary hypertension specialist, I will bring this up with her tomorrow. #4 essential hypertension-patient will remain off her medications for now due to hypotension #5 chronic depression-patient is on Wellbutrin and Lexapro Total clinical time spent by myself addressing the patient's medical issues, reviewing all of her data, and collaborating with patient's care team: 50 minutes Charges/Coding Visit Charges Inpatient E&M: 06319 [facility] Hosp L3
[2024-12-30] MEDS: Atorvastatin Calcium 10 MG Tablet 5 MG PO (21:54)
[2024-12-30] MEDS: Gabapentin 100 MG Capsule PO (21:55)
[2024-12-31] MEDS: 0.9% Normal Saline (1000mL) 1,000 ML 75 ML IV (00:56)
[2024-12-31 03:00] VITALS: BP 139/46; PULSE 99; RESP 16; TEMP 36.8; O2SAT 95
[2024-12-31 03:53] VITALS: BMI 40.5
[2024-12-31] MEDS: Heparin Injection (Vial) 5,000 UNIT/ML VIAL 5000 UNIT SC ×3 (05:19→21:14)
[2024-12-31 07:28] VITALS: O2SAT 98
[2024-12-31 07:57] LABS: Absolute Lymphocyte Count 6.26 X10^3/uL (0.83-4.51); Absolute Neutrophil Count 6.5 X10^3/uL (2.0-7.7); Basophil# 0.02 X10^3/uL; Basophil% 0.1 % (0-1); Eosinophils% 2.8 % (0-5); Hematocrit 32.7 % (37-47); Hemoglobin 10.4 g/dL (12.0-15.0); Lymphocyte # 6.26 X10^3/ul (0.83-4.51); Lymphocyte % 43.1 % (19-41); Mean Corp Hgb Conc 31.8 g/dL (32-36); Mean Corpuscular Hgb 28.8 pg (27.0-32.0); Mean Corpuscular Volume 90.6 fL (81-99); Mean Platelet Vol. 10.7 fl (6.2-12.0); Monocyte# 1.27 X10^3/uL; Monocyte% 8.7 % (0-10); NRBC Flagged by Analyzer 0 % (0-5); Neutrophil # 6.52 X10^3/uL (2.7-7.7); Neutrophil % 44.9 % (47-70); POSITIVE DIFFERENTIAL YES; POSITIVE MORPHOLOGY YES; Platelet Count 205 K/mm3 (150-450); RBC Distribution Width CV 14.2 % (11.6-14.6); RBC Distribution Width SD 46.7 fl (35.1-43.9); Red Blood Count 3.61 M/mm3 (4.2-5.4); White Blood Count 14.5 K/mm3 (4.4-11.0)
[2024-12-31 08:03] LABS: Differential Indicated SCAN CRITERIA MET
[2024-12-31 08:12] LABS: Anion Gap 7 (5-15); BUN 52 mg/dL (7-18); BUN/Creat Ratio 16.8 RATIO (10-20); Calcium,Total 8.4 mg/dL (8.5-10.1); Chloride 114 mmol/L (98-107); EST Glomerular Filtration Rate 15 mL/min (>60); Est Glom Filt Rate - Afr Amer 18 mL/min (>60); Estimated Creatinine Clearance 15.55 ml/min; Glucose 94 mg/dL (74-106); Sodium Level 139 mmol/L (136-145)
[2024-12-31 08:30] LABS: Atypical Lymphocyte 1+ %
[2024-12-31 09:00] VITALS: BP 128/62; PULSE 87; RESP 18; TEMP 36.8; O2SAT 95
[2024-12-31] MEDS: Pantoprazole Sodium 40 MG Tablet PO (09:14)
[2024-12-31] MEDS: Escitalopram Oxalate 10 MG Tablet PO (09:14)
[2024-12-31] MEDS: Multivitamins,Therapeutic Tablet 1 TABLET PO (09:14)
[2024-12-31] MEDS: buPROPion (SR) 150 MG Tablet.SA PO (09:14)
[2024-12-31] MEDS: Cholecalciferol (VIT D3) 25 MCG TABLET (1,000 UNITS) 75 MCG PO (09:14)
[2024-12-31] MEDS: Menthol/Lanolin/Calamine/Znox 113 GM Tube 1 APPLIC TOPICAL ×2 (09:15→21:15)
[2024-12-31 11:10] VITALS: O2SAT 97
--- NOTE | 2024-12-31 14:49 | CHAPLAIN ---
Type of Pastoral Visit _x__ Initial Visit ___ Follow-up Visit ___ On-call Visit ___ General Patient Visit ___ Spiritual Assessment ___ Family Conference ___ Bereavement ___ Rapid Response ___ Code Blue ___ Other (describe below) Pastoral Care Referral From _x__ Patient ___ Family ___ Nurse ___ Physician ___ Paste Thinner ___ Lithographic Retoucher Apprentice ___ Other (describe below) Sacrament/Intervention _x__ Active listening ___ Anointing ___ Gnosticist ___ Bereavement ___ Communion ___ Miranda exploration ___ ___ Life review _x__ Prayer ___ Reconciliation ___ Sacrament of Sick ___ Supportive presence ___ Wedding ___ Other (describe below) Pastoral Comments patient is tired but willing to have a short prayer; pt was released and returned to the hospital over the weekend; hope is to get well and stay well this time
[2024-12-31 15:00] VITALS: BP 130/80; PULSE 80; RESP 16; TEMP 36.9; O2SAT 95
--- NOTE | 2024-12-31 16:46 | PCM.PN.HOSP ---
Reason for Visit Reason for Visit: Diagnoses Hypo-osmolality and hyponatremia (12/29/24) Hyperkalemia (12/29/24) Hypotension, unspecified (12/29/24) Acute kidney failure, unspecified (12/29/24) Subjective Subjective Patient was seen and examined today, she said she slept well around 2 PM today she feels good. Creatinine has improved Objective Data Objective Data Vital Signs: Vital Signs Temp Pulse Resp BP Pulse Ox O2 Del Method 98.2 F 87 18 128/62 H 97 Room Air 12/31/24 09:00 12/31/24 09:00 12/31/24 09:00 12/31/24 09:00 12/31/24 11:10 12/31/24 11:10 Oxygen Delivery Method Room Air Weight: 103.7 kg Body Mass Index (BMI) 40.5 Intake & Output: Intake and Output for Last 24 Hours 12/29/24 12/30/24 12/31/24 23:59 23:59 23:59 Intake Total 500 / 620 3552.50 / 3552.50 1067.5 / 1067.5 Output Total 950 / 950 2600 / 2600 Balance 500 / 620 2602.50 / 2602.50 -1532.5 / -1532.5 Lab / Micro Data 12/31/24 07:10 12/31/24 07:10 Labs: Laboratory Results - last 24 hr 12/31/24 07:10: WBC 14.5 H, RBC 3.61 L, Hgb 10.4 L, Hct 32.7 L, MCV 90.6, MCH 28.8, MCHC 31.8 L, RDW Std Deviation 46.7 H, RDW Coeff of Shruthi 14.2, Plt Count 205, MPV 10.7, Immature Gran % (Auto) 0.400, Neut % (Auto) 44.9 L, Lymph % (Auto) 43.1 H, [place] % (Auto) 8.7, Eos % (Auto) 2.8, Baso % (Auto) 0.1, Absolute Neuts (auto) 6.5, Absolute Lymphs (auto) 6.26 H, Nucleated RBC % 0, Atypical Lymphocytes 1+, Sodium 139, Potassium 5.0, Chloride 114 H, Carbon Dioxide 18.0 L, Anion Gap 7, BUN 52 H, Creatinine 3.10 H, Estim Creat Clear Calc 15.55, Est GFR (MDRD) Af Amer 18 L, Est GFR (MDRD) Non-Af 15 L, BUN/Creatinine Ratio 16.8, Glucose 94, Calcium 8.4 L Physical Exam Narrative alert, oriented x3 and no apparent distress Constitutional Narrative: Patient appears her stated age General Appearance: cooperative, well kempt and well developed Orientation / Consciousness: awake, oriented to person, oriented to place and oriented to time HEENT normocephalic, head/scalp atraumatic and moist oral mucous membranes Eyes PERRL, EOMs intact bilaterally and conjunctivae normal Neck supple, no JVD, thyroid normal and no carotid bruits General: trachea midline Resp normal respiratory effort, no retractions, no use of accessory muscles and clear to auscultation bilaterally Auscultation: Negative for rales, rhonchi or wheezes Cardio regular rate, regular rhythm, S1 normal heart sound, S2 normal heart sound, no murmurs, no rub and no gallops GI normal to inspection, nondistended, normoactive bowel sounds, soft to palpation, non-tender and non-distended Extremity no clubbing, cyanosis or edema Skin no rashes or lesions noted General Skin Exam: no breakdown Neuro oriented x3, CN's II-XII intact bilaterally, moves all extremities, no focal motor deficits and no sensory deficits noted Sensorium / Orientation: awake and alert Speech: speech normal Psych affect normal Assessment & Plan Assessment/Plan (1) Acute hyperkalemia: PLAN: Plan 1. Acute kidney injury-second to diuretic usage at home and fluid restriction-patient's creatinine was improved today, BMP will be rechecked tomorrow #2 hyperkalemia-corrected at this time, again BMP will be repeated tomorrow #3 severe pulmonary hypertension-patient will need to be discharged home on some oral diuretics, she needs to be monitored as an outpatient, I talked to the patient today concerning following up with a pulmonary hypertension specialist-there is a Dr. Joe in [place] that she can see, I gave her his name today. #4 essential hypertension-patient will remain off her medications for now due to hypotension #5 chronic depression-patient is on Wellbutrin and Lexapro Total clinical time spent by myself addressing the patient's medical issues, reviewing all of her data, and collaborating with patient's care team: 35 minutes Charges/Coding Visit Charges Inpatient E&M: 37581 Subs Hosp L2
[2024-12-31] MEDS: Gabapentin 100 MG Capsule PO (21:14)
[2024-12-31] MEDS: Atorvastatin Calcium 10 MG Tablet 5 MG PO (21:14)
[2024-12-31 21:20] VITALS: BP 164/76; PULSE 108; RESP 18; TEMP 37.2; O2SAT 98
[2025-01-01] VITALS (7 sets, daily range): BP systolic 129–158; BP diastolic 41–52; PULSE 90–113; RESP 16–20; TEMP 36.8–37.4; O2SAT 94–109; BMI 40.5
[2025-01-01] MEDS: Nystatin Powder 15gm Bottle 1 APPLIC TOPICAL ×3 (01:00→13:41)
[2025-01-01] MEDS: Heparin Injection (Vial) 5,000 UNIT/ML VIAL 5000 UNIT SC ×2 (05:31→13:39)
[2025-01-01 07:04] LABS: Anion Gap 6 (5-15); BUN 34 mg/dL (7-18); BUN/Creat Ratio 20.9 RATIO (10-20); Calcium,Total 9.1 mg/dL (8.5-10.1); Chloride 116 mmol/L (98-107); Creatinine, Serum 1.63 mg/dL (0.55-1.02); EST Glomerular Filtration Rate 32 mL/min (>60); Est Glom Filt Rate - Afr Amer 39 mL/min (>60); Estimated Creatinine Clearance 29.58 ml/min; Glucose 102 mg/dL (74-106); Potassium 5.2 mmol/L (3.5-5.1); Sodium Level 142 mmol/L (136-145)
[2025-01-01] MEDS: Cholecalciferol (VIT D3) 25 MCG TABLET (1,000 UNITS) 75 MCG PO (09:18)
[2025-01-01] MEDS: Escitalopram Oxalate 10 MG Tablet PO (09:19)
[2025-01-01] MEDS: buPROPion (SR) 150 MG Tablet.SA PO (09:19)
[2025-01-01] MEDS: Pantoprazole Sodium 40 MG Tablet PO (09:19)
[2025-01-01] MEDS: Multivitamins,Therapeutic Tablet 1 TABLET PO (09:20)
[2025-01-01] MEDS: Acetaminophen 500 MG Tablet 1000 MG PO (10:18)
[2025-01-01] MEDS: Menthol/Lanolin/Calamine/Znox 113 GM Tube 1 APPLIC TOPICAL (13:41)
--- NOTE | 2025-01-01 15:00 | NURSING ---
Called to patients room, upset about blood pressure. Patient states many family and friends are calling her and telling her different information about blood pressure. This RN and student nurse went over blood pressure results with patient, also called her neighbor who is a nurse (Shanika) per patients request to go over information with her. MD aware of concerns, home metoprolol re-ordered. MD to see patient. No other needs at this time
--- NOTE | 2025-01-01 15:01 | DCINST_ITS ---
Discharge Instructions Diet Discharge Diet: No restrictions DC O2, CPAP, BIPAP needs Home O2 Discharge instructions: No Dressing / Incision Discharge Activity: Return to Normal Activity Weight Bearing Status: Full weight bearing Follow Up Care Test Results: Test results from this visit will be discussed in further detail at your follow- up appointment, if applicable. Discharge Plan Admission Admit Date/Time: 12/29/24 17:56 Primary Reason for Your Visit: renal failure/acute kidney injury Attending Provider: Feliciano Montenegro Primary Care Provider: Mandy Garcia Consulting Providers: Ladi Barrett Instructions Additional Instructions / Restrictions: I strongly recommend that you make an appointment with a pulmonary hypertension specialist for further workup, I recommend Dr. Demetri Joe, their office has your contact information and will give you a phone call to schedule an appointment-the number to his office is [phone] Discharge Orders/Prescriptions Prescriptions: Continued pantoprazole 40 mg tablet,delayed release (DR/EC) 40 mg PO DAILY multivitamin tablet 1 tab PO DAILY cholecalciferol (vitamin D3) 3,000 unit tablet 3,000 unit PO DAILY metoprolol tartrate 25 mg tablet 25 mg PO BID trazodone 50 mg tablet 25 - 50 mg PO QHS tramadol 50 mg tablet 50 mg PO Q6 PRN (Reason: pain) bupropion HCl 150 MG tablet extended release 12 hr 150 mg PO DAILY escitalopram oxalate 10 mg tablet 10 mg PO DAILY albuterol sulfate 90 mcg/actuation HFA aerosol inhaler 2 puff INHALATION Q4H PRN (Reason: wheezing) acetaminophen 500 mg Tablet 1,000 mg PO Q6H PRN (Reason: Pain Score 1-5) Qty: 0 0RF gabapentin 100 mg Capsule 100 mg PO QHS 30 Days Qty: 30 0RF furosemide 40 mg Tablet 40 mg PO DAILY Qty: 30 0RF potassium chloride 20 mEq Tablet,Er Particles/Crystals 20 meq PO BREAKFAST 30 Days Qty: 30 0RF simvastatin 10 mg tablet 10 mg PO QHS Qty: 90 3RF Referrals / Follow Up: Mandy Garcia MD [Primary Care Provider] - Within 1 Week Disposition Disposition (needs filled in before D/C Order can be placed): Home Health Service
[2025-01-01] MEDS: Metoprolol Tartrate 25 MG Tablet PO (15:30)
--- NOTE | 2025-01-01 15:30 | DS.PCM_ITS ---
Providers Date of Admission: 12/29/24 Date of Discharge: 01/01/25 Primary Care Physician: Dr. 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 Acute kidney injury-second to diuretic usage at home and fluid restriction- patient's creatinine was improved today, BMP will be rechecked tomorrow #2 hyperkalemia-corrected at this time, again BMP will be repeated tomorrow #3 severe pulmonary hypertension-patient will need to be discharged home on some oral diuretics, she needs to be monitored as an outpatient, I talked to the patient today concerning following up with a pulmonary hypertension specialist- there is a Dr. Joe in [place] that she can see, I gave her his name today. 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 Total clinical time spent by myself addressing the patient's medical issues, reviewing all of her data, and collaborating with patient's care team: 35 minutes Medications at Discharge Home Medications bupropion HCl 150 mg tablet,12 hr sustained-release 150 mg PO DAILY mental health 11/10/15 cholecalciferol (vitamin D3) 75 mcg (3,000 unit) tablet 3,000 unit PO DAILY supplement 08/13/18 multivitamin 1 tab PO DAILY Supplement 08/13/18 pantoprazole 40 mg tablet,delayed release 40 mg PO DAILY GERD 08/13/18 escitalopram oxalate 10 mg tablet 10 mg PO DAILY mental health 03/22/20 simvastatin 10 mg tablet 10 mg PO QHS cholesterol lowering #90 tabs 06/28/20 metoprolol tartrate 25 mg tablet 25 mg PO BID BP 07/24/22 tramadol 50 mg tablet 50 mg PO Q6 PRN pain 07/28/24 trazodone 50 mg tablet 25 - 50 mg PO QHS Sleep 07/28/24 albuterol sulfate 90 mcg/actuation aerosol inhaler 2 puff inhalation Q4H PRN wheezing 12/07/24 acetaminophen 500 mg tablet 1,000 mg (2 x 500 mg) PO Q6H PRN Pain Score 1-5 #0 tabs 12/22/24 gabapentin 100 mg capsule 100 mg PO QHS nerve pain 30 days #30 caps 12/22/24 furosemide 40 mg tablet 40 mg PO DAILY #30 tabs 01/01/25 nystatin 100,000 unit/gram topical powder 1 applic topical BID #60 grams 01/01/25 potassium chloride 20 mEq tablet,extended release(part/cryst) 20 meq PO BREAKFAST 30 days #30 tabs 01/01/25 Hospital Course Operations None Procedures None Summary of Care Provided Minutes Spent on Discharge: 32 Hospital Course: This 84-year-old white female was seen in the emergency room at [facility] with complaints of low blood pressure as detected by her home health aide. She was noted at home to have a systolic blood pressure of 70. Workup in the emergency room revealed an elevated white blood cell count of 23.4, sodium was 133, potassium was 5.7, BUN 58, and creatinine was 6.22. Patient had been placed on a fluid restriction and given Lasix [facility] and continued fluid restriction and diuretics as an outpatient. Patient was admitted to PCU for acute kidney injury, she was given IV fluids, and labs were monitored. Her creatinine improved during her hospital stay and she became normotensive and ultimately hypertensive. Her home medications were adjusted. I had a discussion with the patient concerning her severe pulmonary hypertension which had been noted on an echocardiogram recently, I obtained a name of a pulmonary hypertension specialist from Dr. Cisneros to have the patient follow-up with-Dr. Joe-I called his office and arrange for the office to contact the patient for an appointment. On 01/01/2025, patient was seen and examined: On examination she appeared in good health and spirits, she does not appear to be in any distress. Vital signs as documented. Skin warm and dry and without overt rashes. Neck without JVD, thyroid appears normal, trachea is midline, neck is supple. Lungs clear, normal air movement was noted. Heart exam notable for regular rhythm, normal sounds and absence of murmurs, rubs or gallops. Abdomen unremarkable and without evidence of organomegaly, masses, or abdominal aortic enlargement, bowel sounds are present in all 4 quadrants, no abdominal tenderness was noted. Extremities nonedematous, no cyanosis was noted, no clubbing was noted. Neuro: Cranial nerves II through XII are grossly intact, no focal motor deficits were noted, sensation to light touch and pinprick is intact, motor exam 5/5 throughout. Psych: Patient is alert and oriented x3, she does not appear anxious or depressed, she does not appear agitated. Patient appears stable for discharge home on 01/01/2025. Weight / BMI Weight Weight: 103.7 kg Body Mass Index (BMI) 40.5 ABG / Lab / Microbiology Data 12/31/24 07:10 01/01/25 06:05 Laboratory: Laboratory Results - last 24 hr 01/01/25 06:05: Sodium 142, Potassium 5.2 H, Chloride 116 H, Carbon Dioxide 20.0 L, Anion Gap 6, BUN 34 H, Creatinine 1.63 H, Estim Creat Clear Calc 29.58, Est GFR (MDRD) Af Amer 39 L, Est GFR (MDRD) Non-Af 32 L, BUN/Creatinine Ratio 20.9 H , Glucose 102, Calcium 9.1 D/C Instructions Discharge Diet: No restrictions Weight Bearing Status: Full weight bearing DC O2, CPAP, BIPAP Needs Home O2 Discharge instructions: No Meaningful Use Info Meaningful Use Meaningful Use Diagnoses (Choose all that apply): None applicable Ischemic Stroke Statin Dosing Therapy Reference: STATIN DOSE THERAPY REFERENCE: * Patients > 75 years receive moderate or high dose statin therapy. * Patients 75 years or YOUNGER should receive HIGH intensity statin dose unless contraindicated. You will be required to document reason for non-treatment if statin daily dose does not meet guidelines. HIGH DOSE STATIN THERAPY DAILY Atorvastatin > than or = to 40 mg Rosuvastatin > than or = to 20 mg Amlodipine + Atorvastatin > than or = to 2.5/40 mg Ezetimibe + Simvastatin 10/80 mg Simvastatin 80mg Discharge Plan Admission Admit Date/Time: 12/29/24 17:56 Primary Reason for Your Visit: renal failure/acute kidney injury Attending Provider: Feliciano Montenegro Primary Care Provider: Mandy Garcia Consulting Providers: Ladi Barrett Instructions Additional Instructions / Restrictions: I strongly recommend that you make an appointment with a pulmonary hypertension specialist for further workup, I recommend Dr. Demetri Joe, their office has your contact information and will give you a phone call to schedule an appointment-the number to his office is [phone] Discharge Orders/Prescriptions Prescriptions: New nystatin 100,000 unit/gram powder 1 applic topical BID Qty: 60 0RF Continued pantoprazole 40 mg tablet,delayed release (DR/EC) 40 mg PO DAILY multivitamin tablet 1 tab PO DAILY cholecalciferol (vitamin D3) 3,000 unit tablet 3,000 unit PO DAILY metoprolol tartrate 25 mg tablet 25 mg PO BID trazodone 50 mg tablet 25 - 50 mg PO QHS tramadol 50 mg tablet 50 mg PO Q6 PRN (Reason: pain) bupropion HCl 150 MG tablet extended release 12 hr 150 mg PO DAILY escitalopram oxalate 10 mg tablet 10 mg PO DAILY albuterol sulfate 90 mcg/actuation HFA aerosol inhaler 2 puff INHALATION Q4H PRN (Reason: wheezing) acetaminophen 500 mg Tablet 1,000 mg PO Q6H PRN (Reason: Pain Score 1-5) Qty: 0 0RF gabapentin 100 mg Capsule 100 mg PO QHS 30 Days Qty: 30 0RF furosemide 40 mg Tablet 40 mg PO DAILY Qty: 30 0RF potassium chloride 20 mEq Tablet,Er Particles/Crystals 20 meq PO BREAKFAST 30 Days Qty: 30 0RF simvastatin 10 mg tablet 10 mg PO QHS Qty: 90 3RF Referrals / Follow Up: Mandy Garcia MD [Primary Care Provider] - 01/04/25 10:00 am Disposition Disposition (needs filled in before D/C Order can be placed): Home Health Service Charges/Coding Visit Charges Inpatient E&M: 56940 Disch Hosp >30min
--- NOTE | 2025-01-01 15:30 | CASEMGMT ---
Patient has order for discharge. RN CM called and updated [facility] and start of care planned for tomorrow. RN CM in to discuss needs at discharge. RN CM updated patient regarding [facility] start of care. Patient had no further need or concerns for at discharge. Patient had no further questions. RN CM updated discharge plan.
== END 2025-01-01 17:27 | disposition home health service (06) | DRG 683 ==
LOC: ED 18:34 → PCU 19:05
PROVIDERS: Admitting Provider Internal Medicine; Emergency Provider Emergency Medicine; PCP Internal Medicine; Visit Provider Internal Medicine
DX: N17.9 Acute kidney failure, unspecified (principal); E87.1 Hypo-osmolality and hyponatremia; C91.10 Chronic lymphocytic leukemia of B-cell type not having achieved remission; L89.620 Pressure ulcer of left heel, unstageable; I27.21 Secondary pulmonary arterial hypertension; E86.0 Dehydration; Z66 Do not resuscitate; I48.0 Paroxysmal atrial fibrillation; N18.32 Chronic kidney disease, stage 3b; E66.813 Obesity, class 3; G25.81 Restless legs syndrome; I12.9 Hypertensive chronic kidney disease with stage 1 through stage 4 chronic kidney disease, or unspecified chronic kidney disease; F32.A Depression, unspecified; I95.9 Hypotension, unspecified; K21.9 Gastro-esophageal reflux disease without esophagitis; E78.5 Hyperlipidemia, unspecified; F41.9 Anxiety disorder, unspecified; E87.5 Hyperkalemia; G62.9 Polyneuropathy, unspecified; Z68.38 Body mass index [BMI] 38.0-38.9, adult; T50.1X5A Adverse effect of loop [high-ceiling] diuretics, initial encounter; Z87.19 Personal history of other diseases of the digestive system; Z87.891 Personal history of nicotine dependence; Z79.899 Other long term (current) drug therapy
CPT/HCPCS: 36415; 76770; 80048; 80053; 81001; 82570; 83735; 84100; 84300; 85025; 93005; 94668; 97110; 97116; 97162; 97166; 97530; 99252; 99285; A4216; G0463

== ENCOUNTER 2025-01-12 13:15 | Outpatient (RCR) | payer MEDICARE, BC, SELFPAY ==
[2025-01-05 13:15] VITALS: BP 133/58; PULSE 92; RESP 16; TEMP 35.9; BMI 38.7
--- NOTE | 2025-01-06 08:12 | NURSING ---
PHOTO 01/05/25 Left Heel - Initial
--- NOTE | 2025-01-06 16:16 | PCM.WC.HP ---
History of Present Illness Date of Service: 01/05/25 Chief Complaint: Stage III pressure ulceration of the left heel History of Wound: This is an 84-year-old female who presented with a stage III pressure ulceration of the left heel. Ulceration has been present for approximately 3 to 4 weeks. The patient had been hospitalized at [facility] for several weeks recently, during which time she was treated for acute kidney injury, hyperkalemia, and pulmonary hypertension. It is during that period of time that she developed a pressure ulceration on her left posterior heel. The patient denies a history of diabetes mellitus. Her other pre-existing medical conditions are listed below. She is currently receiving home health nursing care through [facility]. The patient ambulates, though requires the use of a cane or rollator. She lives with her son. She denies a history of thrombophlebitis. She indicates that her legs do swell. She has in her possession graduated compression stockings, though has not been using them. FORMERLY [facility], 1928–1983 Medical History Chronic kidney disease Pressure ulcer of left heel, stage 3 Chronic venous insufficiency Acute hyperkalemia Acute hyponatremia Acute kidney failure Acute hypotension Depression Kidney disease Former smoker Atrial fibrillation Hypertension Obesity GI bleed Essential (primary) hypertension Renal insufficiency Secondary pulmonary arterial hypertension Non-rheumatic tricuspid valve insufficiency GERD (gastroesophageal reflux disease) Hemorrhoids RLS (restless legs syndrome) Hyperlipidemia Diverticulitis Arthritis Paroxysmal atrial fibrillation Anxiety and depression Gastritis Home Medications ?Medication ?Instructions ?Recorded ?Last Taken ?Type bupropion HCl 150 mg tablet,12 hr 150 mg PO DAILY mental health 11/10/15 12/10/24 History sustained-release cholecalciferol (vitamin D3) 75 3,000 unit PO DAILY supplement 08/13/18 Unknown History mcg (3,000 unit) tablet multivitamin 1 tab PO DAILY Supplement 08/13/18 Unknown History pantoprazole 40 mg tablet,delayed 40 mg PO DAILY GERD 08/13/18 12/10/24 History release escitalopram oxalate 10 mg tablet 10 mg PO DAILY mental health 03/22/20 12/10/24 History simvastatin 10 mg tablet 10 mg PO QHS cholesterol lowering 06/28/20 12/09/24 Rx #90 tabs metoprolol tartrate 25 mg tablet 25 mg PO BID BP 07/24/22 12/10/24 History tramadol 50 mg tablet 50 mg PO Q6 PRN pain 07/28/24 12/09/24 History trazodone 50 mg tablet 25 - 50 mg PO QHS Sleep 07/28/24 12/09/24 History albuterol sulfate 90 mcg/actuation 2 puff inhalation Q4H PRN wheezing 12/07/24 Unknown History aerosol inhaler acetaminophen 500 mg tablet 1,000 mg (2 x 500 mg) PO Q6H PRN 12/22/24 Unknown Rx Pain Score 1-5 #0 tabs gabapentin 100 mg capsule 100 mg PO QHS nerve pain 30 days 12/22/24 Unknown Rx #30 caps furosemide 40 mg tablet 40 mg PO DAILY #30 tabs 01/01/25 Unknown Rx nystatin 100,000 unit/gram topical 1 applic topical BID #60 grams 01/01/25 Unknown Rx powder potassium chloride 20 mEq 20 meq PO BREAKFAST 30 days #30 01/01/25 Unknown Rx tablet,extended release(part/cryst) tabs Allergy/AdvReac Type Severity Reaction Status Date / Time No Known Allergies Allergy Verified 01/05/25 13:12 Family History Mother Diabetes Father Myocardial infarction Surgical History History of cataract surgery History of hip surgery Social History household members: children and other details: Lives with son. Smoking Status: Former smoker how long ago did patient quit smokin years ago alcohol intake: never substance use type: does not use caffeine: No Vital Signs Vital Signs Vital Signs: Weight Weight: 219 lb Body Mass Index (BMI) 38.7 Physical Exam Const alert, oriented x3 and no apparent distress Constitutional Narrative: The patient's BMI is 38.7. General Appearance: cooperative, comfortable, well kempt and well developed Orientation / Consciousness: awake, oriented to person, oriented to place and oriented to time Exam Limitations: no limitations HEENT normocephalic and head/scalp atraumatic Head and Scalp: normal to inspection, normocephalic and atraumatic Face and Sinus: normal facial exam Nose: external nose normal External Ear: external ears normal Eyes EOMs intact bilaterally General Eye: normal appearance of both eyes Neck full ROM Resp normal respiratory effort, normal air movement, no retractions and no use of accessory muscles Effort and Inspection: able to speak in complete sentences Extremity no calf tenderness General Extremity: Negative for clubbing or cyanosis Skin Wound Narrative: A pressure ulceration is noted on the patient's left posterior heel. It appears to be a stage III pressure ulceration. It extends through all layers of the dermis and into the subcutaneous tissues, though does not appear to extend down to bone. There is a large amount of dry, frankly necrotic eschar. There is no sign of infection or cellulitis. There is no odor. There is no drainage. Dimensions are documented elsewhere. The BEBE ulcer skin is dry and scaly. Neuro oriented x3, CN's II-XII intact bilaterally, moves all extremities and no focal motor deficits Sensorium / Orientation: awake, alert, oriented to person, oriented to place and oriented to time Speech: speech normal Psych Appearance: grossly normal and appropriate Attitude: calm Activity / Motor Behavior: appropriate eye contact Speech: normal speech Mood & Affect: euthymic mood Thought Process: normal thought process Thought Content: normal thought content Attention / Concentration: attention grossly intact Debridement Note Debridement Note Wound debrided: Stage III pressure ulceration of the left posterior heel Laterality: Left Wound Grade/Stage: Stage III Type of Debridement: Excisional debridement Anesthesia Used: 5% Lidocaine Gel Depth: in the subcutaneous layer Percentage of wound debrided: 100 Instrument Used: 5mm curette, #15 blade and Forceps Tissue Removed: Frankly necrotic and nonviable eschar and devitalized tissue Severity: Fat Layer Exposed Amount of bleeding with debridement: Mild Bleeding Controlled with: Compression and gauze and Silver Nitrate Patient tolerated procedure: Patient tolerated procedure well Post-Debridement Measurements and Additional Note: Post-Debridement Measurements/Treatment - Nurse 1 - General Ulcer Assessment Start: 01/05/25 13:07 Freq: Status: Active Protocol: ALEM Activity Type Activity Date Activity User E-sign Co-sign Detail Recorded Client Recorded Date Recorded By Document 01/05/25 13:15 GINO [id number] 01/05/25 13:21 KW 01/05/25 13:15 - Today's Visit Information Type of service Initial Visit Arrival Mode Ambulatory,Cane Accompanied by friend, neighbor Patient Identification Verified (Name & Yes ) Height and Weight Height 5 ft 3 in Weight 219 lb Weight in Pounds 219.0 lbs Weight Measurement Method Estimated by Patient Body Mass Index (BMI) 38.7 BMI Classification Obese Vital Signs Temperature (97.8 F-99.1 F) 96.7 F L Temperature Source Temporal Pulse Rate (60-100) 92 Pulse Location Monitor Respiratory Rate (12-18) 16 Respiratory rate source Observation Oxygen Delivery Method Room Air Blood Pressure (90/60-120/80) 133/58 H Blood Pressure Mean 83 Source Monitor Position Semi-Fowlers Blood Pressure Location Left Arm History Since Last Visit- (Skip if this is Patient's initial visit) Left Footwear Regular Shoe Right Footwear Regular Shoe Pain Scale: 0-10 Numeric Is Patient Pain Free? Yes Lower Extremity Assessment/ Foot Assessment/ Toe Nail Assessment Right -Posterior Tibial Palpable Yes -Posterior Tibial Doppler Multiphasic -Dorsalis Pedis Palpable Yes -Dorsalis Pedis Doppler Multiphasic -Extremity Color Normal -Hair Growth on Legs No -Hair Growth on Toes No -Temperature of Extremity Warm -Capillary Refill Less than 3 Seconds -Thick Yes -Discolored No -Deformed No -Improper Length & Hygeine No Left -Posterior Tibial Palpable Yes -Posterior Tibial Doppler Multiphasic -Dorsalis Pedis Palpable Yes -Dorsalis Pedis Doppler Multiphasic -Extremity Color Normal -Hair Growth on Legs No -Hair Growth on Toes No -Temperature of Extremity Warm -Capillary Refill Less than 3 Seconds -Thick Yes -Discolored No -Deformed No -Improper Length & Hygeine No Communication Assessment Preferred language Pashto Senior Reservoir 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 Required No Able to Read Yes Able to Write Yes Communication Tools None Right Hearing Abillity Normal Left Hearing Abillity Normal Visual Assistive Devices Glasses Teaching Assessment Preferences Verbal,Written, Demonstration Barriers to Learning None Readiness To Learn Excellent Willingness to Engage in Self Management High Activies Readiness to Engage in Self Management High Activities Anxiety Level Calm Cooperation Cooperative Perception Coherent Interest in Health Problem Asks Questions Education Importance Acknowledges Need Does Patient Smoke tobacco or other Yes substances Smoking Status Former smoker Is Patient Diabetic No Functional Assessment Recent Decline in Ability to Perform Denies Any Declines Culture/Quaker/Brush Or Broom Cutter Cultural/Quaker Needs that may affect No Treatment Plan Would you allow our hospital technical stenographer to No meet you for the purpose of spiritual/ emotional support? Brush Or Broom Cutter to contact place of mormon No WC - Nurse 1 - General Ulcer Measurement Start: 01/05/25 13:07 Freq: Status: Active Protocol: Activity Type Activity Date Activity User E-sign Co-sign Detail Recorded Client Recorded Date Recorded By Document 01/05/25 13:15 KW [id number] 01/05/25 13:21 KW 01/05/25 13:15 Wound Center Nurse 1 #1 LT HEEL -Current Size (cm) - Length 1.7 -Current Size (cm) - Width 2.5 -Current Size (cm) - Depth 0.2 -Total Square Cm 4.25 -Date of Last Picture (Recall this 01/05/25 field) -Exudate Amt None Present -Wound Margin Distinct, Outline Attached -Granulation Amt None Present (0 %) -Necrosis Amt Large (67-100%) -Necrotic Tissue Type Eschar -Texture (Bebe-wound Skin Appearance) Assessed -Moisture (Bebe-wound Skin Appearance) Assessed -Color (Bebe-wound Skin Appearance) Assessed -Temperature (Bebe-wound Skin No Abnormality Appearance) (Pt Warm) -Tenderness on Palpation (Bebe-wound No Skin Appearance) -Ulcer Cleansing Rinsed/ Irrigated with Saline -Foul Odor after Cleansing No -Anesthetic Used 5% Lidocaine Gel Right Calf (cm) 48 Right Ankle (cm) 26.5 Left Calf (cm) 47 Left Ankle (cm) 26.2 WC - Nurse 2 - General Ulcer CM Notes Start: 01/05/25 13:07 Freq: Status: Active Protocol: Activity Type Activity Date Activity User E-sign Co-sign Detail Recorded Client Recorded Date Recorded By Document 01/05/25 13:40 DS [id number] 01/05/25 13:53 DS Edit Result 01/05/25 13:40 DS (1) [id number] 01/05/25 13:57 DS (1) #1 LT HEEL - Tissue Removed Subcutaneous => Subcutaneous,Non- => viable tissue 01/05/25 13:40 Wound Center Nurse 2 #1 LT HEEL -Time 13:40 -Correct Patient Yes -Correct Side, Site, Position Yes -Correct Procedure Yes -Procedure Performed Yes -Type of Procedure Debridement -Clinical Debridement Subcutaneous -Tissue Removed Subcutaneous, Non-viable tissue -Post Debridement (cm) - Length 2.0 -Post Debridement (cm) - Width 3.5 -Post Debridement (cm) - Depth 0.4 -Total Square (Post) (cm) 7.00 -Area of Debridement (cm) - Length 2.0 -Area of Debridement (cm) - Width 3.5 -Total Square (Area) (cm) 7.00 -Tunneling No -Undermining/Tunneling No -Circular Undermining No -Wound/Ulcer Outcome Not Healed -Ulcer Cleansing Rinsed/ Irrigated with Saline -Foul Odor after Cleansing No -Bioengineered Tissue No -Bleeding Controlled with Pressure,Silver Nitrate -Treatment Response Procedure Tolerated Well -Assistive Device(s) Walker -Debridement - Subq, 1st 20sq cm Yes Pain Scale: 0-10 Numeric Is Patient Pain Free? Yes - Nurse 3 - General Ulcer D/C NN Start: 01/05/25 13:07 Freq: Status: Active Protocol: Activity Type Activity Date Activity User E-sign Co-sign Detail Recorded Client Recorded Date Recorded By Document 01/05/25 14:03 [id number] 01/05/25 14:05 KW 01/05/25 14:03 Wound Care Center Nurse 3 #1 LT HEEL -Ulcer Cleansing Rinsed/ Irrigated with Saline -Primary Dressing Applied Silicone Border Foam 4x4 -Other Dressing santyl script given, hydrogel applied today -Silicone Border Foam 4x4 1 Right -Tubular Bandage Double Layer -Size of Tubigrip Used Size F -Size F ($) 2 Left -Tubular Bandage Double Layer -Size of Tubigrip Used Size F -Size F ($) 2 Pain Scale: 0-10 Numeric Is Patient Pain Free? Yes - Visit Discharge Discharge Condition Stable Ambulatory Status Ambulatory,Cane Transportation Private Auto Medication Reconcilliation completed & No provided to patient/care provider Clinical Summary of Care Provided Yes Lab / Micro Data Labs: Laboratory Tests 12/31/24 01/01/25 07:10 06:05 WBC 14.5 H Hgb 10.4 L Hct 32.7 L Plt Count 205 Sodium 142 Potassium 5.2 H Chloride 116 H Carbon Dioxide 20.0 L BUN 34 H Creatinine 1.63 H Glucose 102 Calcium 9.1 Charges/Coding Multi Select Codes Visit Charges Office Visit/Consults: 18628 OV L4 New 45 min Integumentary Integumentary CPT Codes: 93649 Mary subq tissue 20 sq cm/< Assessment/Plan Assessment/Plan (1) Pressure ulcer of left heel, stage 3: CODE(S): L89.623 - Pressure ulcer of left heel, stage 3 (2) Chronic venous insufficiency: CODE(S): I87.2 - Venous insufficiency (chronic) (peripheral) (3) Essential (primary) hypertension: CODE(S): I10 - Essential (primary) hypertension (4) CLL (chronic lymphocytic leukemia): CODE(S): C91.10 - Chronic lymphocytic leukemia of B-cell type not having achieved remission (5) GERD (gastroesophageal reflux disease): CODE(S): K21.9 - Gastro-esophageal reflux disease without esophagitis (6) Vitamin D deficiency: CODE(S): E55.9 - Vitamin D deficiency, unspecified (7) Severe pulmonary hypertension: CODE(S): I27.20 - Pulmonary hypertension, unspecified (8) Hyperlipidemia: CODE(S): E78.5 - Hyperlipidemia, unspecified QUALIFIERS: Hyperlipidemia type: mixed hyperlipidemia Qualified Code(s): E78.2 - Mixed hyperlipidemia (9) Secondary pulmonary arterial hypertension: CODE(S): I27.21 - Secondary pulmonary arterial hypertension (10) Paroxysmal atrial fibrillation: CODE(S): I48.0 - Paroxysmal atrial fibrillation (11) Lower extremity edema: CODE(S): R60.0 - Localized edema (12) Debility: CODE(S): R53.81 - Other malaise (13) Renal insufficiency: CODE(S): N28.9 - Disorder of kidney and ureter, unspecified (14) Chronic kidney disease: CODE(S): N18.9 - Chronic kidney disease, unspecified (15) Arthritis: CODE(S): M19.90 - Unspecified osteoarthritis, unspecified site (16) History of cataract surgery: CODE(S): Z98.49 - Cataract extraction status, unspecified eye (17) History of hip surgery: CODE(S): Z98.890 - Other specified postprocedural states PLAN: Plan This is an 84-year-old female with multiple pre-existing medical problems which are listed herein. She is not diabetic. She has recently been hospitalized at [facility], during which time she developed a left heel pressure ulceration, which appears to be stage III. A lengthy discussion has been undertaken with the patient regarding management recommendations. The patient has been advised to optimize her nutritional intake. The use of nutritional supplements has been recommended. Offloading measures have also been discussed. The patient claims to sleep in a recliner, with her heel extending beyond the foot rest, so that no pressure is exerted against her posterior heel. To minimize swelling, and has been suggested that the patient implement elevation to her lower extremities, whereby her legs would be level with her heart, or higher. This has been recommended for both daytime and nighttime hours. Prolonged idle sitting should be kept to a minimum. Ambulation has been encouraged, though the patient is somewhat limited, and requires a cane or rollator for ambulation purposes. Double Tubigrip's are to be implemented to assist in minimizing the swelling in the patient's lower extremities. We had recommended the use of collagenase Santyl topically within the pressure ulceration, as a small amount of necrotic and nonviable tissue had remained following debridement, and the enzymatic properties of collagenase Santyl was envisioned to be helpful. However, the patient has found the expense of collagenase Santyl to be excessive, despite a coupon provided her. Therefore, we are to implement the use of Dakin's?moistened gauze packing within the ulceration on a daily basis. The patient has home health nursing personnel to assist in ulcer management. The patient is said to own graduated compression stockings, and has been asked to bring these with her to her next appointment so they can be assessed as to adequacy. The patient is to return in 1 week for reevaluation. Total time: 45 minutes
[2025-01-12 13:05] VITALS: BP 125/74; PULSE 79; RESP 16; TEMP 36; BMI 38.7
--- NOTE | 2025-01-14 13:12 | HP.PCM_ITS ---
History of Present Illness Date of Service: 01/12/25 Chief Complaint: Stage III pressure ulceration of the left heel History of Wound: This is an 84-year-old female who presented with a stage III pressure ulceration of the left heel. The ulceration had been present for approximately 3 to 4 weeks. The patient had been hospitalized at [facility] for several weeks recently, during which time she was treated for acute kidney injury, hyperkalemia, and pulmonary hypertension. It is during that period of time that she developed a pressure ulceration on her left posterior heel. The patient denies a history of diabetes mellitus. Her other pre-existing medical conditions are listed below. She is currently receiving home health nursing care through [facility]. The patient ambulates, though requires the use of a cane or rollator. She lives with her son. She denies a history of thrombophlebitis. She indicates that her legs do swell. She has in her possession graduated compression stockings, though has not been using them. [facility] Medical History Chronic kidney disease Pressure ulcer of left heel, stage 3 Chronic venous insufficiency Acute hyperkalemia Acute hyponatremia Acute kidney failure Acute hypotension Depression Kidney disease Former smoker Atrial fibrillation Hypertension Obesity GI bleed Essential (primary) hypertension Renal insufficiency Secondary pulmonary arterial hypertension Non-rheumatic tricuspid valve insufficiency GERD (gastroesophageal reflux disease) Hemorrhoids RLS (restless legs syndrome) Hyperlipidemia Diverticulitis Arthritis Paroxysmal atrial fibrillation Anxiety and depression Gastritis Home Medications ?Medication ?Instructions ?Recorded ?Last Taken ?Type bupropion HCl 150 mg tablet,12 hr 150 mg PO DAILY [facility] Vitals ([email or web address]) 11/10/15 12/10/24 History sustained-release cholecalciferol (vitamin D3) 75 3,000 unit PO DAILY [facility] 08/13/18 Unknown History mcg (3,000 unit) tablet multivitamin 1 tab PO DAILY Supplement Unknown History pantoprazole 40 mg tablet,delayed 40 mg PO DAILY GERD 08/13/18 12/10/24 History release escitalopram oxalate 10 mg tablet 10 mg PO DAILY [facility] 03/22/20 12/10/24 History simvastatin 10 mg tablet 10 mg PO QHS cholesterol low ering 06/28/20 12/09/24 Rx #90 tabs metoprolol tartrate 25 mg tablet 25 mg PO BID BP 07/2412/10/24 History tramadol 50 mg tablet 50 mg PO Q6 PRN pain 4 12/09/24 History trazodone 50 mg tablet 25 - 50 mg PO QHS Sleep 07/1912/09/24 History albuterol sulfate 90 mcg/actuation 2 puff inhalation Q 4H PRN wheezing 12/07/24 Unknown History aerosol inhaler acetaminophen 500 mg tablet 1,000 mg (2 x 500 mg) PO Q 6H PRN 12/22/24 Unknown Rx Pain Score 1-5 #0 tabs gabapentin 100 mg capsule 100 mg PO QHS nerve pain 30 days 12/22/24 Unknown Rx #30 caps furosemide 40 mg tablet 40 mg PO DAILY #30 tabs 12/19 03/12 Unknown Rx nystatin 100,000 unit/gram topical 1 applic topical BI D #60 grams 01/01/25 Unknown Rx powder potassium chloride 20 mEq 20 meq PO BREAKFAST 30 days #30 01/01/25 Unknown Rx tablet,extended release(part/cryst) tabs Allergy/AdvReac Type Severity Reaction Status Date / Time No Known Allergies Allergy Verified 01/05/25 13:12 Family History Mother Diabetes Father Myocardial infarction Surgical History History of cataract surgery History of hip surgery Social History household members: children and other details: Lives with son. Smoking Status: Former smoker how long ago did patient quit smokin years ago alcohol intake: never substance use type: does not use caffeine: No Vital Signs Vital Signs Vital Signs: Weight Weight: 219 lb Body Mass Index (BMI) 38.7 Physical Exam Const alert, oriented x3 and no apparent distress Constitutional Narrative: The patient's BMI is 38.7. General Appearance: cooperative, comfortable, well kempt and well developed Orientation / Consciousness: awake, oriented to person, oriented to place and oriented to time Exam Limitations: no limitations HEENT normocephalic and head/scalp atraumatic Head and Scalp: normal to inspection, normocephalic and atraumatic Face and Sinus: normal facial exam Nose: external nose normal External Ear: external ears normal Eyes EOMs intact bilaterally General Eye: normal appearance of both eyes Neck full ROM Resp normal respiratory effort, normal air movement, no retractions and no use of accessory muscles Effort and Inspection: able to speak in complete sentences Extremity no calf tenderness General Extremity: Negative for clubbing or cyanosis Skin Wound Narrative: A pressure ulceration is noted on the patient's left posterior heel. It appears to be a stage III pressure ulceration. It extends through all layers of the dermis and into the subcutaneous tissues, though does not appear to extend down to bone. There is a moderate amount of dry, frankly necrotic tissue, which has diminished from the prior week. There is no sign of infection or cellulitis. There is no odor. There is no drainage. Dimensions are documented elsewhere. The bebe-ulcer skin is dry and scaly. Neuro oriented x3, CN's II-XII intact bilaterally, moves all extremities and no focal motor deficits Sensorium / Orientation: awake, alert, oriented to person, oriented to place and oriented to time Speech: speech normal Psych Appearance: grossly normal and appropriate Attitude: calm Activity / Motor Behavior: appropriate eye contact Speech: normal speech Mood & Affect: euthymic mood Thought Process: normal thought process Thought Content: normal thought content Attention / Concentration: attention grossly intact Debridement Note Debridement Note Wound debrided: Stage III pressure ulceration of the left posterior heel Laterality: Left Wound Grade/Stage: Stage III Type of Debridement: Excisional debridement Anesthesia Used: 5% Lidocaine Gel Depth: in the subcutaneous layer Percentage of wound debrided: 100 Instrument Used: 5mm curette, #15 blade and Forceps Tissue Removed: Frankly necrotic and nonviable eschar and devitalized tissue Severity: Fat Layer Exposed Amount of bleeding with debridement: Mild Bleeding Controlled with: Compression and gauze and Silver Nitrate Patient tolerated procedure: Patient tolerated procedure well Post-Debridement Measurements and Additional Note: Post-Debridement Measurements/Treatment WC - Nurse 1 - General Ulcer Assessment Start: 01/05/25 13:07 Freq: Status: Active Protocol: ALEM Activity Type Activity Date Activity User E-sign Co-sign Detail Recorded Client Recorded Date Recorded By Document 01/05/25 13:15 GINO [id number] 01/05/25 13:21 KW Document 01/12/25 13:05 KAYLI [id number] 01/12/25 13:11 KAYLI 01/05/25 01/12/25 13:15 13:05 WC - Today's Visit Information Type of service Initial Visit Follow-up Visit (Physician/DIRECTOR PROJECT MANAGEMENT ) Arrival Mode Ambulatory,Cane Ambulatory,Cane Accompanied by friend, neighbor Patient Identification Verified (Name & Yes Yes ) Patient Requires Transmission-Based No Precautions Height and Weight Height 5 ft 3 in Weight 219 lb Weight in Pounds 219.0 lbs Weight Measurement Method Estimated by Patient Body Mass Index (BMI) 38.7 38.7 BMI Classification Obese Obese Vital Signs Temperature (97.8 F-99.1 F) 96.7 F L 96.8 F L Temperature Source Temporal Temporal Pulse Rate (60-100) 92 79 Pulse Location Monitor Monitor Respiratory Rate (12-18) 16 16 Respiratory rate source Observation Observation Oxygen Delivery Method Room Air Blood Pressure (90/60-120/80) 133/58 H 125/74 H Blood Pressure Mean 83 91 Source Monitor Monitor Position Semi-Fowlers Semi-Fowlers Blood Pressure Location Left Arm Left Arm History Since Last Visit- (Skip if this is Patient's initial visit) Have you changed medications since your No last visit? Any new allergies or adverse reactions No Had a fall/change in ADL's that may No increase risk of falls Left Footwear Regular Shoe Right Footwear Regular Shoe Pain Scale: 0-10 Numeric Is Patient Pain Free? Yes Yes Lower Extremity Assessment/ Foot Assessment/ Toe Nail Assessment Right -Posterior Tibial Palpable Yes -Posterior Tibial Doppler Multiphasic -Dorsalis Pedis Palpable Yes -Dorsalis Pedis Doppler Multiphasic -Extremity Color Normal -Hair Growth on Legs No -Hair Growth on Toes No -Temperature of Extremity Warm -Capillary Refill Less than 3 Seconds -Thick Yes -Discolored No -Deformed No -Improper Length & Hygeine No Left -Posterior Tibial Palpable Yes -Posterior Tibial Doppler Multiphasic -Dorsalis Pedis Palpable Yes -Dorsalis Pedis Doppler Multiphasic -Extremity Color Normal -Hair Growth on Legs No -Hair Growth on Toes No -Temperature of Extremity Warm -Capillary Refill Less than 3 Seconds -Thick Yes -Discolored No -Deformed No -Improper Length & Hygeine No Communication Assessment Preferred language Faroese Client Service Coordinator Required No Able to Read Yes Able to Write Yes Communication Tools None Right Hearing Abillity Normal Left Hearing Abillity Normal Visual Assistive Devices Glasses Teaching Assessment Preferences Verbal,Written, Demonstration Barriers to Learning None Readiness To Learn Excellent Willingness to Engage in Self Management High Activies Readiness to Engage in Self Management High Activities Anxiety Level Calm Cooperation Cooperative Perception Coherent Interest in Health Problem Asks Questions Education Importance Acknowledges Need Does Patient Smoke tobacco or other Yes substances Smoking Status Former smoker Is Patient Diabetic No Functional Assessment Recent Decline in Ability to Perform Denies Any Declines Culture/Jewish/Plaster Maker Cultural/Jewish Needs that may affect No Treatment Plan Would you allow our hospital xerox machine mechanic to No meet you for the purpose of spiritual/ emotional support? Plaster Maker to contact place of anabaptism No WC - Nurse 1 - General Ulcer Measurement Start: 01/05/25 13:07 Freq: Status: Active Protocol: Activity Type Activity Date Activity User E-sign Co-sign Detail Recorded Client Recorded Date Recorded By Document 01/05/25 13:15 KW [id number] 01/05/25 13:21 KW Document 01/12/25 13:05 JF [id number] 01/12/25 13:11 JF 01/05/25 01/12/25 13:15 13:05 Wound Center Nurse 1 #1 LT HEEL -Combined with other wound No -Current Size (cm) - Length 1.7 1.9 -Current Size (cm) - Width 2.5 2.4 -Current Size (cm) - Depth 0.2 0.2 -Total Square Cm 4.25 4.56 -Date of Last Picture (Recall this 01/05/25 field) -Photo Taken No -Epithelialization None Present -Tunneling No -Undermining/Tunneling No -Circular Undermining No -Exudate Amt None Present Medium -Exudate Type Serosanguineous -Wound Margin Distinct, Flat & Intact Outline Attached -Granulation Amt None Present (0 Small (1-33%) %) -Granulation Quality Pale -Slough/Fibrin Yes -Necrosis Amt Large (67-100%) Large (67-100%) -Necrotic Tissue Type Eschar Adherent Slough -Structure Exposed N/A -Texture (Bebe-wound Skin Appearance) Assessed Assessed -Moisture (Bebe-wound Skin Appearance) Assessed Assessed,Dry/ Scaly -Color (Bebe-wound Skin Appearance) Assessed Assessed -Temperature (Bebe-wound Skin No Abnormality No Abnormality Appearance) (Pt Warm) (Pt Warm) -Tenderness on Palpation (Bebe-wound No No Skin Appearance) -Ulcer Cleansing Rinsed/ Rinsed/ Irrigated with Irrigated with Saline Saline -Foul Odor after Cleansing No Yes -Anesthetic Used 5% Lidocaine 5% Lidocaine Gel Gel Lower Limb Edema Present Yes Right Calf (cm) 48 Right Ankle (cm) 26.5 Left Calf (cm) 47 47.3 Left Ankle (cm) 26.2 25.3 WC - Nurse 2 - General Ulcer CM Notes Start: 01/05/25 13:07 Freq: Status: Active Protocol: Activity Type Activity Date Activity User E-sign Co-sign Detail Recorded Client Recorded Date Recorded By Document 01/05/25 13:40 DS [id number] 01/05/25 13:53 DS Edit Result 01/05/25 13:40 DS (1) [id number] 01/05/25 13:57 DS Document 01/12/25 13:18 DS [id number] 01/12/25 13:20 DS Edit Result 01/12/25 13:18 DS (2) [id number] 01/12/25 13:25 DS (1) #1 LT HEEL - Tissue Removed Subcutaneous => Subcutaneous,Non- => viable tissue (2) #1 LT HEEL - Post Debridement (cm) - Length => 2.0 - Post Debridement (cm) - Width => 2.5 - Post Debridement (cm) - Depth => 0.5 - Total Square (Post) (cm) => 5.00 - Area of Debridement (cm) - Length => 2.0 - Area of Debridement (cm) - Width => 2.5 - Total Square (Area) (cm) => 5.00 01/05/25 01/12/25 13:40 13:18 Wound Center Nurse 2 #1 LT HEEL -Time 13:40 13:18 -Correct Patient Yes Yes -Correct Side, Site, Position Yes Yes -Correct Procedure Yes Yes -Procedure Performed Yes Yes -Type of Procedure Debridement Debridement -Clinical Debridement Subcutaneous Subcutaneous -Tissue Removed Subcutaneous, Subcutaneous Non-viable tissue -Post Debridement (cm) - Length 2.0 2.0 -Post Debridement (cm) - Width 3.5 2.5 -Post Debridement (cm) - Depth 0.4 0.5 -Total Square (Post) (cm) 7.00 5.00 -Area of Debridement (cm) - Length 2.0 2.0 -Area of Debridement (cm) - Width 3.5 2.5 -Total Square (Area) (cm) 7.00 5.00 -Tunneling No No -Undermining/Tunneling No No -Circular Undermining No No -Wound/Ulcer Outcome Not Healed Not Healed -Ulcer Cleansing Rinsed/ Rinsed/ Irrigated with Irrigated with Saline Saline -Foul Odor after Cleansing No No -Bioengineered Tissue No No -Bleeding Controlled with Pressure,Silver Pressure Nitrate -Treatment Response Procedure Procedure Tolerated Well Tolerated Well -Assistive Device(s) Walker -Debridement - Subq, 1st 20sq cm Yes Yes Pain Scale: 0-10 Numeric Is Patient Pain Free? Yes Yes - Nurse 3 - General Ulcer D/C NN Start: 01/05/25 13:07 Freq: Status: Active Protocol: Activity Type Activity Date Activity User E-sign Co-sign Detail Recorded Client Recorded Date Recorded By Document 01/05/25 14:03 KW [id number] 01/05/25 14:05 KW Document 01/12/25 13:47 DS [id number] 01/12/25 13:48 DS 01/05/25 01/12/25 14:03 13:47 Wound Care Center Nurse 3 #1 LT HEEL -Ulcer Cleansing Rinsed/ Irrigated with Saline -Primary Dressing Applied Silicone Border Foam 4x4 -Other Dressing santyl script given, hydrogel applied today -Silicone Border Foam 4x4 1 Right -Tubular Bandage Double Layer -Size of Tubigrip Used Size F -Size F ($) 2 Left -Tubular Bandage Double Layer -Size of Tubigrip Used Size F -Size F ($) 2 Pain Scale: 0-10 Numeric Is Patient Pain Free? Yes Yes - Visit Discharge Discharge Condition Stable Stable Ambulatory Status Ambulatory,Cane Ambulatory,Cane Transportation Private Auto Private Auto Medication Reconcilliation completed & No provided to patient/care provider Clinical Summary of Care Provided Yes #1 LT HEEL -Ulcer Cleansing Rinsed/ Irrigated with Saline -Primary Dressing Applied C Hydrogel, Silicone Border Foam 4x4 -Primary Dressing Covered/Secured with Dry Gauze, Secured with Tape -Hydrogel 0 -Silicone Border Foam 4x4 1 Right -Other used own compression socks b/l Charges/Coding Procedures Integumentary [id number]: [id number] Mary subq tissue 20 sq cm/< Assessment/Plan Assessment/Plan (1) Pressure ulcer of left heel, stage 3: CODE(S): L89.623 - Pressure ulcer of left heel, stage 3 (2) Chronic venous insufficiency: CODE(S): I87.2 - Venous insufficiency (chronic) (peripheral) (3) Essential (primary) hypertension: CODE(S): I10 - Essential (primary) hypertension (4) CLL (chronic lymphocytic leukemia): CODE(S): C91.10 - Chronic lymphocytic leukemia of B-cell type not having achieved remission (5) GERD (gastroesophageal reflux disease): CODE(S): K21.9 - Gastro-esophageal reflux disease without esophagitis (6) Vitamin D deficiency: CODE(S): E55.9 - Vitamin D deficiency, unspecified (7) Severe pulmonary hypertension: CODE(S): I27.20 - Pulmonary hypertension, unspecified (8) Hyperlipidemia: CODE(S): E78.5 - Hyperlipidemia, unspecified QUALIFIERS: Hyperlipidemia type: mixed hyperlipidemia Qualified Code(s): E78.2 - Mixed hyperlipidemia (9) Secondary pulmonary arterial hypertension: CODE(S): I27.21 - Secondary pulmonary arterial hypertension (10) Paroxysmal atrial fibrillation: CODE(S): I48.0 - Paroxysmal atrial fibrillation (11) Lower extremity edema: CODE(S): R60.0 - Localized edema (12) Debility: CODE(S): R53.81 - Other malaise (13) Renal insufficiency: CODE(S): N28.9 - Disorder of kidney and ureter, unspecified (14) Chronic kidney disease: CODE(S): N18.9 - Chronic kidney disease, unspecified (15) Arthritis: CODE(S): M19.90 - Unspecified osteoarthritis, unspecified site (16) History of cataract surgery: CODE(S): Z98.49 - Cataract extraction status, unspecified eye (17) History of hip surgery: CODE(S): Z98.890 - Other specified postprocedural states PLAN: Plan This is an 84-year-old female with multiple pre-existing medical problems which are listed herein. She is not diabetic. She had recently been hospitalized at [facility], during which time she developed a left heel pressure ulceration, which appears to be stage III. A lengthy discussion has been undertaken with the patient regarding management recommendations. The patient has been advised to optimize her nutritional intake. The use of nutritional supplements has been recommended. Offloading measures have also been discussed. The patient claims to sleep in a recliner, with her heel extending beyond the foot rest, so that no pressure is exerted against her posterior heel. To mini josé swelling, it has been suggested that the patient implement elevation to her lower extremities, whereby her legs would be level with her heart, or higher. This has been recommended for both daytime and nighttime hours. Prolonged idle sitting should be kept to a minimum. Ambulation has been encouraged, though the patient is somewhat limited, and requires a cane or rollator for ambulation pur poses. Double Tubigrip's or the patient's own graduated compression stockings are to be continued daily to minimize swelling in the patient's lower extremities. The patient has been using collagenase Santyl topically on a daily basis, which will be continued. The appropriate means of application has been demonstrated. Additionally, home health nursing care assists the patient at her home twice weekly. There has been notable improvement in the appearance of her pressure wound within the last several weeks. The patient is to return in 1 week for reevaluation. Total time: 25 minutes
== END 2025-01-15 23:59 | disposition home or self-care (01) ==
LOC: WC 13:15
PROVIDERS: PCP Internal Medicine; Referring Provider Clinical Nurse Specialist; Visit Provider Surgery
DX: L89.623 Pressure ulcer of left heel, stage 3 (principal); C91.10 Chronic lymphocytic leukemia of B-cell type not having achieved remission; I27.21 Secondary pulmonary arterial hypertension; I48.0 Paroxysmal atrial fibrillation; N18.30 Chronic kidney disease, stage 3 unspecified; R60.0 Localized edema; E55.9 Vitamin D deficiency, unspecified; N17.9 Acute kidney failure, unspecified; I87.2 Venous insufficiency (chronic) (peripheral); K21.9 Gastro-esophageal reflux disease without esophagitis; R53.81 Other malaise; M19.90 Unspecified osteoarthritis, unspecified site; Z87.891 Personal history of nicotine dependence; E87.5 Hyperkalemia; E78.2 Mixed hyperlipidemia; I12.9 Hypertensive chronic kidney disease with stage 1 through stage 4 chronic kidney disease, or unspecified chronic kidney disease; Z98.49 Cataract extraction status, unspecified eye
CPT/HCPCS: 11042; 99213; G0463

== ENCOUNTER 2025-02-11 10:00 | Outpatient (RCR) | payer MEDICARE, BC, SELFPAY ==
[2025-01-16 01:33] VITALS: BP 125/74; PULSE 79; RESP 16; TEMP 36; BMI 38.7
[2025-01-19 13:07] VITALS: BP 131/57; PULSE 84; RESP 15; TEMP 35.9; BMI 38.7
--- NOTE | 2025-01-20 14:11 | WC ---
PHOTO 01/19/25 LEFT HEEL
--- NOTE | 2025-01-21 20:06 | PCM.WC.HP ---
History of Present Illness Date of Service: 01/19/25 Chief Complaint: Stage III pressure ulceration of the left heel History of Wound: This is an 84-year-old female who presented with a stage III pressure ulceration of the left heel. The ulceration had been present for approximately 3 to 4 weeks. The patient had been hospitalized at [facility] for several weeks recently, during which time she was treated for acute kidney injury, hyperkalemia, and pulmonary hypertension. It is during that period of time that she developed a pressure ulceration on her left posterior heel. The patient denies a history of diabetes mellitus. Her other pre-existing medical conditions are listed below. She is currently receiving home health nursing care through [facility]. The patient ambulates, though requires the use of a cane or rollator. She lives with her son. She denies a history of thrombophlebitis. She indicates that her legs do swell. She has in her possession graduated compression stockings, though has not been using them. [facility] Medical History Chronic kidney disease Pressure ulcer of left heel, stage 3 Chronic venous insufficiency Acute hyperkalemia Acute hyponatremia Acute kidney failure Acute hypotension Depression Kidney disease Former smoker Atrial fibrillation Hypertension Obesity GI bleed Essential (primary) hypertension Renal insufficiency Secondary pulmonary arterial hypertension Non-rheumatic tricuspid valve insufficiency GERD (gastroesophageal reflux disease) Hemorrhoids RLS (restless legs syndrome) Hyperlipidemia Diverticulitis Arthritis Paroxysmal atrial fibrillation Anxiety and depression Gastritis Home Medications ?Medication ?Instructions ?Recorded ?Last Taken ?Type bupropion HCl 150 mg tablet,12 hr 150 mg PO DAILY mental health 11/10/15 12/10/24 History sustained-release cholecalciferol (vitamin D3) 75 3,000 unit PO DAILY supplement 08/13/18 Unknown History mcg (3,000 unit) tablet multivitamin 1 tab PO DAILY Supplement 08/13/18 Unknown History pantoprazole 40 mg tablet,delayed 40 mg PO DAILY GERD 08/13/18 12/10/24 History release escitalopram oxalate 10 mg tablet 10 mg PO DAILY mental health 03/22/20 12/10/24 History simvastatin 10 mg tablet 10 mg PO QHS cholesterol lowering 06/28/20 12/09/24 Rx #90 tabs metoprolol tartrate 25 mg tablet 25 mg PO BID BP 07/24/22 12/10/24 History tramadol 50 mg tablet 50 mg PO Q6 PRN pain 07/28/24 12/09/24 History trazodone 50 mg tablet 25 - 50 mg PO QHS Sleep 07/28/24 12/09/24 History albuterol sulfate 90 mcg/actuation 2 puff inhalation Q4H PRN wheezing 12/07/24 Unknown History aerosol inhaler acetaminophen 500 mg tablet 1,000 mg (2 x 500 mg) PO Q6H PRN 12/22/24 Unknown Rx Pain Score 1-5 #0 tabs gabapentin 100 mg capsule 100 mg PO QHS nerve pain 30 days 12/22/24 Unknown Rx #30 caps furosemide 40 mg tablet 40 mg PO DAILY #30 tabs 01/01/25 Unknown Rx nystatin 100,000 unit/gram topical 1 applic topical BID #60 grams 01/01/25 Unknown Rx powder potassium chloride 20 mEq 20 meq PO BREAKFAST 30 days #30 01/01/25 Unknown Rx tablet,extended release(part/cryst) tabs Allergy/AdvReac Type Severity Reaction Status Date / Time No Known Allergies Allergy Verified 01/05/25 13:12 Family History Mother Diabetes Father Myocardial infarction Surgical History History of cataract surgery History of hip surgery Social History household members: children and other details: Lives with son. Smoking Status: Former smoker how long ago did patient quit smokin years ago alcohol intake: never substance use type: does not use caffeine: No Vital Signs Vital Signs Vital Signs: Weight Weight: 219 lb Body Mass Index (BMI) 38.7 Physical Exam Const alert, oriented x3 and no apparent distress Constitutional Narrative: The patient's BMI is 38.7. General Appearance: cooperative, comfortable, well kempt and well developed Orientation / Consciousness: awake, oriented to person, oriented to place and oriented to time Exam Limitations: no limitations HEENT normocephalic and head/scalp atraumatic Head and Scalp: normal to inspection, normocephalic and atraumatic Face and Sinus: normal facial exam Nose: external nose normal External Ear: external ears normal Eyes EOMs intact bilaterally General Eye: normal appearance of both eyes Neck full ROM Resp normal respiratory effort, normal air movement, no retractions and no use of accessory muscles Effort and Inspection: able to speak in complete sentences Extremity no calf tenderness General Extremity: Negative for clubbing or cyanosis Skin Wound Narrative: A pressure ulceration is noted on the patient's left posterior heel. It appears to be a stage III pressure ulceration. It extends through all layers of the dermis and into the subcutaneous tissues, though does not appear to extend down to bone. There is bioburden and a moderate amount of dry, frankly necrotic tissue, which has diminished from the prior week. Mild bebe-ulcer erythema is noted, which may be suggestive of early cellulitis. There is no odor. There is no drainage. Dimensions are documented elsewhere. The bebe-ulcer area demonstrates callus. Neuro oriented x3, CN's II-XII intact bilaterally, moves all extremities and no focal motor deficits Sensorium / Orientation: awake, alert, oriented to person, oriented to place and oriented to time Speech: speech normal Psych Appearance: grossly normal and appropriate Attitude: calm Activity / Motor Behavior: appropriate eye contact Speech: normal speech Mood & Affect: euthymic mood Thought Process: normal thought process Thought Content: normal thought content Attention / Concentration: attention grossly intact Debridement Note Debridement Note Wound debrided: Stage III pressure ulceration of the left posterior heel Laterality: Left Wound Grade/Stage: Stage III Type of Debridement: Excisional debridement Anesthesia Used: 5% Lidocaine Gel and Cetacaine Depth: in the subcutaneous layer Percentage of wound debrided: 100 Instrument Used: 5mm curette Tissue Removed: Bioburden and non-viable, necrotic tissue Severity: Fat Layer Exposed Amount of bleeding with debridement: Mild Bleeding Controlled with: Compression and gauze and Silver Nitrate Patient tolerated procedure: Patient tolerated procedure well Debridement Free Text: Because of the appearance of bebe-ulcer erythema, swab cultures have been obtained for aerobic and anaerobic bacterial growth. Culture results will be awaited. Post-Debridement Measurements and Additional Note: Post-Debridement Measurements/Treatment - Nurse 1 - General Ulcer Assessment Start: 01/19/25 13:07 Freq: Status: Active Protocol: LOWEXAdriel Activity Type Activity Date Activity User E-sign Co-sign Detail Recorded Client Recorded Date Recorded By Document 01/19/25 13:07 ML [id number] 01/19/25 13:16 ML 01/19/25 13:07 WC - Today's Visit Information Type of service Follow-up Visit (Physician/PLASTICS DESIGN ENGINEER ) Arrival Mode Ambulatory, Walker Transfer Assistance None Patient Identification Verified (Name & Yes ) Patient Requires Transmission-Based No Precautions Height and Weight Body Mass Index (BMI) 38.7 BMI Classification Obese Vital Signs Temperature (97.8 F-99.1 F) 96.7 F L Temperature Source Temporal Pulse Rate (60-100) 84 Pulse Location Monitor Respiratory Rate (12-18) 15 Respiratory rate source Observation Blood Pressure (90/60-120/80) 131/57 H Blood Pressure Mean 81 Source Monitor Position Sitting Blood Pressure Location Left Arm History Since Last Visit- (Skip if this is Patient's initial visit) Have you changed medications since your No last visit? Any new allergies or adverse reactions No Signs or symptoms of abuse and/or No neglect since last visit Have you been in the hospital since your No last visit? Has dressing in place as prescribed Yes Has compression in place as prescribed N/A Has offloadiing in place as prescribed N/A Experienced any changes in pain level or No management Pain Scale: 0-10 Numeric Is Patient Pain Free? Yes - Nurse 1 - General Ulcer Measurement Start: 01/19/25 13:07 Freq: Status: Active Protocol: Activity Type Activity Date Activity User E-sign Co-sign Detail Recorded Client Recorded Date Recorded By Document 01/19/25 13:07 ML [id number] 01/19/25 13:16 ML 01/19/25 13:07 Wound Center Nurse 1 #1 LT HEEL -Current Size (cm) - Length 1.7 -Current Size (cm) - Width 2.5 -Current Size (cm) - Depth 0.2 -Total Square Cm 4.25 -Exudate Amt Medium -Exudate Type Serosanguineous -Wound Margin Distinct, Outline Attached -Granulation Amt Medium (34-66%) -Slough/Fibrin Yes -Necrosis Amt Medium (34-66%) -Texture (Bebe-wound Skin Appearance) Assessed -Color (Bebe-wound Skin Appearance) Assessed -Temperature (Bebe-wound Skin No Abnormality Appearance) (Pt Warm) -Tenderness on Palpation (Bebe-wound No Skin Appearance) -Ulcer Cleansing Soap and Water -Foul Odor after Cleansing Yes -Anesthetic Used 5% Lidocaine Gel WC - Nurse 2 - General Ulcer CM Notes Start: 01/19/25 13:07 Freq: Status: Active Protocol: Activity Type Activity Date Activity User E-sign Co-sign Detail Recorded Client Recorded Date Recorded By Document 01/19/25 13:28 DS [id number] 01/19/25 13:29 DS 01/19/25 13:28 Wound Center Nurse 2 -Time 13:28 -Correct Patient Yes -Correct Side, Site, Position Yes -Correct Procedure Yes -Procedure Performed Yes -Type of Procedure Debridement -Clinical Debridement Subcutaneous -Tissue Removed Subcutaneous -Post Debridement (cm) - Length 2.2 -Post Debridement (cm) - Width 2.5 -Post Debridement (cm) - Depth 0.5 -Total Square (Post) (cm) 5.50 -Area of Debridement (cm) - Length 2.2 -Area of Debridement (cm) - Width 2.5 -Total Square (Area) (cm) 5.50 -Tunneling No -Undermining/Tunneling No -Circular Undermining No -Wound/Ulcer Outcome Not Healed -Ulcer Cleansing Rinsed/ Irrigated with Saline -Foul Odor after Cleansing No -Bioengineered Tissue No -Bleeding Controlled with Pressure -Treatment Response Procedure Tolerated Well -Debridement - Subq, 1st 20sq cm Yes Pain Scale: 0-10 Numeric Is Patient Pain Free? Yes WC - Nurse 3 - General Ulcer D/C NN Start: 01/19/25 13:07 Freq: Status: Active Protocol: Activity Type Activity Date Activity User E-sign Co-sign Detail Recorded Client Recorded Date Recorded By Document 01/19/25 13:46 RB [id number] 01/19/25 13:48 RB 01/19/25 13:46 Wound Care Center Nurse 3 #1 LT HEEL -Primary Dressing Applied Silicone Border Foam 4x4 -Other Dressing santyl -Silicone Border Foam 4x4 1 BLE -Stockings Yes: pt own stockings Treatment Response Procedure Tolerated Well Pain Scale: 0-10 Numeric Is Patient Pain Free? Yes WC - Visit Discharge Discharge Condition Stable Ambulatory Status Ambulatory Transportation Private Auto Medication Reconcilliation completed & No provided to patient/care provider Clinical Summary of Care Provided Yes Lab / Micro Data Micro: Microbiology 01/19/25 13:25 Wound - Heel, Left Gram Stain - Final 01/19/25 13:25 Wound - Heel, Left Wound Culture - Preliminary Staphylococcus aureus GPC Poss Enterococcus sp Gram Positive Cocci Alpha Hemolytic Streptococcus Charges/Coding Procedures Integumentary [id number]: [id number] Mary subq tissue 20 sq cm/< Assessment/Plan Assessment/Plan (1) Pressure ulcer of left heel, stage 3: CODE(S): L89.623 - Pressure ulcer of left heel, stage 3 (2) Chronic venous insufficiency: CODE(S): I87.2 - Venous insufficiency (chronic) (peripheral) (3) Essential (primary) hypertension: CODE(S): I10 - Essential (primary) hypertension (4) CLL (chronic lymphocytic leukemia): CODE(S): C91.10 - Chronic lymphocytic leukemia of B-cell type not having achieved remission (5) GERD (gastroesophageal reflux disease): CODE(S): K21.9 - Gastro-esophageal reflux disease without esophagitis (6) Vitamin D deficiency: CODE(S): E55.9 - Vitamin D deficiency, unspecified (7) Severe pulmonary hypertension: CODE(S): I27.20 - Pulmonary hypertension, unspecified (8) Hyperlipidemia: CODE(S): E78.5 - Hyperlipidemia, unspecified QUALIFIERS: Hyperlipidemia type: mixed hyperlipidemia Qualified Code(s): E78.2 - Mixed hyperlipidemia (9) Secondary pulmonary arterial hypertension: CODE(S): I27.21 - Secondary pulmonary arterial hypertension (10) Paroxysmal atrial fibrillation: CODE(S): I48.0 - Paroxysmal atrial fibrillation (11) Lower extremity edema: CODE(S): R60.0 - Localized edema (12) Debility: CODE(S): R53.81 - Other malaise (13) Renal insufficiency: CODE(S): N28.9 - Disorder of kidney and ureter, unspecified (14) Chronic kidney disease: CODE(S): N18.9 - Chronic kidney disease, unspecified (15) Arthritis: CODE(S): M19.90 - Unspecified osteoarthritis, unspecified site (16) History of cataract surgery: CODE(S): Z98.49 - Cataract extraction status, unspecified eye (17) History of hip surgery: CODE(S): Z98.890 - Other specified postprocedural states PLAN: Plan This is an 84-year-old female with multiple pre-existing medical problems which are listed herein. She is not diabetic. She had recently been hospitalized at [facility], during which time she developed a left heel pressure ulceration, which appears to be stage III. A lengthy discussion has been undertaken with the patient regarding management recommendations. The patient has been advised to optimize her nutritional intake. The use of nutritional supplements has been recommended. Offloading measures have also been discussed. The patient claims to sleep in a recliner, with her heel extending beyond the foot rest, so that no pressure is exerted against her posterior heel. Nonetheless, to assure offloading, we will attempt to obtain a Podus boot for the patient's use for offloading purposes. To minimize swelling, it has been suggested that the patient implement elevation to her lower extremities, whereby her legs would be level with her heart, or higher. This has been recommended for both daytime and nighttime hours. Prolonged idle sitting should be kept to a minimum. Ambulation has been encouraged, though the patient is somewhat limited, and requires a cane or rollator for ambulation purposes. Double Tubigrip's or the patient's own graduated compression stockings are to be continued daily to minimize swelling in the patient's lower extremities. The patient has been using collagenase Santyl topically on a daily basis, which will be continued. The appropriate means of application has been demonstrated. Additionally, home health nursing care assists the patient at her home twice weekly. Swab cultures have been obtained for aerobic and anaerobic bacterial growth. Results will be awaited. The patient is to return in 1 week for reevaluation. Total time: 26 minutes
[2025-01-26 13:23] VITALS: BP 131/54; PULSE 71; RESP 18; TEMP 36.2; BMI 38.7
--- NOTE | 2025-01-27 15:57 | PCM.WC.HP ---
History of Present Illness Date of Service: 01/26/25 Chief Complaint: Stage III pressure ulceration of the left heel History of Wound: This is an 84-year-old female who presented with a stage III pressure ulceration of the left heel. The ulceration had been present for approximately 3 to 4 weeks. The patient had been hospitalized at [facility] for several weeks recently, during which time she was treated for acute kidney injury, hyperkalemia, and pulmonary hypertension. It is during that period of time that she developed a pressure ulceration on her left posterior heel. The patient denies a history of diabetes mellitus. Her other pre-existing medical conditions are listed below. She is currently receiving home health nursing care through [facility]. The patient ambulates, though requires the use of a cane or rollator. She lives with her son. She denies a history of thrombophlebitis. She indicates that her legs do swell. She has in her possession graduated compression stockings, though has not been using them. [facility] Medical History Chronic kidney disease Pressure ulcer of left heel, stage 3 Chronic venous insufficiency Acute hyperkalemia Acute hyponatremia Acute kidney failure Acute hypotension Depression Kidney disease Former smoker Atrial fibrillation Hypertension Obesity GI bleed Essential (primary) hypertension Renal insufficiency Secondary pulmonary arterial hypertension Non-rheumatic tricuspid valve insufficiency GERD (gastroesophageal reflux disease) Hemorrhoids RLS (restless legs syndrome) Hyperlipidemia Diverticulitis Arthritis Paroxysmal atrial fibrillation Anxiety and depression Gastritis Home Medications ?Medication ?Instructions ?Recorded ?Last Taken ?Type bupropion HCl 150 mg tablet,12 hr 150 mg PO DAILY mental health 11/10/15 12/10/24 History sustained-release cholecalciferol (vitamin D3) 75 3,000 unit PO DAILY supplement 08/13/18 Unknown History mcg (3,000 unit) tablet multivitamin 1 tab PO DAILY Supplement 08/13/18 Unknown History pantoprazole 40 mg tablet,delayed 40 mg PO DAILY GERD 08/13/18 12/10/24 History release escitalopram oxalate 10 mg tablet 10 mg PO DAILY mental health 03/22/20 12/10/24 History simvastatin 10 mg tablet 10 mg PO QHS cholesterol lowering 06/28/20 12/09/24 Rx #90 tabs metoprolol tartrate 25 mg tablet 25 mg PO BID BP 07/24/22 12/10/24 History tramadol 50 mg tablet 50 mg PO Q6 PRN pain 07/28/24 12/09/24 History trazodone 50 mg tablet 25 - 50 mg PO QHS Sleep 07/28/24 12/09/24 History albuterol sulfate 90 mcg/actuation 2 puff inhalation Q4H PRN wheezing 12/07/24 Unknown History aerosol inhaler acetaminophen 500 mg tablet 1,000 mg (2 x 500 mg) PO Q6H PRN 12/22/24 Unknown Rx Pain Score 1-5 #0 tabs gabapentin 100 mg capsule 100 mg PO QHS nerve pain 30 days 12/22/24 Unknown Rx #30 caps furosemide 40 mg tablet 40 mg PO DAILY #30 tabs 01/01/25 Unknown Rx nystatin 100,000 unit/gram topical 1 applic topical BID #60 grams 01/01/25 Unknown Rx powder potassium chloride 20 mEq 20 meq PO BREAKFAST 30 days #30 01/01/25 Unknown Rx tablet,extended release(part/cryst) tabs linezolid 600 mg tablet 600 mg PO Q12H 14 days #28 tabs 01/26/25 Unknown Rx mupirocin 2 % ointment topical kit 1 applic topical BID MRSA 01/26/25 Unknown Rx infection #1 ea Allergy/AdvReac Type Severity Reaction Status Date / Time No Known Allergies Allergy Verified 01/05/25 13:12 Family History Mother Diabetes Father Myocardial infarction Surgical History History of cataract surgery History of hip surgery Social History household members: children and other details: Lives with son. Smoking Status: Former smoker how long ago did patient quit smokin years ago alcohol intake: never substance use type: does not use caffeine: No Vital Signs Vital Signs Vital Signs: Weight Weight: 219 lb Body Mass Index (BMI) 38.7 Physical Exam Const alert, oriented x3 and no apparent distress Constitutional Narrative: The patient's BMI is 38.8. General Appearance: cooperative, comfortable, well kempt and well developed Orientation / Consciousness: awake, oriented to person, oriented to place and oriented to time Exam Limitations: no limitations HEENT normocephalic and head/scalp atraumatic Head and Scalp: normal to inspection, normocephalic and atraumatic Face and Sinus: normal facial exam Nose: external nose normal External Ear: external ears normal Eyes EOMs intact bilaterally General Eye: normal appearance of both eyes Neck full ROM Resp normal respiratory effort, normal air movement, no retractions and no use of accessory muscles Effort and Inspection: able to speak in complete sentences Extremity no calf tenderness General Extremity: Negative for clubbing or cyanosis Skin Wound Narrative: A pressure ulceration is noted on the patient's left posterior heel. It appears to be a stage III pressure ulceration. It extends through all layers of the dermis and into the subcutaneous tissues, though does not appear to extend down to bone. There is bioburden and nonviable, devitalized tissue, which has diminished from the prior week. Mild bebe-ulcer erythema is noted. There is no odor. There is no drainage. Dimensions are documented elsewhere. The bebe-ulcer area demonstrates a significant amount of callus. Neuro oriented x3, CN's II-XII intact bilaterally, moves all extremities and no focal motor deficits Sensorium / Orientation: awake, alert, oriented to person, oriented to place and oriented to time Speech: speech normal Psych Appearance: grossly normal and appropriate Attitude: calm Activity / Motor Behavior: appropriate eye contact Speech: normal speech Mood & Affect: euthymic mood Thought Process: normal thought process Thought Content: normal thought content Attention / Concentration: attention grossly intact Debridement Note Debridement Note Wound debrided: Stage III pressure ulceration of the left posterior heel Laterality: Left Wound Grade/Stage: Stage III Type of Debridement: Excisional debridement Anesthesia Used: 5% Lidocaine Gel and Cetacaine Depth: in the subcutaneous layer Percentage of wound debrided: 100 Instrument Used: 5mm curette, #15 blade, Forceps and - (Cuticle scissors) Tissue Removed: Bioburden and non-viable, devitalized tissue; callus Severity: Fat Layer Exposed Amount of bleeding with debridement: Mild Bleeding Controlled with: Compression and gauze and Silver Nitrate Patient tolerated procedure: Patient tolerated procedure well Debridement Free Text: Sharp dissection using a #15 scalpel blade and scissors was undertaken in an effort to remove a large portion of the callus which surrounds the ulceration. Post-Debridement Measurements and Additional Note: Post-Debridement Measurements/Treatment WC - Nurse 1 - General Ulcer Assessment Start: 01/19/25 13:07 Freq: Status: Active Protocol: [email or web address] Activity Type Activity Date Activity User E-sign Co-sign Detail Recorded Client Recorded Date Recorded By Document 01/19/25 13:07 ML [id number] 01/19/25 13:16 ML Document 01/26/25 13:23 RB [id number] 01/26/25 13:26 RB 01/19/25 01/26/25 13:07 13:23 WC - Today's Visit Information Type of service Follow-up Visit Follow-up Visit (Physician/CLINICAL ADMISSIONS MANAGER (Physician/CLINICAL ADMISSIONS MANAGER ) ) Arrival Mode Ambulatory, Ambulatory Walker Transfer Assistance None None Patient Identification Verified (Name & Yes Yes ) Patient Requires Transmission-Based No No Precautions Height and Weight Body Mass Index (BMI) 38.7 38.7 BMI Classification Obese Obese Vital Signs Temperature (97.8 F-99.1 F) 96.7 F L 97.2 F L Temperature Source Temporal Temporal Pulse Rate (60-100) 84 71 Pulse Location Monitor Monitor Respiratory Rate (12-18) 15 18 Respiratory rate source Observation Observation Blood Pressure (90/60-120/80) 131/57 H 131/54 H Blood Pressure Mean 81 79 Source Monitor Monitor Position Sitting Semi-Fowlers Blood Pressure Location Left Arm Left Arm History Since Last Visit- (Skip if this is Patient's initial visit) Have you changed medications since your No No last visit? Any new allergies or adverse reactions No No Had a fall/change in ADL's that may No increase risk of falls Signs or symptoms of abuse and/or No No neglect since last visit Have you been in the hospital since your No No last visit? Has dressing in place as prescribed Yes Yes Has compression in place as prescribed N/A No Has offloadiing in place as prescribed N/A N/A Experienced any changes in pain level or No No management Left Footwear Regular Shoe Right Footwear Regular Shoe Pain Scale: 0-10 Numeric Is Patient Pain Free? Yes Yes - Nurse 1 - General Ulcer Measurement Start: 01/19/25 13:07 Freq: Status: Active Protocol: Activity Type Activity Date Activity User E-sign Co-sign Detail Recorded Client Recorded Date Recorded By Document 01/19/25 13:07 ML [id number] 01/19/25 13:16 ML Document 01/26/25 13:23 RB [id number] 01/26/25 13:26 RB 01/19/25 01/26/25 13:07 13:23 Wound Center Nurse 1 #1 LT HEEL -Combined with other wound No -Current Size (cm) - Length 1.7 1.8 -Current Size (cm) - Width 2.5 2.4 -Current Size (cm) - Depth 0.2 0.5 -Total Square Cm 4.25 4.32 -Photo Taken Yes -Tunneling No -Undermining/Tunneling No -Circular Undermining No -Exudate Amt Medium Medium -Exudate Type Serosanguineous Serosanguineous -Wound Margin Distinct, Thickened Outline Attached -Granulation Amt Medium (34-66%) Medium (34-66%) -Granulation Quality Sidman -Slough/Fibrin Yes Yes -Necrosis Amt Medium (34-66%) Medium (34-66%) -Necrotic Tissue Type Adherent Slough -Structure Exposed N/A -Texture (Bebe-wound Skin Appearance) Assessed Callus -Moisture (Bebe-wound Skin Appearance) Assessed -Color (Bebe-wound Skin Appearance) Assessed Assessed -Temperature (Bebe-wound Skin No Abnormality No Abnormality Appearance) (Pt Warm) (Pt Warm) -Tenderness on Palpation (Bebe-wound No No Skin Appearance) -Ulcer Cleansing Soap and Water Wound Cleanser -Foul Odor after Cleansing Yes No -Anesthetic Used 5% Lidocaine 5% Lidocaine Gel Gel Lower Limb Edema Present Yes Left Calf (cm) 49 Left Ankle (cm) 26.5 WC - Nurse 2 - General Ulcer CM Notes Start: 01/19/25 13:07 Freq: Status: Active Protocol: Activity Type Activity Date Activity User E-sign Co-sign Detail Recorded Client Recorded Date Recorded By Document 01/19/25 13:28 DS [id number] 01/19/25 13:29 DS Document 01/26/25 13:41 DS [id number] 01/26/25 13:45 DS 01/19/25 01/26/25 13:28 13:41 Wound Center Nurse 2 #1 LT HEEL -Time 13:28 13:41 -Correct Patient Yes Yes -Correct Side, Site, Position Yes Yes -Correct Procedure Yes Yes -Procedure Performed Yes Yes -Type of Procedure Debridement Debridement -Clinical Debridement Subcutaneous Subcutaneous -Tissue Removed Subcutaneous Subcutaneous -Post Debridement (cm) - Length 2.2 1.9 -Post Debridement (cm) - Width 2.5 2.5 -Post Debridement (cm) - Depth 0.5 0.4 -Total Square (Post) (cm) 5.50 4.75 -Area of Debridement (cm) - Length 2.2 1.9 -Area of Debridement (cm) - Width 2.5 2.5 -Total Square (Area) (cm) 5.50 4.75 -Tunneling No No -Undermining/Tunneling No No -Circular Undermining No No -Wound/Ulcer Outcome Not Healed Not Healed -Ulcer Cleansing Rinsed/ Rinsed/ Irrigated with Irrigated with Saline Saline -Foul Odor after Cleansing No No -Bioengineered Tissue No No -Bleeding Controlled with Pressure Pressure,Silver Nitrate -Treatment Response Procedure Procedure Tolerated Well Tolerated Well -Debridement - Subq, 1st 20sq cm Yes Yes Pain Scale: 0-10 Numeric Is Patient Pain Free? Yes Yes - Nurse 3 - General Ulcer D/C NN Start: 01/19/25 13:07 Freq: Status: Active Protocol: Activity Type Activity Date Activity User E-sign Co-sign Detail Recorded Client Recorded Date Recorded By Document 01/19/25 13:46 RB [id number] 01/19/25 13:48 RB Document 01/26/25 13:57 [id number] 01/26/25 13:57 01/19/25 01/26/25 13:46 13:57 Wound Care Center Nurse 3 #1 LT HEEL -Primary Dressing Applied Silicone Border Silicone Border Foam 4x4 Foam 4x4 -Other Dressing santyl pt own santyl -Primary Dressing Covered/Secured with Dry Gauze & Roll Gauze, Secured with Tape -Silicone Border Foam 4x4 1 1 BLE -Stockings Yes: pt own stockings Treatment Response Procedure Tolerated Well Pain Scale: 0-10 Numeric Is Patient Pain Free? Yes Yes - Visit Discharge Discharge Condition Stable Stable Ambulatory Status Ambulatory Ambulatory, Walker Transportation Private Auto Private Auto Medication Reconcilliation completed & No No provided to patient/care provider Clinical Summary of Care Provided Yes Yes Charges/Coding Multi Select Codes Visit Charges Office Visit/Consults: 09209 OV L2 Est 10min Integumentary Integumentary CPT Codes: 21488 Mary subq tissue 20 sq cm/< Assessment/Plan Assessment/Plan (1) Pressure ulcer of left heel, stage 3: CODE(S): L89.623 - Pressure ulcer of left heel, stage 3 (2) Chronic venous insufficiency: CODE(S): I87.2 - Venous insufficiency (chronic) (peripheral) (3) Essential (primary) hypertension: CODE(S): I10 - Essential (primary) hypertension (4) CLL (chronic lymphocytic leukemia): CODE(S): C91.10 - Chronic lymphocytic leukemia of B-cell type not having achieved remission (5) GERD (gastroesophageal reflux disease): CODE(S): K21.9 - Gastro-esophageal reflux disease without esophagitis (6) Vitamin D deficiency: CODE(S): E55.9 - Vitamin D deficiency, unspecified (7) Severe pulmonary hypertension: CODE(S): I27.20 - Pulmonary hypertension, unspecified (8) Hyperlipidemia: CODE(S): E78.5 - Hyperlipidemia, unspecified QUALIFIERS: Hyperlipidemia type: mixed hyperlipidemia Qualified Code(s): E78.2 - Mixed hyperlipidemia (9) Secondary pulmonary arterial hypertension: CODE(S): I27.21 - Secondary pulmonary arterial hypertension (10) Paroxysmal atrial fibrillation: CODE(S): I48.0 - Paroxysmal atrial fibrillation (11) Lower extremity edema: CODE(S): R60.0 - Localized edema (12) Debility: CODE(S): R53.81 - Other malaise (13) Renal insufficiency: CODE(S): N28.9 - Disorder of kidney and ureter, unspecified (14) Chronic kidney disease: CODE(S): N18.9 - Chronic kidney disease, unspecified (15) Arthritis: CODE(S): M19.90 - Unspecified osteoarthritis, unspecified site (16) History of cataract surgery: CODE(S): Z98.49 - Cataract extraction status, unspecified eye (17) History of hip surgery: CODE(S): Z98.890 - Other specified postprocedural states PLAN: Plan This is an 84-year-old female with multiple pre-existing medical problems which are listed herein. She is not diabetic. She had recently been hospitalized at [facility], during which time she developed a left heel pressure ulceration, which appears to be stage III. A lengthy discussion has been undertaken with the patient regarding management recommendations. The patient has been advised to optimize her nutritional intake. The use of nutritional supplements has been recommended. Offloading measures have also been discussed. The patient claims to sleep in a recliner, with her heel extending beyond the foot rest, so that no pressure is exerted against her posterior heel. An attempt was made to obtain a Podus boot on behalf of the patient. However, her insurance plan would not cover this item. The patient has been given the option of obtaining the offloading boot of her own accord. To minimize swelling, it has been suggested that the patient implement elevation to her lower extremities, whereby her legs would be level with her heart, or higher. This has been recommended for both daytime and nighttime hours. Prolonged idle sitting should be kept to a minimum. Ambulation has been encouraged, though the patient is somewhat limited, and requires a cane or rollator for ambulation purposes. Double Tubigrip's or the patient's own graduated compression stockings are to be continued daily to minimize swelling in the patient's lower extremities. The patient has been using collagenase Santyl topically on a daily basis, which will be continued. The appropriate means of application has been demonstrated. Additionally, home health nursing care assists the patient at her home twice weekly. Swab cultures were obtained last week, the results of which were positive for methicillin-resistant Staphylococcus aureus, Enterococcus faecalis, Staphylococcus aureus, and Streptococcus mitis. As result, the patient is to be placed on linezolid 600 mg p.o. twice daily for a total of 14 days. Sensitivity results indicate this to be an appropriate choice. In addition, to eradicate the possibility of intranasal MRSA, a prescription has been provided for mupirocin topical ointment 2%, which is to be applied intranasally twice daily for approximately 1 week. The patient is also been advised to our with daily for the next week to 10 days. The appropriate means of implementing these measures have been discussed. The patient is to return in 2 weeks for reevaluation. Total time: 28 minutes
--- NOTE | 2025-01-28 11:11 | WC ---
PHOTO 01/26/25 LEFT HEEL
[2025-02-11 09:58] VITALS: BP 140/57; PULSE 94; RESP 18; TEMP 35.9; BMI 38.7
--- NOTE | 2025-02-11 14:07 | HP.PCM_ITS ---
History of Present Illness Date of Service: 02/11/25 Chief Complaint: Stage III pressure ulceration of the left heel History of Wound: This is an 84-year-old female who presented with a stage III pressure ulceration of the left heel. The ulceration had been present for approximately 3 to 4 weeks. The patient had been hospitalized at [facility] for several weeks recently, during which time she was treated for acute kidney injury, hyperkalemia, and pulmonary hypertension. It is during that period of time that she developed a pressure ulceration on her left posterior heel. The patient denies a history of diabetes mellitus. Her other pre-existing medical conditions are listed below. She is currently receiving home health nursing care through [facility]. The patient ambulates, though requires the use of a cane or rollator. She lives with her son. She denies a history of thrombophlebitis. She indicates that her legs do swell. She has in her possession graduated compression stockings, though has not been using them. [facility] Medical History Chronic kidney disease Pressure ulcer of left heel, stage 3 Chronic venous insufficiency Acute hyperkalemia Acute hyponatremia Acute kidney failure Acute hypotension Depression Kidney disease Former smoker Atrial fibrillation Hypertension Obesity GI bleed Essential (primary) hypertension Renal insufficiency Secondary pulmonary arterial hypertension Non-rheumatic tricuspid valve insufficiency GERD (gastroesophageal reflux disease) Hemorrhoids RLS (restless legs syndrome) Hyperlipidemia Diverticulitis Arthritis Paroxysmal atrial fibrillation Anxiety and depression Gastritis Home Medications ?Medication ?Instructions ?Recorded ?Last Taken ?Type bupropion HCl 150 mg tablet,12 hr 150 mg PO DAILY [facility] ObsEva 11/10/15 12/10/24 History sustained-release cholecalciferol (vitamin D3) 75 3,000 unit PO DAILY [facility] pplement 08/13/18 Unknown History mcg (3,000 unit) tablet multivitamin 1 tab PO DAILY Supplement Unknown History pantoprazole 40 mg tablet,delayed 40 mg PO DAILY GERD 08/13/18 12/10/24 History release escitalopram oxalate 10 mg tablet 10 mg PO DAILY [facility] 03/22/20 12/10/24 History simvastatin 10 mg tablet 10 mg PO QHS cholesterol low ering 06/28/20 12/09/24 Rx #90 tabs tramadol 50 mg tablet 50 mg PO Q6 PRN pain 4 12/09/24 History trazodone 50 mg tablet 25 - 50 mg PO QHS Sleep 07/1912/09/24 History albuterol sulfate 90 mcg/actuation 2 puff inhalation Q 4H PRN wheezing 12/07/24 Unknown History aerosol inhaler acetaminophen 500 mg tablet 1,000 mg (2 x 500 mg) PO Q 6H PRN 12/22/24 Unknown Rx Pain Score 1-5 #0 tabs gabapentin 100 mg capsule 100 mg PO QHS nerve pain 30 days 12/22/24 Unknown Rx #30 caps furosemide 40 mg tablet 40 mg PO DAILY #30 tabs 12/19 03/12 Unknown Rx nystatin 100,000 unit/gram topical 1 applic topical BI D #60 grams 01/01/25 Unknown Rx powder mupirocin 2 % ointment topical kit 1 applic topical BI D MRSA 01/26/25 Unknown Rx infection #1 ea linezolid 600 mg tablet 600 mg PO Q12H 02/10/25 Unkn own History metoprolol tartrate 25 mg tablet 25 mg PO QDAY BP 01/17 05/12 Unknown History potassium chloride 10 mEq 10 meq PO QDAY 02/10/25 Unkn own History capsule,extended release Allergy/AdvReac Type Severity Reaction Status Date / Time No Known Allergies Allergy Verified 02/10/25 13:09 Family History Mother Diabetes Father Myocardial infarction Surgical History History of cataract surgery History of hip surgery Social History household members: children and other details: Lives with son. Smoking Status: Former smoker how long ago did patient quit smokin years ago alcohol intake: never substance use type: does not use caffeine: No Vital Signs Vital Signs Vital Signs: 02/11/25 09:58 Temperature 96.6 F L Temperature Source Temporal Pulse Rate 94 Respiratory Rate 18 Blood Pressure 140/57 H Blood Pressure Mean 84 Blood Pressure Source Monitor Blood Pressure Position Semi-Fowlers Blood Pressure Location Left Arm Oxygen Delivery Method Room Air Weight Weight: 219 lb Body Mass Index (BMI) 38.7 Physical Exam Const alert, oriented x3 and no apparent distress Constitutional Narrative: The patient's BMI is 38.8. General Appearance: cooperative, comfortable, well kempt and well developed Orientation / Consciousness: awake, oriented to person, oriented to place and oriented to time Exam Limitations: no limitations HEENT normocephalic and head/scalp atraumatic Head and Scalp: normal to inspection, normocephalic and atraumatic Face and Sinus: normal facial exam Nose: external nose normal External Ear: external ears normal Eyes EOMs intact bilaterally General Eye: normal appearance of both eyes Neck full ROM Resp normal respiratory effort, normal air movement, no retractions and no use of accessory muscles Effort and Inspection: able to speak in complete sentences Extremity no calf tenderness General Extremity: Negative for clubbing or cyanosis Skin Wound Narrative: A pressure ulceration is noted on the patient's left posterior heel. It appears to be a stage III pressure ulceration. It extends through all layers of the dermis and into the subcutaneous tissues, though does not appear to extend down to bone. There is bioburden and nonviable, devitalized tissue, which has diminished from prior weeks. Mild bebe-ulcer erythema is noted. There is no odor. There is no drainage. Dimensions are documented elsewhere. The bebe- ulcer area demonstrates a small amount of callus. Neuro oriented x3, CN's II-XII intact bilaterally, moves all extremities and no focal motor deficits Sensorium / Orientation: awake, alert, oriented to person, oriented to place and oriented to time Speech: speech normal Psych Appearance: grossly normal and appropriate Attitude: calm Activity / Motor Behavior: appropriate eye contact Speech: normal speech Mood & Affect: euthymic mood Thought Process: normal thought process Thought Content: normal thought content Attention / Concentration: attention grossly intact Debridement Note Debridement Note Wound debrided: Stage III pressure ulceration of the left posterior heel Laterality: Left Wound Grade/Stage: Stage III Type of Debridement: Excisional debridement Anesthesia Used: 5% Lidocaine Gel and Cetacaine Depth: in the subcutaneous layer Percentage of wound debrided: 100 Instrument Used: 5mm curette and - (Cuticle scissors) Tissue Removed: Bioburden and non-viable, devitalized tissue; peripheral callus Severity: Fat Layer Exposed Amount of bleeding with debridement: Mild Bleeding Controlled with: Compression and gauze and Silver Nitrate Patient tolerated procedure: Patient tolerated procedure well Debridement Free Text: A 5 mm curette and scissors were used to excise a preponderance of the peripheral callus about the left heel ulceration. Post-Debridement Measurements and Additional Note: Post-Debridement Measurements/Treatment WC - Nurse 1 - General Ulcer Assessment Start: 01/19/25 13:07 Freq: Status: Active Protocol: ALEM Activity Type Activity Date Activity User E-sign Co-sign Detail Recorded Client Recorded Date Recorded By Document 01/19/25 13:07 ML [id number] 01/19/25 13:16 ML Document 01/26/25 13:23 RB [id number] 01/26/25 13:26 RB Document 02/11/25 09:58 KW [id number] 02/11/25 10:06 KW 01/19/25 01/26/25 02/11/25 13:07 13:23 09:58 WC - Today's Visit Information Type of service Follow-up Visit Follow-up Visit Follow-up Visit (Physician/ARTIST'S REPRESENTATIVE (Physician/ARTIST'S REPRESENTATIVE (Physician/ARTIST'S REPRESENTATIVE ) ) ) Arrival Mode Ambulatory, Ambulatory Ambulatory, Walker Walker Transfer Assistance None None Patient Identification Verified (Name & Yes Yes Yes ) Patient Requires Transmission-Based No No Precautions Height and Weight Body Mass Index (BMI) 38.7 38.7 38.7 BMI Classification Obese Obese Obese Vital Signs Temperature (97.8 F-99.1 F) 96.7 F L 97.2 F L 96.6 F L Temperature Source Temporal Temporal Temporal Pulse Rate (60-100) 84 71 94 Pulse Location Monitor Monitor Monitor Respiratory Rate (12-18) 15 18 18 Respiratory rate source Observation Observation Observation Oxygen Delivery Method Room Air Blood Pressure (90/60-120/80) 131/57 H 131/54 H 140/57 H Blood Pressure Mean 81 79 84 Source Monitor Monitor Monitor Position Sitting Semi-Fowlers Semi-Fowlers Blood Pressure Location Left Arm Left Arm Left Arm History Since Last Visit- (Skip if this is Patient's initial visit) Have you changed medications since your No No No last visit? Any new allergies or adverse reactions No No No Had a fall/change in ADL's that may No No increase risk of falls Signs or symptoms of abuse and/or No No No neglect since last visit Have you been in the hospital since your No No No last visit? Has dressing in place as prescribed Yes Yes Yes Has compression in place as prescribed N/A No N/A Has offloadiing in place as prescribed N/A N/A N/A Experienced any changes in pain level or No No No management Left Footwear Regular Shoe Regular Shoe Right Footwear Regular Shoe Regular Shoe Pain Scale: 0-10 Numeric Is Patient Pain Free? Yes Yes Yes WC - Nurse 1 - General Ulcer Measurement Start: 01/19/25 13:07 Freq: Status: Active Protocol: Activity Type Activity Date Activity User E-sign Co-sign Detail Recorded Client Recorded Date Recorded By Document 01/19/25 13:07 ML [id number] 01/19/25 13:16 ML Document 01/26/25 13:23 RB [id number] 01/26/25 13:26 RB Document 02/11/25 09:58 KW [id number] 02/11/25 10:06 KW 01/19/25 01/26/25 02/11/25 13:07 13:23 09:58 Wound Center Nurse 1 #1 LT HEEL -Combined with other wound No -Current Size (cm) - Length 1.7 1.8 2.6 -Current Size (cm) - Width 2.5 2.4 1.9 -Current Size (cm) - Depth 0.2 0.5 0.1 -Total Square Cm 4.25 4.32 4.94 -Date of Last Picture (Recall this 02/11/25 field) -Photo Taken Yes -Tunneling No -Undermining/Tunneling No -Circular Undermining No -Exudate Amt Medium Medium Medium -Exudate Type Serosanguineous Serosanguineous Serosanguineous -Wound Margin Distinct, Thickened Distinct, Outline Outline Attached Attached -Granulation Amt Medium (34-66%) Medium (34-66%) Medium (34-66%) -Granulation Quality Sinclair Red -Slough/Fibrin Yes Yes -Necrosis Amt Medium (34-66%) Medium (34-66%) Medium (34-66%) -Necrotic Tissue Type Adherent Slough Adherent Slough -Structure Exposed N/A -Texture (Bebe-wound Skin Appearance) Assessed Callus Assessed -Moisture (Bebe-wound Skin Appearance) Assessed Assessed, Maceration -Color (Bebe-wound Skin Appearance) Assessed Assessed Assessed -Temperature (Bebe-wound Skin No Abnormality No Abnormality No Abnormality Appearance) (Pt Warm) (Pt Warm) (Pt Warm) -Tenderness on Palpation (Bebe-wound No No No Skin Appearance) -Ulcer Cleansing Soap and Water Wound Cleanser Rinsed/ Irrigated with Saline -Foul Odor after Cleansing Yes No No -Anesthetic Used 5% Lidocaine 5% Lidocaine 5% Lidocaine Gel Gel Gel Lower Limb Edema Present Yes Left Calf (cm) 49 Left Ankle (cm) 26.5 WC - Nurse 2 - General Ulcer CM Notes Start: 01/19/25 13:07 Freq: Status: Active Protocol: Activity Type Activity Date Activity User E-sign Co-sign Detail Recorded Client Recorded Date Recorded By Document 01/19/25 13:28 DS [id number] 01/19/25 13:29 DS Document 01/26/25 13:41 DS [id number] 01/26/25 13:45 DS Document 02/11/25 10:25 DS [id number] 02/11/25 10:30 DS 01/19/25 01/26/25 02/11/25 13:28 13:41 10:25 Wound Center Nurse 2 #1 LT HEEL -Time 13:28 13:41 10:26 -Correct Patient Yes Yes Yes -Correct Side, Site, Position Yes Yes Yes -Correct Procedure Yes Yes Yes -Procedure Performed Yes Yes Yes -Type of Procedure Debridement Debridement Debridement -Clinical Debridement Subcutaneous Subcutaneous Subcutaneous -Tissue Removed Subcutaneous Subcutaneous Subcutaneous -Post Debridement (cm) - Length 2.2 1.9 1.8 -Post Debridement (cm) - Width 2.5 2.5 2.5 -Post Debridement (cm) - Depth 0.5 0.4 0.2 -Total Square (Post) (cm) 5.50 4.75 4.50 -Area of Debridement (cm) - Length 2.2 1.9 1.8 -Area of Debridement (cm) - Width 2.5 2.5 2.5 -Total Square (Area) (cm) 5.50 4.75 4.50 -Tunneling No No No -Undermining/Tunneling No No No -Circular Undermining No No No -Wound/Ulcer Outcome Not Healed Not Healed Not Healed -Ulcer Cleansing Rinsed/ Rinsed/ Rinsed/ Irrigated with Irrigated with Irrigated with Saline Saline Saline -Foul Odor after Cleansing No No No -Bioengineered Tissue No No No -Bleeding Controlled with Pressure Pressure,Silver Pressure Nitrate -Treatment Response Procedure Procedure Procedure Tolerated Well Tolerated Well Tolerated Well -Debridement - Subq, 1st 20sq cm Yes Yes Yes Pain Scale: 0-10 Numeric Is Patient Pain Free? Yes Yes Yes WC - Nurse 3 - General Ulcer D/C NN Start: 01/19/25 13:07 Freq: Status: Active Protocol: Activity Type Activity Date Activity User E-sign Co-sign Detail Recorded Client Recorded Date Recorded By Document 01/19/25 13:46 RB [id number] 01/19/25 13:48 RB Document 01/26/25 13:57 KW [id number] 01/26/25 13:57 KW Document 02/11/25 10:46 DS [id number] 02/11/25 10:47 DS 01/19/25 01/26/25 02/11/25 13:46 13:57 10:46 Wound Care Center Nurse 3 #1 LT HEEL -Primary Dressing Applied Silicone Border Silicone Border Silicone Border Foam 4x4 Foam 4x4 Foam 4x4 -Other Dressing santyl pt own santyl used pts Santyl -Primary Dressing Covered/Secured with Dry Gauze & Secured with Roll Gauze, Tape Secured with Tape -Silicone Border Foam 4x4 1 1 1 BLE -Stockings Yes: pt own stockings Treatment Response Procedure Tolerated Well Pain Scale: 0-10 Numeric Is Patient Pain Free? Yes Yes Yes WC - Visit Discharge Discharge Condition Stable Stable Stable Ambulatory Status Ambulatory Ambulatory, Ambulatory, Walker Walker Transportation Private Auto Private Auto Private Auto Medication Reconcilliation completed & No No provided to patient/care provider Clinical Summary of Care Provided Yes Yes Charges/Coding Procedures Integumentary [id number]: [id number] Mary subq tissue 20 sq cm/< Assessment/Plan Assessment/Plan (1) Pressure ulcer of left heel, stage 3: CODE(S): L89.623 - Pressure ulcer of left heel, stage 3 (2) Chronic venous insufficiency: CODE(S): I87.2 - Venous insufficiency (chronic) (peripheral) (3) Essential (primary) hypertension: CODE(S): I10 - Essential (primary) hypertension (4) CLL (chronic lymphocytic leukemia): CODE(S): C91.10 - Chronic lymphocytic leukemia of B-cell type not having achieved remission (5) GERD (gastroesophageal reflux disease): CODE(S): K21.9 - Gastro-esophageal reflux disease without esophagitis (6) Vitamin D deficiency: CODE(S): E55.9 - Vitamin D deficiency, unspecified (7) Severe pulmonary hypertension: CODE(S): I27.20 - Pulmonary hypertension, unspecified (8) Hyperlipidemia: CODE(S): E78.5 - Hyperlipidemia, unspecified QUALIFIERS: Hyperlipidemia type: mixed hyperlipidemia Qualified Code(s): E78.2 - Mixed hyperlipidemia (9) Secondary pulmonary arterial hypertension: CODE(S): I27.21 - Secondary pulmonary arterial hypertension (10) Paroxysmal atrial fibrillation: CODE(S): I48.0 - Paroxysmal atrial fibrillation (11) Lower extremity edema: CODE(S): R60.0 - Localized edema (12) Debility: CODE(S): R53.81 - Other malaise (13) Renal insufficiency: CODE(S): N28.9 - Disorder of kidney and ureter, unspecified (14) Chronic kidney disease: CODE(S): N18.9 - Chronic kidney disease, unspecified (15) Arthritis: CODE(S): M19.90 - Unspecified osteoarthritis, unspecified site (16) History of cataract surgery: CODE(S): Z98.49 - Cataract extraction status, unspecified eye (17) History of hip surgery: CODE(S): Z98.890 - Other specified postprocedural states PLAN: Plan This is an 84-year-old female with multiple pre-existing medical problems which are listed herein. She is not diabetic. She had recently been hospitalized at [facility], during which time she developed a left heel pressure ulceration, which appears to be stage III. A lengthy discussion has been undertaken with the patient regarding management recommendations. The patient has been advised to optimize her nutritional intake. The use of nutritional supplements has been recommended. Offloading measures have also been discussed. The patient asserts that she has been implementing the recommended offloading measures. She has obtained a Podus boot to assist in this effort. To minimize swelling, it has been suggested that the patient implement elevation to her lower extremities, whereby her legs would be level with her heart, or higher. This has been recommended for both daytime and nighttime hours. Prolonged idle sitting should be kept to a minimum. Ambulation has been encouraged, though the patient is somewhat limited, and requires a cane or rollator for ambulation purposes. Double Tubigrip's or the patient's own graduated compression stockings are to be continued daily to minimize swelling in the patient's lower extremities. The patient has been using collagenase Santyl topically on a daily basis, which will be continued. The appropriate means of application has been demonstrated. Additionally, home health nursing care assists the patient at her home twice weekly. Swab cultures were obtained on January 19, 2025, the results of which were positive for methicillin-resistant Staphylococcus aureus, Enterococcus faecalis, Staphylococcus aureus, and Streptococcus mitis. As result, a prescription for linezolid 600 mg p.o. twice daily for a total of 14 days was issued. It has been learned, as of today, that the patient has not yet obtained the antibiotic prescription due to insurance coverage concerns. Efforts are underway to troubleshoot this matter, so the patient may receive the linezolid which has been prescribed, as appropriate to the isolated bacterial organisms. In addition, the patient has been provided a prescription for mupirocin topical ointment 2% to eradicate possible intranasal MRSA, and is to be applied intranasally twice daily for approximately 1 week. The patient is also been advised to shower with Hibiclens daily for the next week to 10 days. The appropriate means of implementing these measures have been discussed. The patient is to return in 1 week for reevaluation. Total time: 26 minutes
--- NOTE | 2025-02-12 09:29 | WC ---
PHOTO 02/11/25 LEFT HEEL
--- NOTE | 2025-02-12 13:36 | WC ---
left VM stating we received prior auth for Linezolid. Informed of $1073 copay- informed we sent script to [facility] and to have them run the script through [facility] and cost should be around $50-60. To call clinic if any questions.
== END 2025-02-15 23:59 | disposition home or self-care (01) ==
LOC: WC 10:00
PROVIDERS: PCP Internal Medicine; Referring Provider Clinical Nurse Specialist; Visit Provider Surgery
DX: L89.623 Pressure ulcer of left heel, stage 3 (principal); C91.10 Chronic lymphocytic leukemia of B-cell type not having achieved remission; I27.21 Secondary pulmonary arterial hypertension; I48.0 Paroxysmal atrial fibrillation; N18.30 Chronic kidney disease, stage 3 unspecified; R53.81 Other malaise; E78.2 Mixed hyperlipidemia; M19.90 Unspecified osteoarthritis, unspecified site; I87.2 Venous insufficiency (chronic) (peripheral); Z87.891 Personal history of nicotine dependence; E55.9 Vitamin D deficiency, unspecified; R60.0 Localized edema; K21.9 Gastro-esophageal reflux disease without esophagitis; I12.9 Hypertensive chronic kidney disease with stage 1 through stage 4 chronic kidney disease, or unspecified chronic kidney disease; Z98.49 Cataract extraction status, unspecified eye
CPT/HCPCS: 11042; 87070; 87075; 87077; 87186; 87205

== ENCOUNTER 2025-03-16 13:00 | Outpatient (RCR) | payer MEDICARE, BC, SELFPAY ==
[2025-02-16 00:49] VITALS: BP 140/57; PULSE 94; RESP 18; TEMP 35.9; BMI 38.7
[2025-02-16 13:02] VITALS: RESP 18; TEMP 35.5; BMI 38.7
--- NOTE | 2025-02-17 12:15 | WC ---
PHOTO 02/16/25 LEFT HEEL
--- NOTE | 2025-02-19 13:06 | HP.PCM_ITS ---
History of Present Illness Date of Service: 02/16/25 Chief Complaint: Stage III pressure ulceration of the left heel History of Wound: This is an 84-year-old female who presented with a stage III pressure ulceration of the left heel. The ulceration had been present for approximately 3 to 4 weeks. The patient had been hospitalized at [facility] for several weeks recently, during which time she was treated for acute kidney injury, hyperkalemia, and pulmonary hypertension. It is during that period of time that she developed a pressure ulceration on her left posterior heel. The patient denies a history of diabetes mellitus. Her other pre-existing medical conditions are listed below. She is currently receiving home health nursing care through [facility]. The patient ambulates, though requires the use of a cane or rollator. She lives with her son. She denies a history of thrombophlebitis. She indicates that her legs do swell. She has in her possession graduated compression stockings, though has not been using them. FORMERLY [facility], [facility] Medical History Chronic kidney disease Pressure ulcer of left heel, stage 3 Chronic venous insufficiency Acute hyperkalemia Acute hyponatremia Acute kidney failure Acute hypotension Depression Kidney disease Former smoker Atrial fibrillation Hypertension Obesity GI bleed Essential (primary) hypertension Renal insufficiency Secondary pulmonary arterial hypertension Non-rheumatic tricuspid valve insufficiency GERD (gastroesophageal reflux disease) Hemorrhoids RLS (restless legs syndrome) Hyperlipidemia Diverticulitis Arthritis Paroxysmal atrial fibrillation Anxiety and depression Gastritis Home Medications Medication Instructions Recorded Last Taken Type bupropion HCl 150 mg tablet,12 hr 150 mg PO DAILY [facility] 11/10/15 12/10/24 History sustained-release cholecalciferol (vitamin D3) 75 3,000 unit PO DAILY [facility] pplement 08/13/18 Unknown History mcg (3,000 unit) tablet multivitamin 1 tab PO DAILY Supplement Unknown History pantoprazole 40 mg tablet,delayed 40 mg PO DAILY GERD 08/13/18 12/10/24 History release escitalopram oxalate 10 mg tablet 10 mg PO DAILY [facility] 03/22/20 12/10/24 History simvastatin 10 mg tablet 10 mg PO QHS cholesterol low ering 06/28/20 12/09/24 Rx #90 tabs tramadol 50 mg tablet 50 mg PO Q6 PRN pain 4 12/09/24 History trazodone 50 mg tablet 25 - 50 mg PO QHS Sleep 07/19 012/09/24 History albuterol sulfate 90 mcg/actuation 2 puff inhalation Q 4H PRN wheezing 12/07/24 Unknown History aerosol inhaler acetaminophen 500 mg tablet 1,000 mg (2 x 500 mg) PO Q 6H PRN 12/22/24 Unknown Rx Pain Score 1-5 #0 tabs gabapentin 100 mg capsule 100 mg PO QHS nerve pain 30 days 12/22/24 Unknown Rx #30 caps furosemide 40 mg tablet 40 mg PO DAILY #30 tabs 12/19 03/12 Unknown Rx nystatin 100,000 unit/gram topical 1 applic topical BI D #60 grams 01/01/25 Unknown Rx powder mupirocin 2 % ointment topical kit 1 applic topical BI D MRSA 01/26/25 Unknown Rx infection #1 ea linezolid 600 mg tablet 600 mg PO Q12H 02/10/25 Unkn own History metoprolol tartrate 25 mg tablet 25 mg PO QDAY BP 01/17 05/12 Unknown History potassium chloride 10 mEq 10 meq PO QDAY 02/10/25 Unkn own History capsule,extended release linezolid 600 mg tablet 600 mg PO Q12H 14 days #28 t abs 02/12/25 Unknown Rx Allergy/AdvReac Type Severity Reaction Status Date / Time No Known Allergies Allergy Verified 02/10/25 13:09 Family History Mother Diabetes Father Myocardial infarction Surgical History History of cataract surgery History of hip surgery Social History household members: children and other details: Lives with son. Smoking Status: Former smoker how long ago did patient quit smokin years ago alcohol intake: never substance use type: does not use caffeine: No Vital Signs Vital Signs Vital Signs: Weight Weight: 219 lb Body Mass Index (BMI) 38.7 Physical Exam Const alert, oriented x3 and no apparent distress Constitutional Narrative: The patient's BMI is 38.8. General Appearance: cooperative, comfortable, well kempt and well developed Orientation / Consciousness: awake, oriented to person, oriented to place and oriented to time Exam Limitations: no limitations HEENT normocephalic and head/scalp atraumatic Head and Scalp: normal to inspection, normocephalic and atraumatic Face and Sinus: normal facial exam Nose: external nose normal External Ear: external ears normal Eyes EOMs intact bilaterally General Eye: normal appearance of both eyes Neck full ROM Resp normal respiratory effort, normal air movement, no retractions and no use of accessory muscles Effort and Inspection: able to speak in complete sentences Extremity no calf tenderness General Extremity: Negative for clubbing or cyanosis Skin Wound Narrative: A pressure ulceration is noted on the patient's left posterior heel. It appears to be a stage III pressure ulceration. It extends through all layers of the dermis and into the subcutaneous tissues, though does not appear to extend down to bone or tendon. There is bioburden and nonviable, devitalized tissue, which has diminished from prior weeks. Mild bebe-ulcer erythema is noted. There is no odor. There is no drainage. Dimensions are documented elsewhere. The bebe- ulcer area demonstrates a small amount of callus. Neuro oriented x3, CN's II-XII intact bilaterally, moves all extremities and no focal motor deficits Sensorium / Orientation: awake, alert, oriented to person, oriented to place and oriented to time Speech: speech normal Psych Appearance: grossly normal and appropriate Attitude: calm Activity / Motor Behavior: appropriate eye contact Speech: normal speech Mood & Affect: euthymic mood Thought Process: normal thought process Thought Content: normal thought content Attention / Concentration: attention grossly intact Debridement Note Debridement Note Wound debrided: Stage III pressure ulceration of the left posterior heel Laterality: Left Wound Grade/Stage: Stage III Type of Debridement: Excisional debridement Anesthesia Used: 5% Lidocaine Gel and Cetacaine Depth: in the subcutaneous layer Percentage of wound debrided: 100 Instrument Used: 5mm curette, Forceps and - (Cuticle scissors) Tissue Removed: Bioburden and non-viable, devitalized tissue; peripheral callus Severity: Fat Layer Exposed Amount of bleeding with debridement: Mild Bleeding Controlled with: Compression and gauze and Silver Nitrate Patient tolerated procedure: Patient tolerated procedure well Debridement Free Text: A 5 mm curette and scissors were used to excise peripheral callus about the left heel ulceration. Post-Debridement Measurements and Additional Note: Post-Debridement Measurements/Treatment WC - Nurse 1 - General Ulcer Assessment Start: 02/16/25 13:02 Freq: Status: Active Protocol: [email or web address] Activity Type Activity Date Activity User E-sign Co-sign Detail Recorded Client Recorded Date Recorded By Document 02/16/25 13:02 KW [id number] 02/16/25 13:07 KW 02/16/25 13:02 WC - Today's Visit Information Type of service Follow-up Visit (Physician/[employer] ) Arrival Mode Ambulatory, Walker Patient Identification Verified (Name & Yes ) Height and Weight Body Mass Index (BMI) 38.7 BMI Classification Obese Vital Signs Temperature (97.8 F-99.1 F) 95.9 F L Temperature Source Temporal Pulse Location Monitor Respiratory Rate (12-18) 18 Respiratory rate source Observation Oxygen Delivery Method Room Air Source Monitor Position Semi-Fowlers Blood Pressure Location Right Arm History Since Last Visit- (Skip if this is Patient's initial visit) Have you changed medications since your No last visit? Any new allergies or adverse reactions No Had a fall/change in ADL's that may No increase risk of falls Signs or symptoms of abuse and/or No neglect since last visit Have you been in the hospital since your No last visit? Has dressing in place as prescribed Yes Has compression in place as prescribed No Has offloadiing in place as prescribed N/A Experienced any changes in pain level or No management Left Footwear Regular Shoe Right Footwear Regular Shoe Pain Scale: 0-10 Numeric Is Patient Pain Free? Yes - Nurse 1 - General Ulcer Measurement Start: 02/16/25 13:02 Freq: Status: Active Protocol: Activity Type Activity Date Activity User E-sign Co-sign Detail Recorded Client Recorded Date Recorded By Document 02/16/25 13:02 KW [id number] 02/16/25 13:07 02/16/25 13:02 Wound Center Nurse 1 #1 LT HEEL -Current Size (cm) - Length 2.2 -Current Size (cm) - Width 1.6 -Current Size (cm) - Depth 0.1 -Total Square Cm 3.52 -Date of Last Picture (Recall this 02/16/25 field) -Exudate Amt Small -Exudate Type Serosanguineous -Wound Margin Distinct, Outline Attached -Granulation Amt Large (67-100%) -Granulation Quality [place] -Texture (Bebe-wound Skin Appearance) Assessed -Moisture (Bebe-wound Skin Appearance) Assessed, Maceration -Color (Bebe-wound Skin Appearance) Assessed -Temperature (Bebe-wound Skin No Abnormality Appearance) (Pt Warm) -Tenderness on Palpation (Bebe-wound No Skin Appearance) -Ulcer Cleansing Rinsed/ Irrigated with Saline -Foul Odor after Cleansing No -Anesthetic Used 5% Lidocaine Gel WC - Nurse 2 - General Ulcer CM Notes Start: 02/16/25 13:02 Freq: Status: Active Protocol: Activity Type Activity Date Activity User E-sign Co-sign Detail Recorded Client Recorded Date Recorded By Document 02/16/25 13:15 DS [id number] 02/16/25 13:18 DS Edit Result 02/16/25 13:15 DS (1) [id number] 02/16/25 13:19 DS (1) #1 LT HEEL - Wound Comment(s) => cetacaine spray used 02/16/25 13:15 Wound Center Nurse 2 -Time 13:10 -Correct Patient Yes -Correct Side, Site, Position Yes -Correct Procedure Yes -Procedure Performed Yes -Type of Procedure Debridement -Clinical Debridement Subcutaneous -Tissue Removed Subcutaneous -Post Debridement (cm) - Length 1.4 -Post Debridement (cm) - Width 2.4 -Post Debridement (cm) - Depth 0.2 -Total Square (Post) (cm) 3.36 -Area of Debridement (cm) - Length 1.4 -Area of Debridement (cm) - Width 2.4 -Total Square (Area) (cm) 3.36 -Tunneling No -Undermining/Tunneling No -Circular Undermining No -Wound/Ulcer Outcome Not Healed -Ulcer Cleansing Rinsed/ Irrigated with Saline -Foul Odor after Cleansing No -Bioengineered Tissue No -Bleeding Controlled with Pressure -Treatment Response Procedure Tolerated Well -Other Type of Offloading podus boot at night -Debridement - Subq, 1st 20sq cm Yes -Wound Comment(s) cetacaine spray used Pain Scale: 0-10 Numeric Is Patient Pain Free? Yes WC - Nurse 3 - General Ulcer D/C NN Start: 02/16/25 13:02 Freq: Status: Active Protocol: Activity Type Activity Date Activity User E-sign Co-sign Detail Recorded Client Recorded Date Recorded By Document 02/16/25 13:37 RB [id number] 02/16/25 13:38 RB 02/16/25 13:37 Wound Care Center Nurse 3 #1 LT HEEL -Ulcer Cleansing Rinsed/ Irrigated with Saline -Primary Dressing Applied Silicone Border Foam 4x4 -Other Dressing santyl -Silicone Border Foam 4x4 1 Treatment Response Procedure Tolerated Well Pain Scale: 0-10 Numeric Is Patient Pain Free? Yes WC - Visit Discharge Discharge Condition Stable Ambulatory Status Ambulatory Transportation Private Auto Medication Reconcilliation completed & No provided to patient/care provider Clinical Summary of Care Provided Yes Charges/Coding Procedures Integumentary [id number]: [id number] Mary subq tissue 20 sq cm/< Assessment/Plan Assessment/Plan (1) Pressure ulcer of left heel, stage 3: CODE(S): L89.623 - Pressure ulcer of left heel, stage 3 (2) Chronic venous insufficiency: CODE(S): I87.2 - Venous insufficiency (chronic) (peripheral) (3) Essential (primary) hypertension: CODE(S): I10 - Essential (primary) hypertension (4) CLL (chronic lymphocytic leukemia): CODE(S): C91.10 - Chronic lymphocytic leukemia of B-cell type not having achieved remission (5) GERD (gastroesophageal reflux disease): CODE(S): K21.9 - Gastro-esophageal reflux disease without esophagitis (6) Vitamin D deficiency: CODE(S): E55.9 - Vitamin D deficiency, unspecified (7) Severe pulmonary hypertension: CODE(S): I27.20 - Pulmonary hypertension, unspecified (8) Hyperlipidemia: CODE(S): E78.5 - Hyperlipidemia, unspecified QUALIFIERS: Hyperlipidemia type: mixed hyperlipidemia Qualified Code(s): E78.2 - Mixed hyperlipidemia (9) Secondary pulmonary arterial hypertension: CODE(S): I27.21 - Secondary pulmonary arterial hypertension (10) Paroxysmal atrial fibrillation: CODE(S): I48.0 - Paroxysmal atrial fibrillation (11) Lower extremity edema: CODE(S): R60.0 - Localized edema (12) Debility: CODE(S): R53.81 - Other malaise (13) Renal insufficiency: CODE(S): N28.9 - Disorder of kidney and ureter, unspecified (14) Chronic kidney disease: CODE(S): N18.9 - Chronic kidney disease, unspecified (15) Arthritis: CODE(S): M19.90 - Unspecified osteoarthritis, unspecified site (16) History of cataract surgery: CODE(S): Z98.49 - Cataract extraction status, unspecified eye (17) History of hip surgery: CODE(S): Z98.890 - Other specified postprocedural states PLAN: Plan This is an 84-year-old female with multiple pre-existing medical problems which are listed herein. She is not diabetic. She had recently been hospitalized at [facility], during which time she developed a left heel pressure ulceration, which appears to be stage III. A lengthy discussion has been undertaken with the patient regarding management recommendations. The patient has been advised to optimize her nutritional intake. The use of nutritional supplements has been recommended. Offloading measures have also been discussed. The patient asserts that she has been implementing the recommended offloading measures. She has obtained a Podus boot to assist in this effort. To minimize swelling, it has been suggested that the patient implement elevation to her lower extremities, whereby her legs would be level with her heart, or higher. This has been recommended for both daytime and nighttime hours. Prolonged idle sitting should be kept to a minimum. Ambulation has been encouraged, though the patient is somewhat limited, and requires a cane or rollator for ambulation purposes. Double Tubigrip's or the patient's own graduated compression stockings are to be continued daily to minimize swelling in the patient's lower extremities. The patient has been using collagenase Santyl topically on a daily basis, which will be continued. The appropriate means of application has been demonstrated. Additionally, home health nursing care assists the patient at her home twice weekly. Swab cultures were obtained on January 19, 2025, the results of which were positive for methicillin-resistant Staphylococcus aureus, Enterococcus faecalis, Staphylococcus aureus, and Streptococcus mitis. As result, a prescription for linezolid 600 mg p.o. twice daily for a total of 14 days was issued. The patient initially had difficulty in obtaining the linezolid at her pharmacy, but the issue has been resolved, and she is now taking the antibiotic as prescribed. In addition, the patient has been provided a prescription for mupirocin topical ointment 2% to eradicate possible intranasal MRSA, and is to be applied intranasally twice daily for approximately 1 week. The patient is also been advised to shower with Hibiclens daily for the next week to 10 days. The appropriate means of implementing these measures have been discussed. The patient is to return in 1 week for reevaluation. Total time: 24 minutes
[2025-02-23 13:06] VITALS: BP 164/65; PULSE 74; RESP 14; TEMP 36.1; BMI 38.7
--- NOTE | 2025-02-24 17:08 | HP.PCM_ITS ---
History of Present Illness Date of Service: 02/23/25 Chief Complaint: Stage III pressure ulceration of the left heel History of Wound: This is an 84-year-old female who presented with a stage III pressure ulceration of the left heel. The ulceration had been present for approximately 3 to 4 weeks. The patient had been hospitalized at [facility] for several weeks recently, during which time she was treated for acute kidney injury, hyperkalemia, and pulmonary hypertension. It is during that period of time that she developed a pressure ulceration on her left posterior heel. The patient denies a history of diabetes mellitus. Her other pre-existing medical conditions are listed below. She is currently receiving home health nursing care through [facility]. The patient ambulates, though requires the use of a cane or rollator. She lives with her son. She denies a history of thrombophlebitis. She indicates that her legs do swell. She has in her possession graduated compression stockings, though has not been using them. [facility] Medical History Chronic kidney disease Pressure ulcer of left heel, stage 3 Chronic venous insufficiency Acute hyperkalemia Acute hyponatremia Acute kidney failure Acute hypotension Depression Kidney disease Former smoker Atrial fibrillation Hypertension Obesity GI bleed Essential (primary) hypertension Renal insufficiency Secondary pulmonary arterial hypertension Non-rheumatic tricuspid valve insufficiency GERD (gastroesophageal reflux disease) Hemorrhoids RLS (restless legs syndrome) Hyperlipidemia Diverticulitis Arthritis Paroxysmal atrial fibrillation Anxiety and depression Gastritis Home Medications Medication Instructions Recorded Last Taken Type bupropion HCl 150 mg tablet,12 hr 150 mg PO DAILY [facility] MAYKOR 11/10/15 12/10/24 History sustained-release cholecalciferol (vitamin D3) 75 3,000 unit PO DAILY meraz pplement 08/13/18 Unknown History mcg (3,000 unit) tablet multivitamin 1 tab PO DAILY Supplement Unknown History pantoprazole 40 mg tablet,delayed 40 mg PO DAILY GERD 08/13/18 12/10/24 History release escitalopram oxalate 10 mg tablet 10 mg PO DAILY [facility] 03/22/20 12/10/24 History simvastatin 10 mg tablet 10 mg PO QHS cholesterol low ering 06/28/20 12/09/24 Rx #90 tabs tramadol 50 mg tablet 50 mg PO Q6 PRN pain 4 12/09/24 History trazodone 50 mg tablet 25 - 50 mg PO QHS Sleep 07/19 0/24 12/09/24 History albuterol sulfate 90 mcg/actuation 2 puff inhalation Q 4H PRN wheezing 12/07/24 Unknown History aerosol inhaler acetaminophen 500 mg tablet 1,000 mg (2 x 500 mg) PO Q 6H PRN 12/22/24 Unknown Rx Pain Score 1-5 #0 tabs gabapentin 100 mg capsule 100 mg PO QHS nerve pain 30 days 12/22/24 Unknown Rx #30 caps furosemide 40 mg tablet 40 mg PO DAILY #30 tabs 12/19 03/12 Unknown Rx nystatin 100,000 unit/gram topical 1 applic topical BI D #60 grams 01/01/25 Unknown Rx powder mupirocin 2 % ointment topical kit 1 applic topical BI D MRSA 01/26/25 Unknown Rx infection #1 ea linezolid 600 mg tablet 600 mg PO Q12H 02/10/25 Unkn own History metoprolol tartrate 25 mg tablet 25 mg PO QDAY BP 01/17 05/12 Unknown History potassium chloride 10 mEq 10 meq PO QDAY 02/10/25 Unkn own History capsule,extended release linezolid 600 mg tablet 600 mg PO Q12H 14 days #28 t abs 02/12/25 Unknown Rx Allergy/AdvReac Type Severity Reaction Status Date / Time No Known Allergies Allergy Verified 02/10/25 13:09 Family History Mother Diabetes Father Myocardial infarction Surgical History History of cataract surgery History of hip surgery Social History household members: children and other details: Lives with son. Smoking Status: Former smoker how long ago did patient quit smokin years ago alcohol intake: never substance use type: does not use caffeine: No Vital Signs Vital Signs Vital Signs: Weight Weight: 219 lb Body Mass Index (BMI) 38.7 Physical Exam Const alert, oriented x3 and no apparent distress Constitutional Narrative: The patient's BMI is 38.8. General Appearance: cooperative, comfortable, well kempt and well developed Orientation / Consciousness: awake, oriented to person, oriented to place and oriented to time Exam Limitations: no limitations HEENT normocephalic and head/scalp atraumatic Head and Scalp: normal to inspection, normocephalic and atraumatic Face and Sinus: normal facial exam Nose: external nose normal External Ear: external ears normal Eyes EOMs intact bilaterally General Eye: normal appearance of both eyes Neck full ROM Resp normal respiratory effort, normal air movement, no retractions and no use of accessory muscles Effort and Inspection: able to speak in complete sentences Extremity no calf tenderness General Extremity: Negative for clubbing or cyanosis Skin Wound Narrative: A pressure ulceration is noted on the patient's left posterior heel. It appears to be a stage III pressure ulceration. It extends through all layers of the dermis and into the subcutaneous tissues, though does not appear to extend down to bone or tendon. There is bioburden and a small amount of nonviable, devitalized tissue, which has diminished from prior weeks. There is no odor. There is no drainage. Dimensions are documented elsewhere. The bebe-ulcer area demonstrates a small amount of callus. Neuro oriented x3, CN's II-XII intact bilaterally, moves all extremities and no focal motor deficits Sensorium / Orientation: awake, alert, oriented to person, oriented to place and oriented to time Speech: speech normal Psych Appearance: grossly normal and appropriate Attitude: calm Activity / Motor Behavior: appropriate eye contact Speech: normal speech Mood & Affect: euthymic mood Thought Process: normal thought process Thought Content: normal thought content Attention / Concentration: attention grossly intact Debridement Note Debridement Note Wound debrided: Stage III pressure ulceration of the left posterior heel Laterality: Left Wound Grade/Stage: Stage III Type of Debridement: Excisional debridement Anesthesia Used: 5% Lidocaine Gel and Cetacaine Depth: in the subcutaneous layer Percentage of wound debrided: 100 Instrument Used: 5mm curette, Forceps and - (Cuticle scissors) Tissue Removed: Bioburden and non-viable, devitalized tissue; peripheral callus Severity: Fat Layer Exposed Amount of bleeding with debridement: Mild Bleeding Controlled with: Compression and gauze and Silver Nitrate Patient tolerated procedure: Patient tolerated procedure well Debridement Free Text: A 5 mm curette and scissors were used to excise peripheral callus about the left heel ulceration. Post-Debridement Measurements and Additional Note: Post-Debridement Measurements/Treatment WC - Nurse 1 - General Ulcer Assessment Start: 02/16/25 13:02 Freq: Status: Active Protocol: [email or web address] Activity Type Activity Date Activity User E-sign Co-sign Detail Recorded Client Recorded Date Recorded By Document 02/16/25 13:02 KW [id number] 02/16/25 13:07 KW Document 02/23/25 13:06 ML [id number] 02/23/25 13:09 ML 02/16/25 02/23/25 13:02 13:06 - Today's Visit Information Type of service Follow-up Visit Follow-up Visit (Physician/DIVORCE ATTORNEY (Physician/DIVORCE ATTORNEY ) ) Arrival Mode Ambulatory, Walker Walker Transfer Assistance None Patient Identification Verified (Name & Yes Yes ) Patient Requires Transmission-Based No Precautions Height and Weight Body Mass Index (BMI) 38.7 38.7 BMI Classification Obese Obese Vital Signs Temperature (97.8 F-99.1 F) 95.9 F L 97.0 F L Temperature Source Temporal Temporal Pulse Rate (60-100) 74 Pulse Location Monitor Monitor Respiratory Rate (12-18) 18 14 Respiratory rate source Observation Observation Oxygen Delivery Method Room Air Blood Pressure (90/60-120/80) 164/65 H Blood Pressure Mean 98 Source Monitor Monitor Position Semi-Fowlers Sitting Blood Pressure Location Right Arm Right Arm History Since Last Visit- (Skip if this is Patient's initial visit) Have you changed medications since your No No last visit? Any new allergies or adverse reactions No No Had a fall/change in ADL's that may No No increase risk of falls Signs or symptoms of abuse and/or No No neglect since last visit Have you been in the hospital since your No No last visit? Has dressing in place as prescribed Yes Yes Has compression in place as prescribed No N/A Has offloadiing in place as prescribed N/A N/A Experienced any changes in pain level or No No management Left Footwear Regular Shoe Right Footwear Regular Shoe Pain Scale: 0-10 Numeric Is Patient Pain Free? Yes Yes - Nurse 1 - General Ulcer Measurement Start: 02/16/25 13:02 Freq: Status: Active Protocol: Activity Type Activity Date Activity User E-sign Co-sign Detail Recorded Client Recorded Date Recorded By Document 02/16/25 13:02 KW [id number] 02/16/25 13:07 KW Document 02/23/25 13:06 ML [id number] 02/23/25 13:09 ML 02/16/25 02/23/25 13:02 13:06 Wound Center Nurse 1 #1 LT HEEL -Current Size (cm) - Length 2.2 2 -Current Size (cm) - Width 1.6 3 -Current Size (cm) - Depth 0.1 0.1 -Total Square Cm 3.52 6 -Date of Last Picture (Recall this 02/16/25 field) -Exudate Amt Small Medium -Exudate Type Serosanguineous Serosanguineous -Wound Margin Distinct, Distinct, Outline Outline Attached Attached -Granulation Amt Large (67-100%) Small (1-33%) -Granulation Quality [place] -Slough/Fibrin Yes -Necrosis Amt Small (1-33%) -Necrotic Tissue Type Adherent Slough -Texture (Bebe-wound Skin Appearance) Assessed Assessed -Moisture (Bebe-wound Skin Appearance) Assessed, Assessed Maceration -Color (Bebe-wound Skin Appearance) Assessed Assessed -Temperature (Bebe-wound Skin No Abnormality No Abnormality Appearance) (Pt Warm) (Pt Warm) -Tenderness on Palpation (Bebe-wound No Skin Appearance) -Ulcer Cleansing Rinsed/ Rinsed/ Irrigated with Irrigated with Saline Saline -Foul Odor after Cleansing No -Anesthetic Used 5% Lidocaine 5% Lidocaine Gel Gel WC - Nurse 2 - General Ulcer CM Notes Start: 02/16/25 13:02 Freq: Status: Active Protocol: Activity Type Activity Date Activity User E-sign Co-sign Detail Recorded Client Recorded Date Recorded By Document 02/16/25 13:15 DS [id number] 02/16/25 13:18 DS Edit Result 02/16/25 13:15 DS (1) [id number] 02/16/25 13:19 DS Document 02/23/25 13:33 DS [id number] 02/23/25 13:40 DS (1) #1 LT HEEL - Wound Comment(s) => cetacaine spray used 02/16/25 02/23/25 13:15 13:33 Wound Center Nurse 2 #1 LT HEEL -Time 13:10 13:33 -Correct Patient Yes Yes -Correct Side, Site, Position Yes Yes -Correct Procedure Yes Yes -Procedure Performed Yes Yes -Type of Procedure Debridement Debridement -Clinical Debridement Subcutaneous Subcutaneous -Tissue Removed Subcutaneous Subcutaneous -Post Debridement (cm) - Length 1.4 1.4 -Post Debridement (cm) - Width 2.4 2.0 -Post Debridement (cm) - Depth 0.2 0.1 -Total Square (Post) (cm) 3.36 2.80 -Area of Debridement (cm) - Length 1.4 1.4 -Area of Debridement (cm) - Width 2.4 2.0 -Total Square (Area) (cm) 3.36 2.80 -Tunneling No No -Undermining/Tunneling No No -Circular Undermining No No -Wound/Ulcer Outcome Not Healed Not Healed -Ulcer Cleansing Rinsed/ Rinsed/ Irrigated with Irrigated with Saline Saline -Foul Odor after Cleansing No No -Bioengineered Tissue No No -Bleeding Controlled with Pressure Pressure -Treatment Response Procedure Procedure Tolerated Well Tolerated Well -Offloading Yes -Type of Offloading Other -Other Type of Offloading podus boot at podus boot at night night -Debridement - Subq, 1st 20sq cm Yes Yes -Wound Comment(s) cetacaine spray used Pain Scale: 0-10 Numeric Is Patient Pain Free? Yes Yes - Nurse 3 - General Ulcer D/C NN Start: 02/16/25 13:02 Freq: Status: Active Protocol: Activity Type Activity Date Activity User E-sign Co-sign Detail Recorded Client Recorded Date Recorded By Document 02/16/25 13:37 RB [id number] 02/16/25 13:38 RB Document 02/23/25 13:55 RB [id number] 02/23/25 13:56 RB 02/16/25 02/23/25 13:37 13:55 Wound Care Center Nurse 3 #1 LT HEEL -Ulcer Cleansing Rinsed/ Rinsed/ Irrigated with Irrigated with Saline Saline -Primary Dressing Applied Silicone Border Promogran Foam 4x4 Lauren Matter -Other Dressing santyl nurses hat on heel with abd -Primary Dressing Covered/Secured with Dry Gauze & Roll Gauze, Secured with Tape -Promogran Lauren Matter 1 -Silicone Border Foam 4x4 1 LLE -Compression Wrap Brijesh Wrap Treatment Response Procedure Procedure Tolerated Well Tolerated Well Pain Scale: 0-10 Numeric Is Patient Pain Free? Yes Yes WC - Visit Discharge Discharge Condition Stable Stable Ambulatory Status Ambulatory Ambulatory Transportation Private Auto Private Auto Medication Reconcilliation completed & No No provided to patient/care provider Clinical Summary of Care Provided Yes Yes Charges/Coding Procedures Integumentary [id number]: [id number] Mary subq tissue 20 sq cm/< Assessment/Plan Assessment/Plan (1) Pressure ulcer of left heel, stage 3: CODE(S): L89.623 - Pressure ulcer of left heel, stage 3 (2) Chronic venous insufficiency: CODE(S): I87.2 - Venous insufficiency (chronic) (peripheral) (3) Essential (primary) hypertension: CODE(S): I10 - Essential (primary) hypertension (4) CLL (chronic lymphocytic leukemia): CODE(S): C91.10 - Chronic lymphocytic leukemia of B-cell type not having achieved remission (5) GERD (gastroesophageal reflux disease): CODE(S): K21.9 - Gastro-esophageal reflux disease without esophagitis (6) Vitamin D deficiency: CODE(S): E55.9 - Vitamin D deficiency, unspecified (7) Severe pulmonary hypertension: CODE(S): I27.20 - Pulmonary hypertension, unspecified (8) Hyperlipidemia: CODE(S): E78.5 - Hyperlipidemia, unspecified QUALIFIERS: Hyperlipidemia type: mixed hyperlipidemia Qualified Code(s): E78.2 - Mixed hyperlipidemia (9) Secondary pulmonary arterial hypertension: CODE(S): I27.21 - Secondary pulmonary arterial hypertension (10) Paroxysmal atrial fibrillation: CODE(S): I48.0 - Paroxysmal atrial fibrillation (11) Lower extremity edema: CODE(S): R60.0 - Localized edema (12) Debility: CODE(S): R53.81 - Other malaise (13) Renal insufficiency: CODE(S): N28.9 - Disorder of kidney and ureter, unspecified (14) Chronic kidney disease: CODE(S): N18.9 - Chronic kidney disease, unspecified (15) Arthritis: CODE(S): M19.90 - Unspecified osteoarthritis, unspecified site (16) History of cataract surgery: CODE(S): Z98.49 - Cataract extraction status, unspecified eye (17) History of hip surgery: CODE(S): Z98.890 - Other specified postprocedural states PLAN: Plan This is an 84-year-old female with multiple pre-existing medical problems which are listed herein. She is not diabetic. She had recently been hospitalized at [facility], during which time she developed a left heel pressure ulceration, which appears to be stage III. A lengthy discussion has been undertaken with the patient regarding management recommendations. The patient has been advised to optimize her nutritional intake. The use of nutritional supplements has been recommended. Offloading measures have also been discussed. The patient asserts that she has been implementing the recommended offloading measures. She has obtained a Podus boot to assist in this effort. To minimize swelling, it has been suggested that the patient implement elevation to her lower extremities, whereby her legs would be level with her heart, or higher. This has been recommended for both daytime and nighttime hours. Prolonged idle sitting should be kept to a minimum. Ambulation has been encouraged, though the patient is somewhat limited, and requires a cane or rollator for ambulation purposes. Double Tubigrip's or the patient's own graduated compression stockings are to be continued daily to minimize swelling in the patient's lower extremities. The patient has been using collagenase Santyl topically on a daily basis. However, we are to transition to the use of moistened Lauren, which is to be applied topically on a daily basis. The patient has been instructed in the appropriate means of application. Home health nursing care assists the patient at her home twice weekly. Swab cultures were obtained on January 19, 2025, the results of which were positive for methicillin-resistant Staphylococcus aureus, Enterococcus faecalis, Staphylococcus aureus, and Streptococcus mitis. As a result, a prescription for linezolid 600 mg p.o. twice daily for a total of 14 days was issued. The course of linezolid has now been completed. In addition, the patient was provided a prescription for mupirocin topical ointment 2% to eradicate possible intranasal MRSA, and has been showering with Hibiclens. The patient is to return in 1 week for reevaluation. It is felt that the patient is a candidate for the use of a CTP (cellular tissue product), and approval will be sought from the patient's insurance plan for the use of EpiFix. The potential benefits of a cellular tissue product have been discussed with the patient in detail. Total time: 26 minutes
[2025-03-02 13:29] VITALS: BP 130/52; PULSE 96; RESP 18; TEMP 35.7; BMI 38.7
--- NOTE | 2025-03-03 10:02 | WC ---
PHOTO 03/02/25 LEFT HEEL
--- NOTE | 2025-03-04 13:53 | HP.PCM_ITS ---
History of Present Illness Date of Service: 03/02/25 Chief Complaint: Stage III pressure ulceration of the left heel History of Wound: This is an 84-year-old female who presented with a stage III pressure ulceration of the left heel. The ulceration had been present for approximately 3 to 4 weeks. The patient had been hospitalized at [facility] for several weeks recently, during which time she was treated for acute kidney injury, hyperkalemia, and pulmonary hypertension. It is during that period of time that she developed a pressure ulceration on her left posterior heel. The patient denies a history of diabetes mellitus. Her other pre-existing medical conditions are listed below. She is currently receiving home health nursing care through [facility]. The patient ambulates, though requires the use of a cane or rollator. She lives with her son. She denies a history of thrombophlebitis. She indicates that her legs do swell. She has in her possession graduated compression stockings, though has not been using them. [facility] Medical History Chronic kidney disease Pressure ulcer of left heel, stage 3 Chronic venous insufficiency Acute hyperkalemia Acute hyponatremia Acute kidney failure Acute hypotension Depression Kidney disease Former smoker Atrial fibrillation Hypertension Obesity GI bleed Essential (primary) hypertension Renal insufficiency Secondary pulmonary arterial hypertension Non-rheumatic tricuspid valve insufficiency GERD (gastroesophageal reflux disease) Hemorrhoids RLS (restless legs syndrome) Hyperlipidemia Diverticulitis Arthritis Paroxysmal atrial fibrillation Anxiety and depression Gastritis Home Medications Medication Instructions Recorded Last Taken Type bupropion HCl 150 mg tablet,12 hr 150 mg PO DAILY [facility] [email or web address] 11/10/15 12/10/24 History sustained-release cholecalciferol (vitamin D3) 75 3,000 unit PO DAILY [facility] 08/13/18 Unknown History mcg (3,000 unit) tablet multivitamin 1 tab PO DAILY Supplement Unknown History pantoprazole 40 mg tablet,delayed 40 mg PO DAILY GERD 08/13/18 12/10/24 History release escitalopram oxalate 10 mg tablet 10 mg PO DAILY [facility] [email or web address] 03/22/20 12/10/24 History simvastatin 10 mg tablet 10 mg PO QHS cholesterol low ering 06/28/20 12/09/24 Rx #90 tabs tramadol 50 mg tablet 50 mg PO Q6 PRN pain 4 12/09/24 History trazodone 50 mg tablet 25 - 50 mg PO QHS Sleep 07/19 012/09/24 History albuterol sulfate 90 mcg/actuation 2 puff inhalation Q 4H PRN wheezing 12/07/24 Unknown History aerosol inhaler acetaminophen 500 mg tablet 1,000 mg (2 x 500 mg) PO Q 6H PRN 12/22/24 Unknown Rx Pain Score 1-5 #0 tabs gabapentin 100 mg capsule 100 mg PO QHS nerve pain 30 days 12/22/24 Unknown Rx #30 caps furosemide 40 mg tablet 40 mg PO DAILY #30 tabs 12/19 03/12 Unknown Rx nystatin 100,000 unit/gram topical 1 applic topical BI D #60 grams 01/01/25 Unknown Rx powder mupirocin 2 % ointment topical kit 1 applic topical BI D MRSA 01/26/25 Unknown Rx infection #1 ea linezolid 600 mg tablet 600 mg PO Q12H 02/10/25 Unkn own History metoprolol tartrate 25 mg tablet 25 mg PO QDAY BP 01/17 05/12 Unknown History potassium chloride 10 mEq 10 meq PO QDAY 02/10/25 Unkn own History capsule,extended release linezolid 600 mg tablet 600 mg PO Q12H 14 days #28 t abs 02/12/25 Unknown Rx Allergy/AdvReac Type Severity Reaction Status Date / Time No Known Allergies Allergy Verified 02/10/25 13:09 Family History Mother Diabetes Father Myocardial infarction Surgical History History of cataract surgery History of hip surgery Social History household members: children and other details: Lives with son. Smoking Status: Former smoker how long ago did patient quit smokin years ago alcohol intake: never substance use type: does not use caffeine: No Vital Signs Vital Signs Vital Signs: Weight Weight: 219 lb Body Mass Index (BMI) 38.7 Physical Exam Const alert, oriented x3 and no apparent distress Constitutional Narrative: The patient's BMI is 38.8. General Appearance: cooperative, comfortable, well kempt and well developed Orientation / Consciousness: awake, oriented to person, oriented to place and oriented to time Exam Limitations: no limitations HEENT normocephalic and head/scalp atraumatic Head and Scalp: normal to inspection, normocephalic and atraumatic Face and Sinus: normal facial exam Nose: external nose normal External Ear: external ears normal Eyes EOMs intact bilaterally General Eye: normal appearance of both eyes Neck full ROM Resp normal respiratory effort, normal air movement, no retractions and no use of accessory muscles Effort and Inspection: able to speak in complete sentences Extremity no calf tenderness General Extremity: Negative for clubbing or cyanosis Skin Wound Narrative: A pressure ulceration is noted on the patient's left posterior heel. It appears to be a stage III pressure ulceration. It extends through all layers of the dermis and into the subcutaneous tissues, though does not appear to extend down to bone or tendon. There is a small amount of bioburden and some residual Lauren at the periphery of the ulceration. Ulcer margins are well beveled. There is no odor. There is no drainage. There is no sign of infection or cellulitis. Dimensions are documented elsewhere. Neuro oriented x3, CN's II-XII intact bilaterally, moves all extremities and no focal motor deficits Sensorium / Orientation: awake, alert, oriented to person, oriented to place and oriented to time Speech: speech normal Psych Appearance: grossly normal and appropriate Attitude: calm Activity / Motor Behavior: appropriate eye contact Speech: normal speech Mood & Affect: euthymic mood Thought Process: normal thought process Thought Content: normal thought content Attention / Concentration: attention grossly intact Debridement Note Debridement Note Wound debrided: Stage III pressure ulceration of the left posterior heel Laterality: Left Wound Grade/Stage: Stage III Type of Debridement: Excisional debridement Anesthesia Used: 5% Lidocaine Gel and Cetacaine Depth: in the subcutaneous layer Percentage of wound debrided: 100 Instrument Used: 5mm curette Tissue Removed: A small amount of bioburden and residual Lauren Severity: Fat Layer Exposed Amount of bleeding with debridement: Mild Bleeding Controlled with: Compression and gauze and Silver Nitrate Patient tolerated procedure: Patient tolerated procedure well Debridement Free Text: Following a routine excisional debridement, which was well-tolerated, the decision was made to proceed with application of an allograft. Allograft application has been preauthorized with the patient's insurance. A 2 cm x 2 cm EpiFix allograft was selected for application. It was removed from its sterile packaging. It was applied topically to the ulceration in the appropriate orientation. 100% of the allograft was utilized. Once in place, it was covered with Adaptic Touch, which was then secured in place using Steri-Strips. A small amount of collagen hydrogel was applied topically over the site, and a dry sterile gauze dressing was applied. The area was then wrapped with an Brijesh wrap to secure the allograft and dressing. The patient tolerated the procedure well. This represents the first such allograft application at this site. Post-Debridement Measurements and Additional Note: Post-Debridement Measurements/Treatment - Nurse 1 - General Ulcer Assessment Start: 02/16/25 13:02 Freq: Status: Active Protocol: WC.LOWEXT Activity Type Activity Date Activity User E-sign Co-sign Detail Recorded Client Recorded Date Recorded By Document 02/16/25 13:02 KW [id number] 02/16/25 13:07 KW Document 02/23/25 13:06 ML [id number] 02/23/25 13:09 ML Document 03/02/25 13:29 RB [id number] 03/02/25 13:31 RB 02/16/25 02/23/25 03/02/25 13:02 13:06 13:29 - Today's Visit Information Type of service Follow-up Visit Follow-up Visit Follow-up Visit (Physician/CIRCUIT CLERK (Physician/CIRCUIT CLERK (Physician/CIRCUIT CLERK ) ) ) Arrival Mode Ambulatory, Walker Ambulatory Walker Transfer Assistance None None Patient Identification Verified (Name & Yes Yes Yes ) Patient Requires Transmission-Based No No Precautions Height and Weight Body Mass Index (BMI) 38.7 38.7 38.7 BMI Classification Obese Obese Obese Vital Signs Temperature (97.8 F-99.1 F) 95.9 F L 97.0 F L 96.3 F L Temperature Source Temporal Temporal Temporal Pulse Rate (60-100) 74 96 Pulse Location Monitor Monitor Monitor Respiratory Rate (12-18) 18 14 18 Respiratory rate source Observation Observation Observation Oxygen Delivery Method Room Air Blood Pressure (90/60-120/80) 164/65 H 130/52 H Blood Pressure Mean 98 78 Source Monitor Monitor Monitor Position Semi-Fowlers Sitting Sitting Blood Pressure Location Right Arm Right Arm Left Arm History Since Last Visit- (Skip if this is Patient's initial visit) Have you changed medications since your No No No last visit? Any new allergies or adverse reactions No No No Had a fall/change in ADL's that may No No No increase risk of falls Signs or symptoms of abuse and/or No No No neglect since last visit Have you been in the hospital since your No No No last visit? Has dressing in place as prescribed Yes Yes Yes Has compression in place as prescribed No N/A Yes Has offloadiing in place as prescribed N/A N/A N/A Experienced any changes in pain level or No No No management Left Footwear Regular Shoe Regular Shoe Right Footwear Regular Shoe Regular Shoe Pain Scale: 0-10 Numeric Is Patient Pain Free? Yes Yes Yes WC - Nurse 1 - General Ulcer Measurement Start: 02/16/25 13:02 Freq: Status: Active Protocol: Activity Type Activity Date Activity User E-sign Co-sign Detail Recorded Client Recorded Date Recorded By Document 02/16/25 13:02 KW [id number] 02/16/25 13:07 KW Document 02/23/25 13:06 ML [id number] 02/23/25 13:09 ML Document 03/02/25 13:29 RB [id number] 03/02/25 13:31 RB 02/16/25 02/23/25 03/02/25 13:02 13:06 13:29 Wound Center Nurse 1 #1 LT HEEL -Combined with other wound No -Current Size (cm) - Length 2.2 2 1 -Current Size (cm) - Width 1.6 3 1.7 -Current Size (cm) - Depth 0.1 0.1 0.1 -Total Square Cm 3.52 6 1.7 -Date of Last Picture (Recall this 02/16/25 field) -Photo Taken Yes -Tunneling No -Undermining/Tunneling No -Circular Undermining No -Exudate Amt Small Medium Medium -Exudate Type Serosanguineous Serosanguineous Serosanguineous -Wound Margin Distinct, Distinct, Distinct, Outline Outline Outline Attached Attached Attached -Granulation Amt Large (67-100%) Small (1-33%) Large (67-100%) -Granulation Quality Ladera Ladera -Slough/Fibrin Yes Yes -Necrosis Amt Small (1-33%) Small (1-33%) -Necrotic Tissue Type Adherent Slough Adherent Slough -Structure Exposed N/A -Texture (Bebe-wound Skin Appearance) Assessed Assessed Assessed,Callus -Moisture (Bebe-wound Skin Appearance) Assessed, Assessed Assessed Maceration -Color (Bebe-wound Skin Appearance) Assessed Assessed Assessed -Temperature (Bebe-wound Skin No Abnormality No Abnormality No Abnormality Appearance) (Pt Warm) (Pt Warm) (Pt Warm) -Tenderness on Palpation (Bebe-wound No No Skin Appearance) -Ulcer Cleansing Rinsed/ Rinsed/ Wound Cleanser Irrigated with Irrigated with Saline Saline -Foul Odor after Cleansing No No -Anesthetic Used 5% Lidocaine 5% Lidocaine 5% Lidocaine Gel Gel Gel Lower Limb Edema Present Yes Left Calf (cm) 46.1 Left Ankle (cm) 26 WC - Nurse 2 - General Ulcer CM Notes Start: 02/16/25 13:02 Freq: Status: Active Protocol: Activity Type Activity Date Activity User E-sign Co-sign Detail Recorded Client Recorded Date Recorded By Document 02/16/25 13:15 DS [id number] 02/16/25 13:18 DS Edit Result 02/16/25 13:15 DS (1) [id number] 02/16/25 13:19 DS Document 02/23/25 13:33 DS [id number] 02/23/25 13:40 DS Document 03/02/25 13:47 DS [id number] 03/02/25 13:57 DS (1) #1 LT HEEL - Wound Comment(s) => cetacaine spray used 02/16/25 02/23/25 03/02/25 13:15 13:33 13:47 Wound Center Nurse 2 #1 LT HEEL -Time 13:10 13:33 13:47 -Correct Patient Yes Yes Yes -Correct Side, Site, Position Yes Yes Yes -Correct Procedure Yes Yes Yes -Procedure Performed Yes Yes Yes -Type of Procedure Debridement Debridement Debridement -Clinical Debridement Subcutaneous Subcutaneous Subcutaneous -Tissue Removed Subcutaneous Subcutaneous Subcutaneous -Post Debridement (cm) - Length 1.4 1.4 1.1 -Post Debridement (cm) - Width 2.4 2.0 2.0 -Post Debridement (cm) - Depth 0.2 0.1 0.2 -Total Square (Post) (cm) 3.36 2.80 2.20 -Area of Debridement (cm) - Length 1.4 1.4 1.1 -Area of Debridement (cm) - Width 2.4 2.0 2.0 -Total Square (Area) (cm) 3.36 2.80 2.20 -Tunneling No No No -Undermining/Tunneling No No No -Circular Undermining No No No -Wound/Ulcer Outcome Not Healed Not Healed Not Healed -Ulcer Cleansing Rinsed/ Rinsed/ Rinsed/ Irrigated with Irrigated with Irrigated with Saline Saline Saline -Foul Odor after Cleansing No No No -Bioengineered Tissue No No Yes -Type of Bioengineered Tissue Epifix -Expiration Date 09/18/29 -Product Lot Number [id number] -Percent Used 100 -Lot number of Saline Used [id number] -Bleeding Controlled with Pressure Pressure Pressure -Treatment Response Procedure Procedure Procedure Tolerated Well Tolerated Well Tolerated Well -Offloading Yes -Type of Offloading Other -Other Type of Offloading podus boot at podus boot at night night -Debridement - Subq, 1st 20sq cm Yes Yes No -Apply Skin Sub - 1st 25 sq cm - Feet 1 -Epifix Application 1-4 (per sq cm) 4 -Wound Comment(s) cetacaine spray used Pain Scale: 0-10 Numeric Is Patient Pain Free? Yes Yes Yes - Nurse 3 - General Ulcer D/C NN Start: 02/16/25 13:02 Freq: Status: Active Protocol: Activity Type Activity Date Activity User E-sign Co-sign Detail Recorded Client Recorded Date Recorded By Document 02/16/25 13:37 RB [id number] 02/16/25 13:38 RB Document 02/23/25 13:55 RB [id number] 02/23/25 13:56 RB Document 03/02/25 14:08 DS [id number] 03/02/25 14:09 DS 02/16/25 02/23/25 03/02/25 13:37 13:55 14:08 Wound Care Center Nurse 3 #1 LT HEEL -Ulcer Cleansing Rinsed/ Rinsed/ Irrigated with Irrigated with Saline Saline -Primary Dressing Applied Silicone Border Promogran C Hydrogel Foam 4x4 Lauren Matter -Other Dressing santyl nurses hat on abd pad, heel with abd -Primary Dressing Covered/Secured with Dry Gauze & Secured with Roll Gauze, Tape Secured with Tape -Hydrogel 0 -Promogran Lauren Matter 1 -Silicone Border Foam 4x4 1 LLE -Compression Wrap Brijesh Wrap Brijesh Wrap Treatment Response Procedure Procedure Tolerated Well Tolerated Well Pain Scale: 0-10 Numeric Is Patient Pain Free? Yes Yes Yes - Visit Discharge Discharge Condition Stable Stable Stable Ambulatory Status Ambulatory Ambulatory Ambulatory, Walker Transportation Private Auto Private Auto Private Auto Medication Reconcilliation completed & No No provided to patient/care provider Clinical Summary of Care Provided Yes Yes Charges/Coding Procedures Integumentary [id number]: [id number] Skin sub graft face/nk/hf/g Assessment/Plan Assessment/Plan (1) Pressure ulcer of left heel, stage 3: CODE(S): L89.623 - Pressure ulcer of left heel, stage 3 (2) Chronic venous insufficiency: CODE(S): I87.2 - Venous insufficiency (chronic) (peripheral) (3) Essential (primary) hypertension: CODE(S): I10 - Essential (primary) hypertension (4) CLL (chronic lymphocytic leukemia): CODE(S): C91.10 - Chronic lymphocytic leukemia of B-cell type not having achieved remission (5) GERD (gastroesophageal reflux disease): CODE(S): K21.9 - Gastro-esophageal reflux disease without esophagitis (6) Vitamin D deficiency: CODE(S): E55.9 - Vitamin D deficiency, unspecified (7) Severe pulmonary hypertension: CODE(S): I27.20 - Pulmonary hypertension, unspecified (8) Hyperlipidemia: CODE(S): E78.5 - Hyperlipidemia, unspecified QUALIFIERS: Hyperlipidemia type: mixed hyperlipidemia Qualified Code(s): E78.2 - Mixed hyperlipidemia (9) Secondary pulmonary arterial hypertension: CODE(S): I27.21 - Secondary pulmonary arterial hypertension (10) Paroxysmal atrial fibrillation: CODE(S): I48.0 - Paroxysmal atrial fibrillation (11) Lower extremity edema: CODE(S): R60.0 - Localized edema (12) Debility: CODE(S): R53.81 - Other malaise (13) Renal insufficiency: CODE(S): N28.9 - Disorder of kidney and ureter, unspecified (14) Chronic kidney disease: CODE(S): N18.9 - Chronic kidney disease, unspecified (15) Arthritis: CODE(S): M19.90 - Unspecified osteoarthritis, unspecified site (16) History of cataract surgery: CODE(S): Z98.49 - Cataract extraction status, unspecified eye (17) History of hip surgery: CODE(S): Z98.890 - Other specified postprocedural states PLAN: Plan This is an 84-year-old female with multiple pre-existing medical problems which are listed herein. She is not diabetic. She had recently been hospitalized at [facility], during which time she developed a left heel pressure ulceration, which appears to be stage III. A lengthy discussion has been undertaken with the patient regarding management recommendations. The patient has been advised to optimize her nutritional intake. The use of nutritional supplements has been recommended. Offloading measures have also been discussed. The patient asserts that she has been implementing the recommended offloading measures. She has obtained a Podus boot to assist in this effort. To minimize swelling, it has been suggested that the patient implement elevation to her lower extremities, whereby her legs would be level with her heart, or higher. This has been recommended for both daytime and nighttime hours. Prolonged idle sitting should be kept to a minimum. Ambulation has been encouraged, though the patient is somewhat limited, and requires a cane or rollator for ambulation purposes. Double Tubigrip's or the patient's own graduated compression stockings are to be continued daily to minimize swelling in the patient's lower extremities. An EpiFix allograft has been placed at the ulcer site today. It is to remain intact and undisturbed until the patient's return visit in 1 week. This represents the 1st such allograft application at this site.. Total time: 25 minutes
[2025-03-09 13:13] VITALS: BP 102/68; PULSE 94; RESP 18; TEMP 36.4; BMI 38.7
--- NOTE | 2025-03-10 11:28 | HP.PCM_ITS ---
History of Present Illness Date of Service: 03/09/25 Chief Complaint: Stage III pressure ulceration of the left heel History of Wound: This is an 84-year-old female who presented with a stage III pressure ulceration of the left heel. The ulceration had been present for approximately 3 to 4 weeks. The patient had been hospitalized at [facility] for several weeks recently, during which time she was treated for acute kidney injury, hyperkalemia, and pulmonary hypertension. It is during that period of time that she developed a pressure ulceration on her left posterior heel. The patient denies a history of diabetes mellitus. Her other pre-existing medical conditions are listed below. She is currently receiving home health nursing care through [facility]. The patient ambulates, though requires the use of a cane or rollator. She lives with her son. She denies a history of thrombophlebitis. She indicates that her legs do swell. She has in her possession graduated compression stockings, though had not been using them. [facility] Medical History Chronic kidney disease Pressure ulcer of left heel, stage 3 Chronic venous insufficiency Acute hyperkalemia Acute hyponatremia Acute kidney failure Acute hypotension Depression Kidney disease Former smoker Atrial fibrillation Hypertension Obesity GI bleed Essential (primary) hypertension Renal insufficiency Secondary pulmonary arterial hypertension Non-rheumatic tricuspid valve insufficiency GERD (gastroesophageal reflux disease) Hemorrhoids RLS (restless legs syndrome) Hyperlipidemia Diverticulitis Arthritis Paroxysmal atrial fibrillation Anxiety and depression Gastritis Home Medications Medication Instructions Recorded Last Taken Type bupropion HCl 150 mg tablet,12 hr 150 mg PO DAILY [facility] Viewpost 11/10/15 12/10/24 History sustained-release cholecalciferol (vitamin D3) 75 3,000 unit PO DAILY [facility] pplement 08/13/18 Unknown History mcg (3,000 unit) tablet multivitamin 1 tab PO DAILY Supplement Unknown History pantoprazole 40 mg tablet,delayed 40 mg PO DAILY GERD 08/13/18 12/10/24 History release escitalopram oxalate 10 mg tablet 10 mg PO DAILY [facility] 03/22/20 12/10/24 History simvastatin 10 mg tablet 10 mg PO QHS cholesterol low ering 06/28/20 12/09/24 Rx #90 tabs tramadol 50 mg tablet 50 mg PO Q6 PRN pain 4 12/09/24 History trazodone 50 mg tablet 25 - 50 mg PO QHS Sleep 07/19 012/09/24 History albuterol sulfate 90 mcg/actuation 2 puff inhalation Q 4H PRN wheezing 12/07/24 Unknown History aerosol inhaler acetaminophen 500 mg tablet 1,000 mg (2 x 500 mg) PO Q 6H PRN 12/22/24 Unknown Rx Pain Score 1-5 #0 tabs gabapentin 100 mg capsule 100 mg PO QHS nerve pain 30 days 12/22/24 Unknown Rx #30 caps furosemide 40 mg tablet 40 mg PO DAILY #30 tabs 12/19 03/12 Unknown Rx nystatin 100,000 unit/gram topical 1 applic topical BI D #60 grams 01/01/25 Unknown Rx powder mupirocin 2 % ointment topical kit 1 applic topical BI D MRSA 01/26/25 Unknown Rx infection #1 ea linezolid 600 mg tablet 600 mg PO Q12H 02/10/25 Unkn own History metoprolol tartrate 25 mg tablet 25 mg PO QDAY BP 01/17 05/12 Unknown History potassium chloride 10 mEq 10 meq PO QDAY 02/10/25 Unkn own History capsule,extended release linezolid 600 mg tablet 600 mg PO Q12H 14 days #28 t abs 02/12/25 Unknown Rx Allergy/AdvReac Type Severity Reaction Status Date / Time No Known Allergies Allergy Verified 02/10/25 13:09 Family History Mother Diabetes Father Myocardial infarction Surgical History History of cataract surgery History of hip surgery Social History household members: children and other details: Lives with son. Smoking Status: Former smoker how long ago did patient quit smokin years ago alcohol intake: never substance use type: does not use caffeine: No Vital Signs Vital Signs Vital Signs: 03/09/25 13:13 Temperature 97.5 F L Temperature Source Temporal Pulse Rate 94 Respiratory Rate 18 Blood Pressure 102/68 Blood Pressure Mean 79 Blood Pressure Source Monitor Blood Pressure Position Sitting Blood Pressure Location Left Arm Oxygen Delivery Method Room Air Weight Weight: 219 lb Body Mass Index (BMI) 38.7 Physical Exam Const alert, oriented x3 and no apparent distress Constitutional Narrative: The patient's BMI is 38.8. General Appearance: cooperative, comfortable, well kempt and well developed Orientation / Consciousness: awake, oriented to person, oriented to place and oriented to time Exam Limitations: no limitations HEENT normocephalic and head/scalp atraumatic Head and Scalp: normal to inspection, normocephalic and atraumatic Face and Sinus: normal facial exam Nose: external nose normal External Ear: external ears normal Eyes EOMs intact bilaterally General Eye: normal appearance of both eyes Neck full ROM Resp normal respiratory effort, normal air movement, no retractions and no use of accessory muscles Effort and Inspection: able to speak in complete sentences Extremity no calf tenderness General Extremity: Negative for clubbing or cyanosis Skin Wound Narrative: A pressure ulceration is noted on the patient's left posterior heel. It appears to be a stage III pressure ulceration. It extends through all layers of the dermis and into the subcutaneous tissues, though does not appear to extend down to bone or tendon. There is a small amount of bioburden and some residual EpiFix allograft at the periphery of the ulceration. The base of the ulceration is pink and healthy in appearance, with evidence of healthy granulation tissue. Ulcer margins are well beveled. There is no odor. There is no drainage. There is no sign of infection or cellulitis. Dimensions are documented elsewhere. The ulceration has decreased in size. Neuro oriented x3, CN's II-XII intact bilaterally, moves all extremities and no focal motor deficits Sensorium / Orientation: awake, alert, oriented to person, oriented to place and oriented to time Speech: speech normal Psych Appearance: grossly normal and appropriate Attitude: calm Activity / Motor Behavior: appropriate eye contact Speech: normal speech Mood & Affect: euthymic mood Thought Process: normal thought process Thought Content: normal thought content Attention / Concentration: attention grossly intact Debridement Note Debridement Note Wound debrided: Stage III pressure ulceration of the left posterior heel Laterality: Left Wound Grade/Stage: Stage III Type of Debridement: Excisional debridement Anesthesia Used: 5% Lidocaine Gel and Cetacaine Depth: in the subcutaneous layer Percentage of wound debrided: 100 Instrument Used: 5mm curette Tissue Removed: A small amount of bioburden and residual EpiFix allograft Severity: Fat Layer Exposed Amount of bleeding with debridement: Mild Bleeding Controlled with: Compression and gauze and Silver Nitrate Patient tolerated procedure: Patient tolerated procedure well Debridement Free Text: Following a routine excisional debridement, which was well-tolerated, an EpiFix allograft was applied. A 2 cm x 2 cm EpiFix allograft was selected for application. It was removed from its sterile packaging. It was applied topically to the ulceration in the appropriate orientation. 100% of the allograft was utilized. Once in place, it was covered with Adaptic Touch, which was then secured in place using Steri-Strips. A small amount of collagen hydrogel was applied topically over the site, and a dry sterile gauze dressing was applied. The area was then wrapped with an Brijesh wrap to secure the allograft and dressing. The patient tolerated the procedure well. This represents the 2nd such allograft application at this site. Post-Debridement Measurements and Additional Note: Post-Debridement Measurements/Treatment - Nurse 1 - General Ulcer Assessment Start: 02/16/25 13:02 Freq: Status: Active Protocol: .LYAO Activity Type Activity Date Activity User E-sign Co-sign Detail Recorded Client Recorded Date Recorded By Document 02/16/25 13:02 KW [id number] 02/16/25 13:07 KW Document 02/23/25 13:06 ML [id number] 02/23/25 13:09 ML Document 03/02/25 13:29 RB [id number] 03/02/25 13:31 RB Document 03/09/25 13:13 KW [id number] 03/09/25 13:17 KW 02/16/25 02/23/25 03/02/25 13:02 13:06 13:29 - Today's Visit Information Type of service Follow-up Visit Follow-up Visit Follow-up Visit (Physician/BACTERIOLOGY TECHNICIAN (Physician/BACTERIOLOGY TECHNICIAN (Physician/BACTERIOLOGY TECHNICIAN ) ) ) Arrival Mode Ambulatory, Walker Ambulatory Walker Transfer Assistance None None Patient Identification Verified (Name & Yes Yes Yes ) Patient Requires Transmission-Based No No Precautions Height and Weight Body Mass Index (BMI) 38.7 38.7 38.7 BMI Classification Obese Obese Obese Vital Signs Temperature (97.8 F-99.1 F) 95.9 F L 97.0 F L 96.3 F L Temperature Source Temporal Temporal Temporal Pulse Rate (60-100) 74 96 Pulse Location Monitor Monitor Monitor Respiratory Rate (12-18) 18 14 18 Respiratory rate source Observation Observation Observation Oxygen Delivery Method Room Air Blood Pressure (90/60-120/80) 164/65 H 130/52 H Blood Pressure Mean 98 78 Source Monitor Monitor Monitor Position Semi-Fowlers Sitting Sitting Blood Pressure Location Right Arm Right Arm Left Arm History Since Last Visit- (Skip if this is Patient's initial visit) Have you changed medications since your No No No last visit? Any new allergies or adverse reactions No No No Had a fall/change in ADL's that may No No No increase risk of falls Signs or symptoms of abuse and/or No No No neglect since last visit Have you been in the hospital since your No No No last visit? Has dressing in place as prescribed Yes Yes Yes Has compression in place as prescribed No N/A Yes Has offloadiing in place as prescribed N/A N/A N/A Experienced any changes in pain level or No No No management Left Footwear Regular Shoe Regular Shoe Right Footwear Regular Shoe Regular Shoe Pain Scale: 0-10 Numeric Is Patient Pain Free? Yes Yes Yes 03/09/25 13:13 WC - Today's Visit Information Type of service Follow-up Visit (Physician/BACTERIOLOGY TECHNICIAN ) Arrival Mode Ambulatory, Walker Transfer Assistance Patient Identification Verified (Name & Yes ) Patient Requires Transmission-Based Precautions Height and Weight Body Mass Index (BMI) 38.7 BMI Classification Obese Vital Signs Temperature (97.8 F-99.1 F) 97.5 F L Temperature Source Temporal Pulse Rate (60-100) 94 Pulse Location Monitor Respiratory Rate (12-18) 18 Respiratory rate source Observation Oxygen Delivery Method Room Air Blood Pressure (90/60-120/80) 102/68 Blood Pressure Mean 79 Source Monitor Position Sitting Blood Pressure Location Left Arm History Since Last Visit- (Skip if this is Patient's initial visit) Have you changed medications since your No last visit? Any new allergies or adverse reactions No Had a fall/change in ADL's that may No increase risk of falls Signs or symptoms of abuse and/or No neglect since last visit Have you been in the hospital since your No last visit? Has dressing in place as prescribed Yes Has compression in place as prescribed Yes Has offloadiing in place as prescribed N/A Experienced any changes in pain level or No management Left Footwear Regular Shoe Right Footwear Regular Shoe Pain Scale: 0-10 Numeric Is Patient Pain Free? Yes WC - Nurse 1 - General Ulcer Measurement Start: 02/16/25 13:02 Freq: Status: Active Protocol: Activity Type Activity Date Activity User E-sign Co-sign Detail Recorded Client Recorded Date Recorded By Document 02/16/25 13:02 KW [id number] 02/16/25 13:07 KW Document 02/23/25 13:06 ML [id number] 02/23/25 13:09 ML Document 03/02/25 13:29 RB [id number] 03/02/25 13:31 RB Document 03/09/25 13:13 KW [id number] 03/09/25 13:17 KW 02/16/25 02/23/25 03/02/25 13:02 13:06 13:29 Wound Center Nurse 1 #1 LT HEEL -Combined with other wound No -Current Size (cm) - Length 2.2 2 1 -Current Size (cm) - Width 1.6 3 1.7 -Current Size (cm) - Depth 0.1 0.1 0.1 -Total Square Cm 3.52 6 1.7 -Date of Last Picture (Recall this 02/16/25 field) -Photo Taken Yes -Tunneling No -Undermining/Tunneling No -Circular Undermining No -Exudate Amt Small Medium Medium -Exudate Type Serosanguineous Serosanguineous Serosanguineous -Wound Margin Distinct, Distinct, Distinct, Outline Outline Outline Attached Attached Attached -Granulation Amt Large (67-100%) Small (1-33%) Large (67-100%) -Granulation Quality Ilion Ilion -Slough/Fibrin Yes Yes -Necrosis Amt Small (1-33%) Small (1-33%) -Necrotic Tissue Type Adherent Slough Adherent Slough -Structure Exposed N/A -Texture (Bebe-wound Skin Appearance) Assessed Assessed Assessed,Callus -Moisture (Bebe-wound Skin Appearance) Assessed, Assessed Assessed Maceration -Color (Bebe-wound Skin Appearance) Assessed Assessed Assessed -Temperature (Bebe-wound Skin No Abnormality No Abnormality No Abnormality Appearance) (Pt Warm) (Pt Warm) (Pt Warm) -Tenderness on Palpation (Bebe-wound No No Skin Appearance) -Ulcer Cleansing Rinsed/ Rinsed/ Wound Cleanser Irrigated with Irrigated with Saline Saline -Foul Odor after Cleansing No No -Anesthetic Used 5% Lidocaine 5% Lidocaine 5% Lidocaine Gel Gel Gel Lower Limb Edema Present Yes Left Calf (cm) 46.1 Left Ankle (cm) 26 03/09/25 13:13 Wound Center Nurse 1 #1 LT HEEL -Combined with other wound -Current Size (cm) - Length 0.7 -Current Size (cm) - Width 1.8 -Current Size (cm) - Depth 0 -Total Square Cm 1.26 -Date of Last Picture (Recall this 03/09/25 field) -Photo Taken -Tunneling -Undermining/Tunneling -Circular Undermining -Exudate Amt Medium -Exudate Type Serosanguineous -Wound Margin Distinct, Outline Attached -Granulation Amt Large (67-100%) -Granulation Quality Ilion,Red -Slough/Fibrin -Necrosis Amt -Necrotic Tissue Type -Structure Exposed -Texture (Bebe-wound Skin Appearance) Assessed,Callus -Moisture (Bebe-wound Skin Appearance) Assessed -Color (Bebe-wound Skin Appearance) Assessed -Temperature (Bebe-wound Skin No Abnormality Appearance) (Pt Warm) -Tenderness on Palpation (Bebe-wound No Skin Appearance) -Ulcer Cleansing Soap and Water -Foul Odor after Cleansing No -Anesthetic Used 5% Lidocaine Gel Lower Limb Edema Present Left Calf (cm) Left Ankle (cm) WC - Nurse 2 - General Ulcer CM Notes Start: 02/16/25 13:02 Freq: Status: Active Protocol: Activity Type Activity Date Activity User E-sign Co-sign Detail Recorded Client Recorded Date Recorded By Document 02/16/25 13:15 DS [id number] 02/16/25 13:18 DS Edit Result 02/16/25 13:15 DS (1) [id number] 02/16/25 13:19 DS Document 02/23/25 13:33 DS [id number] 02/23/25 13:40 DS Document 03/02/25 13:47 DS [id number] 03/02/25 13:57 DS Document 03/09/25 13:34 DS [id number] 03/09/25 13:35 DS (1) #1 LT HEEL - Wound Comment(s) => cetacaine spray used 02/16/25 02/23/25 03/02/25 13:15 13:33 13:47 Wound Center Nurse 2 #1 LT HEEL -Time 13:10 13:33 13:47 -Correct Patient Yes Yes Yes -Correct Side, Site, Position Yes Yes Yes -Correct Procedure Yes Yes Yes -Procedure Performed Yes Yes Yes -Type of Procedure Debridement Debridement Debridement -Clinical Debridement Subcutaneous Subcutaneous Subcutaneous -Tissue Removed Subcutaneous Subcutaneous Subcutaneous -Post Debridement (cm) - Length 1.4 1.4 1.1 -Post Debridement (cm) - Width 2.4 2.0 2.0 -Post Debridement (cm) - Depth 0.2 0.1 0.2 -Total Square (Post) (cm) 3.36 2.80 2.20 -Area of Debridement (cm) - Length 1.4 1.4 1.1 -Area of Debridement (cm) - Width 2.4 2.0 2.0 -Total Square (Area) (cm) 3.36 2.80 2.20 -Tunneling No No No -Undermining/Tunneling No No No -Circular Undermining No No No -Wound/Ulcer Outcome Not Healed Not Healed Not Healed -Ulcer Cleansing Rinsed/ Rinsed/ Rinsed/ Irrigated with Irrigated with Irrigated with Saline Saline Saline -Foul Odor after Cleansing No No No -Bioengineered Tissue No No Yes -Type of Bioengineered Tissue Epifix -Expiration Date 09/18/29 -Product Lot Number [id number] -Percent Used 100 -Lot number of Saline Used [id number] -Bleeding Controlled with Pressure Pressure Pressure -Treatment Response Procedure Procedure Procedure Tolerated Well Tolerated Well Tolerated Well -Offloading Yes -Type of Offloading Other -Other Type of Offloading podus boot at podus boot at night night -Debridement - Subq, 1st 20sq cm Yes Yes No -Apply Skin Sub - 1st 25 sq cm - Feet 1 -Epifix Application 1-4 (per sq cm) 4 -Wound Comment(s) cetacaine spray used Pain Scale: 0-10 Numeric Is Patient Pain Free? Yes Yes Yes 03/09/25 13:34 Wound Center Nurse 2 #1 LT HEEL -Time 13:30 -Correct Patient Yes -Correct Side, Site, Position Yes -Correct Procedure Yes -Procedure Performed Yes -Type of Procedure Debridement -Clinical Debridement Subcutaneous -Tissue Removed Subcutaneous -Post Debridement (cm) - Length 0.8 -Post Debridement (cm) - Width 1.8 -Post Debridement (cm) - Depth 0.2 -Total Square (Post) (cm) 1.44 -Area of Debridement (cm) - Length 0.8 -Area of Debridement (cm) - Width 1.8 -Total Square (Area) (cm) 1.44 -Tunneling No -Undermining/Tunneling No -Circular Undermining No -Wound/Ulcer Outcome Not Healed -Ulcer Cleansing Rinsed/ Irrigated with Saline -Foul Odor after Cleansing No -Bioengineered Tissue Yes -Type of Bioengineered Tissue Epifix -Expiration Date 05/18/29 -Product Lot Number [id number] -Percent Used 100 -Lot number of Saline Used [id number] -Bleeding Controlled with Pressure -Treatment Response Procedure Tolerated Well -Offloading -Type of Offloading -Other Type of Offloading -Debridement - Subq, 1st 20sq cm No -Apply Skin Sub - 1st 25 sq cm - Feet 1 -Epifix Application 1-4 (per sq cm) 4 -Wound Comment(s) Pain Scale: 0-10 Numeric Is Patient Pain Free? Yes - Nurse 3 - General Ulcer D/C NN Start: 02/16/25 13:02 Freq: Status: Active Protocol: Activity Type Activity Date Activity User E-sign Co-sign Detail Recorded Client Recorded Date Recorded By Document 02/16/25 13:37 RB [id number] 02/16/25 13:38 RB Document 02/23/25 13:55 RB [id number] 02/23/25 13:56 RB Document 03/02/25 14:08 DS [id number] 03/02/25 14:09 DS Document 03/09/25 13:56 KW [id number] 03/09/25 13:57 KW 02/16/25 02/23/25 03/02/25 13:37 13:55 14:08 Wound Care Center Nurse 3 #1 LT HEEL -Ulcer Cleansing Rinsed/ Rinsed/ Irrigated with Irrigated with Saline Saline -Primary Dressing Applied Silicone Border Promogran C Hydrogel Foam 4x4 Lauren Matter -Other Dressing santyl nurses hat on abd pad, heel with abd -Primary Dressing Covered/Secured with Dry Gauze & Secured with Roll Gauze, Tape Secured with Tape -Hydrogel 0 -Promogran Lauren Matter 1 -Silicone Border Foam 4x4 1 LLE -Compression Wrap Brijesh Wrap Brijesh Wrap Treatment Response Procedure Procedure Tolerated Well Tolerated Well Pain Scale: 0-10 Numeric Is Patient Pain Free? Yes Yes Yes WC - Visit Discharge Discharge Condition Stable Stable Stable Ambulatory Status Ambulatory Ambulatory Ambulatory, Walker Transportation Private Auto Private Auto Private Auto Medication Reconcilliation completed & No No provided to patient/care provider Clinical Summary of Care Provided Yes Yes 03/09/25 13:56 Wound Care Center Nurse 3 #1 LT HEEL -Ulcer Cleansing -Primary Dressing Applied -Other Dressing -Primary Dressing Covered/Secured with Dry Gauze,Dry Gauze & Roll Gauze,Secured with Tape -Hydrogel -Promogran Lauren Matter -Silicone Border Foam 4x4 LLE -Compression Wrap Brijesh Wrap Treatment Response Pain Scale: 0-10 Numeric Is Patient Pain Free? Yes WC - Visit Discharge Discharge Condition Stable Ambulatory Status Ambulatory, Walker Transportation Private Auto Medication Reconcilliation completed & No provided to patient/care provider Clinical Summary of Care Provided Yes Charges/Coding Procedures Integumentary [id number]: [id number] Skin sub graft face/nk/hf/g Assessment/Plan Assessment/Plan (1) Pressure ulcer of left heel, stage 3: CODE(S): L89.623 - Pressure ulcer of left heel, stage 3 (2) Chronic venous insufficiency: CODE(S): I87.2 - Venous insufficiency (chronic) (peripheral) (3) Essential (primary) hypertension: CODE(S): I10 - Essential (primary) hypertension (4) CLL (chronic lymphocytic leukemia): CODE(S): C91.10 - Chronic lymphocytic leukemia of B-cell type not having achieved remission (5) GERD (gastroesophageal reflux disease): CODE(S): K21.9 - Gastro-esophageal reflux disease without esophagitis (6) Vitamin D deficiency: CODE(S): E55.9 - Vitamin D deficiency, unspecified (7) Severe pulmonary hypertension: CODE(S): I27.20 - Pulmonary hypertension, unspecified (8) Hyperlipidemia: CODE(S): E78.5 - Hyperlipidemia, unspecified QUALIFIERS: Hyperlipidemia type: mixed hyperlipidemia Qualified Code(s): E78.2 - Mixed hyperlipidemia (9) Secondary pulmonary arterial hypertension: CODE(S): I27.21 - Secondary pulmonary arterial hypertension (10) Paroxysmal atrial fibrillation: CODE(S): I48.0 - Paroxysmal atrial fibrillation (11) Lower extremity edema: CODE(S): R60.0 - Localized edema (12) Debility: CODE(S): R53.81 - Other malaise (13) Renal insufficiency: CODE(S): N28.9 - Disorder of kidney and ureter, unspecified (14) Chronic kidney disease: CODE(S): N18.9 - Chronic kidney disease, unspecified (15) Arthritis: CODE(S): M19.90 - Unspecified osteoarthritis, unspecified site (16) History of cataract surgery: CODE(S): Z98.49 - Cataract extraction status, unspecified eye (17) History of hip surgery: CODE(S): Z98.890 - Other specified postprocedural states PLAN: Plan This is an 84-year-old female with multiple pre-existing medical problems which are listed herein. She is not diabetic. She had recently been hospitalized at [facility], during which time she developed a left heel pressure ulceration, which appears to be stage III. A lengthy discussion has been undertaken with the patient regarding management recommendations. The patient has been advised to optimize her nutritional intake. The use of nutritional sup plements has been recommended. Offloading measures have also been discussed. The patient asserts that she has been implementing the recommended offloading measures. She has obtained a Podus boot to assist in this effort. To minimize swelling, it has been suggested that the patient implement elevation to her lower extremities, whereby her legs would be level with her heart, or higher. This has been recommended for both daytime and nighttime hours. Prolonged idle sitting should be kept to a minimum. Ambulation has been encouraged, though the patient is somewhat limited, and requires a cane or rollator for ambulation purposes. Double Tubigrip's or the patient's own graduated compression stockings are to be continued daily to minimize swelling in the patient's lower extremities. An EpiFix allograft has been placed at the ulcer site today. It is to remain intact and undisturbed until the patient's return visit in 1 week. This represents the 2nd such allograft application at this site.. Total time: 24 minutes
--- NOTE | 2025-03-11 09:27 | WC ---
PHOTO 03/09/25 LEFT HEEL
[2025-03-16 13:05] VITALS: BP 142/51; PULSE 85; RESP 18; TEMP 36.3; BMI 38.7
--- NOTE | 2025-03-17 10:40 | PCM.WC.HP ---
History of Present Illness Date of Service: 03/16/25 Chief Complaint: Stage III pressure ulceration of the left heel History of Wound: This is an 84-year-old female who presented with a stage III pressure ulceration of the left heel. The ulceration had been present for approximately 3 to 4 weeks. The patient had been hospitalized at [facility] for several weeks recently, during which time she was treated for acute kidney injury, hyperkalemia, and pulmonary hypertension. It is during that period of time that she developed a pressure ulceration on her left posterior heel. The patient denies a history of diabetes mellitus. Her other pre-existing medical conditions are listed below. She is currently receiving home health nursing care through [facility]. The patient ambulates, though requires the use of a cane or rollator. She lives with her son. She denies a history of thrombophlebitis. She indicates that her legs do swell. She has in her possession graduated compression stockings, though had not been using them. [facility] Medical History Chronic kidney disease Pressure ulcer of left heel, stage 3 Chronic venous insufficiency Acute hyperkalemia Acute hyponatremia Acute kidney failure Acute hypotension Depression Kidney disease Former smoker Atrial fibrillation Hypertension Obesity GI bleed Essential (primary) hypertension Renal insufficiency Secondary pulmonary arterial hypertension Non-rheumatic tricuspid valve insufficiency GERD (gastroesophageal reflux disease) Hemorrhoids RLS (restless legs syndrome) Hyperlipidemia Diverticulitis Arthritis Paroxysmal atrial fibrillation Anxiety and depression Gastritis Home Medications Medication Instructions Recorded Last Taken Type bupropion HCl 150 mg tablet,12 hr 150 mg PO DAILY mental health 11/10/15 12/10/24 History sustained-release cholecalciferol (vitamin D3) 75 3,000 unit PO DAILY supplement 08/13/18 Unknown History mcg (3,000 unit) tablet multivitamin 1 tab PO DAILY Supplement 08/13/18 Unknown History pantoprazole 40 mg tablet,delayed 40 mg PO DAILY GERD 08/13/18 12/10/24 History release escitalopram oxalate 10 mg tablet 10 mg PO DAILY mental health 03/22/20 12/10/24 History simvastatin 10 mg tablet 10 mg PO QHS cholesterol lowering 06/28/20 12/09/24 Rx #90 tabs tramadol 50 mg tablet 50 mg PO Q6 PRN pain 07/28/24 12/09/24 History trazodone 50 mg tablet 25 - 50 mg PO QHS Sleep 07/28/24 12/09/24 History albuterol sulfate 90 mcg/actuation 2 puff inhalation Q4H PRN wheezing 12/07/24 Unknown History aerosol inhaler acetaminophen 500 mg tablet 1,000 mg (2 x 500 mg) PO Q6H PRN 12/22/24 Unknown Rx Pain Score 1-5 #0 tabs gabapentin 100 mg capsule 100 mg PO QHS nerve pain 30 days 12/22/24 Unknown Rx #30 caps furosemide 40 mg tablet 40 mg PO DAILY #30 tabs 01/01/25 Unknown Rx nystatin 100,000 unit/gram topical 1 applic topical BID #60 grams 01/01/25 Unknown Rx powder mupirocin 2 % ointment topical kit 1 applic topical BID MRSA 01/26/25 Unknown Rx infection #1 ea linezolid 600 mg tablet 600 mg PO Q12H 02/10/25 Unknown History metoprolol tartrate 25 mg tablet 25 mg PO QDAY BP 02/10/25 Unknown History potassium chloride 10 mEq 10 meq PO QDAY 02/10/25 Unknown History capsule,extended release linezolid 600 mg tablet 600 mg PO Q12H 14 days #28 tabs 02/12/25 Unknown Rx Allergy/AdvReac Type Severity Reaction Status Date / Time No Known Allergies Allergy Verified 02/10/25 13:09 Family History Mother Diabetes Father Myocardial infarction Surgical History History of cataract surgery History of hip surgery Social History household members: children and other details: Lives with son. Smoking Status: Former smoker how long ago did patient quit smokin years ago alcohol intake: never substance use type: does not use caffeine: No Vital Signs Vital Signs Vital Signs: 03/16/25 13:05 Temperature 97.4 F L Temperature Source Temporal Pulse Rate 85 Respiratory Rate 18 Blood Pressure 142/51 H Blood Pressure Mean 81 Blood Pressure Source Monitor Blood Pressure Position Semi-Fowlers Blood Pressure Location Left Arm Weight Weight: 219 lb Body Mass Index (BMI) 38.7 Physical Exam Const alert, oriented x3 and no apparent distress Constitutional Narrative: The patient's BMI is 38.8. General Appearance: cooperative, comfortable, well kempt and well developed Orientation / Consciousness: awake, oriented to person, oriented to place and oriented to time Exam Limitations: no limitations HEENT normocephalic and head/scalp atraumatic Head and Scalp: normal to inspection, normocephalic and atraumatic Face and Sinus: normal facial exam Nose: external nose normal External Ear: external ears normal Eyes EOMs intact bilaterally General Eye: normal appearance of both eyes Neck full ROM Resp normal respiratory effort, normal air movement, no retractions and no use of accessory muscles Effort and Inspection: able to speak in complete sentences Extremity no calf tenderness General Extremity: Negative for clubbing or cyanosis Skin Wound Narrative: A pressure ulceration is noted on the patient's left posterior heel. It appears to be a stage III pressure ulceration. It extends through all layers of the dermis and into the subcutaneous tissues, though does not appear to extend down to bone or tendon. There is a small amount of bioburden and some residual EpiFix allograft at the periphery of the ulceration. The base of the ulceration is pink and healthy in appearance, with evidence of healthy granulation tissue. Ulcer margins are well beveled. There is no odor. There is no drainage. There is no sign of infection or cellulitis. Dimensions are documented elsewhere. The ulceration has decreased in size. Neuro oriented x3, CN's II-XII intact bilaterally, moves all extremities and no focal motor deficits Sensorium / Orientation: awake, alert, oriented to person, oriented to place and oriented to time Speech: speech normal Psych Appearance: grossly normal and appropriate Attitude: calm Activity / Motor Behavior: appropriate eye contact Speech: normal speech Mood & Affect: euthymic mood Thought Process: normal thought process Thought Content: normal thought content Attention / Concentration: attention grossly intact Debridement Note Debridement Note Wound debrided: Stage III pressure ulceration of the left posterior heel Laterality: Left Wound Grade/Stage: Stage III Type of Debridement: Excisional debridement Anesthesia Used: 5% Lidocaine Gel and Cetacaine Depth: in the subcutaneous layer Percentage of wound debrided: 100 Instrument Used: 7mm curette Tissue Removed: A small amount of bioburden and residual EpiFix allograft Severity: Fat Layer Exposed Amount of bleeding with debridement: Mild Bleeding Controlled with: Compression and gauze and Silver Nitrate Patient tolerated procedure: Patient tolerated procedure well Debridement Free Text: Following a routine excisional debridement, which was well-tolerated, an EpiFix allograft was applied. An 18 mm round EpiFix allograft was selected for application. It was removed from its sterile packaging. It was applied topically to the ulceration in the appropriate orientation. 100% of the allograft was utilized. Once in place, it was covered with Adaptic Touch, which was then secured in place using Steri-Strips. A small amount of collagen hydrogel was applied topically over the site, and a dry sterile gauze dressing was applied. The area was then wrapped with an Brijesh wrap to secure the allograft and dressing. The patient tolerated the procedure well. This represents the 3rd such allograft application at this site. Post-Debridement Measurements and Additional Note: Post-Debridement Measurements/Treatment - Nurse 1 - General Ulcer Assessment Start: 02/16/25 13:02 Freq: Status: Active Protocol: WC.LOWEXT Activity Type Activity Date Activity User E-sign Co-sign Detail Recorded Client Recorded Date Recorded By Document 02/16/25 13:02 KW [id number] 02/16/25 13:07 KW Document 02/23/25 13:06 ML [id number] 02/23/25 13:09 ML Document 03/02/25 13:29 RB [id number] 03/02/25 13:31 RB Document 03/09/25 13:13 KW [id number] 03/09/25 13:17 KW Document 03/16/25 13:05 KW [id number] 03/16/25 13:06 KW 02/16/25 02/23/25 03/02/25 13:02 13:06 13:29 - Today's Visit Information Type of service Follow-up Visit Follow-up Visit Follow-up Visit (Physician/BAND SAWING MACHINE OPERATOR (Physician/BAND SAWING MACHINE OPERATOR (Physician/BAND SAWING MACHINE OPERATOR ) ) ) Arrival Mode Ambulatory, Walker Ambulatory Walker Transfer Assistance None None Patient Identification Verified (Name & Yes Yes Yes ) Patient Requires Transmission-Based No No Precautions Height and Weight Body Mass Index (BMI) 38.7 38.7 38.7 BMI Classification Obese Obese Obese Vital Signs Temperature (97.8 F-99.1 F) 95.9 F L 97.0 F L 96.3 F L Temperature Source Temporal Temporal Temporal Pulse Rate (60-100) 74 96 Pulse Location Monitor Monitor Monitor Respiratory Rate (12-18) 18 14 18 Respiratory rate source Observation Observation Observation Oxygen Delivery Method Room Air Blood Pressure (90/60-120/80) 164/65 H 130/52 H Blood Pressure Mean 98 78 Source Monitor Monitor Monitor Position Semi-Fowlers Sitting Sitting Blood Pressure Location Right Arm Right Arm Left Arm History Since Last Visit- (Skip if this is Patient's initial visit) Have you changed medications since your No No No last visit? Any new allergies or adverse reactions No No No Had a fall/change in ADL's that may No No No increase risk of falls Signs or symptoms of abuse and/or No No No neglect since last visit Have you been in the hospital since your No No No last visit? Has dressing in place as prescribed Yes Yes Yes Has compression in place as prescribed No N/A Yes Has offloadiing in place as prescribed N/A N/A N/A Experienced any changes in pain level or No No No management Left Footwear Regular Shoe Regular Shoe Right Footwear Regular Shoe Regular Shoe Pain Scale: 0-10 Numeric Is Patient Pain Free? Yes Yes Yes 03/09/25 03/16/25 13:13 13:05 WC - Today's Visit Information Type of service Follow-up Visit Follow-up Visit (Physician/BAND SAWING MACHINE OPERATOR (Physician/BAND SAWING MACHINE OPERATOR ) ) Arrival Mode Ambulatory, Ambulatory Walker Transfer Assistance None Patient Identification Verified (Name & Yes Yes ) Patient Requires Transmission-Based No Precautions Height and Weight Body Mass Index (BMI) 38.7 38.7 BMI Classification Obese Obese Vital Signs Temperature (97.8 F-99.1 F) 97.5 F L 97.4 F L Temperature Source Temporal Temporal Pulse Rate (60-100) 94 85 Pulse Location Monitor Monitor Respiratory Rate (12-18) 18 18 Respiratory rate source Observation Observation Oxygen Delivery Method Room Air Blood Pressure (90/60-120/80) 102/68 142/51 H Blood Pressure Mean 79 81 Source Monitor Monitor Position Sitting Semi-Fowlers Blood Pressure Location Left Arm Left Arm History Since Last Visit- (Skip if this is Patient's initial visit) Have you changed medications since your No No last visit? Any new allergies or adverse reactions No No Had a fall/change in ADL's that may No No increase risk of falls Signs or symptoms of abuse and/or No No neglect since last visit Have you been in the hospital since your No No last visit? Has dressing in place as prescribed Yes Yes Has compression in place as prescribed Yes No Has offloadiing in place as prescribed N/A N/A Experienced any changes in pain level or No No management Left Footwear Regular Shoe Slipper Right Footwear Regular Shoe Slipper Pain Scale: 0-10 Numeric Is Patient Pain Free? Yes Yes WC - Nurse 1 - General Ulcer Measurement Start: 02/16/25 13:02 Freq: Status: Active Protocol: Activity Type Activity Date Activity User E-sign Co-sign Detail Recorded Client Recorded Date Recorded By Document 02/16/25 13:02 KW [id number] 02/16/25 13:07 KW Document 02/23/25 13:06 ML [id number] 02/23/25 13:09 ML Document 03/02/25 13:29 RB [id number] 03/02/25 13:31 RB Document 03/09/25 13:13 KW [id number] 03/09/25 13:17 KW Document 03/16/25 13:05 KW [id number] 03/16/25 13:06 KW 02/16/25 02/23/25 03/02/25 13:02 13:06 13:29 Wound Center Nurse 1 #1 LT HEEL -Combined with other wound No -Current Size (cm) - Length 2.2 2 1 -Current Size (cm) - Width 1.6 3 1.7 -Current Size (cm) - Depth 0.1 0.1 0.1 -Total Square Cm 3.52 6 1.7 -Date of Last Picture (Recall this 02/16/25 field) -Photo Taken Yes -Tunneling No -Undermining/Tunneling No -Circular Undermining No -Exudate Amt Small Medium Medium -Exudate Type Serosanguineous Serosanguineous Serosanguineous -Wound Margin Distinct, Distinct, Distinct, Outline Outline Outline Attached Attached Attached -Granulation Amt Large (67-100%) Small (1-33%) Large (67-100%) -Granulation Quality Ansley Ansley -Slough/Fibrin Yes Yes -Necrosis Amt Small (1-33%) Small (1-33%) -Necrotic Tissue Type Adherent Slough Adherent Slough -Structure Exposed N/A -Texture (Bebe-wound Skin Appearance) Assessed Assessed Assessed,Callus -Moisture (Bebe-wound Skin Appearance) Assessed, Assessed Assessed Maceration -Color (Bebe-wound Skin Appearance) Assessed Assessed Assessed -Temperature (Bebe-wound Skin No Abnormality No Abnormality No Abnormality Appearance) (Pt Warm) (Pt Warm) (Pt Warm) -Tenderness on Palpation (Bebe-wound No No Skin Appearance) -Ulcer Cleansing Rinsed/ Rinsed/ Wound Cleanser Irrigated with Irrigated with Saline Saline -Foul Odor after Cleansing No No -Anesthetic Used 5% Lidocaine 5% Lidocaine 5% Lidocaine Gel Gel Gel Lower Limb Edema Present Yes Left Calf (cm) 46.1 Left Ankle (cm) 26 03/09/25 03/16/25 13:13 13:05 Wound Center Nurse 1 #1 LT HEEL -Combined with other wound No -Current Size (cm) - Length 0.7 1.5 -Current Size (cm) - Width 1.8 0.7 -Current Size (cm) - Depth 0 0.1 -Total Square Cm 1.26 1.05 -Date of Last Picture (Recall this 03/09/25 field) -Photo Taken Yes -Tunneling No -Undermining/Tunneling No -Circular Undermining No -Exudate Amt Medium Medium -Exudate Type Serosanguineous Serosanguineous -Wound Margin Distinct, Distinct, Outline Outline Attached Attached -Granulation Amt Large (67-100%) Medium (34-66%) -Granulation Quality Ansley,Red Ansley -Slough/Fibrin Yes -Necrosis Amt Small (1-33%) -Necrotic Tissue Type Adherent Slough -Structure Exposed N/A -Texture (Bebe-wound Skin Appearance) Assessed,Callus Assessed -Moisture (Bebe-wound Skin Appearance) Assessed Maceration -Color (Bebe-wound Skin Appearance) Assessed Assessed -Temperature (Bebe-wound Skin No Abnormality No Abnormality Appearance) (Pt Warm) (Pt Warm) -Tenderness on Palpation (Bebe-wound No No Skin Appearance) -Ulcer Cleansing Soap and Water Wound Cleanser -Foul Odor after Cleansing No No -Anesthetic Used 5% Lidocaine 5% Lidocaine Gel Gel Lower Limb Edema Present Left Calf (cm) Left Ankle (cm) WC - Nurse 2 - General Ulcer CM Notes Start: 02/16/25 13:02 Freq: Status: Active Protocol: Activity Type Activity Date Activity User E-sign Co-sign Detail Recorded Client Recorded Date Recorded By Document 02/16/25 13:15 DS [id number] 02/16/25 13:18 DS Edit Result 02/16/25 13:15 DS (1) [id number] 02/16/25 13:19 DS Document 02/23/25 13:33 DS [id number] 02/23/25 13:40 DS Document 03/02/25 13:47 DS [id number] 03/02/25 13:57 DS Document 03/09/25 13:34 DS [id number] 03/09/25 13:35 DS Document 03/16/25 13:27 JF [id number] 03/16/25 13:29 JF (1) #1 LT HEEL - Wound Comment(s) => cetacaine spray used 02/16/25 02/23/25 03/02/25 13:15 13:33 13:47 Wound Center Nurse 2 #1 LT HEEL -Time 13:10 13:33 13:47 -Correct Patient Yes Yes Yes -Correct Side, Site, Position Yes Yes Yes -Correct Procedure Yes Yes Yes -Procedure Performed Yes Yes Yes -Type of Procedure Debridement Debridement Debridement -Clinical Debridement Subcutaneous Subcutaneous Subcutaneous -Tissue Removed Subcutaneous Subcutaneous Subcutaneous -Post Debridement (cm) - Length 1.4 1.4 1.1 -Post Debridement (cm) - Width 2.4 2.0 2.0 -Post Debridement (cm) - Depth 0.2 0.1 0.2 -Total Square (Post) (cm) 3.36 2.80 2.20 -Area of Debridement (cm) - Length 1.4 1.4 1.1 -Area of Debridement (cm) - Width 2.4 2.0 2.0 -Total Square (Area) (cm) 3.36 2.80 2.20 -Tunneling No No No -Undermining/Tunneling No No No -Circular Undermining No No No -Wound/Ulcer Outcome Not Healed Not Healed Not Healed -Ulcer Cleansing Rinsed/ Rinsed/ Rinsed/ Irrigated with Irrigated with Irrigated with Saline Saline Saline -Foul Odor after Cleansing No No No -Bioengineered Tissue No No Yes -Type of Bioengineered Tissue Epifix -Expiration Date 09/18/29 -Product Lot Number [id number] -Percent Used 100 -Lot number of Saline Used [id number] -Bleeding Controlled with Pressure Pressure Pressure -Treatment Response Procedure Procedure Procedure Tolerated Well Tolerated Well Tolerated Well -Offloading Yes -Type of Offloading Other -Other Type of Offloading podus boot at podus boot at night night -Debridement - Subq, 1st 20sq cm Yes Yes No -Apply Skin Sub - 1st 25 sq cm - Feet 1 -Epifix Application 1-4 (per sq cm) 4 -Epifix 18mm Disc Application 1-4 -Wound Comment(s) cetacaine spray used Pain Scale: 0-10 Numeric Is Patient Pain Free? Yes Yes Yes 03/09/25 03/16/25 13:34 13:27 Wound Center Nurse 2 #1 LT HEEL -Time 13:30 13:28 -Correct Patient Yes Yes -Correct Side, Site, Position Yes Yes -Correct Procedure Yes Yes -Procedure Performed Yes Yes -Type of Procedure Debridement Debridement -Clinical Debridement Subcutaneous Subcutaneous -Tissue Removed Subcutaneous Subcutaneous -Post Debridement (cm) - Length 0.8 0.7 -Post Debridement (cm) - Width 1.8 1.5 -Post Debridement (cm) - Depth 0.2 0.1 -Total Square (Post) (cm) 1.44 1.05 -Area of Debridement (cm) - Length 0.8 0.7 -Area of Debridement (cm) - Width 1.8 1.5 -Total Square (Area) (cm) 1.44 1.05 -Tunneling No No -Undermining/Tunneling No No -Circular Undermining No No -Wound/Ulcer Outcome Not Healed Not Healed -Ulcer Cleansing Rinsed/ Rinsed/ Irrigated with Irrigated with Saline Saline -Foul Odor after Cleansing No No -Bioengineered Tissue Yes Yes -Type of Bioengineered Tissue Epifix Epifix 18mm Disc -Expiration Date 05/18/29 09/18/29 -Product Lot Number [id number] -Percent Used 100 100 -Lot number of Saline Used [id number] -Bleeding Controlled with Pressure Pressure -Treatment Response Procedure Procedure Tolerated Well Tolerated Well -Offloading No -Type of Offloading -Other Type of Offloading -Debridement - Subq, 1st 20sq cm No No -Apply Skin Sub - 1st 25 sq cm - Feet 1 1 -Epifix Application 1-4 (per sq cm) 4 -Epifix 18mm Disc Application 1-4 3 -Wound Comment(s) Pain Scale: 0-10 Numeric Is Patient Pain Free? Yes Yes - Nurse 3 - General Ulcer D/C NN Start: 02/16/25 13:02 Freq: Status: Active Protocol: Activity Type Activity Date Activity User E-sign Co-sign Detail Recorded Client Recorded Date Recorded By Document 02/16/25 13:37 RB [id number] 02/16/25 13:38 RB Document 02/23/25 13:55 RB [id number] 02/23/25 13:56 RB Document 03/02/25 14:08 DS [id number] 03/02/25 14:09 DS Document 03/09/25 13:56 KW [id number] 03/09/25 13:57 KW Document 03/16/25 13:51 KW [id number] 03/16/25 13:52 KW 02/16/25 02/23/25 03/02/25 13:37 13:55 14:08 Wound Care Center Nurse 3 #1 LT HEEL -Ulcer Cleansing Rinsed/ Rinsed/ Irrigated with Irrigated with Saline Saline -Primary Dressing Applied Silicone Border Promogran C Hydrogel Foam 4x4 Lauren Matter -Other Dressing santyl nurses hat on abd pad, heel with abd -Primary Dressing Covered/Secured with Dry Gauze & Secured with Roll Gauze, Tape Secured with Tape -Hydrogel 0 -Promogran Lauren Matter 1 -Silicone Border Foam 4x4 1 LLE -Compression Wrap Brijesh Wrap Brijesh Wrap -Other Treatment Response Procedure Procedure Tolerated Well Tolerated Well Pain Scale: 0-10 Numeric Is Patient Pain Free? Yes Yes Yes WC - Visit Discharge Discharge Condition Stable Stable Stable Ambulatory Status Ambulatory Ambulatory Ambulatory, Walker Transportation Private Auto Private Auto Private Auto Medication Reconcilliation completed & No No provided to patient/care provider Clinical Summary of Care Provided Yes Yes 03/09/25 03/16/25 13:56 13:51 Wound Care Center Nurse 3 #1 LT HEEL -Ulcer Cleansing -Primary Dressing Applied -Other Dressing -Primary Dressing Covered/Secured with Dry Gauze,Dry Dry Gauze & Gauze & Roll Roll Gauze, Gauze,Secured Secured with with Tape Tape -Hydrogel -Promogran Lauren Matter -Silicone Border Foam 4x4 LLE -Compression Wrap Brijesh Wrap Brijesh Wrap -Other 4 INCH Treatment Response Pain Scale: 0-10 Numeric Is Patient Pain Free? Yes Yes WC - Visit Discharge Discharge Condition Stable Stable Ambulatory Status Ambulatory, Ambulatory, Walker Walker Transportation Private Auto Private Auto Medication Reconcilliation completed & No No provided to patient/care provider Clinical Summary of Care Provided Yes Yes Charges/Coding Procedures Integumentary [id number]: [id number] Skin sub graft face/nk/hf/g Assessment/Plan Assessment/Plan (1) Pressure ulcer of left heel, stage 3: CODE(S): L89.623 - Pressure ulcer of left heel, stage 3 (2) Chronic venous insufficiency: CODE(S): I87.2 - Venous insufficiency (chronic) (peripheral) (3) Essential (primary) hypertension: CODE(S): I10 - Essential (primary) hypertension (4) CLL (chronic lymphocytic leukemia): CODE(S): C91.10 - Chronic lymphocytic leukemia of B-cell type not having achieved remission (5) GERD (gastroesophageal reflux disease): CODE(S): K21.9 - Gastro-esophageal reflux disease without esophagitis (6) Vitamin D deficiency: CODE(S): E55.9 - Vitamin D deficiency, unspecified (7) Severe pulmonary hypertension: CODE(S): I27.20 - Pulmonary hypertension, unspecified (8) Hyperlipidemia: CODE(S): E78.5 - Hyperlipidemia, unspecified QUALIFIERS: Hyperlipidemia type: mixed hyperlipidemia Qualified Code(s): E78.2 - Mixed hyperlipidemia (9) Secondary pulmonary arterial hypertension: CODE(S): I27.21 - Secondary pulmonary arterial hypertension (10) Paroxysmal atrial fibrillation: CODE(S): I48.0 - Paroxysmal atrial fibrillation (11) Lower extremity edema: CODE(S): R60.0 - Localized edema (12) Debility: CODE(S): R53.81 - Other malaise (13) Renal insufficiency: CODE(S): N28.9 - Disorder of kidney and ureter, unspecified (14) Chronic kidney disease: CODE(S): N18.9 - Chronic kidney disease, unspecified (15) Arthritis: CODE(S): M19.90 - Unspecified osteoarthritis, unspecified site (16) History of cataract surgery: CODE(S): Z98.49 - Cataract extraction status, unspecified eye (17) History of hip surgery: CODE(S): Z98.890 - Other specified postprocedural states PLAN: Plan This is an 84-year-old female with multiple pre-existing medical problems which are listed herein. She is not diabetic. She had recently been hospitalized at [facility], during which time she developed a left heel pressure ulceration, which appears to be stage III. A lengthy discussion has been undertaken with the patient regarding management recommendations. The patient has been advised to optimize her nutritional intake. The use of nutritional supplements has been recommended. Offloading measures have also been discussed. The patient asserts that she has been implementing the recommended offloading measures. She has obtained a Podus boot to assist in this effort. To minimize swelling, it has been suggested that the patient implement elevation to her lower extremities, whereby her legs would be level with her heart, or higher. This has been recommended for both daytime and nighttime hours. Prolonged idle sitting should be kept to a minimum. Ambulation has been encouraged, though the patient is somewhat limited, and requires a cane or rollator for ambulation purposes. Double Tubigrip's or the patient's own graduated compression stockings are to be continued daily to minimize swelling in the patient's lower extremities. An EpiFix allograft has been placed at the ulcer site today. This represents the 3rd such allograft application at this site. It is to remain intact and undisturbed until the patient's return visit in 1 week. Total time: 26 minutes
--- NOTE | 2025-03-17 13:58 | WC ---
PHOTO 03/16/25 LEFT HEEL
== END 2025-03-17 23:59 | disposition home or self-care (01) ==
LOC: WC 13:00
PROVIDERS: PCP Internal Medicine; Referring Provider Clinical Nurse Specialist; Visit Provider Surgery
DX: L89.623 Pressure ulcer of left heel, stage 3 (principal); C91.10 Chronic lymphocytic leukemia of B-cell type not having achieved remission; I27.21 Secondary pulmonary arterial hypertension; I48.0 Paroxysmal atrial fibrillation; N18.30 Chronic kidney disease, stage 3 unspecified; I87.2 Venous insufficiency (chronic) (peripheral); I12.9 Hypertensive chronic kidney disease with stage 1 through stage 4 chronic kidney disease, or unspecified chronic kidney disease; M19.90 Unspecified osteoarthritis, unspecified site; Z87.891 Personal history of nicotine dependence; E55.9 Vitamin D deficiency, unspecified; K21.9 Gastro-esophageal reflux disease without esophagitis; R60.0 Localized edema; E78.2 Mixed hyperlipidemia; Z79.899 Other long term (current) drug therapy
CPT/HCPCS: 11042; 15275; Q4186

== ENCOUNTER 2025-04-13 13:30 | Outpatient (RCR) | payer MEDICARE, BC, SELFPAY ==
[2025-03-18 00:37] VITALS: BP 142/51; PULSE 85; RESP 18; TEMP 36.3; BMI 38.7
[2025-03-23 13:08] VITALS: BP 97/47; PULSE 84; RESP 16; TEMP 36.1; BMI 38.7
--- NOTE | 2025-03-24 20:28 | HP.PCM_ITS ---
History of Present Illness Date of Service: 03/23/25 Chief Complaint: Stage III pressure ulceration of the left heel History of Wound: This is an 84-year-old female who presented with a stage III pressure ulceration of the left heel. The ulceration had been present for approximately 3 to 4 weeks. The patient had been hospitalized at [facility] for several weeks, during which time she was treated for acute kidney injury, hyperkalemia, and pulmonary hypertension. It was during that period of time that she developed a pressure ulceration on her left posterior heel. The patient denies a history of diabetes mellitus. Her other pre-existing medical conditions are listed below. She is currently receiving home health nursing care through [facility]. The patient ambulates, though requires the use of a cane or rollator. She lives with her son. She denies a history of thrombophlebitis. She indicates that her legs do swell. She has in her possession graduated compression stockings, though had not been using them. [facility] Medical History Chronic kidney disease Pressure ulcer of left heel, stage 3 Chronic venous insufficiency Acute hyperkalemia Acute hyponatremia Acute kidney failure Acute hypotension Depression Kidney disease Former smoker Atrial fibrillation Hypertension Obesity GI bleed Essential (primary) hypertension Renal insufficiency Secondary pulmonary arterial hypertension Non-rheumatic tricuspid valve insufficiency GERD (gastroesophageal reflux disease) Hemorrhoids RLS (restless legs syndrome) Hyperlipidemia Diverticulitis Arthritis Paroxysmal atrial fibrillation Anxiety and depression Gastritis Home Medications Medication Instructions Recorded Last Taken Type bupropion HCl 150 mg tablet,12 hr 150 mg PO DAILY [facility] 11/10/15 12/10/24 History sustained-release cholecalciferol (vitamin D3) 75 3,000 unit PO DAILY mer[facility] pplement 08/13/18 Unknown History mcg (3,000 unit) tablet multivitamin 1 tab PO DAILY Supplement Unknown History pantoprazole 40 mg tablet,delayed 40 mg PO DAILY GERD 08/13/18 12/10/24 History release escitalopram oxalate 10 mg tablet 10 mg PO DAILY [facility] 03/22/20 12/10/24 History simvastatin 10 mg tablet 10 mg PO QHS cholesterol low ering 06/28/20 12/09/24 Rx #90 tabs tramadol 50 mg tablet 50 mg PO Q6 PRN pain 4 12/09/24 History trazodone 50 mg tablet 25 - 50 mg PO QHS Sleep 07/19 0/24 12/09/24 History albuterol sulfate 90 mcg/actuation 2 puff inhalation Q 4H PRN wheezing 12/07/24 Unknown History aerosol inhaler acetaminophen 500 mg tablet 1,000 mg (2 x 500 mg) PO Q 6H PRN 12/22/24 Unknown Rx Pain Score 1-5 #0 tabs gabapentin 100 mg capsule 100 mg PO QHS nerve pain 30 days 12/22/24 Unknown Rx #30 caps furosemide 40 mg tablet 40 mg PO DAILY #30 tabs 12/19 03/12 Unknown Rx nystatin 100,000 unit/gram topical 1 applic topical BI D #60 grams 01/01/25 Unknown Rx powder mupirocin 2 % ointment topical kit 1 applic topical BI D MRSA 01/26/25 Unknown Rx infection #1 ea linezolid 600 mg tablet 600 mg PO Q12H 02/10/25 Unkn own History metoprolol tartrate 25 mg tablet 25 mg PO QDAY BP 01/17 05/12 Unknown History potassium chloride 10 mEq 10 meq PO QDAY 02/10/25 Unkn own History capsule,extended release linezolid 600 mg tablet 600 mg PO Q12H 14 days #28 t abs 02/12/25 Unknown Rx Allergy/AdvReac Type Severity Reaction Status Date / Time No Known Allergies Allergy Verified 02/10/25 13:09 Family History Mother Diabetes Father Myocardial infarction Surgical History History of cataract surgery History of hip surgery Social History household members: children and other details: Lives with son. Smoking Status: Former smoker how long ago did patient quit smokin years ago alcohol intake: never substance use type: does not use caffeine: No Vital Signs Vital Signs Vital Signs: Weight Weight: 219 lb Body Mass Index (BMI) 38.7 Physical Exam Const alert, oriented x3 and no apparent distress Constitutional Narrative: The patient's BMI is 38.8. General Appearance: cooperative, comfortable, well kempt and well developed Orientation / Consciousness: awake, oriented to person, oriented to place and o riented to time Exam Limitations: no limitations HEENT normocephalic and head/scalp atraumatic Head and Scalp: normal to inspection, normocephalic and atraumatic Face and Sinus: normal facial exam Nose: external nose normal External Ear: external ears normal Eyes EOMs intact bilaterally General Eye: normal appearance of both eyes Neck full ROM Resp normal respiratory effort, normal air movement, no retractions and no use of accessory muscles Effort and Inspection: able to speak in complete sentences Extremity no calf tenderness General Extremity: Negative for clubbing or cyanosis Skin Wound Narrative: A pressure ulceration is noted on the patient's left posterior heel. It appears to be a stage III pressure ulceration. It extends through all layers of the dermis and into the subcutaneous tissues, though does not appear to extend down to bone or tendon. There is a small amount of bioburden and some residual EpiFix allograft at the periphery of the ulceration. The base of the ulceration is pink and healthy in appearance, with evidence of healthy granulation tissue. Ulcer margins are well beveled. There is no odor. There is no drainage. There is no sign of infection or cellulitis. Dimensions are documented elsewhere. The ulceration has decreased in size. Mild swelling is noted in the patient's left lower extremity. Neuro oriented x3, CN's II-XII intact bilaterally, moves all extremities and no focal motor deficits Sensorium / Orientation: awake, alert, oriented to person, oriented to place and oriented to time Speech: speech normal Psych Appearance: grossly normal and appropriate Attitude: calm Activity / Motor Behavior: appropriate eye contact Speech: normal speech Mood & Affect: euthymic mood Thought Process: normal thought process Thought Content: normal thought content Attention / Concentration: attention grossly intact Debridement Note Debridement Note Wound debrided: Stage III pressure ulceration of the left posterior heel Laterality: Left Wound Grade/Stage: Stage III Type of Debridement: Excisional debridement Anesthesia Used: 5% Lidocaine Gel and Cetacaine Depth: Down to and including healthy tissue and in the subcutaneous layer Percentage of wound debrided: 100 Instrument Used: 5mm curette Tissue Removed: A small amount of bioburden and residual EpiFix allograft Severity: Fat Layer Exposed Amount of bleeding with debridement: Mild Bleeding Controlled with: Compression and gauze and Silver Nitrate Patient tolerated procedure: Patient tolerated procedure well Debridement Free Text: Following a routine excisional debridement, which was well-tolerated, an EpiFix allograft was applied. An 18 mm round EpiFix allograft was selected for application. It was removed from its sterile packaging. It was applied topically to the ulceration in the appropriate orientation. 100% of the allograft was utilized. Once in place, it was covered with Adaptic Touch, which was then secured in place using Steri-Strips. A small amount of collagen hydrogel was applied topically over the site, and a dry sterile gauze dressing was applied. The area was then wrapped with gauze to secure the allograft and dressing. The patient tolerated the procedure well. This represents the 4th such allograft application at this site. 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 ) Arrival Mode Ambulatory, Walker Patient Identification Verified (Name & Yes ) Height and Weight Body Mass Index (BMI) 38.7 BMI Classification Obese Vital Signs Temperature (97.8 F-99.1 F) 97.0 F L Temperature Source Temporal Pulse Rate (60-100) 84 Pulse Location Monitor Respiratory Rate (12-18) 16 Respiratory rate source Observation Oxygen Delivery Method Room Air Blood Pressure (90/60-120/80) 97/47 L Blood Pressure Mean 63 Source Monitor Position Semi-Fowlers Blood Pressure Location Left Arm History Since Last Visit- (Skip if this is Patient's initial visit) Have you changed medications since your No last visit? Any new allergies or adverse reactions No Had a fall/change in ADL's that may No increase risk of falls Signs or symptoms of abuse and/or No neglect since last visit Have you been in the hospital since your No last visit? Has dressing in place as prescribed Yes Has compression in place as prescribed Yes Has offloadiing in place as prescribed N/A Experienced any changes in pain level or No management Left Footwear Regular Shoe Right Footwear Regular Shoe Pain Scale: 0-10 Numeric Is Patient Pain Free? Yes - Nurse 1 - General Ulcer Measurement Start: 03/23/25 13:08 Freq: Status: Active Protocol: Activity Type Activity Date Activity User E-sign Co-sign Detail Recorded Client Recorded Date Recorded By Document 03/23/25 13:08 GINO [id number] 03/23/25 13:12 03/23/25 13:08 Wound Center Nurse 1 #1 LT HEEL -Current Size (cm) - Length 0.5 -Current Size (cm) - Width 1.1 -Current Size (cm) - Depth 0 -Total Square Cm 0.55 -Date of Last Picture (Recall this 03/23/25 field) -Exudate Amt Medium -Exudate Type Serosanguineous -Wound Margin Distinct, Outline Attached -Granulation Amt Large (67-100%) -Granulation Quality Red -Texture (Bebe-wound Skin Appearance) Assessed -Moisture (Bebe-wound Skin Appearance) Assessed -Color (Bebe-wound Skin Appearance) Assessed -Temperature (Bebe-wound Skin No Abnormality Appearance) (Pt Warm) -Tenderness on Palpation (Bebe-wound No Skin Appearance) -Ulcer Cleansing Soap and Water -Foul Odor after Cleansing No -Anesthetic Used 5% Lidocaine Gel WC - Nurse 2 - General Ulcer CM Notes Start: 03/23/25 13:08 Freq: Status: Active Protocol: Activity Type Activity Date Activity User E-sign Co-sign Detail Recorded Client Recorded Date Recorded By Document 03/23/25 13:29 KAYLI [id number] 03/23/25 13:31 KAYLI 03/23/25 13:29 Wound Center Nurse 2 -Time 13:29 -Correct Patient Yes -Correct Side, Site, Position Yes -Correct Procedure Yes -Procedure Performed Yes -Type of Procedure Debridement -Clinical Debridement Subcutaneous -Tissue Removed Subcutaneous -Post Debridement (cm) - Length 0.5 -Post Debridement (cm) - Width 1.1 -Post Debridement (cm) - Depth 0.1 -Total Square (Post) (cm) 0.55 -Area of Debridement (cm) - Length 0.5 -Area of Debridement (cm) - Width 1.1 -Total Square (Area) (cm) 0.55 -Tunneling No -Undermining/Tunneling No -Circular Undermining No -Wound/Ulcer Outcome Not Healed -Ulcer Cleansing Rinsed/ Irrigated with Saline -Foul Odor after Cleansing No -Bioengineered Tissue Yes -Type of Bioengineered Tissue Epifix 18mm Disc -Expiration Date 09/18/29 -Product Lot Number [id number] -Percent Used 100 -Lot number of Saline Used [id number] -Bleeding Controlled with Pressure -Treatment Response Procedure Tolerated Well -Offloading No -Debridement - Subq, 1st 20sq cm No -Apply Skin Sub - 1st 25 sq cm - Feet 1 -Epifix 18mm Disc Application 1-4 3 Pain Scale: 0-10 Numeric Is Patient Pain Free? Yes WC - Nurse 3 - General Ulcer D/C NN Start: 03/23/25 13:08 Freq: Status: Active Protocol: Activity Type Activity Date Activity User E-sign Co-sign Detail Recorded Client Recorded Date Recorded By Document 03/23/25 13:50 KW [id number] 03/23/25 13:51 KW 03/23/25 13:50 Wound Care Center Nurse 3 #1 LT HEEL -Primary Dressing Covered/Secured with Dry Gauze & Roll Gauze, Secured with Tape LLE -Tubular Bandage Double Layer -Size of Tubigrip Used Size F -Size F ($) 2 Pain Scale: 0-10 Numeric Is Patient Pain Free? Yes Charges/Coding Procedures Integumentary [id number]: [id number] Skin sub graft face/nk/hf/g Assessment/Plan Assessment/Plan (1) Pressure ulcer of left heel, stage 3: CODE(S): L89.623 - Pressure ulcer of left heel, stage 3 (2) Chronic venous insufficiency: CODE(S): I87.2 - Venous insufficiency (chronic) (peripheral) (3) Essential (primary) hypertension: CODE(S): I10 - Essential (primary) hypertension (4) CLL (chronic lymphocytic leukemia): CODE(S): C91.10 - Chronic lymphocytic leukemia of B-cell type not having achieved remission (5) GERD (gastroesophageal reflux disease): CODE(S): K21.9 - Gastro-esophageal reflux disease without esophagitis (6) Vitamin D deficiency: CODE(S): E55.9 - Vitamin D deficiency, unspecified (7) Severe pulmonary hypertension: CODE(S): I27.20 - Pulmonary hypertension, unspecified (8) Hyperlipidemia: CODE(S): E78.5 - Hyperlipidemia, unspecified QUALIFIERS: Hyperlipidemia type: mixed hyperlipidemia Qualified Code(s): E78.2 - Mixed hyperlipidemia (9) Secondary pulmonary arterial hypertension: CODE(S): I27.21 - Secondary pulmonary arterial hypertension (10) Paroxysmal atrial fibrillation: CODE(S): I48.0 - Paroxysmal atrial fibrillation (11) Lower extremity edema: CODE(S): R60.0 - Localized edema (12) Debility: CODE(S): R53.81 - Other malaise (13) Renal insufficiency: CODE(S): N28.9 - Disorder of kidney and ureter, unspecified (14) Chronic kidney disease: CODE(S): N18.9 - Chronic kidney disease, unspecified (15) Arthritis: CODE(S): M19.90 - Unspecified osteoarthritis, unspecified site (16) History of cataract surgery: CODE(S): Z98.49 - Cataract extraction status, unspecified eye (17) History of hip surgery: CODE(S): Z98.890 - Other specified postprocedural states PLAN: Plan This is an 84-year-old female with multiple pre-existing medical problems which are listed herein. She is not diabetic. She had recently been hospitalized at [facility], during which time she developed a left heel pressure ulceration, stage III. A lengthy discussion has been undertaken with the patient regarding management recommendations. The patient has been advised to optimize her nutritional intake. The use of nutritional supplements has been recommended. Offloading measures have also been discussed. The patient asserts that she has been implementing the recommended offloading measures. She has obtained a Podus boot to assist in this effort. To minimize swelling, it has been suggested that the patient implement elevation to her lower extremities, whereby her legs would be level with her heart, or higher. This has been recommended for both daytime and nighttime hours. Prolonged idle sitting should be kept to a minimum. Ambulation has been encouraged, though the patient is so mewhat limited, and requires a cane or rollator for ambulation purposes. Double Tubigrip's are to be continued daily to minimize swelling in the patient's lower extremities. An EpiFix allograft has been placed at the ulcer site today. This represents the 4th such allograft application at this site. It is to remain intact and undisturbed until the patient's return visit in 1 week. The patient' s improvement has been progressive and satisfactory, as the left heel ulceration continues to diminish in size with the use of the EpiFix allograft. Total time: 25 minutes
--- NOTE | 2025-03-25 10:26 | WC ---
PHOTO 03/23/25 LEFT HEEL
[2025-03-30 13:17] VITALS: RESP 16; TEMP 35.8; BMI 38.7
--- NOTE | 2025-03-30 18:52 | HP.PCM_ITS ---
History of Present Illness Date of Service: 03/30/25 Chief Complaint: Stage III pressure ulceration of the left heel History of Wound: This is an 84-year-old female who presented with a stage III pressure ulceration of the left heel. The ulceration had been present for approximately 3 to 4 weeks. The patient had been hospitalized at [facility] for several weeks, during which time she was treated for acute kidney injury, hyperkalemia, and pulmonary hypertension. It was during that period of time that she developed a pressure ulceration on her left posterior heel. The patient denies a history of diabetes mellitus. Her other pre-existing medical conditions are listed below. She is currently receiving home health nursing care through [facility]. The patient ambulates, though requires the use of a cane or rollator. She lives with her son. She denies a history of thrombophlebitis. She indicates that her legs do swell. She has in her possession graduated compression stockings, though had not been using them. [facility] Medical History Chronic kidney disease Pressure ulcer of left heel, stage 3 Chronic venous insufficiency Acute hyperkalemia Acute hyponatremia Acute kidney failure Acute hypotension Depression Kidney disease Former smoker Atrial fibrillation Hypertension Obesity GI bleed Essential (primary) hypertension Renal insufficiency Secondary pulmonary arterial hypertension Non-rheumatic tricuspid valve insufficiency GERD (gastroesophageal reflux disease) Hemorrhoids RLS (restless legs syndrome) Hyperlipidemia Diverticulitis Arthritis Paroxysmal atrial fibrillation Anxiety and depression Gastritis Home Medications Medication Instructions Recorded Last Taken Type bupropion HCl 150 mg tablet,12 hr 150 mg PO DAILY [facility] [employer] 11/10/15 12/10/24 History sustained-release cholecalciferol (vitamin D3) 75 3,000 unit PO DAILY [facility]plement 08/13/18 Unknown History mcg (3,000 unit) tablet multivitamin 1 tab PO DAILY Supplement Unknown History pantoprazole 40 mg tablet,delayed 40 mg PO DAILY GERD 08/13/18 12/10/24 History release escitalopram oxalate 10 mg tablet 10 mg PO DAILY [facility] [employer] 03/22/20 12/10/24 History simvastatin 10 mg tablet 10 mg PO QHS cholesterol low ering 06/28/20 12/09/24 Rx #90 tabs tramadol 50 mg tablet 50 mg PO Q6 PRN pain 4 12/09/24 History trazodone 50 mg tablet 25 - 50 mg PO QHS Sleep 07/19 012/09/24 History albuterol sulfate 90 mcg/actuation 2 puff inhalation Q 4H PRN wheezing 12/07/24 Unknown History aerosol inhaler acetaminophen 500 mg tablet 1,000 mg (2 x 500 mg) PO Q 6H PRN 12/22/24 Unknown Rx Pain Score 1-5 #0 tabs gabapentin 100 mg capsule 100 mg PO QHS nerve pain 30 days 12/22/24 Unknown Rx #30 caps furosemide 40 mg tablet 40 mg PO DAILY #30 tabs 12/19 03/12 Unknown Rx nystatin 100,000 unit/gram topical 1 applic topical BI D #60 grams 01/01/25 Unknown Rx powder mupirocin 2 % ointment topical kit 1 applic topical BI D MRSA 01/26/25 Unknown Rx infection #1 ea linezolid 600 mg tablet 600 mg PO Q12H 02/10/25 Unkn own History metoprolol tartrate 25 mg tablet 25 mg PO QDAY BP 01/17 05/12 Unknown History potassium chloride 10 mEq 10 meq PO QDAY 02/10/25 Unkn own History capsule,extended release linezolid 600 mg tablet 600 mg PO Q12H 14 days #28 t abs 02/12/25 Unknown Rx Allergy/AdvReac Type Severity Reaction Status Date / Time No Known Allergies Allergy Verified 02/10/25 13:09 Family History Mother Diabetes Father Myocardial infarction Surgical History History of cataract surgery History of hip surgery Social History household members: children and other details: Lives with son. Smoking Status: Former smoker how long ago did patient quit smokin years ago alcohol intake: never substance use type: does not use caffeine: No Vital Signs Vital Signs Vital Signs: 03/30/25 13:17 Temperature 96.4 F L Temperature Source Temporal Respiratory Rate 16 Blood Pressure Source Monitor Blood Pressure Position Semi-Fowlers Blood Pressure Location Right Arm Oxygen Delivery Method Room Air Weight Weight: 219 lb Body Mass Index (BMI) 38.7 Physical Exam Const alert, oriented x3 and no apparent distress Constitutional Narrative: The patient's BMI is 38.8. General Appearance: cooperative, comfortable, well kempt and well developed Orientation / Consciousness: awake, oriented to person, oriented to place and oriented to time Exam Limitations: no limitations HEENT normocephalic and head/scalp atraumatic Head and Scalp: normal to inspection, normocephalic and atraumatic Face and Sinus: normal facial exam Nose: external nose normal External Ear: external ears normal Eyes EOMs intact bilaterally General Eye: normal appearance of both eyes Neck full ROM Resp normal respiratory effort, normal air movement, no retractions and no use of accessory muscles Effort and Inspection: able to speak in complete sentences Extremity no calf tenderness General Extremity: Negative for clubbing or cyanosis Skin Wound Narrative: A pressure ulceration is noted on the patient's left posterior heel. It appears to be a stage III pressure ulceration. It extends through all layers of the dermis and into the subcutaneous tissues, though does not appear to extend down to bone or tendon. The residual from the prior EpiFix allograft remains in place, and is well incorporated. There is no sign of infection or cellulitis. There is no surrounding erythema. No drainage or odor are noted. Dimensions are documented elsewhere. The ulceration appears to have decreased in size. Slight swelling is noted in the patient's left lower extremity. Neuro oriented x3, CN's II-XII intact bilaterally, moves all extremities and no focal motor deficits Sensorium / Orientation: awake, alert, oriented to person, oriented to place and oriented to time Speech: speech normal Psych Appearance: grossly normal and appropriate Attitude: calm Activity / Motor Behavior: appropriate eye contact Speech: normal speech Mood & Affect: euthymic mood Thought Process: normal thought process Thought Content: normal thought content Attention / Concentration: attention grossly intact Debridement Note Debridement Note No debridement was completed: No debridement was completed today Post-Debridement Measurements and Additional Note: Post-Debridement Measurements/Treatment JIMBO - Nurse 1 - General Ulcer Assessment Start: 03/23/25 13:08 Freq: Status: Active Protocol: ALEM Activity Type Activity Date Activity User E-sign Co-sign Detail Recorded Client Recorded Date Recorded By Document 03/23/25 13:08 KW [id number] 03/23/25 13:12 KW Document 03/30/25 13:17 KW [id number] 03/30/25 13:24 KW 03/23/25 03/30/25 13:08 13:17 - Today's Visit Information Type of service Follow-up Visit Follow-up Visit (Physician/[employer]TER (Physician/[employer]TER ) ) Arrival Mode Ambulatory, Ambulatory, Walker Walker Patient Identification Verified (Name & Yes Yes ) Height and Weight Body Mass Index (BMI) 38.7 38.7 BMI Classification Obese Obese Vital Signs Temperature (97.8 F-99.1 F) 97.0 F L 96.4 F L Temperature Source Temporal Temporal Pulse Rate (60-100) 84 Pulse Location Monitor Monitor Respiratory Rate (12-18) 16 16 Respiratory rate source Observation Observation Oxygen Delivery Method Room Air Room Air Blood Pressure (90/60-120/80) 97/47 L Blood Pressure Mean 63 Source Monitor Monitor Position Semi-Fowlers Semi-Fowlers Blood Pressure Location Left Arm Right Arm History Since Last Visit- (Skip if this is Patient's initial visit) Have you changed medications since your No No last visit? Any new allergies or adverse reactions No No Had a fall/change in ADL's that may No No increase risk of falls Signs or symptoms of abuse and/or No No neglect since last visit Have you been in the hospital since your No No last visit? Has dressing in place as prescribed Yes Yes Has compression in place as prescribed Yes Yes Has offloadiing in place as prescribed N/A N/A Experienced any changes in pain level or No No management Left Footwear Regular Shoe Regular Shoe Right Footwear Regular Shoe Regular Shoe Pain Scale: 0-10 Numeric Is Patient Pain Free? Yes Yes - Nurse 1 - General Ulcer Measurement Start: 03/23/25 13:08 Freq: Status: Active Protocol: Activity Type Activity Date Activity User E-sign Co-sign Detail Recorded Client Recorded Date Recorded By Document 03/23/25 13:08 [id number] 03/23/25 13:12 KW Document 03/30/25 13:17 KW [id number] 03/30/25 13:24 KW 03/23/25 03/30/25 13:08 13:17 Wound Center Nurse 1 #1 LT HEEL -Current Size (cm) - Length 0.5 0.3 -Current Size (cm) - Width 1.1 1 -Current Size (cm) - Depth 0 0.1 -Total Square Cm 0.55 0.3 -Date of Last Picture (Recall this 03/23/25 field) -Exudate Amt Medium Small -Exudate Type Serosanguineous Serosanguineous -Wound Margin Distinct, Distinct, Outline Outline Attached Attached -Granulation Amt Large (67-100%) -Granulation Quality Red -Necrosis Amt Large (67-100%) -Necrotic Tissue Type Eschar -Texture (Bebe-wound Skin Appearance) Assessed Assessed,Callus -Moisture (Bebe-wound Skin Appearance) Assessed Assessed -Color (Bebe-wound Skin Appearance) Assessed Assessed -Temperature (Bebe-wound Skin No Abnormality No Abnormality Appearance) (Pt Warm) (Pt Warm) -Tenderness on Palpation (Bebe-wound No Skin Appearance) -Ulcer Cleansing Soap and Water Soap and Water -Foul Odor after Cleansing No No -Anesthetic Used 5% Lidocaine 5% Lidocaine Gel Gel -Wound Comment(s) scabbed Left Calf (cm) 43 Left Ankle (cm) 24.5 WC - Nurse 2 - General Ulcer CM Notes Start: 03/23/25 13:08 Freq: Status: Active Protocol: Activity Type Activity Date Activity User E-sign Co-sign Detail Recorded Client Recorded Date Recorded By Document 03/23/25 13:29 JF [id number] 03/23/25 13:31 Document 03/30/25 13:55 [id number] 03/30/25 13:59 03/23/25 03/30/25 13:29 13:55 Wound Center Nurse 2 #1 LT HEEL -Time 13:29 -Correct Patient Yes Yes -Correct Side, Site, Position Yes No -Correct Procedure Yes No -Procedure Performed Yes No -Type of Procedure Debridement -Clinical Debridement Subcutaneous -Tissue Removed Subcutaneous -Post Debridement (cm) - Length 0.5 -Post Debridement (cm) - Width 1.1 -Post Debridement (cm) - Depth 0.1 -Total Square (Post) (cm) 0.55 -Area of Debridement (cm) - Length 0.5 -Area of Debridement (cm) - Width 1.1 -Total Square (Area) (cm) 0.55 -Tunneling No -Undermining/Tunneling No -Circular Undermining No -Wound/Ulcer Outcome Not Healed Not Healed -Ulcer Cleansing Rinsed/ Irrigated with Saline -Foul Odor after Cleansing No -Bioengineered Tissue Yes -Type of Bioengineered Tissue Epifix 18mm Disc -Expiration Date 09/18/29 -Product Lot Number [id number] -Percent Used 100 -Lot number of Saline Used [id number] -Bleeding Controlled with Pressure -Treatment Response Procedure Tolerated Well -Offloading No -Debridement - Subq, 1st 20sq cm No -Apply Skin Sub - 1st 25 sq cm - Feet 1 -Epifix 18mm Disc Application 1-4 3 Pain Scale: 0-10 Numeric Is Patient Pain Free? Yes Yes - Nurse 3 - General Ulcer D/C NN Start: 03/23/25 13:08 Freq: Status: Active Protocol: Activity Type Activity Date Activity User E-sign Co-sign Detail Recorded Client Recorded Date Recorded By Document 03/23/25 13:50 KW [id number] 03/23/25 13:51 KW Document 03/30/25 13:59 KW [id number] 03/30/25 14:00 KW 03/23/25 03/30/25 13:50 13:59 Wound Care Center Nurse 3 #1 LT HEEL -Primary Dressing Covered/Secured with Dry Gauze & Dry Gauze & Roll Gauze, Roll Gauze, Secured with Secured with Tape Tape LLE -Tubular Bandage Double Layer Double Layer -Size of Tubigrip Used Size F Size F -Size F ($) 2 2 Pain Scale: 0-10 Numeric Is Patient Pain Free? Yes Yes - Visit Discharge Discharge Condition Stable Ambulatory Status Ambulatory, Walker Transportation Private Auto Medication Reconcilliation completed & No provided to patient/care provider Clinical Summary of Care Provided Yes Charges/Coding Visit Charges Office Visits / Consults: [id number] OV L3 Est 20min Assessment/Plan Assessment/Plan (1) Pressure ulcer of left heel, stage 3: CODE(S): L89.623 - Pressure ulcer of left heel, stage 3 (2) Chronic venous insufficiency: CODE(S): I87.2 - Venous insufficiency (chronic) (peripheral) (3) Essential (primary) hypertension: CODE(S): I10 - Essential (primary) hypertension (4) CLL (chronic lymphocytic leukemia): CODE(S): C91.10 - Chronic lymphocytic leukemia of B-cell type not having achieved remission (5) GERD (gastroesophageal reflux disease): CODE(S): K21.9 - Gastro-esophageal reflux disease without esophagitis (6) Vitamin D deficiency: CODE(S): E55.9 - Vitamin D deficiency, unspecified (7) Severe pulmonary hypertension: CODE(S): I27.20 - Pulmonary hypertension, unspecified (8) Hyperlipidemia: CODE(S): E78.5 - Hyperlipidemia, unspecified QUALIFIERS: Hyperlipidemia type: mixed hyperlipidemia Qualified Code(s): E78.2 - Mixed hyperlipidemia (9) Secondary pulmonary arterial hypertension: CODE(S): I27.21 - Secondary pulmonary arterial hypertension (10) Paroxysmal atrial fibrillation: CODE(S): I48.0 - Paroxysmal atrial fibrillation (11) Lower extremity edema: CODE(S): R60.0 - Localized edema (12) Debility: CODE(S): R53.81 - Other malaise (13) Renal insufficiency: CODE(S): N28.9 - Disorder of kidney and ureter, unspecified (14) Chronic kidney disease: CODE(S): N18.9 - Chronic kidney disease, unspecified (15) Arthritis: CODE(S): M19.90 - Unspecified osteoarthritis, unspecified site (16) History of cataract surgery: CODE(S): Z98.49 - Cataract extraction status, unspecified eye (17) History of hip surgery: CODE(S): Z98.890 - Other specified postprocedural states PLAN: Plan This is an 84-year-old female with multiple pre-existing medical problems which are listed herein. She is not diabetic. She had recently been hospitalized at [facility], during which time she developed a left heel pressure ulceration, stage III. A lengthy discussion has been undertaken with the patient regarding management recommendations. The patient has been advised to optimize her nutritional intake. The use of nutritional supplements has been re commended. Offloading measures have also been discussed. The patient asserts that she has been implementing the recommended offloading measures. She has obtained a Podus boot to assist in this effort. To minimize swelling, it has been suggested that the patient implement elevation to her lower extremities, whereby her legs would be level with her heart, or higher. This has been recommended for both daytime and nighttime hours. Prolonged idle sitting should be kept to a minimum. Ambulation has been encouraged, though the patient is somewhat limited, and requires a cane or rollator for ambulation purposes. Double Tubigrip's are to be continued daily to minimize swelling in the patient's lower extremities. Inspection of the left heel ulceration reveals the prior EpiFix allograft, applied last week, representing the 4th such allograft, to remain intact and well incorporated onto the wound surface. Therefore, the decision was made to leave the allograft in place, undisturbed, and to allow an additional week for the allograft to stimulate wound healing. The site was covered with Adaptic, collagen hydrogel was applied, and a dry gauze dressing was placed. The dressing is to remain intact and undisturbed until the patient's return visit in 1 week. The patient's improvement has been progressive and satisfactory, as the left heel ulceration continues to diminish in size with the use of the EpiFix allografts. Total time: 24 minutes
[2025-04-13 13:14] VITALS: BP 124/53; PULSE 79; RESP 18; TEMP 36.2; BMI 38.7
--- NOTE | 2025-04-13 15:22 | HP.PCM_ITS ---
History of Present Illness Date of Service: 04/13/25 Chief Complaint: Stage III pressure ulceration of the left heel History of Wound: This is an 84-year-old female who presented with a stage III pressure ulceration of the left heel. The ulceration had been present for approximately 3 to 4 weeks. The patient had been hospitalized at [facility] for several weeks, during which time she was treated for acute kidney injury, hyperkalemia, and pulmonary hypertension. It was during that period of time that she developed a pressure ulceration on her left posterior heel. The patient denies a history of diabetes mellitus. Her other pre-existing medical conditions are listed below. She is currently receiving home health nursing care through [facility]. The patient ambulates, though requires the use of a cane or rollator. She lives with her son. She denies a history of thrombophlebitis. She indicates that her legs do swell. She has in her possession graduated compression stockings, though had not been using them. [facility]LY [facility] Medical History Chronic kidney disease Pressure ulcer of left heel, stage 3 Chronic venous insufficiency Acute hyperkalemia Acute hyponatremia Acute kidney failure Acute hypotension Depression Kidney disease Former smoker Atrial fibrillation Hypertension Obesity GI bleed Essential (primary) hypertension Renal insufficiency Secondary pulmonary arterial hypertension Non-rheumatic tricuspid valve insufficiency GERD (gastroesophageal reflux disease) Hemorrhoids RLS (restless legs syndrome) Hyperlipidemia Diverticulitis Arthritis Paroxysmal atrial fibrillation Anxiety and depression Gastritis Home Medications Medication Instructions Recorded Last Taken Type bupropion HCl 150 mg tablet,12 hr 150 mg PO DAILY [facility] feedPack 11/10/15 12/10/24 History sustained-release cholecalciferol (vitamin D3) 75 3,000 unit PO DAILY [facility] pplement 08/13/18 Unknown History mcg (3,000 unit) tablet multivitamin 1 tab PO DAILY Supplement Unknown History pantoprazole 40 mg tablet,delayed 40 mg PO DAILY GERD 08/13/18 12/10/24 History release escitalopram oxalate 10 mg tablet 10 mg PO [facility]ILY [facility] 03/22/20 12/10/24 History simvastatin 10 mg tablet 10 mg PO QHS cholesterol low ering 06/28/20 12/09/24 Rx #90 tabs tramadol 50 mg tablet 50 mg PO Q6 PRN pain 4 12/09/24 History trazodone 50 mg tablet 25 - 50 mg PO QHS Sleep 07/19 012/09/24 History albuterol sulfate 90 mcg/actuation 2 puff inhalation Q 4H PRN wheezing 12/07/24 Unknown History aerosol inhaler acetaminophen 500 mg tablet 1,000 mg (2 x 500 mg) PO Q 6H PRN 12/22/24 Unknown Rx Pain Score 1-5 #0 tabs gabapentin 100 mg capsule 100 mg PO QHS nerve pain 30 days 12/22/24 Unknown Rx #30 caps furosemide 40 mg tablet 40 mg PO DAILY #30 tabs 12/19 03/12 Unknown Rx nystatin 100,000 unit/gram topical 1 applic topical BI D #60 grams 01/01/25 Unknown Rx powder mupirocin 2 % ointment topical kit 1 applic topical BI D MRSA 01/26/25 Unknown Rx infection #1 ea linezolid 600 mg tablet 600 mg PO Q12H 02/10/25 Unkn own History metoprolol tartrate 25 mg tablet 25 mg PO QDAY BP 01/17 05/12 Unknown History potassium chloride 10 mEq 10 meq PO QDAY 02/10/25 Unkn own History capsule,extended release linezolid 600 mg tablet 600 mg PO Q12H 14 days #28 t abs 02/12/25 Unknown Rx Allergy/AdvReac Type Severity Reaction Status Date / Time No Known Allergies Allergy Verified 02/10/25 13:09 Family History Mother Diabetes Father Myocardial infarction Surgical History History of cataract surgery History of hip surgery Social History household members: children and other details: Lives with son. Smoking Status: Former smoker how long ago did patient quit smokin years ago alcohol intake: never substance use type: does not use caffeine: No Vital Signs Vital Signs Vital Signs: 04/13/25 13:14 Temperature 97.2 F L Temperature Source Temporal Pulse Rate 79 Respiratory Rate 18 Blood Pressure 124/53 H Blood Pressure Mean 76 Blood Pressure Source Monitor Blood Pressure Position Semi-Fowlers Blood Pressure Location Left Arm Oxygen Delivery Method Room Air Weight Weight: 219 lb Body Mass Index (BMI) 38.7 Physical Exam Const alert, oriented x3 and no apparent distress Constitutional Narrative: The patient's BMI is 38.8. General Appearance: cooperative, comfortable, well kempt and well developed Orientation / Consciousness: awake, oriented to person, oriented to place and oriented to time Exam Limitations: no limitations HEENT normocephalic and head/scalp atraumatic Head and Scalp: normal to inspection, normocephalic and atraumatic Face and Sinus: normal facial exam Nose: external nose normal External Ear: external ears normal Eyes EOMs intact bilaterally General Eye: normal appearance of both eyes Neck full ROM Resp normal respiratory effort, normal air movement, no retractions and no use of accessory muscles Effort and Inspection: able to speak in complete sentences Extremity no calf tenderness General Extremity: Negative for clubbing or cyanosis Skin Wound Narrative: The pressure ulceration on the patient's left heel is now completely healed and epithelialized. There is no sign of infection or cellulitis. There is no significant swelling or edema in the patient's left lower extremity. Neuro oriented x3, CN's II-XII intact bilaterally, moves all extremities and no focal motor deficits Sensorium / Orientation: awake, alert, oriented to person, oriented to place and oriented to time Speech: speech normal Psych Appearance: grossly normal and appropriate Attitude: calm Activity / Motor Behavior: appropriate eye contact Speech: normal speech Mood & Affect: euthymic mood Thought Process: normal thought process Thought Content: normal thought content Attention / Concentration: attention grossly intact Debridement Note Debridement Note No debridement was completed: No debridement was completed today (The left heel ulceration is now completely healed and epithelialized.) Post-Debridement Measurements and Additional Note: Post-Debridement Measurements/Treatment - Nurse 1 - General Ulcer Assessment Start: 03/23/25 13:08 Freq: Status: Active Protocol: [email or web address] Activity Type Activity Date Activity User E-sign Co-sign Detail Recorded Client Recorded Date Recorded By Document 03/23/25 13:08 KW [id number] 03/23/25 13:12 KW Document 03/30/25 13:17 KW [id number] 03/30/25 13:24 KW Document 04/13/25 13:14 KW [id number] 04/13/25 13:17 KW 03/23/25 03/30/25 04/13/25 13:08 13:17 13:14 - Today's Visit Information Type of service Follow-up Visit Follow-up Visit Follow-up Visit (Physician/MAINTENANCE CLERK (Physician/MAINTENANCE CLERK (Physician/MAINTENANCE CLERK ) ) ) Arrival Mode Ambulatory, Ambulatory, Ambulatory Walker Walker Patient Identification Verified (Name & Yes Yes Yes ) Height and Weight Body Mass Index (BMI) 38.7 38.7 38.7 BMI Classification Obese Obese Obese Vital Signs Temperature (97.8 F-99.1 F) 97.0 F L 96.4 F L 97.2 F L Temperature Source Temporal Temporal Temporal Pulse Rate (60-100) 84 79 Pulse Location Monitor Monitor Monitor Respiratory Rate (12-18) 16 16 18 Respiratory rate source Observation Observation Observation Oxygen Delivery Method Room Air Room Air Room Air Blood Pressure (90/60-120/80) 97/47 L 124/53 H Blood Pressure Mean 63 76 Source Monitor Monitor Monitor Position Semi-Fowlers Semi-Fowlers Semi-Fowlers Blood Pressure Location Left Arm Right Arm Left Arm History Since Last Visit- (Skip if this is Patient's initial visit) Have you changed medications since your No No No last visit? Any new allergies or adverse reactions No No No Had a fall/change in ADL's that may No No No increase risk of falls Signs or symptoms of abuse and/or No No No neglect since last visit Have you been in the hospital since your No No No last visit? Has dressing in place as prescribed Yes Yes Yes Has compression in place as prescribed Yes Yes Yes Has offloadiing in place as prescribed N/A N/A N/A Experienced any changes in pain level or No No No management Left Footwear Regular Shoe Regular Shoe Regular Shoe Right Footwear Regular Shoe Regular Shoe Regular Shoe Pain Scale: 0-10 Numeric Is Patient Pain Free? Yes Yes Yes - Nurse 1 - General Ulcer Measurement Start: 03/23/25 13:08 Freq: Status: Active Protocol: Activity Type Activity Date Activity User E-sign Co-sign Detail Recorded Client Recorded Date Recorded By Document 03/23/25 13:08 KW [id number] 03/23/25 13:12 KW Document 03/30/25 13:17 KW [id number] 03/30/25 13:24 KW Document 04/13/25 13:14 KW [id number] 04/13/25 13:17 KW 03/23/25 03/30/2504/13/25 13:08 13:17 13:14 Wound Center Nurse 1 #1 LT HEEL -Current Size (cm) - Length 0.5 0.3 0.1 -Current Size (cm) - Width 1.1 1 0.1 -Current Size (cm) - Depth 0 0.1 0 -Total Square Cm 0.55 0.3 0.01 -Date of Last Picture (Recall this 03/23/25 field) -Epithelialization Large 67-100% -Exudate Amt Medium Small None Present -Exudate Type Serosanguineous Serosanguineous -Wound Margin Distinct, Distinct, Distinct, Outline Outline Outline Attached Attached Attached -Granulation Amt Large (67-100%) Large (67-100%) -Granulation Quality Red [place],Red -Necrosis Amt Large (67-100%) -Necrotic Tissue Type Eschar -Texture (Bebe-wound Skin Appearance) Assessed Assessed,Callus Assessed -Moisture (Bebe-wound Skin Appearance) Assessed Assessed Assessed -Color (Bebe-wound Skin Appearance) Assessed Assessed Assessed -Temperature (Bebe-wound Skin No Abnormality No Abnormality No Abnormality Appearance) (Pt Warm) (Pt Warm) (Pt Warm) -Tenderness on Palpation (Bebe-wound No No Skin Appearance) -Ulcer Cleansing Soap and Water Soap and Water Soap and Water -Foul Odor after Cleansing No No No -Anesthetic Used 5% Lidocaine 5% Lidocaine Gel Gel -Wound Comment(s) scabbed Left Calf (cm) 43 Left Ankle (cm) 24.5 WC - Nurse 2 - General Ulcer CM Notes Start: 03/23/25 13:08 Freq: Status: Active Protocol: Activity Type Activity Date Activity User E-sign Co-sign Detail Recorded Client Recorded Date Recorded By Document 03/23/25 13:29 [id number] 03/23/25 13:31 JF Document 03/30/25 13:55 [id number] 03/30/25 13:59 JF 03/23/25 03/30/25 13:29 13:55 Wound Center Nurse 2 #1 LT HEEL -Time 13:29 -Correct Patient Yes Yes -Correct Side, Site, Position Yes No -Correct Procedure Yes No -Procedure Performed Yes No -Type of Procedure Debridement -Clinical Debridement Subcutaneous -Tissue Removed Subcutaneous -Post Debridement (cm) - Length 0.5 -Post Debridement (cm) - Width 1.1 -Post Debridement (cm) - Depth 0.1 -Total Square (Post) (cm) 0.55 -Area of Debridement (cm) - Length 0.5 -Area of Debridement (cm) - Width 1.1 -Total Square (Area) (cm) 0.55 -Tunneling No -Undermining/Tunneling No -Circular Undermining No -Wound/Ulcer Outcome Not Healed Not Healed -Ulcer Cleansing Rinsed/ Irrigated with Saline -Foul Odor after Cleansing No -Bioengineered Tissue Yes -Type of Bioengineered Tissue Epifix 18mm Disc -Expiration Date 09/18/29 -Product Lot Number [id number] -Percent Used 100 -Lot number of Saline Used [id number] -Bleeding Controlled with Pressure -Treatment Response Procedure Tolerated Well -Offloading No -Debridement - Subq, 1st 20sq cm No -Apply Skin Sub - 1st 25 sq cm - Feet 1 -Epifix 18mm Disc Application 1-4 3 Pain Scale: 0-10 Numeric Is Patient Pain Free? Yes Yes - Nurse 3 - General Ulcer D/C NN Start: 03/23/25 13:08 Freq: Status: Active Protocol: Activity Type Activity Date Activity User E-sign Co-sign Detail Recorded Client Recorded Date Recorded By Document 03/23/25 13:50 KW [id number] 03/23/25 13:51 KW Document 03/30/25 13:59 [id number] 03/30/25 14:00 KW 03/23/25 03/30/25 13:50 13:59 Wound Care Center Nurse 3 #1 LT HEEL -Primary Dressing Covered/Secured with Dry Gauze & Dry Gauze & Roll Gauze, Roll Gauze, Secured with Secured with Tape Tape LLE -Tubular Bandage Double Layer Double Layer -Size of Tubigrip Used Size F Size F -Size F ($) 2 2 Pain Scale: 0-10 Numeric Is Patient Pain Free? Yes Yes - Visit Discharge Discharge Condition Stable Ambulatory Status Ambulatory, Walker Transportation Private Auto Medication Reconcilliation completed & No provided to patient/care provider Clinical Summary of Care Provided Yes Charges/Coding Visit Charges Office Visits / Consults: [id number] OV L3 Est 20min Assessment/Plan Assessment/Plan (1) Pressure ulcer of left heel, stage 3: CODE(S): L89.623 - Pressure ulcer of left heel, stage 3 (2) Chronic venous insufficiency: CODE(S): I87.2 - Venous insufficiency (chronic) (peripheral) (3) Essential (primary) hypertension: CODE(S): I10 - Essential (primary) hypertension (4) CLL (chronic lymphocytic leukemia): CODE(S): C91.10 - Chronic lymphocytic leukemia of B-cell type not having achieved remission (5) GERD (gastroesophageal reflux disease): CODE(S): K21.9 - Gastro-esophageal reflux disease without esophagitis (6) Vitamin D deficiency: CODE(S): E55.9 - Vitamin D deficiency, unspecified (7) Severe pulmonary hypertension: CODE(S): I27.20 - Pulmonary hypertension, unspecified (8) Hyperlipidemia: CODE(S): E78.5 - Hyperlipidemia, unspecified QUALIFIERS: Hyperlipidemia type: mixed hyperlipidemia Qualified Code(s): E78.2 - Mixed hyperlipidemia (9) Secondary pulmonary arterial hypertension: CODE(S): I27.21 - Secondary pulmonary arterial hypertension (10) Paroxysmal atrial fibrillation: CODE(S): I48.0 - Paroxysmal atrial fibrillation (11) Lower extremity edema: CODE(S): R60.0 - Localized edema (12) Debility: CODE(S): R53.81 - Other malaise (13) Renal insufficiency: CODE(S): N28.9 - Disorder of kidney and ureter, unspecified (14) Chronic kidney disease: CODE(S): N18.9 - Chronic kidney disease, unspecified (15) Arthritis: CODE(S): M19.90 - Unspecified osteoarthritis, unspecified site (16) History of cataract surgery: CODE(S): Z98.49 - Cataract extraction status, unspecified eye (17) History of hip surgery: CODE(S): Z98.890 - Other specified postprocedural states PLAN: Plan This is an 84-year-old female with multiple pre-existing medical problems which are listed herein. She is not diabetic. She had recently been hospitalized at [facility], during which time she developed a left heel pressure ulceration, stage III. As of today's visit, the patient's left heel ulceration is now completely healed and epithelialized. Therefore, she is to be discharged, with follow-up on an as-needed basis. The patient has been instructed to pad and protect the area for several more weeks to avoid trauma or friction to the area. To assist in this effort, she is to continue using her Podus boot for offloading purposes. She is to continue with conservative measures to prevent swelling in her lower extremities, such as leg elevation, avoidance of idle standing and sitting, activity, and the use of graduated compression stockings. Total time: 22 minutes
--- NOTE | 2025-04-14 13:31 | WC ---
PHOTO 04/13/25 LEFT HEEL
== END 2025-04-15 14:37 | disposition home or self-care (01) ==
LOC: WC 13:30
PROVIDERS: PCP Internal Medicine; Referring Provider Clinical Nurse Specialist; Visit Provider Surgery
DX: L89.623 Pressure ulcer of left heel, stage 3 (principal); C91.10 Chronic lymphocytic leukemia of B-cell type not having achieved remission; I27.21 Secondary pulmonary arterial hypertension; I48.0 Paroxysmal atrial fibrillation; N18.30 Chronic kidney disease, stage 3 unspecified; K21.9 Gastro-esophageal reflux disease without esophagitis; M19.90 Unspecified osteoarthritis, unspecified site; I12.9 Hypertensive chronic kidney disease with stage 1 through stage 4 chronic kidney disease, or unspecified chronic kidney disease; Z87.891 Personal history of nicotine dependence; I87.2 Venous insufficiency (chronic) (peripheral); E55.9 Vitamin D deficiency, unspecified; R60.0 Localized edema; E78.2 Mixed hyperlipidemia; Z79.899 Other long term (current) drug therapy
CPT/HCPCS: 15275; 99203; 99213; Q4186; G0463